=== PATIENT | male | born 1935 | race Caucasian/White ===

== ENCOUNTER 2017-01-10 06:09 | Inpatient (IN) ==
--- NOTE | 2017-01-10 06:34 | Emergency Department Note ---
Disposition Clinical Impression: Dyspnea Disposition: Still a Patient Condition: Fair Referrals: NO,PCP [Non-Partnered Physician] - Forms: ED Satisfaction Letter General Adult HPI - General Chief complaint: ED Fever Stated complaint: chills fever n/v AMXIMILIAN Time Seen by Provider: 01/10/17 06:25 Source: patient, family Limitations: no limitations Nursing Notes Reviewed: Yes Vital Signs Reviewed: Yes - History of Present Illness HPI Narrative: 81-year-old male with a history of COPD presents to the emergency department with a chief complaint of shortness of breath and shaking chills. He woke up tonight and was having some difficulties breathing and was having subjective fevers and chills. He had pneumonia recently and his symptoms seem similar. He is a former heavy smoker. He is not sure dependent but he has had some low oxygen saturations in the past that he has been resistant to oxygen therapy at home. No history of DVT or PE. No history of coronary artery disease. Yesterday he was at a and was outside but no other sick contacts. Pain Scale: 0 - Related Data Home Medications Medication Instructions Recorded Confirmed Desonide [Desowen] 1 appl TP BID PRN 10/11/16 10/11/16 Gabapentin [Neurontin] 600 mg PO TID 10/11/16 10/11/16 Imiquimod [Zyclara] 1 appl TP HS MDD See Comment. 10/11/16 10/11/16 Omeprazole Magnesium [Prilosec Otc] 20 mg PO DAILY 10/11/16 10/11/16 OxyCODONE ER (12 HR) [OxyCONTIN] 15 mg PO TID 10/11/16 10/11/16 Oxycodone HCl/Acetaminophen 1 each PO BID PRN 10/11/16 10/11/16 [Percocet 10-325 mg Tablet] Tamsulosin [Flomax] 0.8 mg PO DAILY 10/11/16 10/11/16 Triamcinolone Acet 0.1% CRM 1 appl TP BID PRN 10/11/16 10/11/16 [Kenalog] Previous Rx's Medication Instructions Recorded Azithromycin [Zithromax Tri-Rinku] 500 mg PO DAILY #10 tablet 10/13/16 Cefdinir [Omnicef] 300 mg PO BID #20 capsule 10/13/16 Allergies Allergy/AdvReac Type Severity Reaction Status Date / Time No Known Allergies Allergy Verified 10/29/15 07:47 All systems ED: reviewed and negative except as stated. Constitutional: Reports: fever, chills Cardiovascular: Denies: chest pain Respiratory: Reports: cough Gastrointestinal: Denies: abdominal pain, nausea, vomiting Musculoskeletal: Reports: back pain (chronic back pain with no recent change). Denies: neck pain Neurological: Denies: headache Past Medical History - Past Medical History Medical history: Reports: arthritis, COPD Surgical history: Reports: non-contributory, cancer surgery Psychiatric history: Reports: no psych history - Social History Smoking Status: Former smoker Smokeless Tobacco Status: No Alcohol use: Reports: unknown Drug use: Reports: none Physical Exam General: Appears well, alert and oriented x 3 Cardiovascular: Regular rate and rhythm. S1, S2. Systolic murmur. No rubs or gallops. Respiratory: Coarse breath sounds bilaterally without any rales or wheezing. Occasional dry cough. No respiratory distress Abdomen: Soft, nontender. No guarding, rebound or rigidity. Eyes: conjunctiva clear HENT: No oral mucosal lesions. Moist mucous membranes Neuro: Cranial nerves intact. No motor or sensory deficit. Musculoskeletal: No joint tenderness or swelling. No signs of DVT Skin: No lesions. No diaphoresis. Normal turgor. Normal color Psych: Appropriate - General Limitations: no limitations General appearance: alert, in no apparent distress Course Course Narrative: 81-year-old with a history of COPD presents to the emergency department with new onset shaking chills and cough. He has had pneumonia in the past and this seems similar. Patient initially hypoxic in the mid 80s on room air. He is notching dependent at home. Titrated to 4 L with good response. Labs and imaging pending. Vital Signs Temperature 98.2 F 01/10/17 06:10 Pulse Rate 97 01/10/17 06:10 Respiratory Rate 20 01/10/17 06:10 Blood Pressure 179/76 01/10/17 06:10 O2 Sat by Pulse Oximetry 88 L 01/10/17 06:10 Temperature 98.2 F 01/10/17 06:10 Pulse Rate 97 01/10/17 06:10 Respiratory Rate 20 01/10/17 06:10 Blood Pressure 179/76 01/10/17 06:10 O2 Sat by Pulse Oximetry 93 L 01/10/17 06:27 Oxygen Delivery Oxygen Delivery Room Air Medical Decision Making - EKG Data EKG #1 EKG results narrative: EKG shows a sinus rhythm with a rate of 85 beats a minute. No ST elevation or depression. UT, QRS, QT interval within normal limits. Normal axis. No ischemic T-wave changes. Attestation Statement - Attestation Attestation: Dr Hills note: Pt seen in conjunction w/ Resident Dr Kenneth Parrish; Please see his charting for complete documentation; I spent face to face time with the pt; the patient arrived fever or vomiting and shortness of breath progressive since around dinnertime last night. On arrival he is hypoxic on room air at 85%. He will undergo an emergent medical screening evaluation regarding this will likely require admission due to his hypoxia. At the time of my evaluation he is on nasal cannula and stable at 90-93%. HEENT mentate well. He has stable vital signs other than his hypoxia which has been treated. History of pneumonia which ; he will be signed out to attending physician at 7 AM for reevaluation, laboratory and imaging review, and disposition presented similar to this just months ago.
[2017-01-10 07:27] LABS: BUN/Creatinine Ratio 27 (6-26); Blood Urea Nitrogen 29 mg/dL (8-26); Calcium 9.8 mg/dL (8.6-10.8); Carbon Dioxide 26 mEq/L (19-29); Chloride 108 mEq/L (98-109); Glucose 115 mg/dL (70-99); Osmolality,Calculated 301 (280-300); Potassium 4.5 mEq/L (3.5-4.5); Sodium 142 mEq/L (136-145); eGFR For African Americans > 60 (> 60); eGFR For Non-African Americans > 60 (> 60)
[2017-01-10 07:35] LABS: Basophils % 0.3 %; Eosinophils # 0.2 K/mcL (0.0-0.6); Eosinophils % 1.3 %; Hematocrit 43.6 % (37.5-50.1); Hemoglobin 14.2 g/dL (12.9-16.9); Immature Granulocytes % 0.8 % (0-4); Lymphocytes # 0.8 K/mcL (0.6-4.6); Mean Corpuscular HGB Conc 32.6 g/dL (31.6-35.5); Mean Corpuscular Hemoglobin 28.9 pg (28.0-33.3); Mean Corpuscular Volume 88.6 fL (83.0-100.0); Mean Platelet Volume 11.5 fL (9.4-12.4); Monocytes # 0.6 K/mcL (0.0-1.3); Monocytes % 4.8 %; Neutrophils # 10.3 K/mcL (1.6-8.9); Platelet Count 184 K/mcL (140-400); Red Blood Count 4.92 M/mcL (4.19-5.50); Red Cell Distribution Width 15.1 % (11.5-14.5); Segmented Neutrophils % 85.8 %
[2017-01-10] MEDS ORDERED: 0.9 % Sodium Chloride 1,000 ML IVC ONE (07:41)
[2017-01-10] MEDS ORDERED: Ipratropium/Albuterol Neb 3 ML IH ONE (07:41)
[2017-01-10] MEDS ORDERED: Levofloxacin 750 MG/150 ML 750 MG/150 ML BAG IVPB ONE (07:45)
--- NOTE | 2017-01-10 07:51 | Emergency Department Note ---
Disposition Clinical Impression: Community acquired pneumonia, Hypoxia Disposition: Admitted As Inpatient Condition: Fair Referrals: NO,PCP [Non-Partnered Physician] - Forms: ED Satisfaction Letter Time of Disposition: 09:41 General Adult HPI - General Chief complaint: ED Fever Stated complaint: chills fever n/v MAXIMILIAN Time Seen by Provider: 01/10/17 06:25 Source: patient, family Limitations: no limitations - History of Present Illness Pain Scale: 0 - Related Data Home Medications Medication Instructions Recorded Confirmed Gabapentin [Neurontin] 600 mg PO TID 10/11/16 01/10/17 OxyCODONE ER (12 HR) [OxyCONTIN] 15 mg PO TID 10/11/16 01/10/17 Oxycodone HCl/Acetaminophen 1 each PO BID PRN 10/11/16 01/10/17 [Percocet 10-325 mg Tablet] Tamsulosin [Flomax] 0.8 mg PO DAILY 10/11/16 01/10/17 Allergies Allergy/AdvReac Type Severity Reaction Status Date / Time No Known Allergies Allergy Verified 01/10/17 09:38 Constitutional: Reports: fever, chills Cardiovascular: Denies: chest pain Respiratory: Reports: cough Gastrointestinal: Denies: abdominal pain, nausea, vomiting Musculoskeletal: Reports: back pain (chronic back pain with no recent change). Denies: neck pain Neurological: Denies: headache Past Medical History - Past Medical History Medical history: Reports: arthritis, COPD Surgical history: Reports: non-contributory, cancer surgery Psychiatric history: Reports: no psych history - Social History Smoking Status: Former smoker Smokeless Tobacco Status: No Alcohol use: Reports: unknown Drug use: Reports: none Physical Exam - General Limitations: no limitations General appearance: alert, in no apparent distress Course - Reevaluation(s) Reevaluation #1: I assumed care of the patient at change of shift from the night physician. Patient reports that he started feeling sick last night before going to bed. He describes chills last night. Family members report seeing him be more short of breath and wheezing last night. He is worse this morning. On arrival he was hypoxic. He is not on oxygen at home. He is febrile at this time. Chest x -ray shows a right lower lobe pneumonia. I do not see other indications of sepsis. We will treat the patient for pneumonia. I added extra lab work to complete the workup. I ordered IV antibiotics and breathing treatments and fluids. I will talk to the hospitalist about admitting the patient. Time: 07:50 Reevaluation #2: Patient is feeling better after treatments. We will arrange the admission. Time: 09:39 - Consultations Consultation #1: I discussed the case with Dr. Ventura, the hospitalist on-call. She is accepted patient for admission to the hospital. No further orders were given. Time: 09:40 Vital Signs Temperature 98.2 F 01/10/17 06:10 Pulse Rate 97 01/10/17 06:10 Respiratory Rate 20 01/10/17 06:10 Blood Pressure 179/76 01/10/17 06:10 O2 Sat by Pulse Oximetry 88 L 01/10/17 06:10 Temperature 99.7 F H 01/10/17 08:50 Pulse Rate 113 01/10/17 08:50 Respiratory Rate 18 01/10/17 08:50 Blood Pressure 145/79 01/10/17 08:50 O2 Sat by Pulse Oximetry 92 L 01/10/17 08:50 Oxygen Delivery Oxygen Delivery Nasal Cannula Medical Decision Making - Medical Records Medical records reviewed: Yes I reviewed the patient's medical records. - Lab Data Lab results reviewed: Yes I reviewed the patient's lab results. Result diagrams: 01/10/17 07:01 01/10/17 07:01 Lab Results 01/10/17 01/10/17 01/10/17 Range/Units 07:01 07:01 07:01 WBC 11.9 H (4.3-11.1) K/mcL RBC 4.92 (4.19-5.50) M/mcL Hgb 14.2 (12.9-16.9) g/dL Hct 43.6 (37.5-50.1) % MCV 88.6 (83.0-100.0) fL MCH 28.9 (28.0-33.3) pg MCHC 32.6 (31.6-35.5) g/dL RDW 15.1 H (11.5-14.5) % Plt Count 184 (140-400) K/mcL MPV 11.5 (9.4-12.4) fL Immature Gran % 0.8 (0-4) % Seg Neutrophils % 85.8 % Lymphocytes % 7.0 % Monocytes % 4.8 % Eosinophils % 1.3 % Basophils % 0.3 % Neutrophils # 10.3 H (1.6-8.9) K/mcL Lymphocytes # 0.8 (0.6-4.6) K/mcL Monocytes # 0.6 (0.0-1.3) K/mcL Eosinophils # 0.2 (0.0-0.6) K/mcL Basophils # 0.0 (0.0-0.2) K/mcL Sodium 142 (136-145) mEq/L Potassium 4.5 (3.5-4.5) mEq/L Chloride 108 (98-109) mEq/L Carbon Dioxide 26 (19-29) mEq/L BUN 29 H (8-26) mg/dL Creatinine 1.07 (0.72-1.25) mg/dL Est GFR ( Amer) > 60 (> 60) Est GFR (Non-Af Amer) > 60 (> 60) BUN/Creatinine Ratio 27 H (6-26) Glucose 115 H (70-99) mg/dL Calculated Osmolality 301 H (280-300) Lactic Acid (0.5-2.2) mmol/L Calcium 9.8 (8.6-10.8) mg/dL Troponin I 0.04 H* (0-0.03) ng/mL B-Natriuretic Peptide (0-100) pg/mL Urine Color (Yellow) Urine Clarity (Clear) Urine pH (5.0-8.0) pH Units Ur Specific [place] (1.010-1.025) Urine Protein (Neg-Trace) mg/dL Urine Glucose (UA) (Normal) mg/dL Urine Ketones (Negative) mg/dL Urine Blood (Negative) Urine Nitrite (Negative) Urine Bilirubin (Negative) Urine Urobilinogen (Normal) mg/dL Ur Leukocyte Esterase (Negative) Ur Culture Indicated? (NO) 01/10/17 01/10/17 01/10/17 Range/Units 07:01 08:08 09:05 WBC (4.3-11.1) K/mcL RBC (4.19-5.50) M/mcL Hgb (12.9-16.9) g/dL Hct (37.5-50.1) % MCV (83.0-100.0) fL MCH (28.0-33.3) pg MCHC (31.6-35.5) g/dL RDW (11.5-14.5) % Plt Count (140-400) K/mcL MPV (9.4-12.4) fL Immature Gran % (0-4) % Seg Neutrophils % % Lymphocytes % % Monocytes % % Eosinophils % % Basophils % % Neutrophils # (1.6-8.9) K/mcL Lymphocytes # (0.6-4.6) K/mcL Monocytes # (0.0-1.3) K/mcL Eosinophils # (0.0-0.6) K/mcL Basophils # (0.0-0.2) K/mcL Sodium (136-145) mEq/L Potassium (3.5-4.5) mEq/L Chloride (98-109) mEq/L Carbon Dioxide (19-29) mEq/L BUN (8-26) mg/dL Creatinine (0.72-1.25) mg/dL Est GFR ( Amer) (> 60) Est GFR (Non-Af Amer) (> 60) BUN/Creatinine Ratio (6-26) Glucose (70-99) mg/dL Calculated Osmolality (280-300) Lactic Acid 1.3 (0.5-2.2) mmol/L Calcium (8.6-10.8) mg/dL Troponin I (0-0.03) ng/mL B-Natriuretic Peptide 153 H (0-100) pg/mL Urine Color Yellow (Yellow) Urine Clarity Clear (Clear) Urine pH 5.5 (5.0-8.0) pH Units Ur Specific [place] 1.019 (1.010-1.025) Urine Protein Negative (Neg-Trace) mg/dL Urine Glucose (UA) Normal (Normal) mg/dL Urine Ketones Negative (Negative) mg/dL Urine Blood Negative (Negative) Urine Nitrite Negative (Negative) Urine Bilirubin Negative (Negative) Urine Urobilinogen Normal (Normal) mg/dL Ur Leukocyte Esterase Negative (Negative) Ur Culture Indicated? NO (NO) - Radiology Data Radiology results reviewed: Yes I reviewed the patient's radiology results.
[2017-01-10 09:19] LABS: Bilirubin,Urine Negative (Negative); Blood,Urine Negative (Negative); Clarity,Urine Clear (Clear); Color,Urine Yellow (Yellow); Glucose,Urine (UA) Normal (Normal); Ketones,Urine Negative (Negative); Leukocyte Esterase,Urine Negative (Negative); Nitrite,Urine Negative (Negative); PH,Urine 5.5 pH Units (5.0-8.0); Protein,Urine Negative (Neg-Trace); Specific Gravity,Urine 1.019 (1.010-1.025); Urobilinogen,Urine Normal (Normal)
[2017-01-10] MEDS ORDERED: *HR* OxyCODONE/APAP 5/325 TABLET PO ONE (10:01)
[2017-01-10] MEDS ORDERED: 0.9 % Sodium Chloride 1,000 ML IV ONE (10:01)
[2017-01-10] MEDS ORDERED: Ondansetron 4 MG/2 ML VIAL IVP PRN (12:00)
[2017-01-10] MEDS ORDERED: Acetaminophen 325 MG TABLET PO PRN (12:00)
[2017-01-10] MEDS ORDERED: Naloxone 0.4 MG/ML INJ IVP PRN (12:00)
[2017-01-10] MEDS ORDERED: Ipratropium/Albuterol Neb 3 ML IH PRN (12:00)
[2017-01-10] MEDS: Ipratropium/Albuterol Neb 3 ML IH SCH ×4 (13:28→23:43)
[2017-01-10] MEDS ORDERED: *HR* OxyCODONE/APAP 10/325 TABLET PO PRN (13:46)
--- NOTE | 2017-01-10 13:52 | Internal Med History&Physical ---
Date of Encounter: 01/10/17 Time of Encounter: 12:30 Assessment and Plan (1) Acute respiratory failure with hypoxemia Current visit: Yes Status: Acute Secondary to right-sided pneumonia. r/o non-resolving pna. Patient was diagnosed with pneumonia in September 2016 and never recovered. He completed a 7 day antibiotic course (omnicef and azithormycin). At that time, CT of the chest showed bilateral airspace disease with some nodular lesions and a new 1.7 cm left pleural-based nodule. He continued to have cough of productive sputum, and shortness of breath for at least 2 months. He was using albuterol once daily at home. Family reports the patient is not very eager to seek medical care and continued doing all his regular activities [place] despite instructions given by his PCP to limit his exposure to inhalants. CXR showed increased opacification in the right lower lobe. EKG showed sinus rhythm HR 85, no acute ischemic changes. Oxygen supplementation to keep SaO2 90-92% IV Levaquin. Albuterol/Atrovent/Mucomyst nebulizations. mucinex. Check CT of the chest given prior nodular disease adn to r/o mucuous plug or bronchiectasis. Check urine Legionella, urine strep pneumonia. (2) Community acquired pneumonia Current visit: Yes Status: Acute right-sided PNA. plan as above. (3) COPD exacerbation Current visit: No Status: Acute plan as above. albuterol/atrovent nebs symbicort. mucinex levaquin (4) Leg edema Current visit: Yes Status: Acute check echocardiogram, LFT and tsh. negative urinalysis. Qualifiers: Laterality: bilateral Qualified Code(s): R60.0 - Localized edema (5) Elevated troponin Current visit: Yes Status: Acute Secondary to demand supply mismatch from pneumonia and COPD exacerbation. ASA. (6) Chronic back pain Current visit: Yes Status: Chronic Continue home medication of oxycodone ER and Percocet for breakthrough pain. Qualifiers: Back pain location: low back pain Back pain laterality: unspecified Sciatica presence: without sciatica Qualified Code(s): M54.5 - Low back pain; G89.29 - Other chronic pain Internal Medicine - H&P: HPI Chief complaint: Worsening of shortness of breath and productive cough since yesterday. Admitted From: Home Plans for Post Hospital Care: Home History of present illness: Mr. Fair is a 81 year old male with past medical history of COPD not on oxygen , and back surgery on chronic opiates. Patient is a very poor historian. Family is at bedside and answering all questions in more detail. Per , patient was diagnosed with pneumonia in September 2016 and never recovered. At that time, CT of the chest showed bilateral airspace disease with some nodular lesions and a new 1.7 cm left pleural-based nodule. He continued to have cough of productive sputum, and shortness of breath for at least 2 months. He was using albuterol once daily at home. 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 Yesterday night, he developed chills, night sweats and his cough got worse. His family brought him to our ER this morning. No chest pain. No palpitations. No headache. No abdominal pain. No bleeding. No lower extremity edema in the past. No change in bowel movements. No urinary complaints. No focal deficits. No headaches. No lightheadedness. No syncope. In our ED, patient was hypoxemic SaO2 86% on room air. He was placed on 4 L of oxygen via nasal cannula. Past Med Surg Social Fam HX - Past Medical History Medical history: arthritis, COPD Psychiatric history: no psych history - Past Surgical History Surgical History: non-contributory, cancer surgery - Social History Smoking Status: Former smoker Smokeless Tobacco Status: No Alcohol use: unknown Drug use: none - Family History Mother Hx Family Respiratory Disorders: Yes (COPD) Internal Medicine - H&P: Meds Gabapentin [Neurontin] 600 mg PO TID 10/11/16 [History] OxyCODONE ER (12 HR) [OxyCONTIN] 15 mg PO TID 10/11/16 [History] Oxycodone HCl/Acetaminophen [Percocet 10-325 mg Tablet] 1 each PO BID PRN [History] Tamsulosin [Flomax] 0.8 mg PO DAILY 10/11/16 [History] Albuterol Sulfate [Proair Hfa] 2 puff IH Q4H PRN 01/10/17 [History] Meloxicam 7.5 mg PO DAILY 01/10/17 [History] Allergies No Known Allergies Allergy (Verified 01/10/17 09:38) All Systems PM: A 10-system review of systems was performed and is negative for pertinent findings except as documented above in the HPI. - Constitutional Vitals: Temp Pulse Resp BP Pulse Ox 99.7 F H 81 16 108/67 94 L 01/10/17 08:50 01/10/17 12:54 01/10/17 12:54 01/10/17 12:54 01/10/17 12:54 General appearance: Present: cooperative, mild distress, A&O X 3, pleasant, answers questions appropriately - Head Head exam: Present: atraumatic - Eye Eye exam: Present: PERRL, sclera anicteric - Neck Neck exam general surgery: Present: supple, trachea midline. Absent: lymphadenopathy - Respiratory Additional comments: Diminished air entry bilateral. Crackles right lower lung dover. Mild wheezing bilaterally. - Cardiovascular Cardiovascular exam: Present: RRR - GI/Abdominal GI/Abdominal exam: Present: soft. Absent: distended, tenderness - Extremities Exam Extremities exam: Present: pedal edema. Absent: joint swelling Additional comments: 1+ lower extremity edema up to the knees. - Neurological Exam Neurological exam: Present: alert, oriented X3, no focal deficits. Absent: facial droop, speech deficit - Skin Skin exam: Present: dry. Absent: rash Internal Med - H&P Results - Labs CBC & Chem 7: 01/10/17 07:01 01/10/17 07:01 Labs: Short CBC 01/10/17 Range/Units 07:01 WBC 11.9 H (4.3-11.1) K/mcL Hgb 14.2 (12.9-16.9) g/dL Hct 43.6 (37.5-50.1) % Plt Count 184 (140-400) K/mcL Neutrophils # 10.3 H (1.6-8.9) K/mcL BMP 01/10/17 07:01 Sodium 142 Potassium 4.5 Chloride 108 Carbon Dioxide 26 BUN 29 H Creatinine 1.07 Glucose 115 H Calcium 9.8 Cardiac Enzymes 01/10/17 Range/Units 07:01 Troponin I 0.04 H* (0-0.03) ng/mL Urine 01/10/17 Range/Units 09:05 Urine Color Yellow (Yellow) Urine Clarity Clear (Clear) Urine pH 5.5 (5.0-8.0) pH Units Ur Specific [place] 1.019 (1.010-1.025) Urine Protein Negative (Neg-Trace) mg/dL Urine Glucose (UA) Normal (Normal) mg/dL - Impressions ITS Impressions Chest X-Ray 01/10/17 06:33 IMPRESSION: Increased opacification in the right lower lobe possibly representing pneumonia D/ / Kyle Mosley MD / Kyle Mosley MD Interpreting Provider: Kyle Mosley MD
[2017-01-10] MEDS ORDERED: *HR* OxyCODONE ER (12 HR) 10 MG TABLET PO SCH ×2 (16:00→18:00)
[2017-01-10] MEDS: Gabapentin 300 MG CAPSULE PO SCH ×2 (16:38→21:17)
[2017-01-10] MEDS: Acetylcysteine 10% 2 ML INHSOL IH SCH ×2 (16:51→20:04)
[2017-01-10] MEDS: *HR* Heparin 5,000 UNIT/ML VIAL SQ SCH (17:58)
[2017-01-10] MEDS: *HR* OxyCODONE ER (12 HR) 10 MG TABLET PO SCH (23:56)
[2017-01-11] MEDS: Ipratropium/Albuterol Neb 3 ML IH SCH ×6 (04:19→23:19)
[2017-01-11 06:24] LABS: Basophils % 0.3 %; Eosinophils # 0.1 K/mcL (0.0-0.6); Eosinophils % 0.8 %; Hematocrit 38.2 % (37.5-50.1); Immature Granulocytes % 0.6 % (0-4); Lymphocytes # 1.5 K/mcL (0.6-4.6); Mean Corpuscular HGB Conc 31.7 g/dL (31.6-35.5); Mean Corpuscular Hemoglobin 28.1 pg (28.0-33.3); Mean Corpuscular Volume 88.8 fL (83.0-100.0); Mean Platelet Volume 11.3 fL (9.4-12.4); Monocytes # 0.5 K/mcL (0.0-1.3); Monocytes % 4.8 %; Neutrophils # 8.4 K/mcL (1.6-8.9); Platelet Count 160 K/mcL (140-400); Red Cell Distribution Width 15.3 % (11.5-14.5); Segmented Neutrophils % 79.5 %
[2017-01-11 06:39] LABS: Alanine Aminotransferase 6 Units/L (0-55); Albumin 2.8 g/dL (3.5-5.0); Albumin/Globulin Ratio 1.1 (1.1-2.2); Alkaline Phosphatase 88 Units/L (38-126); Aspartate Amino Transferase 15 Units/L (5-34); BUN/Creatinine Ratio 26 (6-26); Bilirubin,Direct 0.2 mg/dL (0.0-0.5); Bilirubin,Indirect 0.2 mg/dL (0.0-1.2); Bilirubin,Total 0.4 mg/dL (0.2-1.2); Blood Urea Nitrogen 24 mg/dL (8-26); Calcium 9.3 mg/dL (8.6-10.8); Carbon Dioxide 25 mEq/L (19-29); Chloride 110 mEq/L (98-109); Globulin 2.6 g/dL (2.4-3.5); Glucose 104 mg/dL (70-99); Magnesium 1.3 mg/dL (1.6-2.6); Osmolality,Calculated 296 (280-300); Potassium 4.2 mEq/L (3.5-4.5); Sodium 141 mEq/L (136-145); Total Protein 5.4 g/dL (6.0-8.3); eGFR For African Americans > 60 (> 60); eGFR For Non-African Americans > 60 (> 60)
[2017-01-11 06:45] LABS: Hemoglobin 12.1 g/dL (12.9-16.9)
[2017-01-11] MEDS: *HR* Heparin 5,000 UNIT/ML VIAL SQ SCH ×2 (06:47→17:05)
[2017-01-11 06:51] LABS: Thyroid Stimulating Hormone 0.332 mcIU/mL (0.350-4.840)
[2017-01-11] MEDS: Acetylcysteine 10% 2 ML INHSOL IH SCH ×3 (07:32→23:19)
[2017-01-11] MEDS: Aspirin Enteric Coated 81 MG Tablet PO SCH (08:55)
[2017-01-11] MEDS: Gabapentin 300 MG CAPSULE PO SCH ×3 (08:56→21:10)
[2017-01-11] MEDS ORDERED: Levofloxacin 500 MG/100 ML 500 MG/100 ML BAG IVPB SCH (09:00)
--- NOTE | 2017-01-11 10:17 | ECHO - Doppler Report ---
Echocardiogram Name: Keny Fair Date of Study: 01/10/2017 Date: 1935 Ht: 72.0 in Medical Record#: [id number] Age: 81 Wt: 190.0 lb Gender: Male BSA: 2.08 Order #: [id number] Location: [facility] Room #: [id number] Reading Physician: Cody Weller DO, CLINT, JOHNATHAN LYON Trucker Hand: Shweta Huston Ordering Physician: Emily Sorensen MD Primary Physician: Dereje Banks MD Indications: LE Edema Impressions: LVEF 65%. Normal LV chamber size and function. Mild concentric left ventricular hypertrophy. Moderate left ventricular diastolic dysfunction. Normal right ventricular structure and function. Moderate pulmonary hypertension. No significant valvular dysfunction. Left Ventricular Wall Motion: Rest Echo Findings All wall segments showed normal motion. Findings: Study Quality * Technically adequate exam. ECG Findings * Normal sinus rhythm. Left Ventricle * LVEF 65%. * Normal LV chamber size and function. * Mild concentric left ventricular hypertrophy. * Moderate left ventricular diastolic dysfunction. Right Ventricle * Normal right ventricular structure and function. Left Atrium * Moderately dilated left atrium. Right Atrium * Severely dilated right atrium. Interatrial Septum * No evidence of PFO by color Doppler. Aortic Valve * Trileaflet aortic valve. * Moderately calcified aortic valve leaflets. * No aortic regurgitation. * No aortic stenosis. Mitral Valve * Mild mitral annular calcification * Mildly thickened mitral valve leaflets. * No mitral regurgitation. * No mitral stenosis. Tricuspid Valve * Normal tricuspid valve structure and function. * Trace tricuspid regurgitation. * Moderate pulmonary hypertension. Pulmonic Valve * Pulmonic valve not well visualized. Aorta * Normally sized aortic root. Pericardium * The pericardium appears normal. IVC * Normal IVC dimensions and inspiratory collapse. Pulmonary Artery * Normal visualized portions of the main pulmonary artery. History Years 60 Packs 1 05/11/2015 a Previous Echo was performed. Measurements: BP: 113/ 63 2D Normal Values RVIDd: 3.10 cm <2.7 cm IVSd: 1.40 cm 0.6 - 1.0 cm LVIDd: 4.50 cm 3.7 - 5.6 cm LVPWd: 1.40 cm 0.6 - 1.1 cm LVIDs: 2.80 cm 1.5 - 3.6 cm AO: 3.60 cm < 4.0 cm LA: 4.70 cm 2.0 - 4.0cm %FS: 37.80 cm >25 % LA volume: 79 Mitral Valve Peak E:.79 m/sec Peak A:.66 m/sec E/A Ratio:1.2 Peak E' Lat Jun:7.7 cm/s Peak E' Med Jun:6.14 cm/s E/E' Lat Ratio:10.3 E/E' Med Ratio:12.9 Tricuspid Valve TV Regurg Peak Grad: 41.00mmHg TV Regurg Peak Jun: 3.22m/sec Updated by Cody Weller DO, CLINT, JOHNATHAN LYON on 01/11/2017 10:08:46 AM electronically signed on 01/11/2017 10:12:59 AM with status of [employer] [place] [employer] [place]: 1=Normal, 2=Hypokinesis, 3=Akinesis, 4=Dyskinesis, 5=Aneurysmal, 6=Hyperkinetic, X=Not Visualized (Blank)=Missing
[2017-01-11] MEDS: *HR* OxyCODONE ER (12 HR) 10 MG TABLET PO SCH ×2 (11:08→23:35)
--- NOTE | 2017-01-11 13:38 | Internal Med Progress Note ---
<Ghulam Hernandez - Last Filed: 01/11/17 14:03> Date of Encounter: 01/11/17 Time of Encounter: 13:33 - Assessment and plan (1) Acute respiratory failure with hypoxemia Current Visit: Yes Status: Acute Assessment and plan: most likely 2nd to his CAP, and in setting of COPD exacerbation. CXR shows increased opacificaiton of right lower lobe, patient does not use O2 at home and is on 2L currently, Ct scan shows stable left apical nodule and infectious process in right lung base. Urine legionella and urine strep pneumonia negative. Blood cultures pending. Patient on IV levofloxacin will switch to PO. We will also continue albuterol/atorvent/mucomyst. Patient sob has improved considerably. As he is still on O2, plan will be to wean him off and if patient cannot tolerate it than he will need home O2 qualification. (2) Community acquired pneumonia Current Visit: Yes Status: Acute Assessment and plan: New onset of CAP as stated above. CT Chest shows infectious process in Right lung base. Patient is on Levaquin. His sob has improved considerably. We will continue to follow his respiratory status. (3) Elevated troponin Current Visit: Yes Status: Acute Assessment and plan: On admission elevated troponin of 0.04. NO hx of cardiac issues. Echocardiogram shows EF 65% with no wall motion abnormalaties. Troponin elevation most likely secondary to COPD exacerbation and pneumonia. Patient's shortness of breath improved considerably after being treated for COPD exacerbation pneumonia. He denies chest pain, palpitations. (4) Leg edema Current Visit: Yes Status: Resolved Assessment and plan: Patients like edema has improved. Echocardiogram shows EF of 65% with moderate left ventricular diastolic dysfunction. Qualifiers: Laterality: bilateral Qualified Code(s): R60.0 - Localized edema (5) COPD exacerbation Current Visit: Yes Status: Acute Assessment and plan: COPD exacerbation most likely secondary to pneumonia. We will continue bronchodilators, Levaquin, and Symbicort. (6) DVT prophylaxis Current Visit: No Status: Acute Assessment and plan: Continue heparin subcutaneous. (7) Pulmonary nodule Current Visit: No Status: Chronic Assessment and plan: Patient has a stable 1.7 cm left lung apex nodule on CT scan. Pulmonology was consulted and has ordered outpatient PET scan. Patient will also follow up outpatient with Dr. De Oliveira. - Subjective Interval history: 81 y/o M hx of COPD, presented with cc of chills, and night sweats. He had worsening cough as well. Patient was hypoxemic on admission and was placed on 4L O2. He has had a previous admission in [facility] or pneumonia where he CT showed a 1.7 cm nodular lesion of left lung apex. Repeat CT shows stable nodule , resolution of previous pneumonia and new evidence of pneumonia in right lung base. Patient this morning denied sob, chest pain, cough, fever, chills. He has no family hx of lung cancer. 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 States he is exponsed to constant dust. Furthermore, patient states he becomes easily sob with activity which has worsened since his last admission for pneumonia SEP 2016. - Constitutional Vitals: Temp Pulse Resp BP Pulse Ox 97.6 F 65 18 137/95 91 L 01/11/17 07:00 01/11/17 07:00 01/11/17 10:54 01/11/17 07:00 01/11/17 10:54 General appearance: Present: cooperative, mild distress, A&O X 3, pleasant, answers questions appropriately - Eye Eye exam: Present: PERRL, conjuntiva pink, sclera anicteric - Neck Neck exam general surgery: Present: supple, trachea midline. Absent: lymphadenopathy - Respiratory Respiratory exam: Present: decreased breath sounds, rales (lung bases), wheezes. Absent: accessory muscle use, rhonchi - Cardiovascular Cardiovascular exam: Present: RRR, +S1, +S2. Absent: diastolic murmur, gallop, rubs, systolic murmur - GI/Abdominal GI/Abdominal exam: Present: normal bowel sounds, soft, no peritoneal signs. Absent: distended, tenderness - Extremities Exam Extremities exam: Present: warm, radial pulses palpable and symetrical. Absent : calf tenderness, cyanotic, pedal edema - Neurological Exam Neurological exam: Present: CN II-XII intact, oriented X3, no focal deficits. Absent: pronater drift, facial droop, speech deficit - Skin Skin exam: Present: dry, intact Internal Medicine: Result - Labs CBC & Chem 7: 01/11/17 05:46 01/11/17 05:46 Labs: Short CBC 01/11/17 Range/Units 05:46 WBC 10.6 (4.3-11.1) K/mcL Hgb 12.1 L D (12.9-16.9) g/dL Hct 38.2 (37.5-50.1) % Plt Count 160 (140-400) K/mcL Neutrophils # 8.4 (1.6-8.9) K/mcL BMP 01/11/17 05:46 Sodium 141 Potassium 4.2 Chloride 110 H Carbon Dioxide 25 BUN 24 Creatinine 0.92 Glucose 104 H Calcium 9.3 Liver Function 01/11/17 Range/Units 05:46 Total Bilirubin 0.4 (0.2-1.2) mg/dL Direct Bilirubin 0.2 (0.0-0.5) mg/dL AST 15 (5-34) Units/L ALT 6 (0-55) Units/L Alkaline Phosphatase 88 (38-126) Units/L Albumin 2.8 L (3.5-5.0) g/dL Consult Discharge Plan - Plan Referrals: Dereje Banks MD [Primary Care Provider] - 01/25/17 3:30 pm <Didier Sims - Last Filed: 01/11/17 18:33> Date of Encounter: 01/11/17 - Assessment and plan (1) Acute respiratory failure with hypoxemia Current Visit: Yes Status: Acute (2) Pneumonia Current Visit: Yes Status: Acute Qualifiers: Pneumonia type: due to unspecified organism Laterality: left Lung location: lower lobe of lung Qualified Code(s): J18.1 - Lobar pneumonia, unspecified organism (3) COPD exacerbation Current Visit: Yes Status: Acute (4) Leg edema Current Visit: Yes Status: Resolved Qualifiers: Laterality: bilateral Qualified Code(s): R60.0 - Localized edema - Constitutional Vitals: Temp Pulse Resp BP Pulse Ox 97.6 F 77 17 126/77 93 L 01/11/17 07:00 01/11/17 16:00 01/11/17 16:00 01/11/17 16:00 01/11/17 16:00 Internal Medicine: Result - Labs CBC & Chem 7: 01/11/17 05:46 01/11/17 05:46 Labs: Short CBC 01/11/17 Range/Units 05:46 WBC 10.6 (4.3-11.1) K/mcL Hgb 12.1 L D (12.9-16.9) g/dL Hct 38.2 (37.5-50.1) % Plt Count 160 (140-400) K/mcL Neutrophils # 8.4 (1.6-8.9) K/mcL BMP 01/11/17 05:46 Sodium 141 Potassium 4.2 Chloride 110 H Carbon Dioxide 25 BUN 24 Creatinine 0.92 Glucose 104 H Calcium 9.3 Liver Function 01/11/17 Range/Units 05:46 Total Bilirubin 0.4 (0.2-1.2) mg/dL Direct Bilirubin 0.2 (0.0-0.5) mg/dL AST 15 (5-34) Units/L ALT 6 (0-55) Units/L Alkaline Phosphatase 88 (38-126) Units/L Albumin 2.8 L (3.5-5.0) g/dL - Attending Attestation I examined this patient and my medical decision-making was reviewed with the Resident Physician on 01/11/17. I agree with the documented findings, disposition and treatment plan as described except to the extent set forth below. Mr. Fair is currently admitted for acute hypoxic resp failure due to pneumonia. He remains moderate to high risk due to potential for worsening respiratory status and infection. Mr. Fair is doing a little better. He has visitors at this time. Still with cough. No fever. Dyspneic with movement. Exam Alert. Comfortable Heart reg No wheeze at this time Edema present I/P 1. Acute hypoxic resp failure 2. Edema 3. Pneumonia Further diagnoses and plan as above.
[2017-01-11] MEDS ORDERED: Magnesium Sulfate 2 GM in D5% in Water 100 ML IVPB ONE (13:51)
[2017-01-11] MEDS: *HR* OxyCODONE/APAP 10/325 TABLET PO PRN (15:24)
--- NOTE | 2017-01-11 17:31 | Pulmonology Consult Note ---
Date of Encounter: 01/11/17 Time of Encounter: 11:15 Assessment and Plan (1) Pulmonary nodule Current Visit: No Status: Chronic This has been stable and PET scan to be done as outpatient which will be arranged by the pulmonary office and then will follow up after the PET scan. Patient does have risk factors for malignancy and low-grade malignancy cannot be ruled out. If PET scan is positive then he will need biopsy. Thank you for the consult plan of care discussed with primary team. (2) Acute respiratory failure with hypoxemia Current Visit: Yes Status: Acute This is most likely secondary to COPD exacerbation and agree with current bronchodilators. Add Symbicort and also prednisone. Continue antibiotics. Patient need to follow up as outpatient pulmonary function test and he might benefit from pulmonary rehabilitation. (3) COPD (chronic obstructive pulmonary disease) Current Visit: No Status: Chronic Qualifiers: COPD type: COPD with acute exacerbation Qualified Code(s): J44.1 - Chronic obstructive pulmonary disease with (acute) exacerbation (4) COPD exacerbation Current Visit: Yes Status: Acute History of Present Illness Consult date: 01/11/17 Requesting physician: Ghulam Hernandez Reason for consult: lung mass Chief complaint: Shortness of breath History of present illness: This is a pleasant 81-year-old male with significant history of COPD and he was on to have lung mass on CAT scan. Overall patient is a poor historian and he has significant history of smoking in the past and also he has infusing more short of breath with about 10 pounds weight loss over 10 years. Patient denies any hemoptysis and denies any chest pain but he does have some wheezing and he developed chills with cough which was worse in and that so he came to the hospital. 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 Patient was found to be hypoxic in the emergency room and was placed on oxygen. He denies any history of tuberculosis or exposure to TB in the past. He does not remember pulmonary function tests. Past Med Surg Social Fam HX - Past Medical History Medical history: arthritis, COPD Psychiatric history: no psych history - Past Surgical History Surgical History: non-contributory, cancer surgery - Social History Smoking Status: Former smoker Smokeless Tobacco Status: No Alcohol use: unknown Drug use: none - Family History Mother Hx Family Respiratory Disorders: Yes (COPD) Medications and Allergies Gabapentin [Neurontin] 600 mg PO TID 10/11/16 [History] OxyCODONE ER (12 HR) [OxyCONTIN] 15 mg PO TID 10/11/16 [History] Oxycodone HCl/Acetaminophen [Percocet 10-325 mg Tablet] 1 each PO BID PRN [History] Tamsulosin [Flomax] 0.8 mg PO DAILY 10/11/16 [History] Albuterol Sulfate [Proair Hfa] 2 puff IH Q4H PRN 01/10/17 [History] Meloxicam 7.5 mg PO DAILY 01/10/17 [History] Allergies No Known Allergies Allergy (Verified 01/10/17 09:38) All Systems: A 10-system review of systems was performed and is negative for pertinent findings except as documented above in the HPI. Physical Examination Vital Signs: Vital Signs, Last 4 Hours Pulse Resp BP Pulse Ox 01/11/17 16:00 77 17 126/77 93 L 01/11/17 15:14 18 91 L General appearance: no acute distress Eyes: nonicteric ENT: oropharynx dry Neck: supple, no lymphadenopathy Effort: normal Inspection: hyperextended Auscultation: bilateral: diminished breath sounds Percussion: bilateral: not dull Cardiovascular: regular rate and rhythm Gastrointestinal: normoactive bowel sounds, non-distended Extremities: no cyanosis, no edema normal mental status, non-focal exam mood appropriate Results - Laboratory Findings CBC and BMP: 01/11/17 05:46 01/11/17 05:46 Abnormal lab findings: Abnormal lab results Hgb 12.1 g/dL (12.9-16.9) L D 01/11/17 05:46 RDW 15.3 % (11.5-14.5) H 01/11/17 05:46 Chloride 110 mEq/L (98-109) H 01/11/17 05:46 Glucose 104 mg/dL (70-99) H 01/11/17 05:46 Magnesium 1.3 mg/dL (1.6-2.6) L 01/11/17 05:46 Troponin I 0.04 ng/mL (0-0.03) H* 01/10/17 07:01 B-Natriuretic Peptide 153 pg/mL (0-100) H 01/10/17 07:01 Serum Total Protein 5.4 g/dL (6.0-8.3) L 01/11/17 05:46 Albumin 2.8 g/dL (3.5-5.0) L 01/11/17 05:46 TSH 0.332 mcIU/mL (0.350-4.840) L 01/11/17 05:46 - Microbiology Findings Microbiology Findings: Microbiology, Last 48 Hours 01/10/17 19:58 Legionella Antigen - Final Urine,Clean Catch Streptococcus pneumoniae Antigen (M - Final - Diagnostic Findings CT scan - chest: report reviewed, image reviewed - Clinical Findings Intake & Output: Intake & Output 01/11/17 01/11/17 01/11/17 07:59 15:59 23:59 Intake Total 1014 / 1014 550 / 550 Balance 1014 / 1014 550 / 550 Weight 92.7 kg Consult Discharge Plan - Plan Referrals: Dereje Banks MD [Primary Care Provider] - 01/25/17 3:30 pm
--- NOTE | 2017-01-11 19:09 | Electrocardiograph Report ---
[facility] [facility] Test Date: 2017-01-10 Pat Name: Keny Fair Department: 105 Room: 2NE30 Gender: [employer]: : [id number] Requested By: Kenneth Parrish Order Number: [id number] Reading MD: Lakshmi Leach DO Measurements Intervals [place] Rate: 85 P: 72 OK: 172 QRS: 25 QRSD: 80 T: 51 QT: 313 QTc: 355 Interpretive Statements SINUS RHYTHM NONSPECIFIC T-WAVE ABNORMALITY Electronically Signed On 01-11-2017 19:07:31 EST by Lakshmi Leach DO
[2017-01-11] MEDS: Budesonide/Formoterol 160/4.5 MDI IH SCH (20:32)
[2017-01-12] MEDS: *HR* OxyCODONE/APAP 10/325 TABLET PO PRN (03:47)
[2017-01-12] MEDS: Ipratropium/Albuterol Neb 3 ML IH SCH ×3 (04:01→11:24)
[2017-01-12] MEDS: *HR* Heparin 5,000 UNIT/ML VIAL SQ SCH (06:01)
[2017-01-12 06:07] LABS: Basophils % 0.3 %; Eosinophils # 0.3 K/mcL (0.0-0.6); Eosinophils % 3.5 %; Hematocrit 38.6 % (37.5-50.1); Hemoglobin 12.2 g/dL (12.9-16.9); Immature Granulocytes % 0.3 % (0-4); Lymphocytes % 10.4 %; Mean Corpuscular HGB Conc 31.6 g/dL (31.6-35.5); Mean Corpuscular Hemoglobin 27.9 pg (28.0-33.3); Mean Corpuscular Volume 88.3 fL (83.0-100.0); Mean Platelet Volume 11.4 fL (9.4-12.4); Monocytes # 0.6 K/mcL (0.0-1.3); Monocytes % 6.8 %; Neutrophils # 7.3 K/mcL (1.6-8.9); Platelet Count 168 K/mcL (140-400); Red Blood Count 4.37 M/mcL (4.19-5.50); Red Cell Distribution Width 15.1 % (11.5-14.5); Segmented Neutrophils % 78.7 %
[2017-01-12 06:17] LABS: BUN/Creatinine Ratio 19 (6-26); Blood Urea Nitrogen 16 mg/dL (8-26); Calcium 9.5 mg/dL (8.6-10.8); Carbon Dioxide 27 mEq/L (19-29); Chloride 109 mEq/L (98-109); Glucose 101 mg/dL (70-99); Magnesium 1.5 mg/dL (1.6-2.6); Osmolality,Calculated 293 (280-300); Potassium 4.6 mEq/L (3.5-4.5); Sodium 141 mEq/L (136-145); eGFR For African Americans > 60 (> 60); eGFR For Non-African Americans > 60 (> 60)
[2017-01-12] MEDS: Budesonide/Formoterol 160/4.5 MDI IH SCH (07:51)
[2017-01-12] MEDS: Acetylcysteine 10% 2 ML INHSOL IH SCH (07:52)
[2017-01-12] MEDS ORDERED: predniSONE 20 MG TABLET PO SCH (08:00)
[2017-01-12] MEDS ORDERED: levoFLOXacin 500 MG TABLET PO SCH (09:00)
--- NOTE | 2017-01-12 09:29 | Discharge Summary ---
<Ghulam Hernandez - Last Filed: 01/12/17 13:17> Date of Encounter: 01/12/17 Time of Encounter: 09:24 - Discharge Diagnosis (1) Acute respiratory failure with hypoxemia Priority: Primary Status: Resolved (2) Community acquired pneumonia Priority: Secondary Status: Acute (3) Elevated troponin Priority: Secondary Status: Resolved (4) Leg edema Priority: Secondary Status: Resolved Qualifiers: Laterality: bilateral Qualified Code(s): R60.0 - Localized edema (5) COPD exacerbation Priority: Secondary Status: Resolved (6) DVT prophylaxis Priority: Secondary Status: Acute (7) Pulmonary nodule Priority: Secondary Status: Chronic - Discharge Medications Prescriptions: Budesonide/Formoterol 160/4.5 [Symbicort 160/4.5] 2 puff IH BIDR 30 Days Levofloxacin [Levaquin] 500 mg PO DAILY #4 tablet PredniSONE 10 mg PO TAPER #10 tablet Home Medications: Gabapentin [Neurontin] 600 mg PO TID 10/11/16 [History] OxyCODONE ER (12 HR) [OxyCONTIN] 15 mg PO TID 10/11/16 [History] Oxycodone HCl/Acetaminophen [Percocet 10-325 mg Tablet] 1 each PO BID PRN [History] Tamsulosin [Flomax] 0.8 mg PO DAILY 10/11/16 [History] Albuterol Sulfate [Proair Hfa] 2 puff IH Q4H PRN 01/10/17 [History] Meloxicam 7.5 mg PO DAILY 01/10/17 [History] Budesonide/Formoterol 160/4.5 [Symbicort 160/4.5] 2 puff IH BIDR 30 Days [Rx] Levofloxacin [Levaquin] 500 mg PO DAILY #4 tablet 01/12/17 [Rx] PredniSONE 10 mg PO TAPER #10 tablet 01/12/17 [Rx] Allergies/Adverse Reactions: Allergies No Known Allergies Allergy (Verified 01/10/17 09:38) Date of admission: 01/10/17 14:45 Primary care physician: Dereje Banks MD Consults: 01/11/17 09:30 Consult to Pulmonology [CONS] Routine Consulting Provider: [facility] [place] Reason for Consult: Lung mass Call Completed: Yes Discharging clinician: Ghulam Hernandez Anticipated date of discharge: 01/12/17 - Patient Status Disposition: Home, Self-Care Condition: Fair Functional capacity at discharge: uses cane/walker (use cane whenever ambulation ) Overall status at discharge: patient is progressing back to baseline - Discharge Instructions Instructions: Prednisone (By mouth), Levofloxacin (By mouth), Budesonide/ Formoterol (By breathing), Acute Respiratory Distress Syndrome (DC), Positron Emission Tomography Scan (DC), Chronic Obstructive Pulmonary Disease (DC), Positron Emission Tomography of the Chest (DC), Pulmonary Nodules (DC), Pulmonary Nodules (GEN), Pneumonia (DC) Follow Up With: Mis Hernandez MD [Partnered Physician] - (Patient has PET SCAN ordered by dr hernandez please schedule follow up appointment after pet scan for pulmonary nodule. [facility] will call you with appointment after you have the PET SCAN. They will also call you with your appointment for your PET SCAN ) Dereje Banks MD [Primary Care Provider] - 01/25/17 3:30 pm - Diet and Activity Activity: increase activity as tolerated (use you cane to prevent falls ) Diet: advance to your usual diet Hospital course: Mr. Fair is a 81 year old male with a history of COPD who presents with chief complaint of chills or night sweats, sob. Before admission patient had had a forced cough as well. At home patient is not on oxygen. During admission patient required 4 L of oxygen. Last September patient was admitted for pneumonia where a CT chest showed a 1.7 cm nodular lesion of the left lung apex. During this admission repeat CT chest shows stable nodule, resolution of previous pneumonia and new evidence of pneumonia in the right lung base. Patient was treated for community-acquired pneumonia and COPD exacerbation. Patient was started on treatments of Levaquin, albuterol, Atrovent, Mucomyst and prednisone. Urine legionella and strep antigens were negative.On day of admission patient developed leg edema and troponin of 0.04. Echocardiogram, LFT , tsh and urinalysis were ordered and no abnormalaties were found. Echo showed EF 65% with no wall motion abnormalities, and moderate LV diastolic dysfunction. Elevated troponin was most likely 2nd to COPD exacerbation and pneumonia. Patient denied CP. In the next 24 hours his leg edema resolved. Patient sob improved considerably day after admission. Pulmonology was consulted to evaluate for stable pulmonary nodule. Dr. De Oliveira has ordered outpatient PET scan and patient will follow up with him after scan has been completed. This morning patient was able to ambulate independently, was free of dyspnea, had good oral intake. He understands that if he has new onset chest pain, sob, dizziness, syncope, he should return to ER for further evaluation. Patient will be d/c on symbicort, predispose taper, and levofloxacin. He will also follow up with his PCP within 7 days. - Time Spent with Patient Total time spent providing and/or coordinating discharge services: - Constitutional Vitals: Temp Pulse Resp BP Pulse Ox 98.5 F 70 16 155/89 95 01/12/17 06:50 01/12/17 06:50 01/12/17 07:52 01/12/17 06:50 01/12/17 07:52 General appearance: Present: cooperative, A&O X 3, pleasant, answers questions appropriately - Head Head exam: Present: atraumatic, normocephalic - Eye Eye exam: Present: PERRL, conjuntiva pink, sclera anicteric - Neck Neck exam general surgery: Present: supple, trachea midline. Absent: lymphadenopathy - Respiratory Respiratory exam: Present: CTAB. Absent: accessory muscle use, rales, rhonchi, wheezes - Cardiovascular Cardiovascular exam: Present: RRR, +S1, +S2. Absent: diastolic murmur, gallop, rubs, systolic murmur - GI/Abdominal GI/Abdominal exam: Present: normal bowel sounds, soft, no peritoneal signs. Absent: distended, tenderness - Extremities Exam Extremities exam: Present: warm, radial pulses palpable and symetrical. Absent : calf tenderness, cyanotic, pedal edema - Neurological Exam Neurological exam: Present: CN II-XII intact, oriented X3, no focal deficits. Absent: pronater drift, facial droop, speech deficit - Skin Skin exam: Present: dry, intact <Didier Sims - Last Filed: 01/12/17 14:03> Date of Encounter: 01/12/17 - Discharge Diagnosis (1) Acute respiratory failure with hypoxemia Status: Resolved (2) Pneumonia Priority: Secondary Status: Acute Qualifiers: Pneumonia type: due to unspecified organism Laterality: left Lung location: lower lobe of lung Qualified Code(s): J18.1 - Lobar pneumonia, unspecified organism (3) COPD exacerbation Status: Resolved (4) Leg edema Status: Resolved Qualifiers: Laterality: bilateral Qualified Code(s): R60.0 - Localized edema (5) Chronic back pain Priority: Secondary Status: Chronic Qualifiers: Back pain location: low back pain Back pain laterality: unspecified Sciatica presence: without sciatica Qualified Code(s): M54.5 - Low back pain; G89.29 - Other chronic pain Date of admission: 01/10/17 14:45 Primary care physician: Dereje Banks MD Consults: 01/11/17 09:30 Consult to Pulmonology [CONS] Routine Consulting Provider: [facility] [place] Reason for Consult: Lung mass Call Completed: Yes Hospital course: Mr. Fair is a 81 year old male - Time Spent with Patient Total time spent providing and/or coordinating discharge services: 38 min - Constitutional Vitals: Temp Pulse Resp BP Pulse Ox 98.3 F 86 18 157/96 91 L 01/12/17 11:58 01/12/17 11:58 01/12/17 11:58 01/12/17 11:58 01/12/17 11:58 - Attending Attestation I examined this patient and my medical decision-making was reviewed with the Resident Physician on 01/12/17. I agree with the documented findings, disposition and treatment plan as described except to the extent set forth below. Mr Fair feels OK today. His breathing feels OK. He is not coughing as much up today. He feels ready to go home. Exam Alert. Comfortable Heart reg Lungs diminished Plan D/C today Follow up with PCP. Pt currently afebrile with good vitals.
[2017-01-12] MEDS: Gabapentin 300 MG CAPSULE PO SCH (10:01)
[2017-01-12] MEDS: Aspirin Enteric Coated 81 MG Tablet PO SCH (10:01)
[2017-01-12 12:01] VITALS: BP 157/96
== END 2017-01-12 13:40 | disposition home or self-care (01) | DRG 190 ==
LOC: EMEROO 06:09 → 2NENU 14:45
PROVIDERS: ADMIT Internal Medicine; ATTEND Internal Medicine

== ENCOUNTER 2017-05-20 16:33 | Observation (INO) ==
--- NOTE | 2017-05-20 18:08 | Emergency Department Note ---
Disposition Clinical Impression: Colitis Disposition: Admitted As Inpatient Condition: Fair Time of Disposition: 19:20 GI Bleed HPI - General Chief complaint: ED GI Bleed Stated complaint: GI Bleeding// from UC Time Seen by Provider: 05/20/17 17:37 Source: patient Limitations: no limitations Nursing Notes Reviewed: Yes Vital Signs Reviewed: Yes - History of Present Illness HPI Narrative: Patient is a 81-year-old male who presents to [facility] ED with a chief complaint of rectal bleeding. States he thinks he has diverticulitis currently since he has been having lower abdominal pain for the last couple of days. Patient states he was diagnosed with this along time ago and has been through bouts of this many times. Denies any nausea, vomiting, fever or chills. Patient states he has been feeling more and more weak. States his pain is worse with palpation. He sat on the toilet this morning and had a grossly bloody bowel movement. He then went to the urgent care to be evaluated and they were worried about his pain and any complications from possible diverticulitis. Past medical history significant for COPD for which he is on home oxygen. Pt Subjective Complaint: gross bloody stools Onset (ago): hour(s) Consistency: intermittent Severity: moderate Improves with: nothing Worsens with: bowel movement Associated symptoms: Reports: abdominal pain, weakness. Denies: nausea, vomiting, headaches Treatments Prior to Arrival: none - Related Data Home Medications Medication Instructions Recorded Confirmed Gabapentin [Neurontin] 600 mg PO TID 10/11/16 01/10/17 OxyCODONE ER (12 HR) [OxyCONTIN] 15 mg PO TID 10/11/16 01/10/17 Oxycodone HCl/Acetaminophen 1 each PO BID PRN 10/11/16 01/10/17 [Percocet 10-325 mg Tablet] Tamsulosin [Flomax] 0.8 mg PO DAILY 10/11/16 01/10/17 Albuterol Sulfate [Proair Hfa] 2 puff IH Q4H PRN 01/10/17 01/10/17 Meloxicam 7.5 mg PO DAILY 01/10/17 01/10/17 Previous Rx's Medication Instructions Recorded Budesonide/Formoterol 160/4.5 2 puff IH BIDR 30 Days 01/12/17 [Symbicort 160/4.5] levoFLOXacin [Levaquin] 500 mg PO DAILY #4 tablet 01/12/17 predniSONE [PredniSONE] 10 mg PO TAPER #10 tablet 01/12/17 Allergies Allergy/AdvReac Type Severity Reaction Status Date / Time No Known Allergies Allergy Verified 01/10/17 09:38 All systems ED: reviewed and negative except as stated. Past Medical History - Past Medical History Attestation: Yes The following information was validated with the patient. Source: patient Medical history: Reports: COPD Surgical history: Reports: non-contributory, cancer surgery Psychiatric history: Reports: no psych history - Social History Smoking Status: Former smoker Smokeless Tobacco Status: No Alcohol use: Reports: none Drug use: Reports: none Physical Exam - General Limitations: no limitations General appearance: alert, in no apparent distress - Head Head exam: atraumatic, normocephalic, normal inspection - Eye Eye exam: Present: normal appearance, PERRL, EOMI - ENT ENT exam: normal exam, normal oropharynx, mucous membranes moist - Neck Neck exam: Present: normal inspection, full ROM, trachea midline - Chest Chest inspection: Present: normal inspection, symmetric chest wall rise - Respiratory Respiratory exam: Present: normal lung sounds bilaterally - Cardiovascular Cardiovascular exam: Present: regular rate, normal rhythm, normal heart sounds - Abdominal Exam Abdominal exam: Present: soft, tenderness, guarding, normal bowel sounds, other (lower abdominal pain with palpation). Absent: distention, rebound, rigidity Abdominal tenderness: Present: diffuse, severe - Rectal Exam Accounting Manager Controller present during exam: Yes Rectal exam: Present: normal inspection - Extremities Exam Extremities exam: Present: normal inspection, full ROM. Absent: tenderness, pedal edema - Back Exam Back exam: Present: normal inspection - Neurological Exam Neurological exam: Present: alert. Absent: motor sensory deficit - Psychiatric Psychiatric exam: Present: normal affect, normal mood - Skin Skin exam: Present: warm, dry, intact, normal color Course Course Narrative: Patient seen and examined. Complaint of abdominal pain as well as rectal bleeding. Concern for diverticulitis versus possible complications from this. We will get labs, CT abdomen and pelvis with IV contrast, Hemoccult. We will give some Dilaudid and Zofran to help with pain - Reevaluation(s) Reevaluation #1: Lab called with critical troponin of 0.05. Patient's stool Hemoccult is positive for blood. CT scan still pending. He also has a leukocytosis of 14. Time: 18:45 Reevaluation #2: CT scan shows colitis, likely infectious or pseudomembranous, but no signs of diverticulitis. We will start ciprofloxacin and Flagyl and admitted to hospitalist service. Spoke with hospitalist Dr. Rinaldi who accepted patient for admission. Time: 19:20 Vital Signs Temperature 99.0 F 05/20/17 16:43 Pulse Rate 78 05/20/17 16:43 Respiratory Rate 18 05/20/17 16:43 Blood Pressure 108/70 05/20/17 16:43 O2 Sat by Pulse Oximetry 94 05/20/17 16:43 Temperature 98.1 F 05/20/17 22:21 Pulse Rate 63 05/20/17 22:21 Respiratory Rate 14 05/20/17 22:21 Blood Pressure 110/66 05/20/17 22:21 O2 Sat by Pulse Oximetry 87 05/20/17 22:21 Oxygen Delivery Oxygen Delivery Room Air GI Bleed - Medical Records Medical records reviewed: Yes I reviewed the patient's medical records. - Lab Data Lab results reviewed: Yes I reviewed the patient's lab results. Result diagrams: 05/20/17 18:06 05/20/17 18:06 Lab Results 05/20/17 05/20/17 05/20/17 Range/Units 18:06 18:06 18:06 WBC 14.1 H (4.3-11.1) K/mcL RBC 4.64 (4.19-5.50) M/mcL Hgb 13.2 (12.9-16.9) g/dL Hct 41.3 (37.5-50.1) % MCV 89.0 (83.0-100.0) fL MCH 28.4 (28.0-33.3) pg MCHC 32.0 (31.6-35.5) g/dL RDW 14.5 (11.5-14.5) % Plt Count 191 (140-400) K/mcL MPV 11.1 (9.4-12.4) fL Immature Gran % 0.6 (0-4) % Seg Neutrophils % 77.6 % Lymphocytes % 13.9 % Monocytes % 7.1 % Eosinophils % 0.6 % Basophils % 0.2 % Neutrophils # 11.0 H (1.6-8.9) K/mcL Lymphocytes # 2.0 (0.6-4.6) K/mcL Monocytes # 1.0 (0.0-1.3) K/mcL Eosinophils # 0.1 (0.0-0.6) K/mcL Basophils # 0.0 (0.0-0.2) K/mcL PT (9.4-12.1) Seconds INR APTT (26.0-36.0) Seconds Sodium 136 (136-145) mEq/L Potassium 4.6 H (3.5-4.5) mEq/L Chloride 103 (98-109) mEq/L Carbon Dioxide 25 (19-29) mEq/L BUN 30 H (8-26) mg/dL Creatinine 1.22 (0.72-1.25) mg/dL Est GFR ( Amer) > 60 (> 60) Est GFR (Non-Af Amer) 57 L (> 60) BUN/Creatinine Ratio 25 (6-26) Glucose 108 H (70-99) mg/dL Calculated Osmolality 289 (280-300) Lactic Acid (0.5-2.2) mmol/L Calcium 9.3 (8.6-10.8) mg/dL Total Bilirubin 0.7 (0.2-1.2) mg/dL AST 22 (5-34) Units/L ALT 9 (0-55) Units/L Alkaline Phosphatase 100 (38-126) Units/L Troponin I 0.05 H* (0-0.03) ng/mL Serum Total Protein 5.8 L (6.0-8.3) g/dL Albumin 3.2 L (3.5-5.0) g/dL Globulin 2.6 (2.4-3.5) g/dL Albumin/Globulin Ratio 1.2 (1.1-2.2) Stool Occult Blood (Negative) Blood Type Antibody Screen 05/20/17 05/20/17 05/20/17 Range/Units 18:06 18:06 18:08 WBC (4.3-11.1) K/mcL RBC (4.19-5.50) M/mcL Hgb (12.9-16.9) g/dL Hct (37.5-50.1) % MCV (83.0-100.0) fL MCH (28.0-33.3) pg MCHC (31.6-35.5) g/dL RDW (11.5-14.5) % Plt Count (140-400) K/mcL MPV (9.4-12.4) fL Immature Gran % (0-4) % Seg Neutrophils % % Lymphocytes % % Monocytes % % Eosinophils % % Basophils % % Neutrophils # (1.6-8.9) K/mcL Lymphocytes # (0.6-4.6) K/mcL Monocytes # (0.0-1.3) K/mcL Eosinophils # (0.0-0.6) K/mcL Basophils # (0.0-0.2) K/mcL PT 12.3 H (9.4-12.1) Seconds INR 1.1 APTT 32.8 (26.0-36.0) Seconds Sodium (136-145) mEq/L Potassium (3.5-4.5) mEq/L Chloride (98-109) mEq/L Carbon Dioxide (19-29) mEq/L BUN (8-26) mg/dL Creatinine (0.72-1.25) mg/dL Est GFR ( Amer) (> 60) Est GFR (Non-Af Amer) (> 60) BUN/Creatinine Ratio (6-26) Glucose (70-99) mg/dL Calculated Osmolality (280-300) Lactic Acid 0.9 (0.5-2.2) mmol/L Calcium (8.6-10.8) mg/dL Total Bilirubin (0.2-1.2) mg/dL AST (5-34) Units/L ALT (0-55) Units/L Alkaline Phosphatase (38-126) Units/L Troponin I (0-0.03) ng/mL Serum Total Protein (6.0-8.3) g/dL Albumin (3.5-5.0) g/dL Globulin (2.4-3.5) g/dL Albumin/Globulin Ratio (1.1-2.2) Stool Occult Blood (Negative) Blood Type O POSITIVE Antibody Screen NEGATIVE 05/20/17 Range/Units 18:34 WBC (4.3-11.1) K/mcL RBC (4.19-5.50) M/mcL Hgb (12.9-16.9) g/dL Hct (37.5-50.1) % MCV (83.0-100.0) fL MCH (28.0-33.3) pg MCHC (31.6-35.5) g/dL RDW (11.5-14.5) % Plt Count (140-400) K/mcL MPV (9.4-12.4) fL Immature Gran % (0-4) % Seg Neutrophils % % Lymphocytes % % Monocytes % % Eosinophils % % Basophils % % Neutrophils # (1.6-8.9) K/mcL Lymphocytes # (0.6-4.6) K/mcL Monocytes # (0.0-1.3) K/mcL Eosinophils # (0.0-0.6) K/mcL Basophils # (0.0-0.2) K/mcL PT (9.4-12.1) Seconds INR APTT (26.0-36.0) Seconds Sodium (136-145) mEq/L Potassium (3.5-4.5) mEq/L Chloride (98-109) mEq/L Carbon Dioxide (19-29) mEq/L BUN (8-26) mg/dL Creatinine (0.72-1.25) mg/dL Est GFR ( Amer) (> 60) Est GFR (Non-Af Amer) (> 60) BUN/Creatinine Ratio (6-26) Glucose (70-99) mg/dL Calculated Osmolality (280-300) Lactic Acid (0.5-2.2) mmol/L Calcium (8.6-10.8) mg/dL Total Bilirubin (0.2-1.2) mg/dL AST (5-34) Units/L ALT (0-55) Units/L Alkaline Phosphatase (38-126) Units/L Troponin I (0-0.03) ng/mL Serum Total Protein (6.0-8.3) g/dL Albumin (3.5-5.0) g/dL Globulin (2.4-3.5) g/dL Albumin/Globulin Ratio (1.1-2.2) Stool Occult Blood Positive A (Negative) Blood Type Antibody Screen - Radiology Data Radiology results reviewed: Yes I reviewed the patient's radiology results. Abdomen/Pelvis CT 05/20/17 17:50 IMPRESSION: 1. Nonspecific colitis of the descending and sigmoid colon, most likely infectious or pseudomembranous 2. Diverticulosis with no evidence of diverticulitis D/ / Tong Petty MD / Tong Petty MD Interpreting Provider: Tong Petty MD Attestation Statement - Attestation Attestation: I, Horacio Nesbitt, examined this patient and my medical decision-making was reviewed with the [employer]/PA/Advanced Practice Nurse/Resident Physician. I agree with the documented findings, disposition and treatment plan as described except to the extent set forth below. 81-year-old male presents with concerns of GI bleeding. States he had multiple episodes of hematochezia prior to arrival to the emergency department. Patient reports significant pain to the bilateral lower quadrants of the abdomen. States he had similar pain with diverticulitis in the past. Patient reports nausea without vomiting. Denies anticoagulant use. CT of the abdomen and pelvis reveals colitis consistent with the patient's pain. Patient started on Cipro and Flagyl in the emergency department. He will be admitted to the hospital for further care and evaluation.
[2017-05-20 18:20] LABS: Basophils % 0.2 %; Eosinophils # 0.1 K/mcL (0.0-0.6); Eosinophils % 0.6 %; Hematocrit 41.3 % (37.5-50.1); Hemoglobin 13.2 g/dL (12.9-16.9); Immature Granulocytes % 0.6 % (0-4); Lymphocytes % 13.9 %; Mean Corpuscular Hemoglobin 28.4 pg (28.0-33.3); Mean Platelet Volume 11.1 fL (9.4-12.4); Monocytes % 7.1 %; Platelet Count 191 K/mcL (140-400); Red Blood Count 4.64 M/mcL (4.19-5.50); Red Cell Distribution Width 14.5 % (11.5-14.5); Segmented Neutrophils % 77.6 %
[2017-05-20 18:26] LABS: INR 1.1; Prothrombin Time 12.3 Seconds (9.4-12.1)
[2017-05-20] MEDS ORDERED: Ondansetron 4 MG/2 ML VIAL IVP ONE (18:27)
[2017-05-20] MEDS ORDERED: *HR* HYDROmorphone (PF) 1 MG/ML SYRINGE IVP ONE (18:27)
[2017-05-20 18:29] LABS: Activated Partial Thrombo Time 32.8 Seconds (26.0-36.0)
[2017-05-20 18:33] LABS: Alanine Aminotransferase 9 Units/L (0-55); Albumin 3.2 g/dL (3.5-5.0); Albumin/Globulin Ratio 1.2 (1.1-2.2); Alkaline Phosphatase 100 Units/L (38-126); Aspartate Amino Transferase 22 Units/L (5-34); BUN/Creatinine Ratio 25 (6-26); Bilirubin,Total 0.7 mg/dL (0.2-1.2); Blood Urea Nitrogen 30 mg/dL (8-26); Calcium 9.3 mg/dL (8.6-10.8); Carbon Dioxide 25 mEq/L (19-29); Chloride 103 mEq/L (98-109); Globulin 2.6 g/dL (2.4-3.5); Glucose 108 mg/dL (70-99); Osmolality,Calculated 289 (280-300); Potassium 4.6 mEq/L (3.5-4.5); Sodium 136 mEq/L (136-145); Total Protein 5.8 g/dL (6.0-8.3); eGFR For African Americans > 60 (> 60); eGFR For Non-African Americans 57 (> 60)
[2017-05-20] MEDS ORDERED: 0.9 % Sodium Chloride 1,000 ML IVC ONE (18:44)
[2017-05-20] MEDS ORDERED: MetroNIDAZOLE 500 MG/100 ML 500 MG/100 ML BAG IVPB ONE (19:16)
--- NOTE | 2017-05-20 20:05 | Internal Med History&Physical ---
Date of Encounter: 05/20/17 Time of Encounter: 19:45 Assessment and Plan (1) Acute colitis Current visit: Yes Status: Acute Acute nonspecific colitis of descending colon and sigmoid - causing left lower quadrant pain Nothing by mouth, IV fluids, IV morphine as needed for pain IV Cipro, IV Flagyl Physical HEENT: Positive, likely due to diverticulosis, but no evidence of diverticulitis CT abdomen positive for nonspecific colitis Labs in a.m. Gastroenterology consult (2) Diverticulosis Current visit: Yes Status: Chronic Chronic, no evidence of acute diverticulitis One episode of bloody bowel movement Fecal Hemoccult positive - stable H&H Will need repeat colonoscopy after colitis has improved Qualifiers: Diverticulosis site: diverticulosis of large intestine Diverticulosis bleeding: diverticulosis with bleeding Qualified Code(s): K57.31 - Diverticulosis of large intestine without perforation or abscess with bleeding (3) COPD (chronic obstructive pulmonary disease) Current visit: No Status: Chronic Chronic, stable, not in exacerbation Continue Symbicort and O2 via nasal cannula Qualifiers: COPD type: COPD with acute exacerbation Qualified Code(s): J44.1 - Chronic obstructive pulmonary disease with (acute) exacerbation (4) Elevated troponin Current visit: No Status: Chronic Slightly elevated at 0.05, chronically elevated in the past No anginal symptoms EKG pending, trend troponin (5) Chronic back pain Current visit: No Status: Chronic Qualifiers: Back pain location: low back pain Back pain laterality: unspecified Sciatica presence: without sciatica Qualified Code(s): M54.5 - Low back pain; G89.29 - Other chronic pain (6) DVT prophylaxis Current visit: No Status: Acute Continue SCDs. Avoid anticoagulants because of diverticulosis and GI bleed Internal Medicine - H&P: HPI Chief complaint: Abdominal pain Admitted From: Emergency Dept History of present illness: Mr. Fair is a 81 year old male with past medical history of COPD, chronic back pain, arthritis and stenosis. He presents to the ED with complaints of lower abdominal pain that started about 3-4 days ago. Symptoms have gradually worsened. Patient states pain is mainly in the left lower part of abdomen which is cramping in nature and is intermittent. Patient states he had one episode of gross blood in his bowel movement this morning. Patient initially went to urgent care to be evaluated and he was advised to go to ED in view of possible diverticulitis. Abdominal pain has not been radiating. Patient does complain of some generalized weakness and fatigue. Pain is worse with movement. He is able to keep fluids and some food down. No complaints of vomiting or nausea. No fever or chills. Patient denies chest pain or shortness of breath, denies palpitations, denies headache or dizziness or cough. No other associated symptoms. On examination patient is awake and alert. Not in any distress. He is able to provide all history. is at bedside. Initial workup shows elevated white count and slightly elevated troponin (which is chronic). We will trend troponin. The patient will be on IV fluids, kept nothing by mouth and will be on IV Cipro and Flagyl. CT of the abdomen shows nonspecific colitis of the descending colon and sigmoid. No evidence of diverticulitis. Fecal Hemoccult is positive. Patient and his have been explained about condition and plan of care. They understood and agreed. No unanswered questions. CODE STATUS full code. Past Med Surg Social Fam HX - Past Medical History Medical history: COPD Psychiatric history: no psych history - Past Surgical History Surgical History: non-contributory, cancer surgery - Social History Smoking Status: Former smoker Smokeless Tobacco Status: No Alcohol use: none Drug use: none - Family History Mother Hx Family Respiratory Disorders: Yes (COPD) Internal Medicine - H&P: Meds Gabapentin [Neurontin] 600 mg PO TID 10/11/16 [History] OxyCODONE ER (12 HR) [OxyCONTIN] 15 mg PO TID 10/11/16 [History] Oxycodone HCl/Acetaminophen [Percocet 10-325 mg Tablet] 1 each PO BID PRN [History] Tamsulosin [Flomax] 0.8 mg PO DAILY 10/11/16 [History] Albuterol Sulfate [Proair Hfa] 2 puff IH Q4H PRN 01/10/17 [History] Meloxicam 7.5 mg PO DAILY 01/10/17 [History] Budesonide/Formoterol 160/4.5 [Symbicort 160/4.5] 2 puff IH BIDR 30 Days [Rx] levoFLOXacin [Levaquin] 500 mg PO DAILY #4 tablet 01/12/17 [Rx] predniSONE [PredniSONE] 10 mg PO TAPER #10 tablet 01/12/17 [Rx] Allergies No Known Allergies Allergy (Verified 01/10/17 09:38) All Systems PM: A 10-system review of systems was performed and is negative for pertinent findings except as documented above in the HPI. - Constitutional Constitutional: fatigue, weakness - EENT Eyes: no blurry vision - Cardiovascular Cardiovascular ROS IM: no chest pain, no diaphoresis, no dyspnea, no dyspnea on exertion, no lightheadedness, no orthopnea, no syncope - Respiratory Respiratory: no cough, no dyspnea, no hemoptysis, no dyspnea on exertion, no wheezing, no chest congestion - Gastrointestinal Gastrointestinal: abdominal pain, bloating, diarrhea, hematochezia, no nausea, no vomiting - Genitourinary Genitourinary ROS male: no dysuria - Musculoskeletal Musculoskeletal ROS IM: arthralgias, back pain - Neurological Neurological ROS: no abnormal gait, no abnormal speech, no dizziness, no focal weakness, no loss of vision - Constitutional Vitals: Temp Pulse Resp BP Pulse Ox 99.0 F 78 18 108/70 94 05/20/17 16:43 05/20/17 16:43 05/20/17 16:43 05/20/17 16:43 05/20/17 16:43 General appearance: Present: A&O X 3, pleasant, no acute distress, answers questions appropriately - Head Head exam: Present: atraumatic - ENT ENT exam: Present: mucous membranes moist - Neck Neck exam general surgery: Present: supple - Respiratory Respiratory exam: Present: CTAB. Absent: rales, rhonchi, wheezes - Cardiovascular Cardiovascular exam: Present: RRR, +S1, +S2 - GI/Abdominal GI/Abdominal exam: Present: soft, tenderness (Left lower quadrant and periumbilical and suprapubic tenderness). Absent: distended, firm, guarding - Extremities Exam Extremities exam: Present: radial pulses palpable and symetrical. Absent: cyanotic, pedal edema, tenderness - Neurological Exam Neurological exam: Present: alert, oriented X3, no focal deficits Internal Med - H&P Results - Labs CBC & Chem 7: 05/20/17 18:06 05/20/17 18:06 Labs: Short CBC 05/20/17 Range/Units 18:06 WBC 14.1 H (4.3-11.1) K/mcL Hgb 13.2 (12.9-16.9) g/dL Hct 41.3 (37.5-50.1) % Plt Count 191 (140-400) K/mcL Neutrophils # 11.0 H (1.6-8.9) K/mcL BMP 05/20/17 18:06 Sodium 136 Potassium 4.6 H Chloride 103 Carbon Dioxide 25 BUN 30 H Creatinine 1.22 Glucose 108 H Calcium 9.3 Cardiac Enzymes 05/20/17 Range/Units 18:06 Troponin I 0.05 H* (0-0.03) ng/mL Liver Function 05/20/17 Range/Units 18:06 Total Bilirubin 0.7 (0.2-1.2) mg/dL AST 22 (5-34) Units/L ALT 9 (0-55) Units/L Alkaline Phosphatase 100 (38-126) Units/L Albumin 3.2 L (3.5-5.0) g/dL - Impressions ITS Impressions Abdomen/Pelvis CT 05/20/17 17:50 IMPRESSION: 1. Nonspecific colitis of the descending and sigmoid colon, most likely infectious or pseudomembranous 2. Diverticulosis with no evidence of diverticulitis D/ / Tong Petty MD / Tong Petty MD Interpreting Provider: Tong Petty MD
[2017-05-20] MEDS ORDERED: Ondansetron 4 MG/2 ML VIAL IVP PRN (21:06)
[2017-05-20] MEDS ORDERED: Naloxone 0.4 MG/ML INJ IVP PRN (21:06)
[2017-05-20] MEDS ORDERED: *HR* Dextrose 50 % in Water (Syg) 50 ML SYRINGE IVP PRN (21:11)
[2017-05-20] MEDS ORDERED: Dextrose Gel 15 GM PO PRN ×2 (21:11)
[2017-05-20] MEDS ORDERED: D5% in Water 1,000 ML IVC PRN (21:11)
[2017-05-20] MEDS: Budesonide/Formoterol 160/4.5 MDI IH SCH (22:14)
[2017-05-20] MEDS: MetroNIDAZOLE 500 MG/100 ML 500 MG/100 ML BAG IVPB SCH (22:40)
[2017-05-20] MEDS: 0.9 % Sodium Chloride 1,000 ML IVC SCH (22:41)
[2017-05-21 03:37] LABS: Basophils % 0.3 %; Eosinophils # 0.1 K/mcL (0.0-0.6); Eosinophils % 0.5 %; Hematocrit 38.7 % (37.5-50.1); Hemoglobin 12.1 g/dL (12.9-16.9); Immature Granulocytes % 0.4 % (0-4); Lymphocytes # 1.4 K/mcL (0.6-4.6); Lymphocytes % 12.3 %; Mean Corpuscular HGB Conc 31.3 g/dL (31.6-35.5); Mean Corpuscular Hemoglobin 27.9 pg (28.0-33.3); Mean Corpuscular Volume 89.4 fL (83.0-100.0); Mean Platelet Volume 11.3 fL (9.4-12.4); Monocytes # 0.8 K/mcL (0.0-1.3); Neutrophils # 9.2 K/mcL (1.6-8.9); Platelet Count 161 K/mcL (140-400); Red Blood Count 4.33 M/mcL (4.19-5.50); Red Cell Distribution Width 14.6 % (11.5-14.5); Segmented Neutrophils % 79.5 %
[2017-05-21 03:43] LABS: BUN/Creatinine Ratio 24 (6-26); Blood Urea Nitrogen 24 mg/dL (8-26); Calcium 9.2 mg/dL (8.6-10.8); Carbon Dioxide 27 mEq/L (19-29); Chloride 107 mEq/L (98-109); Glucose 110 mg/dL (70-99); Magnesium 1.7 mg/dL (1.6-2.6); Osmolality,Calculated 295 (280-300); Potassium 4.4 mEq/L (3.5-4.5); Sodium 140 mEq/L (136-145); eGFR For African Americans > 60 (> 60); eGFR For Non-African Americans > 60 (> 60)
[2017-05-21] MEDS: MetroNIDAZOLE 500 MG/100 ML 500 MG/100 ML BAG IVPB SCH ×3 (04:59→17:47)
[2017-05-21] MEDS: Famotidine 20 MG/2 ML VIAL IVP SCH ×2 (05:00→17:46)
[2017-05-21] MEDS: Insulin LISPRO 300 UNITS/3 ML VIAL SQ SCH ×4 (06:18→17:48)
[2017-05-21] MEDS: Budesonide/Formoterol 160/4.5 MDI IH SCH ×2 (08:07→20:17)
[2017-05-21] MEDS: *HR* Morphine 2 MG/ML SYRINGE IVP PRN ×2 (09:12→18:55)
--- NOTE | 2017-05-21 09:29 | Internal Med Progress Note ---
Date of Encounter: 05/21/17 Time of Encounter: 09:27 - Assessment and plan (1) COPD (chronic obstructive pulmonary disease) Current Visit: No Status: Chronic Qualifiers: COPD type: COPD with acute exacerbation Qualified Code(s): J44.1 - Chronic obstructive pulmonary disease with (acute) exacerbation (2) BPH (benign prostatic hyperplasia) Current Visit: No Status: Acute Qualifiers: Qualified Code(s): N40.0 - Benign prostatic hyperplasia without lower urinary tract symptoms (3) DVT prophylaxis Current Visit: No Status: Acute (4) Acute colitis Current Visit: Yes Status: Acute - Subjective Interval history: Mr. Fair is a 81 year old male with past medical history of COPD, chronic back pain, arthritis and stenosis. He presents to the ED with complaints of lower abdominal pain that started about 3-4 days ago. CAT scan showed sigmoid and descending colon nonspecific colitis. He has been started on IV Cipro and Flagyl. Hemoglobin will be checked periodically as his white count has improved and CMP is within normal range. If hemoglobin drops gastroenterology can be consulted. Pain is periumbilical. Troponin slightly elevated in the range of 0.05 however there is stable and did not change much. Echocardiogram ordered. Due to colitis and possibility of GI bleed and ask him be given at this time. - Constitutional Vitals: Temp Pulse Resp BP Pulse Ox 98.3 F 69 16 107/63 97 05/21/17 06:17 05/21/17 06:17 05/21/17 08:07 05/21/17 08:07 05/21/17 08:07 General appearance: Present: A&O X 3, pleasant, no acute distress, answers questions appropriately - Head Head exam: Present: atraumatic, normocephalic - Eye Eye exam: Present: PERRL, conjuntiva pink, sclera anicteric Pupils: Present: PERRL - Neck Neck exam general surgery: Present: supple, trachea midline. Absent: lymphadenopathy - Respiratory Respiratory exam: Present: CTAB. Absent: accessory muscle use, rales, rhonchi, wheezes - Cardiovascular Cardiovascular exam: Present: RRR, +S1, +S2. Absent: diastolic murmur, gallop, rubs, systolic murmur - GI/Abdominal GI/Abdominal exam: Present: normal bowel sounds, soft, tenderness, no peritoneal signs. Absent: distended Additional comments: Periumbilical pain and tenderness no rebound tenderness bowel not distended no organomegaly bowel tones sluggish - Extremities Exam Extremities exam: Present: warm, radial pulses palpable and symetrical. Absent : calf tenderness, cyanotic, pedal edema - Neurological Exam Neurological exam: Present: CN II-XII intact, oriented X3, no focal deficits. Absent: pronater drift, facial droop, speech deficit - Skin Skin exam: Present: dry, intact Internal Medicine: Result - Labs CBC & Chem 7: 05/21/17 14:50 05/21/17 03:06 Labs: Short CBC 05/21/17 Range/Units 03:06 WBC 11.6 H (4.3-11.1) K/mcL Hgb 12.1 L (12.9-16.9) g/dL Hct 38.7 (37.5-50.1) % Plt Count 161 (140-400) K/mcL Neutrophils # 9.2 H (1.6-8.9) K/mcL BMP 05/21/17 03:06 Sodium 140 Potassium 4.4 Chloride 107 Carbon Dioxide 27 BUN 24 Creatinine 0.98 Glucose 110 H Calcium 9.2 Cardiac Enzymes 05/20/17 05/21/17 05/21/17 Range/Units 21:29 03:06 08:39 Troponin I 0.05 H* 0.05 H* 0.05 H* (0-0.03) ng/mL - ABG Interpretation ABG results: PT/INR, D-dimer PT 12.3 Seconds (9.4-12.1) H 05/20/17 18:06 - VTE Documentation of Mechanical Device: Intermittent pneumatic compression device Consult Discharge Plan - Plan Referrals: Dereje Banks MD [Primary Care Provider] -
[2017-05-21 09:47] LABS: Hematocrit 40.7 % (37.5-50.1); Hemoglobin 12.6 g/dL (12.9-16.9)
[2017-05-21] MEDS: 0.9 % Sodium Chloride 1,000 ML IVC SCH (11:10)
--- NOTE | 2017-05-21 14:50 | Electrocardiograph Report ---
[place] [address] Test Date: 2017-05-21 Pat Name: Keny Fair Department: 115 Room: 3A13 Gender: M [place]: EDT : 1935 Requested By: Bishnu Ruiz Order Number: [id number] Reading MD: Marcella Christy Measurements Intervals [place] Rate: 69 P: 71 ME: 148 QRS: 48 QRSD: 90 T: 53 QT: 384 QTc: 403 Interpretive Statements SINUS RHYTHM Electronically Signed On 05-21-2017 14:49:02 EDT by Marcella Christy
[2017-05-21 15:00] LABS: Hematocrit 38.5 % (37.5-50.1); Hemoglobin 12.2 g/dL (12.9-16.9)
[2017-05-21 21:14] LABS: Hematocrit 37.9 % (37.5-50.1)
[2017-05-22] MEDS: MetroNIDAZOLE 500 MG/100 ML 500 MG/100 ML BAG IVPB SCH ×3 (01:50→12:24)
[2017-05-22] MEDS: Insulin LISPRO 300 UNITS/3 ML VIAL SQ SCH ×3 (01:52→12:31)
[2017-05-22] MEDS: *HR* Morphine 2 MG/ML SYRINGE IVP PRN (02:03)
[2017-05-22] MEDS ORDERED: Artificial Tears SOLN 15 ML BOTTLE BOTH EYES PRN (03:15)
[2017-05-22] MEDS ORDERED: *HR* OxyCODONE Immed Rel 5 MG TABLET PO ONE ×2 (03:17→14:35)
[2017-05-22 04:25] LABS: Hematocrit 37.2 % (37.5-50.1); Hemoglobin 11.8 g/dL (12.9-16.9)
[2017-05-22] MEDS: Famotidine 20 MG/2 ML VIAL IVP SCH (06:57)
[2017-05-22] MEDS: 0.9 % Sodium Chloride 1,000 ML IVC SCH ×2 (07:05→09:48)
--- NOTE | 2017-05-22 08:25 | Discharge Summary ---
Date of Encounter: 05/22/17 Time of Encounter: 08:21 - Discharge Diagnosis (1) COPD (chronic obstructive pulmonary disease) Priority: Secondary Status: Chronic Qualifiers: COPD type: COPD with acute exacerbation Qualified Code(s): J44.1 - Chronic obstructive pulmonary disease with (acute) exacerbation (2) BPH (benign prostatic hyperplasia) Priority: Secondary Status: Acute Qualifiers: Qualified Code(s): N40.0 - Benign prostatic hyperplasia without lower urinary tract symptoms (3) DVT prophylaxis Priority: Secondary Status: Acute (4) Acute colitis Priority: Primary Status: Acute - Discharge Medications Prescriptions: Ciprofloxacin [Cipro] 500 mg PO BID #14 tablet metroNIDAZOLE [Flagyl] 500 mg PO TID #21 tablet Home Medications: Gabapentin [Neurontin] 600 mg PO TID 10/11/16 [History] Tamsulosin [Flomax] 0.8 mg PO DAILY 10/11/16 [History] Albuterol Sulfate [Proair Hfa] 2 puff IH Q4H PRN 01/10/17 [History] Budesonide/Formoterol 160/4.5 [Symbicort 160/4.5] 2 puff IH BIDR 30 Days [Rx] Oxycodone HCl 10 mg PO Q6H PRN 05/21/17 [History] Zolpidem [Ambien] 10 mg PO HS 05/21/17 [History] Ciprofloxacin [Cipro] 500 mg PO BID #14 tablet 05/22/17 [Rx] metroNIDAZOLE [Flagyl] 500 mg PO TID #21 tablet 05/22/17 [Rx] Allergies/Adverse Reactions: Allergies No Known Allergies Allergy (Verified 01/10/17 09:38) Procedures/tests Complete & Pending: Procedures Performed prior 72 hours Category Date Time Status EV echocardiogram Routine Y 05/21/17 09:22 Ordered Date of admission: 05/20/17 21:06 Primary care physician: Dereje Banks MD Consults: 05/20/17 21:13 Consult to Gastroenterology [CONS] Routine Consulting Provider: Gastroenterology Janet Reason for Consult: GI bleed, colitis Call Completed: No Discharging clinician: Kaitlyn Monge Anticipated date of discharge: 05/22/17 - Patient Status Disposition: Home, Self-Care Condition: Fair Overall status at discharge: patient is progressing back to baseline - Discharge Instructions Instructions: Chronic Obstructive Pulmonary Disease (DC) Follow Up With: Dereje Banks MD [Primary Care Provider] - James Blackwell MD [Partnered Physician] - (Please see Dr. Blackwell gastroenterology as outpatient in 1-2 weeks for a colonoscopy) - Diet and Activity Activity: ambulate only with your walker, increase activity as tolerated Diet: advance to your usual diet (Please see gastroenterology as outpatient for possible colonoscopy and arrange this appointment through your primary care's office place) Hospital course: Mr. Fair is a 81 year old male with past medical history of COPD, chronic back pain, arthritis and stenosis. He presents to the ED with complaints of lower abdominal pain that started about 3-4 days ago. CAT scan showed sigmoid and descending colon nonspecific colitis. He was started on IV Cipro and Flagyl. On admission Troponin slightly elevated in the range of 0.05 however they remain stable and did not change much. Echocardiogram echocardiogram showed ejection fraction about 65% with normal LV systolic function and mild diastolic dysfunction no valvular abnormality.. As patient has improved he can be discharged home on Cipro and Flagyl and asked to see gastroenterology as an outpatient for possible colonoscopy. - Time Spent with Patient Total time spent providing and/or coordinating discharge services: - Constitutional Vitals: Temp Pulse Resp BP Pulse Ox 98.1 F 69 14 155/89 94 05/22/17 05:38 05/22/17 05:38 05/22/17 05:38 05/22/17 05:38 05/22/17 05:38 General appearance: Present: A&O X 3, pleasant, no acute distress, answers questions appropriately - Head Head exam: Present: atraumatic, normocephalic - Eye Eye exam: Present: PERRL, conjuntiva pink, sclera anicteric Pupils: Present: PERRL - Neck Neck exam general surgery: Present: supple, trachea midline. Absent: lymphadenopathy - Respiratory Respiratory exam: Present: CTAB. Absent: accessory muscle use, rales, rhonchi, wheezes - Cardiovascular Cardiovascular exam: Present: RRR, +S1, +S2. Absent: diastolic murmur, gallop, rubs, systolic murmur - GI/Abdominal GI/Abdominal exam: Present: normal bowel sounds, soft, no peritoneal signs. Absent: distended, tenderness - Extremities Exam Extremities exam: Present: warm, radial pulses palpable and symetrical. Absent : calf tenderness, cyanotic, pedal edema - Neurological Exam Neurological exam: Present: CN II-XII intact, oriented X3, no focal deficits. Absent: pronater drift, facial droop, speech deficit - Skin Skin exam: Present: dry, intact - VTE Documentation of Mechanical Device: Intermittent pneumatic compression device
[2017-05-22 09:57] LABS: Hemoglobin 13.2 g/dL (12.9-16.9)
[2017-05-22 10:47] VITALS: BP 159/89
[2017-05-22] MEDS: Budesonide/Formoterol 160/4.5 MDI IH SCH (11:36)
--- NOTE | 2017-05-22 14:36 | Gastroenterology Consult Note ---
<Kyle Escobar - Last Filed: 05/22/17 14:39> Date of Encounter: 05/22/17 Time of Encounter: 12:30 - Assessment and plan (1) Acute colitis Status: Acute Assessment and plan: Ischemic vs infectious. Check stool studies. Plan for colonoscopy in 6-8 weeks. Recommend completing course of Cipro and Flagyl. Follow up in GI office in 1-2 weeks. (2) Abdominal pain Status: Acute Assessment and plan: Secondary to colitis. Continue antibiotics. Plan for colonoscopy in 6-8 weeks. Qualifiers: Abdominal location: lower abdomen, unspecified Qualified Code(s): R10.30 - Lower abdominal pain, unspecified (3) GI bleeding Status: Acute Assessment and plan: Pt with BRBPR on Sunday 05/20 and FOBT positive 05/20. Likely secondary to colitis. Qualifiers: GI bleed type/associated pathology: unspecified gastrointestinal hemorrhage type Qualified Code(s): K92.2 - Gastrointestinal hemorrhage, unspecified - Time Spent With Patient Total time spent is greater than 50% in coordination of care (as documented) at patient's floor/unit and/or counseling patient: GI History of Present Illness - Data of Consult Patient: new to practice Consult date: 05/22/17 Requesting Physician: Jo Diaz CNP - Consult Narrative Reason for consult: GI bleed, colitis History of present illness: Mr. Fair is a 81 year old male with PMHx of COPD and chronic back pain who presented to the ED with c/o intermittent lower abdominal pain which was described as cramping in nature. Pain is worsened with movement. He states the pain started on Monday and resolved on Monday. He reports one episode of BRBPR on Monday and none since that time. He denies fever, chills, chest pain , SOB, nausea, vomiting, hematemesis, melena. CT A/P nonspecific colitis of descending colon and sigmoid. He was started on Cipro and Flagyl. Fecal occult blood test was positive on 05/20. Hgb 13.2 on admission and 11.8 today. Patient does have a family history of colon cancer in his father. Procedures: Colonoscopy 05/27/2013 Dr. Alexandre: Tortuous colon, severe diverticulosis in the sigmoid and descending colon, internal hemorrhoids NSAIDs: None Anticoagulation: None Past Med Surg Social Fam HX - Past Medical History Medical history: COPD Psychiatric history: no psych history - Past Surgical History Surgical History: non-contributory, cancer surgery - Social History Smoking Status: Former smoker Smokeless Tobacco Status: No Alcohol use: none Drug use: none - Family History Mother Hx Family Respiratory Disorders: Yes (COPD) Father Hx Family Cancer: Yes (Colon CA) Hx Family Neuromuscular Disorders: Yes (Alzeheimers) - Gastrointestinal Gastrointestinal: Present: as per HPI - Constitutional Constitutional: as per HPI - EENT Eyes: as per HPI Ears: Present: as per HPI Nose, mouth and throat: Present: as per HPI - Cardiovascular Cardiovascular ROS: Present: as per HPI - Respiratory Respiratory IM: Present: as per HPI - Genitourinary Genitourinary: Absent: change in color, Urinary frequency - Neurological ROS Neurological GI: Present: as per HPI - Hematologic/Lymphatic Hematologic/Lymphatic pediatric: Present: as per HPI - Musculoskeletal Musculoskeletal ROS GI: Present: as per HPI - Integumentary Integumentary GI: Present: as per HPI - Psychiatric ROS Psychiatric GI: Present: as per HPI - Endocrine Endocrine IM: Present: as per HPI - Constitutional Vitals: Temp Pulse Resp BP Pulse Ox 98.0 F 66 14 159/89 95 05/22/17 10:42 05/22/17 10:42 05/22/17 11:36 05/22/17 10:42 05/22/17 11:36 General appearance: Present: cooperative, A&O X 3, no acute distress, answers questions appropriately - Head Head exam: Present: atraumatic, normocephalic - Eye Eye exam: Present: normal appearance, sclera anicteric - ENT ENT exam: Present: mucous membranes moist - Neck Neck exam general surgery: Present: normal inspection, trachea midline - Respiratory Respiratory exam: Present: CTAB - Cardiovascular Cardiovascular exam: Present: RRR, +S1, +S2 - GI/Abdominal GI/Abdominal exam: Present: soft, tenderness (lower abdominal tenderness), no peritoneal signs. Absent: distended, firm, guarding - Rectal Rectal exam: Present: deferred - Extremities Exam Extremities exam: Present: warm - Neurological Exam Neurological exam: Present: no focal deficits - Psychiatric Psychiatric exam: Present: normal affect, normal mood - Skin Skin exam: Present: dry, intact, normal color, warm Results - Labs CBC & Chem 7: 05/22/17 09:44 05/21/17 03:06 Labs: Last Result Calcium 9.2 mg/dL (8.6-10.8) 05/21/17 03:06 Troponin I 0.05 ng/mL (0-0.03) H* 05/21/17 08:39 Stool Occult Blood Positive (Negative) A 05/20/17 18:34 Entire Visit Hgb 13.2 g/dL (12.9-16.9) 05/22/17 09:44 Hct 41.0 % (37.5-50.1) 05/22/17 09:44 PT 12.3 Seconds (9.4-12.1) H 05/20/17 18:06 Total Bilirubin 0.7 mg/dL (0.2-1.2) 05/20/17 18:06 AST 22 Units/L (5-34) 05/20/17 18:06 ALT 9 Units/L (0-55) 05/20/17 18:06 - ABG ABG results: PT/INR, D-dimer PT 12.3 Seconds (9.4-12.1) H 05/20/17 18:06 Consult Discharge Plan - Plan Instructions: Chronic Obstructive Pulmonary Disease (DC) Referrals: Chandni Darden DO [Partnered Physician] - 05/29/17 9:30 am James Pulido MD [Partnered Physician] - (Please see Dr. Pulido gastroenterology as outpatient in 1-2 weeks for a colonoscopy. Office will call patient with date and time. Web Request entered.) Prescriptions: Ciprofloxacin [Cipro] 500 mg PO BID #14 tablet metroNIDAZOLE [Flagyl] 500 mg PO TID #21 tablet <James Pulido - Last Filed: 05/22/17 16:58> Date of Encounter: 05/22/17 Time of Encounter: 14:00 - Time Spent With Patient Total time spent is greater than 50% in coordination of care (as documented) at patient's floor/unit and/or counseling patient: GI History of Present Illness - Data of Consult Requesting Physician: Jo Diaz CNP - Consult Narrative History of present illness: Mr. Fair is a 81 year old male - Constitutional Vitals: Temp Pulse Resp BP Pulse Ox 98.0 F 66 14 159/89 95 05/22/17 10:42 05/22/17 10:42 05/22/17 11:36 05/22/17 10:42 05/22/17 11:36 Results - Labs CBC & Chem 7: 05/22/17 15:13 05/21/17 03:06 Labs: Last Result Calcium 9.2 mg/dL (8.6-10.8) 05/21/17 03:06 Troponin I 0.05 ng/mL (0-0.03) H* 05/21/17 08:39 Stool Occult Blood Positive (Negative) A 05/20/17 18:34 Entire Visit Hgb 12.8 g/dL (12.9-16.9) L 05/22/17 15:13 Hct 40.1 % (37.5-50.1) 05/22/17 15:13 PT 12.3 Seconds (9.4-12.1) H 05/20/17 18:06 Total Bilirubin 0.7 mg/dL (0.2-1.2) 05/20/17 18:06 AST 22 Units/L (5-34) 05/20/17 18:06 ALT 9 Units/L (0-55) 05/20/17 18:06 - ABG ABG results: PT/INR, D-dimer PT 12.3 Seconds (9.4-12.1) H 05/20/17 18:06 - Attending Attestation I examined this patient and my medical decision-making was reviewed with the [employer] APPRAISER/PA/Advanced Practice Nurse/Resident Physician. I agree with the documented findings, disposition and treatment plan as described except to the extent set forth below. Patient most probably ischemic colitis. No more rectal bleeding. Hemoglobin has been stable. Recommendation: Can be discharged home with few days of oral antibiotics and will have a colonoscopy done as an outpatient in about 3-4 month
[2017-05-22 15:26] LABS: Hematocrit 40.1 % (37.5-50.1); Hemoglobin 12.8 g/dL (12.9-16.9)
== END 2017-05-22 16:15 | disposition home or self-care (01) | DRG 391 ==
LOC: EMEROO 16:33 → 3ANU 16:33
PROVIDERS: ADMIT Family Medicine; ATTEND Registered Nurse

== ENCOUNTER 2017-10-09 11:36 | Observation (INO) ==
--- NOTE | 2017-10-09 12:05 | Emergency Department Note ---
Disposition Clinical Impression: Elevated troponin Hearing loss Qualifiers: Hearing loss type: unspecified Laterality: bilateral Qualified Code(s): H91.93 - Unspecified hearing loss, bilateral Disposition: Admitted As Inpatient Condition: Fair Referrals: Dereje Banks MD [Primary Care Provider] - Forms: ED Satisfaction Letter Time of Disposition: 14:02 Neuro HPI - General Chief Complaint: ED Neuro Symptoms/Deficit Stated Complaint: Lost hearing Time Seen by Provider: 10/09/17 11:53 Source: patient Limitations: physical limitation Nursing Notes Reviewed: Yes Vital Signs Reviewed: Yes (Decreased hearing) - History of Present Illness HPI Narrative: 82-year-old who wears hearing aids and had acute hearing loss yesterday about 10 AM which is 26 hours prior to arrival. As wear hearing aids but says it feels as though a wire was cut and he lost all hearing. He must communicate by writing at this point time which is new for him. Onset of Symptoms Date: 10/08/17 Onset of Symptoms Time: 10:00 Symptom Onset Unknown: No Timing confirmed by: spouse Location: other (Hearing bilaterally) Severity: severe Quality: other (Hearing) Symptoms Improving: No Improves with: none Worsens with: none Context: sudden onset On Anticoagulants: No Associated symptoms: Reports: denies other symptoms Treatments Prior to Arrival: none - Related Data Home Medications: Home Medications Medication Instructions Recorded Confirmed Gabapentin [Neurontin] 600 mg PO TID 10/11/16 06/14/17 Tamsulosin [Flomax] 0.8 mg PO DAILY 10/11/16 06/14/17 Albuterol Sulfate [Proair Hfa] 2 puff IH Q4H PRN 01/10/17 06/14/17 Oxycodone HCl 10 mg PO Q6H PRN 05/21/17 06/14/17 Zolpidem [Ambien] 10 mg PO HS 05/21/17 06/14/17 Omeprazole Magnesium [Prilosec Otc] 20 mg PO DAILY 06/14/17 06/14/17 Previous Rx's Medication Instructions Recorded Budesonide/Formoterol 160/4.5 2 puff IH BIDR 30 Days inhaler 01/12/17 [Symbicort 160/4.5] Allergies/Adverse Reactions: Allergies Allergy/AdvReac Type Severity Reaction Status Date / Time No Known Allergies Allergy Verified 06/14/17 07:32 All systems ED: reviewed and negative except as stated. Constitutional: Denies: fever, chills, weakness, weight change Eyes: Denies: eye pain, eye discharge, vision change ENT ED: Reports: hearing loss (Acute bilateral). Denies: ear pain, throat pain , dental pain, epistaxis, congestion, dysphagia Cardiovascular: Denies: chest pain, palpitations, dyspnea on exertion, edema, syncope Respiratory: Denies: cough, dyspnea, wheezes, hemoptysis, stridor Gastrointestinal: Denies: abdominal pain, nausea, vomiting, diarrhea, constipation, hematemesis, melena, hematochezia Genitourinary: Denies: urgency, dysuria, frequency, hematuria Musculoskeletal: Denies: back pain, neck pain, arthralgia, myalgia Integumentary: Denies: rash, abrasion, lesions Neurological: Denies: headache, weakness, numbness, paresthesias, confusion, abnormal gait, vertigo Psychiatric: Denies: anxiety, depression, suicidal thoughts, homicidal thoughts , auditory hallucinations, visual hallucinations Endocrine: Denies: fatigue Hematological/Lymphatic: Denies: easy bleeding, easy bruising Allergic/Immunologic: Denies: facial swelling, urticaria Past Medical History - Past Medical History Medical history: Reports: arthritis, cancer, COPD, GERD, other Surgical history: Reports: thyroidectomy Psychiatric history: Reports: no psych history - Social History Smoking Status: Never smoker Smokeless Tobacco Status: No Alcohol use: Reports: none Drug use: Reports: none Physical Exam - General Limitations: no limitations General appearance: alert, in no apparent distress - Head Head exam: atraumatic, normocephalic, normal inspection - Eye Eye exam: Present: normal appearance, PERRL, EOMI - ENT ENT exam: normal exam, normal oropharynx, mucous membranes moist, other (there is bilateral cerumen, hearing is significantly decreased) - Neck Neck exam: Present: normal inspection, full ROM, trachea midline - Chest Chest inspection: Present: normal inspection, symmetric chest wall rise - Respiratory Respiratory exam: Present: normal lung sounds bilaterally - Cardiovascular Cardiovascular exam: Present: regular rate, normal rhythm, normal heart sounds - Abdominal Exam Abdominal exam: Present: soft, Non-Tender. Absent: tenderness, distention, guarding, rebound, rigidity - Extremities Exam Extremities exam: Present: normal inspection, full ROM. Absent: tenderness, pedal edema - Expanded Lower Extremity Exam Neurovascular/Tendon exam: Absent: motor deficit, sensory deficit, tendon deficit Gait: observed and normal - Back Exam Back exam: Present: normal inspection, full ROM. Absent: tenderness - Neurological Exam Neurological exam: Present: alert, oriented X3 - Psychiatric Psychiatric exam: Present: normal affect, normal mood - Skin Skin exam: Present: warm, dry, intact, normal color Course - Reevaluation(s) Reevaluation #1: 82-year-old with acute onset bilateral hearing loss. He denies other symptoms. Workup included a negative CT scan. Consultation obtained with neurology. His troponin is slightly elevated we will follow these. Patient will be admitted for further evaluation and treatment. Time: 14:01 - Consultations Consultation #1: Discussed with Dr. Ureña, not a TPA candidate due to onset greater than 24 hours ago. Time: 13:50 Consultation #2: Discussed with , admit. Time: 14:01 Vital Signs Temperature 97.5 F L 10/09/17 11:41 Pulse Rate 58 10/09/17 11:41 Respiratory Rate 18 10/09/17 11:41 Blood Pressure 134/87 10/09/17 11:41 O2 Sat by Pulse Oximetry 93 10/09/17 11:41 Temperature 97.5 F L 10/09/17 11:41 Pulse Rate 54 10/09/17 14:06 Respiratory Rate 18 10/09/17 14:06 Blood Pressure 137/96 10/09/17 14:06 O2 Sat by Pulse Oximetry 95 10/09/17 14:06 Oxygen Delivery Oxygen Delivery Room Air Neuro Symptoms/Deficit - Lab Data Lab results reviewed: Yes I reviewed the patient's lab results. Result diagrams: 10/09/17 12:20 10/09/17 12:20 Lab Results 10/09/17 10/09/17 10/09/17 Range/Units 12:20 12:20 12:20 WBC 7.9 (4.3-11.1) K/mcL RBC 4.56 (4.19-5.50) M/mcL Hgb 13.5 (12.9-16.9) g/dL Hct 42.3 (37.5-50.1) % MCV 92.8 (83.0-100.0) fL MCH 29.6 (28.0-33.3) pg MCHC 31.9 (31.6-35.5) g/dL RDW 14.0 (11.5-14.5) % Plt Count 203 (140-400) K/mcL MPV 11.0 (9.4-12.4) fL Immature Gran % 0.3 (0-4) % Seg Neutrophils % 66.5 % Lymphocytes % 22.7 % Monocytes % 6.5 % Eosinophils % 3.2 % Basophils % 0.8 % Neutrophils # 5.3 (1.6-8.9) K/mcL Lymphocytes # 1.8 (0.6-4.6) K/mcL Monocytes # 0.5 (0.0-1.3) K/mcL Eosinophils # 0.3 (0.0-0.6) K/mcL Basophils # 0.1 (0.0-0.2) K/mcL PT 10.9 (9.4-12.1) Seconds INR 1.0 APTT 34.8 (26.0-36.0) Seconds Sodium 142 (136-145) mEq/L Potassium 4.4 (3.5-4.5) mEq/L Chloride 106 (98-109) mEq/L Carbon Dioxide 30 H (19-29) mEq/L BUN 27 H (8-26) mg/dL Creatinine 1.22 (0.72-1.25) mg/dL Est GFR ( Amer) > 60 (> 60) Est GFR (Non-Af Amer) 57 L (> 60) BUN/Creatinine Ratio 22 (6-26) Glucose 103 H (70-99) mg/dL Calculated Osmolality 299 (280-300) Calcium 9.5 (8.6-10.8) mg/dL Troponin I (0-0.03) ng/mL 10/09/17 Range/Units 12:20 WBC (4.3-11.1) K/mcL RBC (4.19-5.50) M/mcL Hgb (12.9-16.9) g/dL Hct (37.5-50.1) % MCV (83.0-100.0) fL MCH (28.0-33.3) pg MCHC (31.6-35.5) g/dL RDW (11.5-14.5) % Plt Count (140-400) K/mcL MPV (9.4-12.4) fL Immature Gran % (0-4) % Seg Neutrophils % % Lymphocytes % % Monocytes % % Eosinophils % % Basophils % % Neutrophils # (1.6-8.9) K/mcL Lymphocytes # (0.6-4.6) K/mcL Monocytes # (0.0-1.3) K/mcL Eosinophils # (0.0-0.6) K/mcL Basophils # (0.0-0.2) K/mcL PT (9.4-12.1) Seconds INR APTT (26.0-36.0) Seconds Sodium (136-145) mEq/L Potassium (3.5-4.5) mEq/L Chloride (98-109) mEq/L Carbon Dioxide (19-29) mEq/L BUN (8-26) mg/dL Creatinine (0.72-1.25) mg/dL Est GFR ( Amer) (> 60) Est GFR (Non-Af Amer) (> 60) BUN/Creatinine Ratio (6-26) Glucose (70-99) mg/dL Calculated Osmolality (280-300) Calcium (8.6-10.8) mg/dL Troponin I 0.06 H* (0-0.03) ng/mL - Radiology Data Radiology results reviewed: Yes I reviewed the patient's radiology results. Chest X-Ray 10/09/17 12:01 IMPRESSION: 1. Mild bibasilar opacities are likely atelectasis or scarring. D/ / Owen Villaseñor MD / Owen Villaseñor MD Interpreting Provider: Owen Villaseñor MD Head CT 10/09/17 12:04 IMPRESSION: No acute intracranial abnormality. D/ / Levi Donnelly MD / Levi Donnelly MD Interpreting Provider: Levi Donnelly MD - EKG Data EKG attestation: Yes I reviewed and interpreted this EKG. EKG shows normal: sinus rhythm Rate: normal Rhythm: NSR Interpretation: no acute changes NIH Stroke Scale - Level of Consciousness LOC: Alert - LOC Questions LOC Questions: Answers both correctly - LOC Commands LOC Commands: Performs both correctly - Best Gaze Best Gaze: Normal - Visual Visual: No visual loss - Facial Palsy Facial Palsy: Normal - Motor Arms Motor Arm-Left: No drift for 10 seconds Motor Arm-Right: No drift for 10 seconds - Motor Legs Motor Leg-Left: No drift for 5 seconds Motor Leg-Right: No drift for 5 seconds - Limb Ataxia Limb Ataxia: Normal, No Ataxia - Sensory Sensory: Normal - Best Language Best Language: No aphasia - Dysarthria Dysarthria: Normal - Extinction and Inattention Extinction and Inattention: Normal - NIHSS Total Score NIHSS Total Score: 0 TPA Checklist - Eligibilty for IV tPA 1. LKW equal to or less than 4.5 hours be before treatment: No - LKW: 3-4.5 hrs Add. Warnings/Precautions Patient/family understanding: The patient/family members have been counseled and understood the risk, benefit , and alternatives of treatment.
[2017-10-09 12:37] LABS: Basophils # 0.1 K/mcL (0.0-0.2); Basophils % 0.8 %; Eosinophils # 0.3 K/mcL (0.0-0.6); Eosinophils % 3.2 %; Hematocrit 42.3 % (37.5-50.1); Hemoglobin 13.5 g/dL (12.9-16.9); Immature Granulocytes % 0.3 % (0-4); Lymphocytes # 1.8 K/mcL (0.6-4.6); Lymphocytes % 22.7 %; Mean Corpuscular HGB Conc 31.9 g/dL (31.6-35.5); Mean Corpuscular Hemoglobin 29.6 pg (28.0-33.3); Mean Corpuscular Volume 92.8 fL (83.0-100.0); Monocytes # 0.5 K/mcL (0.0-1.3); Monocytes % 6.5 %; Neutrophils # 5.3 K/mcL (1.6-8.9); Platelet Count 203 K/mcL (140-400); Red Blood Count 4.56 M/mcL (4.19-5.50); Segmented Neutrophils % 66.5 %
[2017-10-09 12:41] LABS: Prothrombin Time 10.9 Seconds (9.4-12.1)
[2017-10-09 12:43] LABS: Activated Partial Thrombo Time 34.8 Seconds (26.0-36.0)
[2017-10-09 12:47] LABS: BUN/Creatinine Ratio 22 (6-26); Blood Urea Nitrogen 27 mg/dL (8-26); Calcium 9.5 mg/dL (8.6-10.8); Carbon Dioxide 30 mEq/L (19-29); Chloride 106 mEq/L (98-109); Glucose 103 mg/dL (70-99); Osmolality,Calculated 299 (280-300); Potassium 4.4 mEq/L (3.5-4.5); Sodium 142 mEq/L (136-145); eGFR For African Americans > 60 (> 60); eGFR For Non-African Americans 57 (> 60)
[2017-10-09] MEDS ORDERED: *HR* HYDROcodone/Acet 5/325 mg TABLET PO PRN (14:37)
[2017-10-09] MEDS ORDERED: Naloxone 0.4 MG/ML INJ IVP PRN (14:37)
[2017-10-09] MEDS ORDERED: Ondansetron 4 MG/2 ML VIAL IVP PRN (14:37)
[2017-10-09] MEDS ORDERED: Acetaminophen 325 MG TABLET PO PRN (14:37)
[2017-10-09] MEDS ORDERED: Ipratropium/Albuterol Neb 3 ML IH PRN (14:55)
--- NOTE | 2017-10-09 15:16 | Internal Med History&Physical ---
<Dain Echavarria - Last Filed: 10/09/17 15:35> Date of Encounter: 10/09/17 Time of Encounter: 14:00 Assessment and Plan (1) Hearing loss Current visit: Yes Status: Acute Acute bilateral hearing loss since yesterday morning. Pt. states he was taking a shower and when he got out he couldn't hear in either ear. States hearing in rt. ear slightly improved later in day then was lost again. Denies any previous occurrence or hx of CVA/TIA. Pt. neurologically intact on exam w/exception of bilateral hearing loss. No facial droop, pronator drift. Strength symmetrical and equal bilaterally in UEs and LEs. CT of the head without contrast today shows decreased attenuation noted within the periventricular white matter with pattern consistent with chronic small vessel ischemic change. No acute intracranial abnormality. MRI of head/brain ordered to r/o ischemia/infarct. ENT consult ordered and discussed w/Dr. Abreu w/recommendation to begin oral steroid @ 80 mg daily for one week, then taper. Neuro checks Q2HR. NIHSS scale. LYNN, RF, Anti-Ro, Anti-La, and TSH ordered routine. Pt. at moderate risk for further morbidity based on current sx, neuro deficit, and hx. Inpatient. Qualifiers: Hearing loss type: unspecified Laterality: bilateral Qualified Code(s): H91.93 - Unspecified hearing loss, bilateral (2) SOB (shortness of breath) Current visit: Yes Status: Chronic Hx of chronic SOB r/t COPD and hx of smoking. Will continue pts. inhalers and add DuoNebs Q6 PRN. Supplemental O2 w/titration and SpO2 monitoring. (3) Elevated troponin Current visit: Yes Status: Chronic Initial troponin of 0.06. Pt. has chronically elevated troponin levels historically. Will trend x2. Pt. denies any chest pain, diaphoresis, or cardiac sx. Continuous cardiac telemetry. (4) COPD (chronic obstructive pulmonary disease) Current visit: Yes Status: Chronic Hx of chronic COPD. Stable. Will continue pts. inhalers and add DuoNebs Q6 PRN. Supplemental O2 w/titration and SpO2 monitoring. Qualifiers: COPD type: COPD with acute exacerbation Qualified Code(s): J44.1 - Chronic obstructive pulmonary disease with (acute) exacerbation (5) DVT prophylaxis Current visit: Yes Status: Acute Heparin 5,000 units SQ Q8 for DVT prophylaxis. Internal Medicine - H&P: HPI Chief complaint: Bilateral hearing loss Admitted From: Emergency Dept Plans for Post Hospital Care: Home History of present illness: Mr. 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 Pt. states he was taking a shower and when he got out he couldn't hear in either ear. States hearing in rt. ear slightly improved later in day then was lost again. Denies any previous occurrence or hx of CVA/TIA. Pt. reports chronic back pain but denies recent illness, fever, chills, nausea, vomiting, headache, changes in vision, dizziness, lightheadedness, unusual bleeding, abdominal pain, numbness, tingling, diarrhea, constipation, chest pain, palpitations, pre-syncope, or syncope. 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), COPD, GERD, other Psychiatric history: no psych history - Past Surgical History Surgical History: thyroidectomy - Social History Smoking Status: Former smoker Packs per day: 1 PPD - Reports quitting 10 years ago Smokeless Tobacco Status: No Alcohol use: none Drug use: none Occupational status: previously employed Current living situation: Home, With Family Activity Level: Independent ambulation Recent Out of Country Travel Within the Last 8 Weeks: No Exposure or Possible Exposure to Illness During Travel: No - Family History Mother Race: Family Member Ethnicity: Non- Living Status: Age at : 81 Cause of : Emphysema Hx Family Respiratory Disorders: Yes (Emphysema) Father Race: Family Member Ethnicity: Non- Living Status: Age at : 91 Cause of : Alzheimer's disease Hx Family Neurologic Disorders: Yes (Alzheimer's disease) Sister Race: Family Member Ethnicity: Non- Living Status: Still Living Hx Family Medical Disorders: No Internal Medicine - H&P: Meds Gabapentin [Neurontin] 600 mg PO TID 10/11/16 [History] Tamsulosin [Flomax] 0.8 mg PO DAILY 10/11/16 [History] Albuterol Sulfate [Proair Hfa] 2 puff IH Q4H PRN 01/10/17 [History] Budesonide/Formoterol 160/4.5 [Symbicort 160/4.5] 2 puff IH BIDR 30 Days inhaler 01/12/17 [Rx] Zolpidem [Ambien] 10 mg PO HS 05/21/17 [History] Omeprazole Magnesium [Prilosec Otc] 20 mg PO DAILY 06/14/17 [History] Oxycodone HCl 15 mg PO Q6H PRN 10/09/17 [History] 3 Allergy/AdvReac Type Severity Reaction Status Date / Time No Known Allergies Allergy Verified 10/09/17 14:20 All Systems PM: A 10-system review of systems was performed and is negative for pertinent findings except as documented above in the HPI. - Constitutional Constitutional: no chills, no fever(s), no night sweats - EENT Eyes: no change in vision, no discharge, no pain, no photophobia Ears: as per HPI, decreased hearing (Hearing loss bilaterally), no ear discharge , no ear pain, no tinnitus Nose, mouth and throat: no dysphagia, no nasal discharge, no neck pain, no sore throat - Breasts Breasts: as per HPI - Cardiovascular Cardiovascular ROS IM: no chest pain, no diaphoresis, no dyspnea, no lightheadedness, no palpitations, no syncope - Respiratory Respiratory: as per HPI, dyspnea (D/t COPD - Uses home O2 @ night), no cough, no wheezing, no excessive phlegm production - Gastrointestinal Gastrointestinal: no abdominal pain, no diarrhea, no hematemesis, no hematochezia, no melena, no nausea, no vomiting - Genitourinary Genitourinary ROS male: as per HPI - Musculoskeletal Musculoskeletal ROS IM: as per HPI, back pain, no numbness, no tingling - Integumentary Integumentary IM: no rash, no unusual bruising - Neurological Neurological ROS: no confusion, no convulsions, no focal weakness, no numbness, no tingling, no tremor(s) - Psychiatric Psychiatric: as per HPI - Endocrine Endocrine IM: as per HPI - Hematologic/Lymphatic Hematologic/Lymphatic: no easy bruising - Allergic/Immunologic Allergic/Immunologic: as per HPI - Constitutional Vitals: Temp Pulse Resp BP Pulse Ox 98.0 F 61 17 143/78 94 10/09/17 14:51 10/09/17 14:51 10/09/17 14:51 10/09/17 14:51 10/09/17 14:51 General appearance: Present: cooperative, A&O X 3, pleasant, no acute distress, answers questions appropriately - Head Head exam: Present: atraumatic, normal inspection, normocephalic - Eye Eye exam: Present: PERRL, conjuntiva pink, sclera anicteric Pupils: Present: PERRL - ENT Additional comments: Bilateral hearing loss. Pt. states he can hear his own voice vibrating in his head but no one else when they are speaking to him. - Neck Neck exam general surgery: Present: normal inspection, supple, trachea midline. Absent: lymphadenopathy - Respiratory Respiratory exam: Present: CTAB. Absent: accessory muscle use, rales, rhonchi, wheezes - Cardiovascular Cardiovascular exam: Present: bradycardia, +S1, +S2. Absent: diastolic murmur, gallop, rubs, systolic murmur - GI/Abdominal GI/Abdominal exam: Present: normal bowel sounds, soft, no peritoneal signs. Absent: distended, tenderness - Rectal Rectal exam: Present: deferred - Additional comments: exam deferred. - Extremities Exam Extremities exam: Present: warm, radial pulses palpable and symmetrical. Absent : calf tenderness, cyanotic, pedal edema - Back Exam Back exam: Present: normal inspection - Neurological Exam Neurological exam: Present: oriented X3. Absent: pronater drift, facial droop, speech deficit Additional comments: Bilateral hearing loss - Psychiatric Psychiatric exam: Present: normal affect, normal mood - Skin Skin exam: Present: dry, intact Internal Med - H&P Results - Labs CBC & Chem 7: 10/09/17 12:20 10/09/17 12:20 - EKG Data EKG shows normal: sinus rhythm Rate: bradycardia - EKG Data Prior EKG available for review: no EKG comments: 10/09/17 15:24 EKG dated 10/09/17 shows sinus bradycardia. Borderline ECG. - Impressions Impressions Chest X-Ray 10/09/17 12:01 IMPRESSION: 1. Mild bibasilar opacities are likely atelectasis or scarring. D/ / Owen Villaseñor MD / Owen Villaseñor MD Interpreting Provider: Owen Villaseñor MD Head CT 10/09/17 12:04 IMPRESSION: No acute intracranial abnormality. D/ / Levi Donnelly MD / Levi Donnelly MD Interpreting Provider: Levi Donnelly MD - Diagnostic Studies Chest x-ray Additional comments: Impressions Chest X-Ray 10/09/17 12:01 IMPRESSION: 1. Mild bibasilar opacities are likely atelectasis or scarring. D/ / Owen Villaseñor MD / Owen Villaseñor MD Interpreting Provider: Owen Villaseñor MD CT scan - head Additional comments: Impressions Head CT 10/09/17 12:04 IMPRESSION: No acute intracranial abnormality. D/ / Levi Donnelly MD / Levi Donnelly MD Interpreting Provider: Levi Donnelly MD <Rosas Alanis P - Last Filed: 10/09/17 15:54> Date of Encounter: 10/09/17 Internal Medicine - H&P: HPI History of present illness: Mr. Fair is a 82 year old male All Systems PM: A 10-system review of systems was performed and is negative for pertinent findings except as documented above in the HPI. - Constitutional Vitals: Temp Pulse Resp BP Pulse Ox 98.0 F 61 17 143/78 94 10/09/17 14:51 10/09/17 14:51 10/09/17 14:51 10/09/17 14:51 10/09/17 14:51 Internal Med - H&P Results - Labs CBC & Chem 7: 10/09/17 12:20 10/09/17 12:20 - Attending Attestation I examined this patient and my medical decision-making was reviewed with the Resident Physician/CASSEROLE PREPARER. I agree with the documented findings, disposition and treatment plan as described except to the extent set forth below. Patient seen and examined him. Chart reviewed. Examined this patient in the emergency room with nurse practitioner Dain Briefly, 82-year-old gentleman has a acute onset of bilateral hearing loss. CT head was negative for any acute ischemic changes. Plan: Admit as inpatient:Frequent neuro check We will get an ENT opinion.
[2017-10-09] MEDS: predniSONE 20 MG TABLET PO SCH (16:49)
[2017-10-09] MEDS: Gabapentin 300 MG CAPSULE PO SCH ×2 (16:49→20:45)
[2017-10-09] MEDS: *HR* Heparin 5,000 UNIT/ML VIAL SQ SCH ×2 (16:50→23:37)
[2017-10-09] MEDS: Budesonide/Formoterol 160/4.5 MDI IH SCH (20:08)
[2017-10-10 01:20] LABS: Basophils % 0.3 %; Eosinophils % 0.2 %; Hemoglobin 13.1 g/dL (12.9-16.9); Immature Granulocytes % 0.3 % (0-4); Lymphocytes # 0.7 K/mcL (0.6-4.6); Lymphocytes % 11.6 %; Mean Corpuscular Hemoglobin 29.3 pg (28.0-33.3); Mean Corpuscular Volume 91.7 fL (83.0-100.0); Mean Platelet Volume 11.9 fL (9.4-12.4); Monocytes % 0.6 %; Neutrophils # 5.5 K/mcL (1.6-8.9); Platelet Count 189 K/mcL (140-400); Red Blood Count 4.47 M/mcL (4.19-5.50); Red Cell Distribution Width 13.9 % (11.5-14.5)
[2017-10-10 01:28] LABS: Hemoglobin A1C 5.4 %
[2017-10-10 01:39] LABS: Alanine Aminotransferase 11 Units/L (0-55); Albumin 3.2 g/dL (3.5-5.0); Albumin/Globulin Ratio 1.1 (1.1-2.2); Alkaline Phosphatase 105 Units/L (38-126); Aspartate Amino Transferase 18 Units/L (5-34); BUN/Creatinine Ratio 26 (6-26); Bilirubin,Total 0.2 mg/dL (0.2-1.2); Blood Urea Nitrogen 26 mg/dL (8-26); Calcium 9.2 mg/dL (8.6-10.8); Carbon Dioxide 25 mEq/L (19-29); Chloride 106 mEq/L (98-109); Chol/HDL Ratio 2.9 (0-4.9); Cholesterol 142 mg/dL (< 200); Glucose 159 mg/dL (70-99); HDL Cholesterol 49 mg/dL (40-59); LDL Cholesterol,Calculated 85 mg/dL (0-99); Magnesium 1.8 mg/dL (1.6-2.6); Osmolality,Calculated 296 (280-300); Potassium 4.5 mEq/L (3.5-4.5); Sodium 139 mEq/L (136-145); Total Protein 6.2 g/dL (6.0-8.3); Triglycerides 38 mg/dL (< 150); eGFR For African Americans > 60 (> 60); eGFR For Non-African Americans > 60 (> 60)
[2017-10-10 06:42] VITALS: BP 150/89
[2017-10-10] MEDS: Budesonide/Formoterol 160/4.5 MDI IH SCH (07:32)
[2017-10-10] MEDS: Gabapentin 300 MG CAPSULE PO SCH (09:01)
[2017-10-10] MEDS: predniSONE 20 MG TABLET PO SCH (09:01)
[2017-10-10] MEDS: *HR* Heparin 5,000 UNIT/ML VIAL SQ SCH (09:02)
--- NOTE | 2017-10-10 09:09 | Discharge Summary ---
Date of Encounter: 10/10/17 Time of Encounter: 09:06 - Discharge Diagnosis (1) Hearing loss Priority: Primary Status: Acute Qualifiers: Hearing loss type: unspecified Laterality: bilateral Qualified Code(s): H91.93 - Unspecified hearing loss, bilateral (2) COPD (chronic obstructive pulmonary disease) Priority: Secondary Status: Chronic Qualifiers: COPD type: COPD with acute exacerbation Qualified Code(s): J44.1 - Chronic obstructive pulmonary disease with (acute) exacerbation (3) BPH (benign prostatic hyperplasia) Priority: Secondary Status: Chronic Qualifiers: Qualified Code(s): N40.0 - Benign prostatic hyperplasia without lower urinary tract symptoms (4) Chronic back pain Priority: Secondary Status: Chronic Qualifiers: Back pain location: low back pain Back pain laterality: unspecified Sciatica presence: without sciatica Qualified Code(s): M54.5 - Low back pain; G89.29 - Other chronic pain (5) Elevated troponin Priority: Secondary Status: Chronic - Discharge Medications Prescriptions: predniSONE [PredniSONE] 80 mg PO DAILY #24 tablet Home Medications: Gabapentin [Neurontin] 600 mg PO TID 10/11/16 [History] Tamsulosin [Flomax] 0.8 mg PO DAILY 10/11/16 [History] Albuterol Sulfate [Proair Hfa] 2 puff IH Q4H PRN 01/10/17 [History] Budesonide/Formoterol 160/4.5 [Symbicort 160/4.5] 2 puff IH BIDR 30 Days inhaler 01/12/17 [Rx] Zolpidem [Ambien] 10 mg PO HS 05/21/17 [History] Omeprazole Magnesium [Prilosec Otc] 20 mg PO DAILY 06/14/17 [History] Oxycodone HCl 15 mg PO Q6H PRN 10/09/17 [History] predniSONE [PredniSONE] 80 mg PO DAILY #24 tablet 10/10/17 [Rx] Allergies/Adverse Reactions: 3 Allergy/AdvReac Type Severity Reaction Status Date / Time No Known Allergies Allergy Verified 10/09/17 14:20 Procedures/tests Complete & Pending: Procedures Performed prior 72 hours Category Date Time Status MR head/brain wo con [MR] Routine MRI 10/09/17 14:42 Completed Date of admission: 10/09/17 14:37 Primary care physician: Dereje Banks MD Consults: 10/09/17 14:58 Consult to ENT [CONS] Routine Consulting Provider: ENT Janet Reason for Consult: Patient experiencing bilateral hearing loss since yesterday morning at 8 a.m. Pt. states he was in shower and when he got out he couldn't hear. Put his hearing aids in after changing batteries and still could not. Reports hearing in rt. ear began to slightly improve, then lost again. Pt. states this has never happened before. MRI of head/brain ordered. LYNN, RF, Anti-Ro, Anti La, and TSH ordered. Call Completed: Yes - Patient Status Disposition: Home, Self-Care Condition: Fair Overall status at discharge: patient is not back to baseline - Discharge Instructions Follow Up With: Dereje Banks MD [Primary Care Provider] - (web request 10/10/2017) Additional Instructions: Need to go for hearing test today and follow up with ENT doctor after that - Diet and Activity Activity: increase activity as tolerated Diet: advance to your usual diet Hospital course: Mr. 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 Pt. states he was taking a shower and when he got out he couldn't hear in either ear. States hearing in rt. ear slightly improved later in day then was lost again. Denies any previous occurrence or hx of CVA/TIA. 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 Other than hearing loss, he does not have any other focal neuro deficits. His MRI of brain came back as completely benign study, no acute CVA or no tumors noticed. At this point we were concerned about possible meniere 's disease too. He was started on PO steroids at 80mg PO daily. Spoke to ENT, who scheduled for hearing test today as an out pt and f/u with them after that. So will d/c him home today stable condition with PO tapering steroids. - Time Spent with Patient Total time spent providing and/or coordinating discharge services: - Constitutional Vitals: Temp Pulse Resp BP Pulse Ox 98.3 F 59 13 150/89 93 10/10/17 06:37 10/10/17 06:37 10/10/17 07:33 10/10/17 06:37 10/10/17 07:33 General appearance: Present: cooperative, A&O X 3, pleasant, no acute distress, answers questions appropriately - Head Head exam: Present: atraumatic, normal inspection - ENT Additional comments: severe hearing loss in both ears small skin lesion noticed over Rt ear external pinna proximally - Respiratory Respiratory exam: Present: CTAB. Absent: accessory muscle use, rales, rhonchi, wheezes - Cardiovascular Cardiovascular exam: Present: RRR, +S1, +S2. Absent: diastolic murmur, gallop, rubs, systolic murmur - Extremities Exam Extremities exam: Absent: calf tenderness, pedal edema, tenderness - Neurological Exam Neurological exam: Present: alert, CN II-XII intact (except hearing loss), oriented X3 - Psychiatric Psychiatric exam: Present: normal affect, normal mood
--- NOTE | 2017-10-11 05:35 | Electrocardiograph Report ---
[place] [id number] Test Date: 2017-10-09 Pat Name: Keny Fair Department: 103 Room: 2A11 Gender: M Cigar Packer: : [id number] Requested By: Mustapha Eng Order Number: [id number] Reading MD: Jose Elias Pearson MD Measurements Intervals [place] Rate: 54 P: 51 MO: 181 QRS: 7 QRSD: 88 T: 18 QT: 420 QTc: 405 Interpretive Statements SINUS BRADYCARDIA Electronically Signed On 10-11-2017 5:33:40 EST by Jose Elias Pearson MD
[2017-10-12 14:54] LABS: SSA 52 (Anti-RO) Antibody 3 AU/mL (0-40); SSA 60 (Anti-RO) Antibody 32 AU/mL (0-40)
[2017-10-13 07:18] LABS: ANA IgG by ELISA NONE DETECTED (None Detected)
== END 2017-10-10 13:05 | disposition home or self-care (01) ==
LOC: EMEROO 11:36 → 2ANU 11:36 → SUATTDRO 14:37 → 2ANU 14:44 → UNDODISIN 10-10 13:05
PROVIDERS: ADMIT Family Medicine; ATTEND Family Medicine

== ENCOUNTER 2017-10-28 15:23 | Observation (INO) ==
[2017-10-28] MEDS ORDERED: 0.9 % Sodium Chloride 1,000 ML IVC ONE (15:34)
[2017-10-28] MEDS ORDERED: Ipratropium/Albuterol Neb 3 ML IH ONE (15:42)
[2017-10-28] MEDS ORDERED: methylPREDNISolone 125 MG/2 ML VIAL IVP ONE (15:42)
[2017-10-28] MEDS ORDERED: Vancomycin 1,500 MG in D5% in Water 250 ML IVPB ONE (15:46)
[2017-10-28] MEDS ORDERED: Piperacillin/Tazobactam 3.375 GM in Water for inj. (sterile) 20 ML IVPB ONE (15:46)
[2017-10-28] MEDS ORDERED: Levofloxacin 750 MG/150 ML 750 MG/150 ML BAG IVPB ONE (15:46)
[2017-10-28 16:05] LABS: Basophils % 0.1 %; Hematocrit 41.6 % (37.5-50.1); Hemoglobin 13.4 g/dL (12.9-16.9); Immature Granulocytes % 0.9 % (0-4); Immature Platelets 5.7 % (1.1-6.1); Lymphocytes # 1.2 K/mcL (0.6-4.6); Lymphocytes % 5.1 %; Mean Corpuscular HGB Conc 32.2 g/dL (31.6-35.5); Mean Corpuscular Hemoglobin 29.5 pg (28.0-33.3); Mean Corpuscular Volume 91.6 fL (83.0-100.0); Mean Platelet Volume 10.9 fL (9.4-12.4); Monocytes # 0.9 K/mcL (0.0-1.3); Monocytes % 3.7 %; Neutrophils # 21.9 K/mcL (1.6-8.9); Platelet Count 214 K/mcL (140-400); Red Blood Count 4.54 M/mcL (4.19-5.50); Red Cell Distribution Width 14.3 % (11.5-14.5); Segmented Neutrophils % 90.2 %
--- NOTE | 2017-10-28 16:09 | Emergency Department Note ---
Disposition Clinical Impression: Acute exacerbation of chronic obstructive airways disease, Elevated troponin Pneumonia Qualifiers: Pneumonia type: due to unspecified organism Laterality: right Lung location: unspecified part of lung Qualified Code(s): J18.9 - Pneumonia, unspecified organism Disposition: Admitted As Inpatient Condition: Good Referrals: Dereje Banks MD [Primary Care Provider] - Forms: ED Satisfaction Letter Time of Disposition: 16:56 General Adult HPI - General Chief complaint: ED Shortness of Breath/Dyspnea Stated complaint: MAXIMILIAN, from [facility] Time Seen by Provider: 10/28/17 15:31 Source: patient, family Limitations: no limitations Nursing Notes Reviewed: Yes Vital Signs Reviewed: Yes - History of Present Illness HPI Narrative: 82-year-old male sent over from urgent care for pneumonia. Patient states for the past week he has been feeling weak and overall not well. He states he has had fevers and chills at home. He states he started to feel little bit better than to say he got acutely worse. He does have a history of COPD. He is currently on 2 L of oxygen at home normally. He states he does not like to use it throughout the day but will use it at night. He states he went to urgent care today where they took an x-ray which we were able to see which diagnosed him with right-sided pneumonia. He also had a fever of 102 at the urgent care. They have also provided him with Tylenol. Patient states he was admitted a few weeks ago to our hospital for stroke rule out. He states everything was within normal limits and discharged home. Patient denies any other symptoms at this time. He denies chest pain, nausea, vomiting or abdominal pain. He states his oxygen saturation normally runs in the low 90s between 92 and 94. His oxygen saturation is currently 94% on 2 L nasal cannula. Pain Scale: 0 - Related Data Home Medications Medication Instructions Recorded Confirmed Gabapentin [Neurontin] 600 mg PO TID 10/11/16 10/09/17 Tamsulosin [Flomax] 0.8 mg PO DAILY 10/11/16 10/09/17 Albuterol Sulfate [Proair Hfa] 2 puff IH Q4H PRN 01/10/17 10/09/17 Zolpidem [Ambien] 10 mg PO HS 05/21/17 10/09/17 Omeprazole Magnesium [Prilosec Otc] 20 mg PO DAILY 06/14/17 10/09/17 Oxycodone HCl 15 mg PO Q6H PRN 10/09/17 10/09/17 Previous Rx's Medication Instructions Recorded Budesonide/Formoterol 160/4.5 2 puff IH BIDR 30 Days inhaler 01/12/17 [Symbicort 160/4.5] predniSONE [PredniSONE] 80 mg PO DAILY #24 tablet 10/10/17 Allergies Allergy/AdvReac Type Severity Reaction Status Date / Time No Known Allergies Allergy Verified 10/28/17 16:25 All systems ED: reviewed and negative except as stated. Constitutional: Reports: fever, chills, weakness Eyes: Reports: as per HPI ENT ED: Reports: as per HPI Cardiovascular: Denies: chest pain, palpitations Respiratory: Reports: cough, dyspnea Gastrointestinal: Denies: abdominal pain, nausea, vomiting Genitourinary: Reports: as per HPI Musculoskeletal: Reports: as per HPI Integumentary: Denies: rash, abrasion, lesions Neurological: Reports: as per HPI Psychiatric: Reports: as per HPI Endocrine: Reports: as per HPI Hematological/Lymphatic: Reports: as per HPI Allergic/Immunologic: Reports: as per HPI Past Medical History - Past Medical History Attestation: Yes The following information was validated with the patient. Medical history: Reports: COPD, other Surgical history: Reports: thyroidectomy Psychiatric history: Reports: no psych history - Social History Smoking Status: Former smoker Smokeless Tobacco Status: No Alcohol use: Reports: none Drug use: Reports: none Physical Exam - General Limitations: no limitations General appearance: alert, in no apparent distress - Head Head exam: atraumatic, normocephalic, normal inspection - Eye Eye exam: Present: normal appearance. Absent: scleral icterus, conjunctival injection - ENT ENT exam: normal exam, normal oropharynx, mucous membranes moist - Chest Chest inspection: Present: normal inspection, symmetric chest wall rise. Absent : tenderness, rash - Respiratory Respiratory exam: Present: other (Right-sided rhonchi noted. Decreased breath sounds on the left side.). Absent: respiratory distress, accessory muscle use - Cardiovascular Cardiovascular exam: Present: regular rate, normal rhythm, normal heart sounds - Abdominal Exam Abdominal exam: Present: soft, Non-Tender. Absent: distention, guarding, rebound - Extremities Exam Extremities exam: Present: normal inspection, full ROM - Neurological Exam Neurological exam: Present: alert, oriented X3 - Psychiatric Psychiatric exam: Present: normal affect, normal mood - Skin Skin exam: Present: warm, intact Course Course Narrative: 82-year-old male presenting to the emergency Department chief complaint and pneumonia. He had a chest x-ray completed at urgent care which we are able to see which does show right-sided pneumonia. Patient also had a fever of 102 at urgent care. He was treated with Tylenol. Due to fever and source of infection we will perform a sepsis workup. We will also start the patient on healthcare acquired pneumonia antibiotics. Patient was recently admitted approximately 2 weeks ago. Patient stable in the room. He is alert and oriented 3. Oxygen saturation 94% on 2 L nasal cannula. Vital signs otherwise are within normal limits. We will perform a sepsis workup and admit the patient for healthcare acquired pneumonia. He agrees with this plan. - Reevaluation(s) Reevaluation #1: Patient has a leukocytosis of 24.3. He also has an elevated troponin of 0.09. He denies any chest pain at this time. Patient has had a chronically elevated troponin in the past. Most likely due to demand ischemia. Patient in no respiratory distress at this time. Still stable oxygen saturations on nasal cannula. Other vital signs stable. We will admit the patient at this time. The accepting physician is Dr. Burch. The patient agrees with this plan. He is alert and oriented 3. Time: 16:55 Vital Signs Temperature 98.2 F 10/28/17 15:24 Pulse Rate 78 10/28/17 15:24 Respiratory Rate 22 10/28/17 15:24 Blood Pressure 120/79 10/28/17 15:24 O2 Sat by Pulse Oximetry 90 10/28/17 15:24 Temperature 98.2 F 10/28/17 15:24 Pulse Rate 79 10/28/17 15:35 Respiratory Rate 24 10/28/17 15:35 Blood Pressure 135/90 10/28/17 15:35 O2 Sat by Pulse Oximetry 98 10/28/17 16:24 Oxygen Delivery Oxygen Delivery Room Air Medical Decision Making - Medical Records Medical records reviewed: Yes I reviewed the patient's medical records. - Lab Data Lab results reviewed: Yes I reviewed the patient's lab results. Result diagrams: 10/28/17 15:57 10/28/17 15:57 Lab Results 10/28/17 10/28/17 10/28/17 Range/Units 15:57 15:57 15:57 WBC 24.3 H (4.3-11.1) K/mcL RBC 4.54 (4.19-5.50) M/mcL Hgb 13.4 (12.9-16.9) g/dL Hct 41.6 (37.5-50.1) % MCV 91.6 (83.0-100.0) fL MCH 29.5 (28.0-33.3) pg MCHC 32.2 (31.6-35.5) g/dL RDW 14.3 (11.5-14.5) % Plt Count 214 (140-400) K/mcL MPV 10.9 (9.4-12.4) fL Immature Gran % 0.9 (0-4) % Seg Neutrophils % 90.2 % Lymphocytes % 5.1 % Monocytes % 3.7 % Eosinophils % 0.0 % Basophils % 0.1 % Neutrophils # 21.9 H (1.6-8.9) K/mcL Lymphocytes # 1.2 (0.6-4.6) K/mcL Monocytes # 0.9 (0.0-1.3) K/mcL Eosinophils # 0.0 (0.0-0.6) K/mcL Basophils # 0.0 (0.0-0.2) K/mcL Platelet Estimate Normal (Normal) Immature Plt Fraction 5.7 (1.1-6.1) % Sodium 137 (136-145) mEq/L Potassium 4.5 (3.5-4.5) mEq/L Chloride 104 (98-109) mEq/L Carbon Dioxide 20 (19-29) mEq/L BUN 26 (8-26) mg/dL Creatinine 1.14 (0.72-1.25) mg/dL Est GFR ( Amer) > 60 (> 60) Est GFR (Non-Af Amer) > 60 (> 60) BUN/Creatinine Ratio 23 (6-26) Glucose 118 H (70-99) mg/dL Calculated Osmolality 290 (280-300) Lactic Acid 0.8 (0.5-2.2) mmol/L Calcium 9.5 (8.6-10.8) mg/dL Magnesium 1.6 (1.6-2.6) mg/dL Total Bilirubin 0.7 (0.2-1.2) mg/dL Direct Bilirubin 0.4 (0.0-0.5) mg/dL Indirect Bilirubin 0.3 (0.0-1.2) mg/dL AST 20 (5-34) Units/L ALT 14 (0-55) Units/L Alkaline Phosphatase 83 (38-126) Units/L Troponin I (0-0.03) ng/mL Serum Total Protein 6.3 (6.0-8.3) g/dL Albumin 3.0 L (3.5-5.0) g/dL Globulin 3.3 (2.4-3.5) g/dL Albumin/Globulin Ratio 0.9 L (1.1-2.2) 10/28/17 Range/Units 15:57 WBC (4.3-11.1) K/mcL RBC (4.19-5.50) M/mcL Hgb (12.9-16.9) g/dL Hct (37.5-50.1) % MCV (83.0-100.0) fL MCH (28.0-33.3) pg MCHC (31.6-35.5) g/dL RDW (11.5-14.5) % Plt Count (140-400) K/mcL MPV (9.4-12.4) fL Immature Gran % (0-4) % Seg Neutrophils % % Lymphocytes % % Monocytes % % Eosinophils % % Basophils % % Neutrophils # (1.6-8.9) K/mcL Lymphocytes # (0.6-4.6) K/mcL Monocytes # (0.0-1.3) K/mcL Eosinophils # (0.0-0.6) K/mcL Basophils # (0.0-0.2) K/mcL Platelet Estimate (Normal) Immature Plt Fraction (1.1-6.1) % Sodium (136-145) mEq/L Potassium (3.5-4.5) mEq/L Chloride (98-109) mEq/L Carbon Dioxide (19-29) mEq/L BUN (8-26) mg/dL Creatinine (0.72-1.25) mg/dL Est GFR ( Amer) (> 60) Est GFR (Non-Af Amer) (> 60) BUN/Creatinine Ratio (6-26) Glucose (70-99) mg/dL Calculated Osmolality (280-300) Lactic Acid (0.5-2.2) mmol/L Calcium (8.6-10.8) mg/dL Magnesium (1.6-2.6) mg/dL Total Bilirubin (0.2-1.2) mg/dL Direct Bilirubin (0.0-0.5) mg/dL Indirect Bilirubin (0.0-1.2) mg/dL AST (5-34) Units/L ALT (0-55) Units/L Alkaline Phosphatase (38-126) Units/L Troponin I 0.09 H* (0-0.03) ng/mL Serum Total Protein (6.0-8.3) g/dL Albumin (3.5-5.0) g/dL Globulin (2.4-3.5) g/dL Albumin/Globulin Ratio (1.1-2.2) - Radiology Data Radiology results reviewed: Yes I reviewed the patient's radiology results. - EKG Data EKG #1 EKG attestation: Yes I reviewed and interpreted this EKG. EKG results narrative: Sinus rhythm. 73 bpm. WI interval 149, QRS 77, QTc 388. No ST segment elevation or acute ischemia noted. When compared to previous EKG completed on 10/09/2017 no significant changes noted. Attestation Statement - Attestation Attestation: I examined this patient and my medical decision-making was reviewed with the Resident Physician, Dr. Nieto. I agree with the documented findings, disposition and treatment plan as described except to the extent set forth below. Patient is an 82-year-old white male with a history of COPD who has been having upper respiratory symptoms for the past few days including nasal congestion cough and gradually worsening shortness of breath with wheezing. Patient is on 2 L nasal cannula oxygen at home at all times and decided to go to the urgent care today to get checked out for possible pneumonia. Patient states he has 2- 3 episodes of pneumonia a year and last episode was in April of this year. Patient is not been on any recent steroids or antibiotics. At the urgent care they performed a chest x-ray and found of right multi lobar pneumonia. Patient arrives here with mild hypoxia on room air sats 90-92% on his home 2 L nasal cannula. When I evaluated him I turned him up to 4 L. Patient was speaking comfortably without tachypnea or respiratory distress. Patient denies any chest pain heaviness or pressure, no diaphoresis, no sick be her lightheadedness , no abdominal pain or flank pain, and no nausea vomiting or posttussive emesis. Patient was reportedly febrile at 102 degrees at the urgent care and was given Tylenol prior to being transferred to the emergency department for evaluation. I agree with patient's physical exam findings as documented. On my assessment patient had no respiratory distress at bedside. Had expiratory wheezing in the bases bilaterally but good air exchange. No lower extremity edema was appreciated. Patient's EKG shows a sinus rhythm with no acute ST or T-wave changes, no significant change from prior EKGs. Patient was placed on meat boner and slicer and continuous pulse ox, he is on 4 L nasal cannula oxygen at this time and doing well. Labs were drawn and sent including blood cultures and we reviewed the test chest x-ray which is in the system showing a right multilobar pneumonia. We went ahead and started the patient on HCAP coverage since he was recently discharged from the hospital approximately 2 weeks ago. Patient's labs show a significant leukocytosis with left shift. Troponin is elevated at 0.09 but this is a chronic elevation that he has had for some time and may be slightly increased due to his current pneumonia. EKG shows no acute change and he is not having any chest pain at this time. Remainder of his labs are unremarkable. We will admit the patient for acute exacerbation of COPD and right bronchopneumonia, as well as elevated troponin. Case was discussed with the hospitalist who accepted the patient for admission.
[2017-10-28 16:10] LABS: Platelet Estimate Normal (Normal)
[2017-10-28 16:18] LABS: Alanine Aminotransferase 14 Units/L (0-55); Albumin/Globulin Ratio 0.9 (1.1-2.2); Alkaline Phosphatase 83 Units/L (38-126); Aspartate Amino Transferase 20 Units/L (5-34); BUN/Creatinine Ratio 23 (6-26); Bilirubin,Direct 0.4 mg/dL (0.0-0.5); Bilirubin,Indirect 0.3 mg/dL (0.0-1.2); Bilirubin,Total 0.7 mg/dL (0.2-1.2); Blood Urea Nitrogen 26 mg/dL (8-26); Calcium 9.5 mg/dL (8.6-10.8); Carbon Dioxide 20 mEq/L (19-29); Chloride 104 mEq/L (98-109); Globulin 3.3 g/dL (2.4-3.5); Glucose 118 mg/dL (70-99); Magnesium 1.6 mg/dL (1.6-2.6); Osmolality,Calculated 290 (280-300); Potassium 4.5 mEq/L (3.5-4.5); Sodium 137 mEq/L (136-145); Total Protein 6.3 g/dL (6.0-8.3); eGFR For African Americans > 60 (> 60); eGFR For Non-African Americans > 60 (> 60)
[2017-10-28] MEDS ORDERED: Aspirin 81 MG TAB.CHEW PO ONE (16:32)
[2017-10-28] MEDS ORDERED: Naloxone 0.4 MG/ML INJ IVP PRN (18:29)
--- NOTE | 2017-10-28 18:57 | Internal Med History&Physical ---
Date of Encounter: 10/28/17 Time of Encounter: 18:55 Assessment and Plan (1) HCAP (healthcare-associated pneumonia) Current visit: Yes Status: Acute Patient restarted on Vanco and Zosyn with oxygen supplementation and also Levaquin. put on telemetry with leucocutosis will repaet CBC in the Am currently on antibiotics. (2) Leukocytosis (leucocytosis) Current visit: Yes Status: Acute Qualifiers: Leukocytosis type: other Qualified Code(s): D72.828 - Other elevated white blood cell count (3) COPD (chronic obstructive pulmonary disease) Current visit: Yes Status: Chronic The patient put on duoneb to help with breathing breathing in addition to oxygen Qualifiers: COPD type: COPD with acute lower respiratory infection Qualified Code(s): J44.0 - Chronic obstructive pulmonary disease with acute lower respiratory infection (4) DVT prophylaxis Current visit: Yes Status: Acute Patient was on heparin 5000 international units 4 times a day Internal Medicine - H&P: HPI Chief complaint: Shortness of breath Admitted From: Home Plans for Post Hospital Care: Home History of present illness: Mr. Fair is a 82 year old male with past medical history of COPD presents with shortness of breath of 3 days' duration was previously admitted for COPD exacerbation discharge 2 weeks ago he also complains of discomfort on expiration. On 2l home oxygen some weakness. X-ray today showes right lower lobe Pneumonia Past Med Surg Social Fam HX - Past Medical History Medical history: COPD, other Psychiatric history: no psych history - Past Surgical History Surgical History: thyroidectomy - Social History Smoking Status: Former smoker Smokeless Tobacco Status: No Alcohol use: none Drug use: none - Family History Mother Family Member Ethnicity: Non- Living Status: Hx Family Respiratory Disorders: Yes (Emphysema) Hx Family Neurologic Disorders: Yes (Alzheimer's disease) Father Family Member Ethnicity: Non- Living Status: Hx Family Cancer: Yes (Colon CA) Hx Family Neuromuscular Disorders: Yes (Alzeheimers) Hx Family Neurologic Disorders: Yes (Alzheimer's disease) Sister Family Member Ethnicity: Non- Living Status: Still Living Internal Medicine - H&P: Meds Gabapentin [Neurontin] 600 mg PO TID 10/11/16 [History] Tamsulosin [Flomax] 0.8 mg PO DAILY 10/11/16 [History] Albuterol Sulfate [Proair Hfa] 2 puff IH Q4H PRN 01/10/17 [History] Budesonide/Formoterol 160/4.5 [Symbicort 160/4.5] 2 puff IH BIDR 30 Days inhaler 01/12/17 [Rx] Zolpidem [Ambien] 10 mg PO HS 05/21/17 [History] Omeprazole Magnesium [Prilosec Otc] 20 mg PO DAILY 06/14/17 [History] Oxycodone HCl 15 mg PO Q6H PRN 10/09/17 [History] Aspirin Enteric Coated [Aspirin EC] 81 mg PO DAILY 10/28/17 [History] 3 Allergy/AdvReac Type Severity Reaction Status Date / Time No Known Allergies Allergy Verified 10/28/17 16:25 All Systems PM: A 10-system review of systems was performed and is negative for pertinent findings except as documented above in the HPI. - Constitutional Constitutional: chills, fever(s) (patient states fever broke last night), night sweats - EENT Eyes: no change in vision, no discharge, no pain, no photophobia Ears: no ear discharge, no ear pain, no tinnitus Nose, mouth and throat: no dysphagia, no nasal discharge, no neck pain, no sore throat - Cardiovascular Cardiovascular ROS IM: no chest pain, no diaphoresis, no dyspnea, no lightheadedness, no palpitations, no syncope - Respiratory Respiratory: cough, dyspnea, wheezing, chest congestion, no excessive phlegm production Additional comments: Pain on expiration - Gastrointestinal Gastrointestinal: no abdominal pain, no diarrhea, no hematemesis, no hematochezia, no melena, no nausea, no vomiting - Musculoskeletal Musculoskeletal ROS IM: no numbness, no tingling - Integumentary Integumentary IM: no rash, no unusual bruising - Neurological Neurological ROS: no confusion, no convulsions, no focal weakness, no numbness, no tingling, no tremor(s) - Hematologic/Lymphatic Hematologic/Lymphatic: no easy bruising - Constitutional Vitals: Temp Pulse Resp BP Pulse Ox 98.1 F 83 18 120/65 90 10/28/17 17:58 10/28/17 17:58 10/28/17 17:58 10/28/17 17:58 10/28/17 17:58 General appearance: Present: cooperative, A&O X 3, pleasant, answers questions appropriately - Head Head exam: Present: atraumatic, normocephalic - Eye Eye exam: Present: PERRL, conjuntiva pink, sclera anicteric Pupils: Present: PERRL - Neck Neck exam general surgery: Present: supple, trachea midline. Absent: lymphadenopathy - Respiratory Respiratory exam: Present: decreased breath sounds, rales, wheezes - Cardiovascular Cardiovascular exam: Present: RRR, +S1, +S2. Absent: diastolic murmur, gallop, rubs, systolic murmur - GI/Abdominal GI/Abdominal exam: Present: normal bowel sounds, soft, no peritoneal signs. Absent: distended, tenderness - Extremities Exam Extremities exam: Present: warm, radial pulses palpable and symmetrical. Absent : calf tenderness, cyanotic, pedal edema - Neurological Exam Neurological exam: Present: CN II-XII intact, oriented X3, no focal deficits. Absent: pronater drift, facial droop, speech deficit - Skin Skin exam: Present: dry, intact Internal Med - H&P Results - Labs CBC & Chem 7: 10/28/17 15:57 10/28/17 15:57 - Diagnostic Studies Chest x-ray Additional comments: A right lobe pneumonia
--- NOTE | 2017-10-28 18:58 | Event Note ---
Date of Encounter: 10/28/17 Time of Encounter: 18:57 Patient seen and examined with nurse practitioner. Agree with assessment and plan.
[2017-10-28 19:06] LABS: Bilirubin,Urine Negative (Negative); Blood,Urine Negative (Negative); Clarity,Urine Clear (Clear); Color,Urine Yellow (Yellow); Glucose,Urine (UA) Normal (Normal); Ketones,Urine Negative (Negative); Leukocyte Esterase,Urine Negative (Negative); Nitrite,Urine Negative (Negative); Protein,Urine Negative (Neg-Trace); Specific Gravity,Urine 1.022 (1.010-1.025); Urobilinogen,Urine Normal (Normal)
[2017-10-28] MEDS: *HR* Heparin 5,000 UNIT/ML VIAL SQ SCH (19:48)
[2017-10-28] MEDS: 0.9 % Sodium Chloride 1,000 ML IVC SCH (20:13)
[2017-10-28] MEDS: Ipratropium/Albuterol Neb 3 ML IH SCH ×2 (20:51→23:19)
[2017-10-28] MEDS: Melatonin 3 MG TABLET PO PRN (21:44)
[2017-10-28] MEDS: Gabapentin 300 MG CAPSULE PO SCH (21:44)
[2017-10-28] MEDS: *HR* OxyCODONE Immed Rel 15 MG TABLET PO PRN (21:44)
[2017-10-29] MEDS ORDERED: MethylPREDNISolone 40 MG/ML VIAL IVP SCH
[2017-10-29] MEDS: Piperacillin/Tazobactam 3.375 GM/200 ML BAG IVPB SCH ×4 (00:22→23:59)
[2017-10-29] MEDS: Ipratropium/Albuterol Neb 3 ML IH SCH ×6 (04:01→23:29)
[2017-10-29] MEDS: Vancomycin 1,500 MG in D5% in Water 250 ML IVPB SCH ×2 (06:18→17:45)
[2017-10-29] MEDS: *HR* Heparin 5,000 UNIT/ML VIAL SQ SCH ×2 (06:19→17:42)
[2017-10-29] MEDS: *HR* OxyCODONE Immed Rel 15 MG TABLET PO PRN ×3 (07:45→21:10)
[2017-10-29] MEDS: Gabapentin 300 MG CAPSULE PO SCH ×3 (07:46→21:10)
[2017-10-29] MEDS: Aspirin Enteric Coated 81 MG Tablet PO SCH (07:46)
[2017-10-29] MEDS: 0.9 % Sodium Chloride 1,000 ML IVC SCH (07:50)
[2017-10-29 08:03] LABS: BUN/Creatinine Ratio 24 (6-26); Blood Urea Nitrogen 26 mg/dL (8-26); Calcium 9.3 mg/dL (8.6-10.8); Carbon Dioxide 24 mEq/L (19-29); Chloride 108 mEq/L (98-109); Glucose 163 mg/dL (70-99); Osmolality,Calculated 296 (280-300); Potassium 3.7 mEq/L (3.5-4.5); Sodium 139 mEq/L (136-145); eGFR For African Americans > 60 (> 60); eGFR For Non-African Americans > 60 (> 60)
[2017-10-29 08:47] LABS: Basophils % 0.1 %; Hematocrit 38.1 % (37.5-50.1); Hemoglobin 12.1 g/dL (12.9-16.9); Immature Granulocytes % 1.6 % (0-4); Lymphocytes # 0.5 K/mcL (0.6-4.6); Lymphocytes % 2.9 %; Mean Corpuscular HGB Conc 31.8 g/dL (31.6-35.5); Mean Corpuscular Hemoglobin 29.1 pg (28.0-33.3); Mean Corpuscular Volume 91.6 fL (83.0-100.0); Mean Platelet Volume 11.6 fL (9.4-12.4); Monocytes # 0.1 K/mcL (0.0-1.3); Monocytes % 0.8 %; Neutrophils # 16.1 K/mcL (1.6-8.9); Platelet Count 189 K/mcL (140-400); Red Blood Count 4.16 M/mcL (4.19-5.50); Red Cell Distribution Width 14.6 % (11.5-14.5); Segmented Neutrophils % 94.6 %
[2017-10-29] MEDS ORDERED: Vancomycin 1,500 MG in D5% in Water 250 ML IVPB SCH (09:00)
[2017-10-29] MEDS ORDERED: predniSONE 20 MG TABLET PO SCH (09:00)
[2017-10-29] MEDS: Levofloxacin 750 MG/150 ML 750 MG/150 ML BAG IVPB SCH (09:12)
--- NOTE | 2017-10-29 09:40 | Internal Med Progress Note ---
Date of Encounter: 10/29/17 Time of Encounter: 09:20 - Assessment and plan (1) Pneumonia Current Visit: Yes Status: Suspected Assessment and plan: Patient with right-sided multifocal pneumonia. Concerning for MRSA given his recent hospitalization. On broad-spectrum antibiotics including vancomycin. Follow culture results. Moderate risk for complications. Qualifiers: Pneumonia type: due to methicillin-resistant Staphylococcus aureus (MRSA) Laterality: right Lung location: unspecified part of lung Qualified Code(s) : J15.212 - Pneumonia due to Methicillin resistant Staphylococcus aureus (2) COPD (chronic obstructive pulmonary disease) Current Visit: Yes Status: Chronic Assessment and plan: Not in acute respiratory distress. Patient does use home oxygen at bedtime. Continue O2 supplementation. Qualifiers: COPD type: COPD with acute lower respiratory infection Qualified Code(s): J44.0 - Chronic obstructive pulmonary disease with acute lower respiratory infection (3) DVT prophylaxis Current Visit: Yes Status: Acute Assessment and plan: With subcutaneous heparin twice daily. (4) HCAP (healthcare-associated pneumonia) Current Visit: Yes Status: Acute Assessment and plan: Management as above (5) Chronic respiratory failure with hypoxia Current Visit: Yes Status: Chronic Assessment and plan: Continue home oxygen - Subjective Interval history: Patient is feeling better today. Concerned that he is getting recurrent episodes of pneumonia. 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 Has some cough. Does use home oxygen at night. - Constitutional Vitals: Temp Pulse Resp BP Pulse Ox 97.4 F L 79 16 97/57 94 10/29/17 07:09 10/29/17 07:09 10/29/17 07:09 10/29/17 07:09 10/29/17 07:09 General appearance: Present: cooperative, A&O X 3, pleasant, answers questions appropriately - Neck Neck exam general surgery: Present: supple, trachea midline. Absent: lymphadenopathy - Respiratory Respiratory exam: Present: decreased breath sounds (Right lower lobe). Absent: accessory muscle use, rales, rhonchi, wheezes - Cardiovascular Cardiovascular exam: Present: RRR, +S1, +S2. Absent: diastolic murmur, gallop, rubs, systolic murmur - GI/Abdominal GI/Abdominal exam: Present: normal bowel sounds, soft, no peritoneal signs. Absent: distended, tenderness - Extremities Exam Extremities exam: Present: warm, radial pulses palpable and symmetrical. Absent : calf tenderness, cyanotic, pedal edema - Skin Skin exam: Present: dry, intact Internal Medicine: Result - Labs CBC & Chem 7: 10/29/17 06:26 10/29/17 06:26 Labs: Short CBC 10/29/17 Range/Units 06:26 WBC 17.0 H (4.3-11.1) K/mcL Hgb 12.1 L (12.9-16.9) g/dL Hct 38.1 (37.5-50.1) % Plt Count 189 (140-400) K/mcL Neutrophils # 16.1 H (1.6-8.9) K/mcL BMP 10/29/17 06:26 Sodium 139 Potassium 3.7 Chloride 108 Carbon Dioxide 24 BUN 26 Creatinine 1.10 Glucose 163 H Calcium 9.3 Cardiac Enzymes 10/28/17 10/29/17 Range/Units 20:58 06:26 Troponin I 0.08 H* 0.08 H* (0-0.03) ng/mL Urine 10/28/17 Range/Units 18:53 Urine Color Yellow (Yellow) Urine Clarity Clear (Clear) Urine pH 6.0 (5.0-8.0) pH Units Ur Specific [place] 1.022 (1.010-1.025) Urine Protein Negative (Neg-Trace) mg/dL Urine Glucose (UA) Normal (Normal) mg/dL Consult Discharge Plan - Plan Referrals: Dereje Banks MD [Primary Care Provider] -
[2017-10-29] MEDS: Melatonin 3 MG TABLET PO PRN (21:10)
[2017-10-30] MEDS: Ipratropium/Albuterol Neb 3 ML IH SCH ×6 (04:25→23:11)
[2017-10-30 04:45] LABS: Basophils % 0.1 %; Hematocrit 33.9 % (37.5-50.1); Immature Granulocytes % 2.2 % (0-4); Lymphocytes # 0.8 K/mcL (0.6-4.6); Lymphocytes % 4.2 %; Mean Corpuscular HGB Conc 32.4 g/dL (31.6-35.5); Mean Corpuscular Hemoglobin 29.3 pg (28.0-33.3); Mean Corpuscular Volume 90.4 fL (83.0-100.0); Mean Platelet Volume 11.3 fL (9.4-12.4); Monocytes # 0.7 K/mcL (0.0-1.3); Monocytes % 3.6 %; Neutrophils # 16.4 K/mcL (1.6-8.9); Platelet Count 208 K/mcL (140-400); Red Blood Count 3.75 M/mcL (4.19-5.50); Red Cell Distribution Width 14.7 % (11.5-14.5); Segmented Neutrophils % 89.9 %
[2017-10-30 05:02] LABS: BUN/Creatinine Ratio 24 (6-26); Blood Urea Nitrogen 30 mg/dL (8-26); Calcium 9.1 mg/dL (8.6-10.8); Carbon Dioxide 25 mEq/L (19-29); Chloride 108 mEq/L (98-109); Glucose 134 mg/dL (70-99); Osmolality,Calculated 296 (280-300); Potassium 4.2 mEq/L (3.5-4.5); Sodium 139 mEq/L (136-145); eGFR For African Americans > 60 (> 60); eGFR For Non-African Americans 56 (> 60)
[2017-10-30] MEDS: *HR* Heparin 5,000 UNIT/ML VIAL SQ SCH ×2 (06:18→17:43)
[2017-10-30] MEDS: Vancomycin 1,500 MG in D5% in Water 250 ML IVPB SCH (06:18)
[2017-10-30] MEDS ORDERED: Aminoglycoside Consult 1 EACH MC ONE (07:16)
[2017-10-30] MEDS: Aspirin Enteric Coated 81 MG Tablet PO SCH (08:38)
[2017-10-30] MEDS: Gabapentin 300 MG CAPSULE PO SCH ×3 (08:38→22:44)
[2017-10-30] MEDS: Levofloxacin 750 MG/150 ML 750 MG/150 ML BAG IVPB SCH (08:38)
[2017-10-30] MEDS: Piperacillin/Tazobactam 3.375 GM/200 ML BAG IVPB SCH (10:06)
[2017-10-30] MEDS: *HR* OxyCODONE Immed Rel 15 MG TABLET PO PRN ×3 (10:11→22:44)
--- NOTE | 2017-10-30 10:55 | Internal Med Progress Note ---
Date of Encounter: 10/30/17 Time of Encounter: 08:40 - Assessment and plan (1) Pneumonia Current Visit: Yes Status: Acute Assessment and plan: Clinically patient is feeling better. He does have persistent leukocytosis. Could be due to steroid he received on the day of admission. Chest x-ray done today shows slight improvement in the right lung. Cultures are negative. We will begin to de-escalate antibiotics. If patient's condition continues to improve and his leukocytosis improves, he should be ready for discharge tomorrow. Moderate risk for complications. We will provide incentive spirometry as chest x-ray does show atelectasis. Qualifiers: Pneumonia type: due to unspecified organism Laterality: right Lung location: unspecified part of lung Qualified Code(s): J18.9 - Pneumonia, unspecified organism (2) COPD (chronic obstructive pulmonary disease) Current Visit: Yes Status: Chronic Assessment and plan: Not in acute exacerbation. Continue bronchodilators as needed. Qualifiers: COPD type: COPD with acute lower respiratory infection Qualified Code(s): J44.0 - Chronic obstructive pulmonary disease with acute lower respiratory infection (3) HCAP (healthcare-associated pneumonia) Current Visit: Yes Status: Acute (4) Chronic respiratory failure with hypoxia Current Visit: Yes Status: Chronic Assessment and plan: Patient uses home oxygen especially at night. We will continue the same. (5) DVT prophylaxis Current Visit: Yes Status: Acute Assessment and plan: On subcutaneous heparin - Subjective Interval history: Patient is feeling better overall. Denies any fever or chills. Does have mild shortness of breath. Continues to have cough. No chest pain at this time. - Constitutional Vitals: Temp Pulse Resp BP Pulse Ox 98.1 F 78 18 163/96 95 10/30/17 07:27 10/30/17 07:27 10/30/17 08:18 10/30/17 07:27 10/30/17 08:18 General appearance: Present: cooperative, A&O X 3, pleasant, answers questions appropriately - Neck Neck exam general surgery: Present: supple, trachea midline. Absent: lymphadenopathy - Respiratory Respiratory exam: Present: prolonged expiratory phase. Absent: accessory muscle use, rales, rhonchi, wheezes Additional comments: Coarse breath sounds bilaterally - Cardiovascular Cardiovascular exam: Present: RRR, +S1, +S2. Absent: diastolic murmur, gallop, rubs, systolic murmur - GI/Abdominal GI/Abdominal exam: Present: normal bowel sounds, soft, no peritoneal signs. Absent: distended, tenderness - Extremities Exam Extremities exam: Present: warm, radial pulses palpable and symmetrical. Absent : calf tenderness, cyanotic, pedal edema - Neurological Exam Neurological exam: Present: alert, CN II-XII intact, oriented X3, no focal deficits. Absent: facial droop, speech deficit Internal Medicine: Result - Labs CBC & Chem 7: 10/30/17 04:34 10/30/17 04:34 Labs: Short CBC 10/30/17 Range/Units 04:34 WBC 18.2 H (4.3-11.1) K/mcL Hgb 11.0 L (12.9-16.9) g/dL Hct 33.9 L (37.5-50.1) % Plt Count 208 (140-400) K/mcL Neutrophils # 16.4 H (1.6-8.9) K/mcL BMP 10/30/17 04:34 Sodium 139 Potassium 4.2 Chloride 108 Carbon Dioxide 25 BUN 30 H Creatinine 1.23 Glucose 134 H Calcium 9.1 - Impressions Impressions Chest X-Ray 10/30/17 07:42 IMPRESSION: Slight improvement of the right lung suggesting decreasing pneumonia with persistent bibasilar atelectasis. D/ : / 10/30/2017 09:47:00 Don[facility] Trujillo [facility] Interpreting Provider: Donis Trujillo MD Consult Discharge Plan - Plan Referrals: Dereje Banks MD [Primary Care Provider] -
[2017-10-30] MEDS ORDERED: 0.9 % Sodium Chloride 1,000 ML IVC SCH (11:00)
[2017-10-30 13:21] LABS: Adenovirus Not Detected (Not Detect); Bordetella Pertussis Not Detected (Not Detect); Chlamydophila pneumoniae Not Detected (Not Detect); Coronavirus 229E Not Detected (Not Detect); Coronavirus HKU1 Not Detected (Not Detect); Coronavirus NL63 Not Detected (Not Detect); Coronavirus OC43 Not Detected (Not Detect); Human Metapneumovirus Not Detected (Not Detect); Human Rhinovirus/Enterovirus Not Detected (Not Detect); Influenza A Subtype 2009 H1 Not Detected (Not Detect); Influenza A Untypeable Not Detected (Not Detect); Influenza B Not Detected (Not Detect); Mycoplasma pneumoniae Not Detected (Not Detect); Parainfluenza Virus 1 Not Detected (Not Detect); Parainfluenza Virus 2 Not Detected (Not Detect); Parainfluenza Virus 3 Not Detected (Not Detect); Parainfluenza Virus 4 Not Detected (Not Detect); Respiratory Syncytial Virus Not Detected (Not Detect)
[2017-10-30] MEDS ORDERED: Vancomycin 1,000 MG in D5% in Water 250 ML IVPB SCH (18:00)
[2017-10-31] MEDS: Ipratropium/Albuterol Neb 3 ML IH SCH ×6 (03:56→23:26)
[2017-10-31] MEDS: *HR* Heparin 5,000 UNIT/ML VIAL SQ SCH ×2 (05:00→17:11)
[2017-10-31 07:07] LABS: Basophils % 0.3 %; Eosinophils # 0.2 K/mcL (0.0-0.6); Hematocrit 36.3 % (37.5-50.1); Hemoglobin 12.1 g/dL (12.9-16.9); Immature Granulocytes % 0.5 % (0-4); Lymphocytes # 1.6 K/mcL (0.6-4.6); Lymphocytes % 13.5 %; Mean Corpuscular HGB Conc 33.3 g/dL (31.6-35.5); Mean Corpuscular Volume 90.1 fL (83.0-100.0); Mean Platelet Volume 11.8 fL (9.4-12.4); Monocytes # 0.5 K/mcL (0.0-1.3); Monocytes % 3.9 %; Neutrophils # 9.2 K/mcL (1.6-8.9); Platelet Count 188 K/mcL (140-400); Red Blood Count 4.03 M/mcL (4.19-5.50); Red Cell Distribution Width 14.9 % (11.5-14.5); Segmented Neutrophils % 79.8 %
[2017-10-31 07:26] LABS: BUN/Creatinine Ratio 24 (6-26); Blood Urea Nitrogen 24 mg/dL (8-26); Calcium 9.1 mg/dL (8.6-10.8); Carbon Dioxide 20 mEq/L (19-29); Chloride 110 mEq/L (98-109); Glucose 86 mg/dL (70-99); Osmolality,Calculated 295 (280-300); Potassium 4.8 mEq/L (3.5-4.5); Sodium 141 mEq/L (136-145); eGFR For African Americans > 60 (> 60); eGFR For Non-African Americans > 60 (> 60)
[2017-10-31] MEDS: Aspirin Enteric Coated 81 MG Tablet PO SCH (08:03)
[2017-10-31] MEDS: Gabapentin 300 MG CAPSULE PO SCH ×3 (08:03→21:12)
[2017-10-31] MEDS: *HR* OxyCODONE Immed Rel 15 MG TABLET PO PRN ×3 (08:06→21:12)
[2017-10-31] MEDS ORDERED: Levofloxacin 750 MG/150 ML 750 MG/150 ML BAG IVPB SCH (17:00)
--- NOTE | 2017-10-31 22:44 | Electrocardiograph Report ---
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
--- NOTE | 2017-10-31 23:56 | Internal Med Progress Note ---
Date of Encounter: 10/31/17 Time of Encounter: 15:52 - Assessment and plan (1) COPD exacerbation Current Visit: No Status: Resolved (2) DVT prophylaxis Current Visit: Yes Status: Acute Assessment and plan: On subcutaneous heparin (3) HCAP (healthcare-associated pneumonia) Current Visit: Yes Status: Acute Assessment and plan: Management as above - Subjective Interval history: Nursing reports that patient does not look well today. He currently denies SOB , chest pain, N/V, fever, cough. - Constitutional Vitals: Temp Pulse Resp BP Pulse Ox 97.4 F L 93 18 116/81 93 10/31/17 23:10 10/31/17 23:10 10/31/17 23:26 10/31/17 23:10 10/31/17 23:26 General appearance: Present: cooperative, A&O X 3, pleasant, answers questions appropriately Exam: - Neck Neck exam general surgery: Present: supple, trachea midline. Absent: lymphadenopathy - Respiratory Respiratory exam: Present: prolonged expiratory phase. Absent: accessory muscle use, rales, rhonchi, wheezes Additional comments: Coarse breath sounds bilaterally - Cardiovascular Cardiovascular exam: Present: RRR, +S1, +S2. Absent: diastolic murmur, gallop, rubs, systolic murmur - GI/Abdominal GI/Abdominal exam: Present: normal bowel sounds, soft, no peritoneal signs. Absent: distended, tenderness - Extremities Exam Extremities exam: Present: warm, radial pulses palpable and symmetrical. Absent : calf tenderness, cyanotic, pedal edema - Neurological Exam Neurological exam: Present: alert, CN II-XII intact, oriented X3, no focal deficits. Absent: facial droop, speech deficit Internal Medicine: Result - Labs CBC & Chem 7: 10/31/17 06:15 10/31/17 06:15 Labs: Short CBC 10/31/17 Range/Units 06:15 WBC 11.5 H (4.3-11.1) K/mcL Hgb 12.1 L (12.9-16.9) g/dL Hct 36.3 L (37.5-50.1) % Plt Count 188 (140-400) K/mcL Neutrophils # 9.2 H (1.6-8.9) K/mcL BMP 10/31/17 06:15 Sodium 141 Potassium 4.8 H Chloride 110 H Carbon Dioxide 20 BUN 24 Creatinine 1.01 Glucose 86 Calcium 9.1 Consult Discharge Plan - Plan Referrals: Dereje Banks MD [Primary Care Provider] -
[2017-11-01] MEDS: Ipratropium/Albuterol Neb 3 ML IH SCH ×6 (04:02→23:27)
[2017-11-01 05:35] LABS: Basophils % 0.2 %; Eosinophils # 0.3 K/mcL (0.0-0.6); Eosinophils % 3.2 %; Hematocrit 36.6 % (37.5-50.1); Hemoglobin 11.6 g/dL (12.9-16.9); Lymphocytes # 1.5 K/mcL (0.6-4.6); Lymphocytes % 15.7 %; Mean Corpuscular HGB Conc 31.7 g/dL (31.6-35.5); Mean Corpuscular Hemoglobin 28.9 pg (28.0-33.3); Mean Corpuscular Volume 91.3 fL (83.0-100.0); Mean Platelet Volume 11.4 fL (9.4-12.4); Monocytes # 0.5 K/mcL (0.0-1.3); Monocytes % 5.4 %; Platelet Count 231 K/mcL (140-400); Red Blood Count 4.01 M/mcL (4.19-5.50); Red Cell Distribution Width 14.7 % (11.5-14.5); Segmented Neutrophils % 74.5 %
[2017-11-01 05:51] LABS: BUN/Creatinine Ratio 20 (6-26); Blood Urea Nitrogen 19 mg/dL (8-26); Calcium 8.8 mg/dL (8.6-10.8); Carbon Dioxide 26 mEq/L (19-29); Chloride 104 mEq/L (98-109); Glucose 96 mg/dL (70-99); Osmolality,Calculated 290 (280-300); Potassium 4.2 mEq/L (3.5-4.5); Sodium 139 mEq/L (136-145); eGFR For African Americans > 60 (> 60); eGFR For Non-African Americans > 60 (> 60)
[2017-11-01] MEDS: *HR* Heparin 5,000 UNIT/ML VIAL SQ SCH ×2 (06:07→18:41)
[2017-11-01] MEDS: *HR* OxyCODONE Immed Rel 15 MG TABLET PO PRN ×3 (07:37→21:16)
[2017-11-01] MEDS: Aspirin Enteric Coated 81 MG Tablet PO SCH (07:38)
[2017-11-01] MEDS: Gabapentin 300 MG CAPSULE PO SCH ×3 (07:38→21:16)
[2017-11-01] MEDS ORDERED: Levofloxacin 750 MG/150 ML 750 MG/150 ML BAG IVPB SCH (11:00)
[2017-11-01] MEDS: Doxycycline 100 MG in 0.9 % Sodium Chloride Mini Bag 100 ML IVPB SCH (18:41)
--- NOTE | 2017-11-02 00:34 | Internal Med Progress Note ---
Date of Encounter: 11/01/17 Time of Encounter: 16:31 - Assessment and plan (1) HCAP (healthcare-associated pneumonia) Current Visit: Yes Status: Acute Assessment and plan: Sputum culture sensitivities show resistance to Levaquin. Clinically he did improve and WBCs trended down. Will discontinue Levaquin and start patient on Doxycycline based on sensitivities. He will need a day of monitoring on this therapy. (2) COPD exacerbation Current Visit: No Status: Resolved (3) DVT prophylaxis Current Visit: Yes Status: Acute - Subjective Interval history: Doing well no complaints. MRSA sputum cultures sensitivity returned resistant to Levaquin. - Constitutional Vitals: Temp Pulse Resp BP Pulse Ox 97.3 F L 79 18 148/77 97 11/01/17 23:07 11/01/17 23:07 11/01/17 23:28 11/01/17 23:07 11/01/17 23:28 General appearance: Present: cooperative, A&O X 3, pleasant, answers questions appropriately Exam: CVS: RRR Lungs: CTAB Ext: no edema Internal Medicine: Result - Labs CBC & Chem 7: 11/01/17 04:45 11/01/17 04:45 Labs: Short CBC 11/01/17 Range/Units 04:45 WBC 9.4 (4.3-11.1) K/mcL Hgb 11.6 L (12.9-16.9) g/dL Hct 36.6 L (37.5-50.1) % Plt Count 231 (140-400) K/mcL Neutrophils # 7.0 (1.6-8.9) K/mcL BMP 11/01/17 04:45 Sodium 139 Potassium 4.2 Chloride 104 Carbon Dioxide 26 BUN 19 Creatinine 0.96 Glucose 96 Calcium 8.8 Consult Discharge Plan - Plan Referrals: Dereje Banks MD [Primary Care Provider] - 11/08/17 1:00 pm
[2017-11-02] MEDS: Ipratropium/Albuterol Neb 3 ML IH SCH ×3 (03:44→11:03)
[2017-11-02 04:37] LABS: Basophils % 0.6 %; Eosinophils # 0.5 K/mcL (0.0-0.6); Eosinophils % 6.4 %; Hematocrit 38.4 % (37.5-50.1); Immature Granulocytes % 1.5 % (0-4); Lymphocytes # 1.5 K/mcL (0.6-4.6); Lymphocytes % 21.3 %; Mean Corpuscular HGB Conc 31.3 g/dL (31.6-35.5); Mean Corpuscular Hemoglobin 28.6 pg (28.0-33.3); Mean Corpuscular Volume 91.4 fL (83.0-100.0); Mean Platelet Volume 11.1 fL (9.4-12.4); Monocytes # 0.5 K/mcL (0.0-1.3); Monocytes % 6.6 %; Neutrophils # 4.6 K/mcL (1.6-8.9); Platelet Count 258 K/mcL (140-400); Red Cell Distribution Width 14.6 % (11.5-14.5); Segmented Neutrophils % 63.6 %
[2017-11-02 04:58] LABS: BUN/Creatinine Ratio 17 (6-26); Blood Urea Nitrogen 17 mg/dL (8-26); Calcium 9.2 mg/dL (8.6-10.8); Carbon Dioxide 27 mEq/L (19-29); Chloride 105 mEq/L (98-109); Glucose 100 mg/dL (70-99); Osmolality,Calculated 298 (280-300); Potassium 4.3 mEq/L (3.5-4.5); Sodium 143 mEq/L (136-145); eGFR For African Americans > 60 (> 60); eGFR For Non-African Americans > 60 (> 60)
[2017-11-02] MEDS: *HR* Heparin 5,000 UNIT/ML VIAL SQ SCH (05:49)
[2017-11-02] MEDS: Doxycycline 100 MG in 0.9 % Sodium Chloride Mini Bag 100 ML IVPB SCH (06:18)
[2017-11-02 07:25] VITALS: BP 169/101
[2017-11-02] MEDS: *HR* OxyCODONE Immed Rel 15 MG TABLET PO PRN (07:45)
--- NOTE | 2017-11-02 08:58 | Discharge Summary ---
Date of Encounter: 11/02/17 Time of Encounter: 08:55 - Discharge Diagnosis (1) HCAP (healthcare-associated pneumonia) Priority: Primary Status: Acute (2) COPD exacerbation Priority: Secondary Status: Resolved (3) DVT prophylaxis Priority: Secondary Status: Acute - Discharge Medications Home Medications: Gabapentin [Neurontin] 600 mg PO TID 10/11/16 [History] Tamsulosin [Flomax] 0.8 mg PO DAILY 10/11/16 [History] Albuterol Sulfate [Proair Hfa] 2 puff IH Q4H PRN 01/10/17 [History] Budesonide/Formoterol 160/4.5 [Symbicort 160/4.5] 2 puff IH BIDR 30 Days inhaler 01/12/17 [Rx] Zolpidem [Ambien] 10 mg PO HS 05/21/17 [History] Omeprazole Magnesium [Prilosec Otc] 20 mg PO DAILY 06/14/17 [History] Oxycodone HCl 15 mg PO Q6H PRN 10/09/17 [History] Aspirin Enteric Coated [Aspirin EC] 81 mg PO DAILY 10/28/17 [History] Doxycycline 100 mg PO BID #10 capsule 11/02/17 [Rx] Doxycycline 100 mg PO BID #14 capsule 11/02/17 [Rx] Allergies/Adverse Reactions: 3 Allergy/AdvReac Type Severity Reaction Status Date / Time No Known Allergies Allergy Verified 10/28/17 16:25 Date of admission: 10/28/17 18:29 Primary care physician: Dereje Banks MD Consults: 10/30/17 14:28 Consult to Portfolio Specialist [CONS] Routine Reason for SW Consult: readmission Discharging clinician: Divine Blunt - Patient Status Disposition: Home, Self-Care Condition: Good Overall status at discharge: patient is progressing back to baseline - Discharge Instructions Follow Up With: Dereje Banks MD [Primary Care Provider] - 11/08/17 1:00 pm - Diet and Activity Activity: increase activity as tolerated Diet: advance to your usual diet Hospital course: Mr. Fair is a 82 year old male with past medical history of COPD presents with shortness of breath for 3 days duration. He was sent over from urgent care for pneumonia. He was feeling weak and overall not well, had fevers and chills at home, is usually on 2 L at home. He was previously admitted for COPD exacerbation and discharged 2 weeks ago. He was on 2 L of home oxygen with some weakness. When patient arrived to ED, showed patient to have a leukocytosis of 24, though she did receive dose of corticosteroid in the. He was afebrile and he was not septic. Patient was admitted for healthcare associated pneumonia. He was started on vancomycin for MRSA coverage and Zosyn and Levaquin as well. He was also given DuoNeb's for respiratory support. He was in no acute COPD exacerbation. Patient did improve clinically and leukocytosis improved as well. He was continued on Levaquin. Aggressive doses resolved, however sputum culture returned positive for MRSA, it was resistant to Levaquin. It was sensitive to doxycycline and so patient was started on that and monitored overnight. He tolerated without issue and remained afebrile and white count did not increase. He was discharged home in stable condition to continue Doxycycline for additional 7 days. - Time Spent with Patient Total time spent providing and/or coordinating discharge services: - Constitutional Vitals: Temp Pulse Resp BP Pulse Ox 97.7 F 73 18 169/101 92 11/02/17 07:17 11/02/17 07:17 11/02/17 07:42 11/02/17 07:17 11/02/17 07:42 General appearance: Present: cooperative, A&O X 3, pleasant, answers questions appropriately Exam: CVS: RRR Lungs: Air exchange improved, + end expiratory wheezing improved since exam yesterday, no rales Abd: NT/ND Ext: No cyanosis, no edema
[2017-11-02] MEDS: Gabapentin 300 MG CAPSULE PO SCH (09:31)
[2017-11-02] MEDS: Aspirin Enteric Coated 81 MG Tablet PO SCH (09:32)
== END 2017-11-02 12:01 | disposition home or self-care (01) ==
LOC: 3BNU 15:23 → EMEROO 15:23 → 3BNU 17:35 → SUATTDRO 18:29
PROVIDERS: ADMIT Hospitalist; ATTEND Student in an Organized Health Care Education/Training Program

== ENCOUNTER 2018-06-01 10:16 | Inpatient (IN) ==
[2018-06-01] MEDS ORDERED: methylPREDNISolone 125 MG/2 ML VIAL IVP ONE (10:33)
[2018-06-01] MEDS ORDERED: Ipratropium/Albuterol Neb 3 ML IH ONE (10:33)
[2018-06-01 10:44] LABS: Basophils % 0.2 %; Eosinophils # 0.6 K/mcL (0.0-0.6); Eosinophils % 4.9 %; Hematocrit 41.1 % (37.5-50.1); Hemoglobin 13.1 g/dL (12.9-16.9); Immature Granulocytes % 0.6 % (0-4); Lymphocytes # 1.8 K/mcL (0.6-4.6); Lymphocytes % 13.8 %; Mean Corpuscular HGB Conc 31.9 g/dL (31.6-35.5); Mean Corpuscular Hemoglobin 29.6 pg (28.0-33.3); Monocytes # 0.6 K/mcL (0.0-1.3); Monocytes % 4.9 %; Neutrophils # 9.9 K/mcL (1.6-8.9); Platelet Count 209 K/mcL (140-400); Red Blood Count 4.42 M/mcL (4.19-5.50); Red Cell Distribution Width 14.2 % (11.5-14.5); Segmented Neutrophils % 75.6 %
--- NOTE | 2018-06-01 10:48 | Emergency Department Note ---
Disposition Clinical Impression: Pneumonia Qualifiers: Pneumonia type: due to unspecified organism Laterality: right Lung location: unspecified part of lung Qualified Code(s): J18.9 - Pneumonia, unspecified organism Disposition: Admitted As Inpatient Condition: Fair Time of Disposition: 12:36 General Adult HPI - General Chief complaint: ED Shortness of Breath/Dyspnea Stated complaint: MAXIMILIAN Time Seen by Provider: 06/01/18 10:22 Source: patient, family Mode of arrival: ambulatory Limitations: no limitations Nursing Notes Reviewed: Yes Vital Signs Reviewed: Yes - History of Present Illness HPI Narrative: Patient is an 82-year-old male that presents emergency department for increased shortness of breath. Patient states that this is been ongoing for the past couple of days. Patient states that he has a history of pneumonia and was concern that this could potentially be the start of an early pneumonia. Patient states that he has been having a cough that is been productive. Patient reports that he has had one episode of fever a couple of days ago but did not measure the temperature he just felt warm. Patient denies coughing up any blood. Patient denies any current chest pain but states that he has had intermittent chest pain over the past few days. Patient states that he only wears oxygen at night normally but over the past couple days she has been wearing his oxygen during the day. States that he has been using 2-1/2-3 L of oxygen at home. Patient states that he has been using his inhalers at home which has provided some relief of his shortness of breath. Pain Scale: 0 - Related Data Home Medications Medication Instructions Recorded Confirmed Gabapentin [Neurontin] 600 mg PO TID 10/11/16 10/28/17 Tamsulosin [Flomax] 0.8 mg PO DAILY 10/11/16 10/28/17 Albuterol Sulfate [Proair Hfa] 2 puff IH Q4H PRN 01/10/17 10/28/17 Zolpidem [Ambien] 10 mg PO HS 05/21/17 10/28/17 Omeprazole Magnesium [Prilosec Otc] 20 mg PO DAILY 06/14/17 10/28/17 Oxycodone HCl 15 mg PO Q6H PRN 10/09/17 10/28/17 Aspirin Enteric Coated [Aspirin EC] 81 mg PO DAILY 10/28/17 10/28/17 Previous Rx's Medication Instructions Recorded Budesonide/Formoterol 160/4.5 2 puff IH BIDR 30 Days inhaler 01/12/17 [Symbicort 160/4.5] Doxycycline 100 mg PO BID #10 capsule 11/02/17 Doxycycline 100 mg PO BID #14 capsule 11/02/17 Allergies Allergy/AdvReac Type Severity Reaction Status Date / Time No Known Allergies Allergy Verified 06/01/18 10:22 All systems ED: reviewed and negative except as stated. Constitutional: Reports: fever, weakness Cardiovascular: Reports: chest pain Respiratory: Reports: dyspnea Gastrointestinal: Denies: abdominal pain, nausea Musculoskeletal: Reports: back pain (chronic) Past Medical History - Past Medical History Medical history: Reports: cancer, CHF, COPD, other Surgical history: Reports: thyroidectomy Psychiatric history: Reports: no psych history - Social History Smoking Status: Former smoker Smokeless Tobacco Status: No Alcohol use: Reports: none Drug use: Reports: none Physical Exam - General Limitations: no limitations General appearance: alert, in no apparent distress - Head Head exam: atraumatic, normocephalic - Eye Eye exam: Present: normal appearance, EOMI - Neck Neck exam: Present: normal inspection, full ROM, trachea midline - Respiratory Respiratory exam: Present: wheezes (bilaterally) - Cardiovascular Cardiovascular exam: Present: regular rate, normal rhythm, normal heart sounds, +S1, +S2 - Abdominal Exam Abdominal exam: Present: soft, Non-Tender, normal bowel sounds - Neurological Exam Neurological exam: Present: alert, oriented X3 - Psychiatric Psychiatric exam: Present: normal affect, normal mood - Skin Skin exam: Present: warm, dry, intact Course Vital Signs Temperature 98.3 F 06/01/18 10:20 Pulse Rate 74 06/01/18 10:20 Respiratory Rate 18 06/01/18 10:20 Blood Pressure 131/80 06/01/18 10:20 O2 Sat by Pulse Oximetry 89 06/01/18 10:20 Temperature 98.3 F 06/01/18 10:25 Pulse Rate 77 06/01/18 12:16 Respiratory Rate 16 06/01/18 12:16 Blood Pressure 131/72 06/01/18 12:16 O2 Sat by Pulse Oximetry 93 06/01/18 12:16 Oxygen Delivery Oxygen Delivery Nasal Cannula Medical Decision Making - MDM Narrative Medical decision making narrative: Due to the patient presenting to the emergency department with shortness breath we will obtain a CBC, BMP, BNP, troponin chest x-ray and EKG. Patient will also be given steroids and DuoNeb. There is concern for COPD exacerbation versus pneumonia. Patient has an elevated white count. Patient's troponin is elevated 0.12. Patient has an elevated BNP. Patient's chest x-ray was concerning for pneumonia. EKG did not show any ischemic changes at this time. Patient is chest pain-free. Although the patient does have an elevated troponin it appears that he chronically has elevated troponins and is currently without any ischemic changes on EKG. Patient will be given an aspirin here in the emergency department. Patient will be started on Levaquin and admitted to the hospital for further evaluation and management. I called and spoke with the admitting hospitalist and they have accepted the patient to their service. - Medical Records Medical records reviewed: Yes I reviewed the patient's medical records. - Lab Data Lab results reviewed: Yes I reviewed the patient's lab results. Result diagrams: 06/01/18 10:28 06/01/18 10:28 Lab Results 06/01/18 06/01/18 06/01/18 Range/Units 10:28 10:28 10:28 WBC 13.1 H (4.3-11.1) K/mcL RBC 4.42 (4.19-5.50) M/mcL Hgb 13.1 (12.9-16.9) g/dL Hct 41.1 (37.5-50.1) % MCV 93.0 (83.0-100.0) fL MCH 29.6 (28.0-33.3) pg MCHC 31.9 (31.6-35.5) g/dL RDW 14.2 (11.5-14.5) % Plt Count 209 (140-400) K/mcL MPV 11.0 (9.4-12.4) fL Immature Gran % 0.6 (0-4) % Seg Neutrophils % 75.6 % Lymphocytes % 13.8 % Monocytes % 4.9 % Eosinophils % 4.9 % Basophils % 0.2 % Neutrophils # 9.9 H (1.6-8.9) K/mcL Lymphocytes # 1.8 (0.6-4.6) K/mcL Monocytes # 0.6 (0.0-1.3) K/mcL Eosinophils # 0.6 (0.0-0.6) K/mcL Basophils # 0.0 (0.0-0.2) K/mcL Sodium 140 (136-145) mEq/L Potassium 3.9 (3.5-5.1) mEq/L Chloride 103 (98-107) mEq/L Carbon Dioxide 31 H (23-29) mEq/L BUN 32 H (8-23) mg/dL Creatinine 1.19 (0.70-1.30) mg/dL Est GFR ( Amer) > 60 (> 60) Est GFR (Non-Af Amer) 59 L (> 60) BUN/Creatinine Ratio 27 H (6-26) Glucose 100 (70-105) mg/dL Calculated Osmolality 297 (280-300) Lactic Acid (0.5-2.2) mmol/L Calcium 9.7 (8.6-10.3) mg/dL Troponin I 0.12 H* (< 0.04) ng/mL B-Natriuretic Peptide 360 H (Less than 100) pg/mL 06/01/18 Range/Units 11:39 WBC (4.3-11.1) K/mcL RBC (4.19-5.50) M/mcL Hgb (12.9-16.9) g/dL Hct (37.5-50.1) % MCV (83.0-100.0) fL MCH (28.0-33.3) pg MCHC (31.6-35.5) g/dL RDW (11.5-14.5) % Plt Count (140-400) K/mcL MPV (9.4-12.4) fL Immature Gran % (0-4) % Seg Neutrophils % % Lymphocytes % % Monocytes % % Eosinophils % % Basophils % % Neutrophils # (1.6-8.9) K/mcL Lymphocytes # (0.6-4.6) K/mcL Monocytes # (0.0-1.3) K/mcL Eosinophils # (0.0-0.6) K/mcL Basophils # (0.0-0.2) K/mcL Sodium (136-145) mEq/L Potassium (3.5-5.1) mEq/L Chloride (98-107) mEq/L Carbon Dioxide (23-29) mEq/L BUN (8-23) mg/dL Creatinine (0.70-1.30) mg/dL Est GFR ( Amer) (> 60) Est GFR (Non-Af Amer) (> 60) BUN/Creatinine Ratio (6-26) Glucose (70-105) mg/dL Calculated Osmolality (280-300) Lactic Acid 1.1 (0.5-2.2) mmol/L Calcium (8.6-10.3) mg/dL Troponin I (< 0.04) ng/mL B-Natriuretic Peptide (Less than 100) pg/mL - Radiology Data Radiology results reviewed: Yes I reviewed the patient's radiology results. Chest X-Ray 06/01/18 10:33 IMPRESSION: 1. Interval appearance of airspace opacities which may represent edema or infection. D/ / 06/01/2018 11:18:59 Simin Rosenberg MD / [facility] Interpreting Provider: Simin Rosenberg MD - EKG Data EKG #1 EKG attestation: Yes I reviewed and interpreted this EKG. EKG results narrative: EKG shows a sinus rhythm at a rate of 72 bpm, FL interval 156, curious duration of 83, QTC of 382 with a normal axis. There is a sinus arrhythmia present on EKG. No STEMI noted. Previous EKG from 10/28/17 shows a sinus rhythm at 73 bpm.
[2018-06-01 11:07] LABS: BUN/Creatinine Ratio 27 (6-26); Blood Urea Nitrogen 32 mg/dL (8-23); Calcium 9.7 mg/dL (8.6-10.3); Carbon Dioxide 31 mEq/L (23-29); Chloride 103 mEq/L (98-107); Glucose 100 mg/dL (70-105); Osmolality,Calculated 297 (280-300); Potassium 3.9 mEq/L (3.5-5.1); Sodium 140 mEq/L (136-145); eGFR For African Americans > 60 (> 60); eGFR For Non-African Americans 59 (> 60)
[2018-06-01 11:46] LABS: Troponin I 0.12 ng/mL (< 0.04)
[2018-06-01] MEDS ORDERED: Aspirin 81 MG TAB.CHEW PO STA (11:49)
[2018-06-01] MEDS ORDERED: Levofloxacin 750 MG/150 ML 750 MG/150 ML BAG IVPB ONE (11:49)
--- NOTE | 2018-06-01 12:23 | Emergency Department Note ---
Disposition Clinical Impression: Pneumonia Qualifiers: Pneumonia type: due to unspecified organism Laterality: unspecified laterality Lung location: unspecified part of lung Qualified Code(s): J18.9 - Pneumonia, unspecified organism Disposition: Admitted As Inpatient Referrals: Dereje Banks MD [Primary Care Provider] - Forms: ED Satisfaction Letter General Adult HPI - General Chief complaint: ED Shortness of Breath/Dyspnea Stated complaint: MAXIMILIAN Time Seen by Provider: 06/01/18 10:22 Source: patient, family Mode of arrival: ambulatory Limitations: no limitations - History of Present Illness Pain Scale: 0 - Related Data Home Medications Medication Instructions Recorded Confirmed Gabapentin [Neurontin] 600 mg PO TID 10/11/16 10/28/17 Tamsulosin [Flomax] 0.8 mg PO DAILY 10/11/16 10/28/17 Albuterol Sulfate [Proair Hfa] 2 puff IH Q4H PRN 01/10/17 10/28/17 Zolpidem [Ambien] 10 mg PO HS 05/21/17 10/28/17 Omeprazole Magnesium [Prilosec Otc] 20 mg PO DAILY 06/14/17 10/28/17 Oxycodone HCl 15 mg PO Q6H PRN 10/09/17 10/28/17 Aspirin Enteric Coated [Aspirin EC] 81 mg PO DAILY 10/28/17 10/28/17 Previous Rx's Medication Instructions Recorded Budesonide/Formoterol 160/4.5 2 puff IH BIDR 30 Days inhaler 01/12/17 [Symbicort 160/4.5] Doxycycline 100 mg PO BID #10 capsule 11/02/17 Doxycycline 100 mg PO BID #14 capsule 11/02/17 Allergies Allergy/AdvReac Type Severity Reaction Status Date / Time No Known Allergies Allergy Verified 06/01/18 10:22 Constitutional: Reports: fever, weakness Cardiovascular: Reports: chest pain Respiratory: Reports: dyspnea Gastrointestinal: Denies: abdominal pain, nausea Musculoskeletal: Reports: back pain (chronic) Past Medical History - Past Medical History Medical history: Reports: cancer, CHF, COPD, other Surgical history: Reports: thyroidectomy Psychiatric history: Reports: no psych history - Social History Smoking Status: Former smoker Smokeless Tobacco Status: No Alcohol use: Reports: none Drug use: Reports: none Physical Exam - General Limitations: no limitations General appearance: alert, in no apparent distress Course Vital Signs Temperature 98.3 F 06/01/18 10:20 Pulse Rate 74 06/01/18 10:20 Respiratory Rate 18 06/01/18 10:20 Blood Pressure 131/80 06/01/18 10:20 O2 Sat by Pulse Oximetry 89 06/01/18 10:20 Temperature 98.3 F 06/01/18 10:25 Pulse Rate 77 06/01/18 12:16 Respiratory Rate 16 06/01/18 12:16 Blood Pressure 131/72 06/01/18 12:16 O2 Sat by Pulse Oximetry 93 06/01/18 12:16 Oxygen Delivery Oxygen Delivery Nasal Cannula Medical Decision Making - Lab Data Result diagrams: 06/01/18 10:28 06/01/18 10:28 Lab Results 06/01/18 06/01/18 06/01/18 Range/Units 10:28 10:28 10:28 WBC 13.1 H (4.3-11.1) K/mcL RBC 4.42 (4.19-5.50) M/mcL Hgb 13.1 (12.9-16.9) g/dL Hct 41.1 (37.5-50.1) % MCV 93.0 (83.0-100.0) fL MCH 29.6 (28.0-33.3) pg MCHC 31.9 (31.6-35.5) g/dL RDW 14.2 (11.5-14.5) % Plt Count 209 (140-400) K/mcL MPV 11.0 (9.4-12.4) fL Immature Gran % 0.6 (0-4) % Seg Neutrophils % 75.6 % Lymphocytes % 13.8 % Monocytes % 4.9 % Eosinophils % 4.9 % Basophils % 0.2 % Neutrophils # 9.9 H (1.6-8.9) K/mcL Lymphocytes # 1.8 (0.6-4.6) K/mcL Monocytes # 0.6 (0.0-1.3) K/mcL Eosinophils # 0.6 (0.0-0.6) K/mcL Basophils # 0.0 (0.0-0.2) K/mcL Sodium 140 (136-145) mEq/L Potassium 3.9 (3.5-5.1) mEq/L Chloride 103 (98-107) mEq/L Carbon Dioxide 31 H (23-29) mEq/L BUN 32 H (8-23) mg/dL Creatinine 1.19 (0.70-1.30) mg/dL Est GFR ( Amer) > 60 (> 60) Est GFR (Non-Af Amer) 59 L (> 60) BUN/Creatinine Ratio 27 H (6-26) Glucose 100 (70-105) mg/dL Calculated Osmolality 297 (280-300) Lactic Acid (0.5-2.2) mmol/L Calcium 9.7 (8.6-10.3) mg/dL Troponin I 0.12 H* (< 0.04) ng/mL B-Natriuretic Peptide 360 H (Less than 100) pg/mL 06/01/18 Range/Units 11:39 WBC (4.3-11.1) K/mcL RBC (4.19-5.50) M/mcL Hgb (12.9-16.9) g/dL Hct (37.5-50.1) % MCV (83.0-100.0) fL MCH (28.0-33.3) pg MCHC (31.6-35.5) g/dL RDW (11.5-14.5) % Plt Count (140-400) K/mcL MPV (9.4-12.4) fL Immature Gran % (0-4) % Seg Neutrophils % % Lymphocytes % % Monocytes % % Eosinophils % % Basophils % % Neutrophils # (1.6-8.9) K/mcL Lymphocytes # (0.6-4.6) K/mcL Monocytes # (0.0-1.3) K/mcL Eosinophils # (0.0-0.6) K/mcL Basophils # (0.0-0.2) K/mcL Sodium (136-145) mEq/L Potassium (3.5-5.1) mEq/L Chloride (98-107) mEq/L Carbon Dioxide (23-29) mEq/L BUN (8-23) mg/dL Creatinine (0.70-1.30) mg/dL Est GFR ( Amer) (> 60) Est GFR (Non-Af Amer) (> 60) BUN/Creatinine Ratio (6-26) Glucose (70-105) mg/dL Calculated Osmolality (280-300) Lactic Acid 1.1 (0.5-2.2) mmol/L Calcium (8.6-10.3) mg/dL Troponin I (< 0.04) ng/mL B-Natriuretic Peptide (Less than 100) pg/mL Attestation Statement - Attestation Attestation: I examined this patient and my medical decision-making was reviewed with the Resident Physician. I agree with the documented findings, disposition and treatment plan as described except to the extent set forth below. 82 year old male presentse to the ED with complaints of hypoxia and difficulty in breathing and states that this is simliar to how he presneted in the past with pneumoina. It appears that he was 89% on RA at rest and has had a cOPDE and CXR onfirms a likely pnuemoina. WE will start CAP therapy and then admit to medicien
[2018-06-01] MEDS ORDERED: Naloxone 0.4 MG/ML INJ IVP PRN (12:45)
[2018-06-01] MEDS: 0.9 % Sodium Chloride 1,000 ML IVC SCH (14:01)
--- NOTE | 2018-06-01 15:23 | Internal Med History&Physical ---
Date of Encounter: 06/02/18 Time of Encounter: 15:20 Internal Medicine - H&P: HPI Chief complaint: Coughing , shortness of breath History of present illness: Mr. 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 He says he has also had increased oxygen needs and has been using more oxygen at home. Came to the ER because his symptoms were getting worse. Denies any fevers or chills. Chest xray in the ER showed pneumonia and he received a dose of levaquin Past Med Surg Social Fam HX - Past Medical History Medical history: cancer, CHF, COPD, other Additional medical history: diverticulitis, metabolic syndrome, colon polyps, thyroid nodule, BPH, skin cancer Psychiatric history: no psych history - Past Surgical History Surgical History: thyroidectomy Additional surgical history: 2 back surg left shoulder. skin ca, rotator cuff repair, hemorrhoidectomy, tumor removal, carpal tunnel release - Social History Smoking Status: Former smoker Smokeless Tobacco Status: No Alcohol use: none Drug use: none - Family History Mother Family Member Ethnicity: Non- Living Status: Hx Family Respiratory Disorders: Yes (Emphysema) Hx Family Neurologic Disorders: Yes (Alzheimer's disease) Father Family Member Ethnicity: Non- Living Status: Hx Family Cancer: Yes (Colon CA) Hx Family Neuromuscular Disorders: Yes (Alzeheimers) Hx Family Neurologic Disorders: Yes (Alzheimer's disease) Sister Family Member Ethnicity: Non- Living Status: Still Living Internal Medicine - H&P: Meds Gabapentin [Neurontin] 600 mg PO TID 10/11/16 [History] Tamsulosin [Flomax] 0.8 mg PO DAILY 10/11/16 [History] Albuterol Sulfate [Proair Hfa] 2 puff IH Q4H PRN 01/10/17 [History] Budesonide/Formoterol 160/4.5 [Symbicort 160/4.5] 2 puff IH BIDR 30 Days inhaler 01/12/17 [Rx] Omeprazole Magnesium [Prilosec Otc] 20 mg PO DAILY 06/14/17 [History] Oxycodone HCl 15 mg PO Q6H PRN 10/09/17 [History] Aspirin Enteric Coated [Aspirin EC] 81 mg PO DAILY 10/28/17 [History] Ciclopirox [Loprox] 1 appl TP 2XW 06/01/18 [History] Furosemide [Lasix] 20 mg PO DAILY 06/01/18 [History] Zolpidem Tartrate [Ambien Cr] 12.5 mg PO DAILY 06/01/18 [History] 3 Allergy/AdvReac Type Severity Reaction Status Date / Time No Known Allergies Allergy Verified 06/01/18 10:22 All Systems PM: A 10-system review of systems was performed and is negative for pertinent findings except as documented above in the HPI. - Constitutional Constitutional: fatigue, no chills, no fever(s), no night sweats - EENT Eyes: no change in vision, no discharge, no pain, no photophobia Ears: no ear discharge, no ear pain, no tinnitus Nose, mouth and throat: no dysphagia, no nasal discharge, no neck pain, no sore throat - Cardiovascular Cardiovascular ROS IM: dyspnea on exertion, no chest pain, no diaphoresis, no dyspnea, no lightheadedness, no palpitations, no syncope - Respiratory Respiratory: cough, dyspnea, no wheezing, no excessive phlegm production - Gastrointestinal Gastrointestinal: no abdominal pain, no diarrhea, no hematemesis, no hematochezia, no melena, no nausea, no vomiting - Musculoskeletal Musculoskeletal ROS IM: no numbness, no tingling - Integumentary Integumentary IM: no rash, no unusual bruising - Neurological Neurological ROS: no confusion, no convulsions, no focal weakness, no numbness, no tingling, no tremor(s) - Hematologic/Lymphatic Hematologic/Lymphatic: no easy bruising - Constitutional Vitals: Temp Pulse Resp BP Pulse Ox 98.3 F 77 16 126/71 95 06/01/18 10:25 06/01/18 12:16 06/01/18 12:48 06/01/18 12:48 06/01/18 14:17 - Head Head exam: Present: atraumatic, normocephalic - Eye Eye exam: Present: PERRL, conjuntiva pink, sclera anicteric Pupils: Present: PERRL - Neck Neck exam general surgery: Present: supple, trachea midline. Absent: lymphadenopathy - Respiratory Respiratory exam: Present: prolonged expiratory phase, wheezes. Absent: accessory muscle use, rales, rhonchi - Cardiovascular Cardiovascular exam: Present: RRR, +S1, +S2. Absent: diastolic murmur, gallop, rubs, systolic murmur - GI/Abdominal GI/Abdominal exam: Present: normal bowel sounds, soft, no peritoneal signs. Absent: distended, tenderness - Extremities Exam Extremities exam: Present: warm, radial pulses palpable and symmetrical. Absent : calf tenderness, cyanotic, pedal edema - Neurological Exam Neurological exam: Present: CN II-XII intact, oriented X3, no focal deficits. Absent: pronater drift, facial droop, speech deficit - Skin Skin exam: Present: dry, intact Internal Med - H&P Results - Labs CBC & Chem 7: 06/02/18 00:51 06/02/18 00:51 - Assessment and plan (1) Sepsis Current Visit: Yes Status: Acute Assessment and plan: Pt has a leukocytosis, tachypnea and pneumonia on cxr. Has history of MRSA in sputum resistant to levaquin Start on Vanc and zosyn , obtain urine legionella and streptococcal antigens, f/u blood cultures and sputum cultures Qualifiers: Sepsis type: Streptococcus, other Qualified Code(s): A40.8 - Other streptococcal sepsis (2) Pneumonia Current Visit: Yes Status: Acute Assessment and plan: See #1. continue abx Qualifiers: Pneumonia type: due to unspecified organism Laterality: unspecified laterality Lung location: unspecified part of lung Qualified Code(s): J18.9 - Pneumonia, unspecified organism (3) Acute exacerbation of chronic obstructive airways disease Current Visit: No Status: Acute Assessment and plan: Continue on nebs, steroids and antibiotics (4) DVT prophylaxis Current Visit: No Status: Acute Assessment and plan: Heparin sc - Time Spent With Patient Total time spent is greater than 50% in coordination of care (as documented) at patient's floor/unit and/or counseling patient:
[2018-06-01] MEDS: Ipratropium/Albuterol Neb 3 ML IH SCH ×2 (15:50→20:24)
[2018-06-01 16:22] LABS: Bilirubin,Urine Negative (Negative); Blood,Urine Negative (Negative); Clarity,Urine Clear (Clear); Color,Urine Yellow (Yellow); Glucose,Urine (UA) Normal (Normal); Ketones,Urine Negative (Negative); Leukocyte Esterase,Urine Negative (Negative); Nitrite,Urine Negative (Negative); Protein,Urine Negative (Neg-Trace); Specific Gravity,Urine 1.019 (1.010-1.025); Urobilinogen,Urine Normal (Normal)
[2018-06-01] MEDS: Piperacillin/Tazobactam 3.375 GM in 0.9 % Sodium Chloride Mini Bag 100 ML IVPB SCH (16:57)
[2018-06-01] MEDS: MethylPREDNISolone 40 MG/ML VIAL IVP SCH (16:57)
[2018-06-01] MEDS: *HR* OxyCODONE Immed Rel 15 MG TABLET PO PRN ×2 (17:53→23:59)
[2018-06-01] MEDS: Budesonide/Formoterol 160/4.5 MDI IH SCH (20:24)
[2018-06-01] MEDS: Gabapentin 300 MG CAPSULE PO SCH (21:45)
[2018-06-02] MEDS: Ipratropium/Albuterol Neb 3 ML IH SCH ×8 (00:33→23:41)
[2018-06-02 01:13] LABS: Basophils % 0.1 %; Hematocrit 35.9 % (37.5-50.1); Immature Granulocytes % 0.8 % (0-4); Lymphocytes # 0.5 K/mcL (0.6-4.6); Mean Corpuscular Hemoglobin 29.2 pg (28.0-33.3); Mean Corpuscular Volume 91.1 fL (83.0-100.0); Mean Platelet Volume 11.2 fL (9.4-12.4); Monocytes # 0.1 K/mcL (0.0-1.3); Monocytes % 1.1 %; Neutrophils # 6.7 K/mcL (1.6-8.9); Platelet Count 196 K/mcL (140-400); Red Blood Count 3.94 M/mcL (4.19-5.50); Red Cell Distribution Width 14.3 % (11.5-14.5)
[2018-06-02 01:15] LABS: Hemoglobin 11.5 g/dL (12.9-16.9)
[2018-06-02 01:33] LABS: BUN/Creatinine Ratio 25 (6-26); Blood Urea Nitrogen 30 mg/dL (8-23); Calcium 9.5 mg/dL (8.6-10.3); Carbon Dioxide 26 mEq/L (23-29); Chloride 103 mEq/L (98-107); Glucose 237 mg/dL (70-105); Magnesium 1.8 mg/dL (1.6-2.6); Osmolality,Calculated 296 (280-300); Phosphorous 2.2 mg/dL (2.7-4.5); Potassium 4.3 mEq/L (3.5-5.1); Sodium 136 mEq/L (136-145); eGFR For African Americans > 60 (> 60); eGFR For Non-African Americans 59 (> 60)
[2018-06-02] MEDS: 0.9 % Sodium Chloride 1,000 ML IVC SCH (04:14)
[2018-06-02] MEDS: Budesonide/Formoterol 160/4.5 MDI IH SCH ×2 (07:52→20:17)
[2018-06-02] MEDS: MethylPREDNISolone 40 MG/ML VIAL IVP SCH ×2 (09:31)
[2018-06-02] MEDS: Gabapentin 300 MG CAPSULE PO SCH ×2 (09:31→20:57)
[2018-06-02] MEDS: Piperacillin/Tazobactam 3.375 GM in 0.9 % Sodium Chloride Mini Bag 100 ML IVPB SCH ×3 (09:31→17:07)
[2018-06-02] MEDS: Aspirin Enteric Coated 81 MG Tablet PO SCH (09:31)
--- NOTE | 2018-06-02 10:02 | Electrocardiograph Report ---
[place] [employer] Test Date: 2018-06-01 Pat Name: Keny Fair Department: 102 Room: 2A71 Gender: M Top Loader: Eugene : 1935 Requested By: Ac Choudhury Order Number: [id number] Reading MD: Usha Leach Measurements Intervals [place] Rate: 72 P: 68 PA: 156 QRS: 44 QRSD: 83 T: 65 QT: 357 QTc: 382 Interpretive Statements SINUS RHYTHM WITH SINUS ARRHYTHMIA Electronically Signed On 06-02-2018 10:00:54 EDT by Usha Leach
[2018-06-02] MEDS ORDERED: Levofloxacin 750 MG/150 ML 750 MG/150 ML BAG IVPB SCH (12:00)
--- NOTE | 2018-06-02 12:10 | Internal Med Progress Note ---
Addendum entered and electronically signed by Kyle Rice DO 06/02/18 16: 07: Sepsis -> after thorough chart review and examination, it appears that sepsis was ruled out as a diagnosis. I feel that this patient is not and was not septic , and he has continued to improve. Original Note: <Kyle Rice - Last Filed: 06/02/18 11:54> Date of Encounter: 06/02/18 Time of Encounter: 12:10 - Assessment and plan (1) Pneumonia Current Visit: Yes Status: Acute Assessment and plan: Pneumonia of the RLL, Hx of MRSA in Sputum Patient does admit to vomiting event which woke him from sleep on Monday night CXR looks very similar to recent MRSA pna event, however Cultures of sputum and blood are currently pending Vancomycin and Zosyn Day Qualifiers: Pneumonia type: due to unspecified organism Laterality: unspecified laterality Lung location: unspecified part of lung Qualified Code(s): J18.9 - Pneumonia, unspecified organism (2) Acute exacerbation of chronic obstructive airways disease Current Visit: Yes Status: Acute Assessment and plan: Mild exacerbation of COPD Currently improving, there is no wheezing on exam and productive cough has decreased I will transition to PO Prednisone from Solu-medrol, continue O2, Duonebs prn, Abx (3) DVT prophylaxis Current Visit: No Status: Acute Assessment and plan: Heparin sc (4) Sepsis Current Visit: Yes Status: Resolved Assessment and plan: Pt has a leukocytosis, tachypnea and pneumonia on cxr. Has history of MRSA in sputum resistant to levaquin Start on Vanc and zosyn , obtain urine legionella and streptococcal antigens, f/u blood cultures and sputum cultures 06/02 Resolved at this time, continue treating pna. Qualifiers: Sepsis type: Streptococcus, other Qualified Code(s): A40.8 - Other streptococcal sepsis - Time Spent With Patient Total time spent is greater than 50% in coordination of care (as documented) at patient's floor/unit and/or counseling patient: - Subjective Interval history: The patient is resting comfortably in bed at time of examination. He says that he is feeling better than he had been on admission, however he is still feeling pretty weak. On discussion, the patient does admit that he has problems with "really bad GERD", and recently had an episode of vomiting which woke him from sleep. He is unaware of any specific aspiration event that has occurred. He otherwise has no acute complaints. - Constitutional Vitals: Temp Pulse Resp BP Pulse Ox 97.6 F 92 17 115/73 90 06/02/18 08:21 06/02/18 08:21 06/02/18 08:21 06/02/18 08:21 06/02/18 08:21 Exam: Gen: Vitals noted. No acute distress. HEENT: Normocephalic, atraumatic Neck: Supple. No adenopathy. Cardiac: RRR, no murmur, +S1/S2 Pulmonary: Fine crackles in right lower lobe Abdomen: soft, nontender, no guarding Extremities: no BLE edema, nontender calf, no cyanosis or clubbing Neuro: moves all extremities, no focal deficits. A&Ox3 Psych: Appropriate mood and behavior Internal Medicine: Result - Labs CBC & Chem 7: 06/02/18 00:51 06/02/18 00:51 Labs: Short CBC 06/02/18 Range/Units 00:51 WBC 7.4 (4.3-11.1) K/mcL Hgb 11.5 L D (12.9-16.9) g/dL Hct 35.9 L (37.5-50.1) % Plt Count 196 (140-400) K/mcL Neutrophils # 6.7 (1.6-8.9) K/mcL BMP 06/02/18 00:51 Sodium 136 Potassium 4.3 Chloride 103 Carbon Dioxide 26 BUN 30 H Creatinine 1.18 Glucose 237 H Calcium 9.5 Urine 06/01/18 Range/Units 16:06 Urine Color Yellow (Yellow) Urine Clarity Clear (Clear) Urine pH 6.0 (5.0-8.0) pH Units Ur Specific [place] 1.019 (1.010-1.025) Urine Protein Negative (Neg-Trace) mg/dL Urine Glucose (UA) Normal (Normal) mg/dL Consult Discharge Plan - Plan Referrals: Dereje Banks MD [Primary Care Provider] - <Didier Sims - Last Filed: 06/02/18 18:03> Date of Encounter: 06/02/18 - Assessment and plan (1) DVT prophylaxis Current Visit: No Status: Acute (2) Pneumonia Current Visit: Yes Status: Suspected Qualifiers: Pneumonia type: due to methicillin-resistant Staphylococcus aureus (MRSA) Laterality: right Lung location: lower lobe of lung Qualified Code(s): J15.212 - Pneumonia due to Methicillin resistant Staphylococcus aureus (3) Acute exacerbation of chronic obstructive airways disease Current Visit: Yes Status: Acute (4) Sepsis Current Visit: Yes Status: Resolved Qualifiers: Sepsis type: Streptococcus, other Qualified Code(s): A40.8 - Other streptococcal sepsis (5) Chronic respiratory failure with hypoxia Current Visit: No Status: Chronic - Time Spent With Patient Total time spent is greater than 50% in coordination of care (as documented) at patient's floor/unit and/or counseling patient: - Constitutional Vitals: Temp Pulse Resp BP Pulse Ox 97.9 F 86 7 115/62 94 06/02/18 16:05 06/02/18 16:05 06/02/18 16:05 06/02/18 16:05 06/02/18 16:05 Internal Medicine: Result - Labs CBC & Chem 7: 06/02/18 00:51 06/02/18 00:51 Labs: Short CBC 06/02/18 Range/Units 00:51 WBC 7.4 (4.3-11.1) K/mcL Hgb 11.5 L D (12.9-16.9) g/dL Hct 35.9 L (37.5-50.1) % Plt Count 196 (140-400) K/mcL Neutrophils # 6.7 (1.6-8.9) K/mcL BMP 06/02/18 00:51 Sodium 136 Potassium 4.3 Chloride 103 Carbon Dioxide 26 BUN 30 H Creatinine 1.18 Glucose 237 H Calcium 9.5 - Attending Attestation I examined this patient and my medical decision-making was reviewed with the Resident Physician on 06/02/18. I agree with the documented findings, disposition and treatment plan as described except to the extent set forth below. Mr Fair is currently admitted for acute pneumonia. He remains moderate to high risk due to potential for worsening clinical status. Mr Fair is doing OK. He is not back to baseline. He is still coughing. No fever or chills. No GI issues. Exam alert comfortable at this time Mucus membranes dry Heart distant Decreased breath sounds Abd soft I/P 1. Pneumonia Further diagnoses and plan as above.
[2018-06-02] MEDS: *HR* OxyCODONE Immed Rel 15 MG TABLET PO PRN ×2 (13:29→20:58)
[2018-06-02] MEDS: predniSONE 20 MG TABLET PO SCH (17:07)
[2018-06-02] MEDS: *HR* Heparin 5,000 UNIT/ML VIAL SQ SCH (17:08)
[2018-06-03] MEDS: Ipratropium/Albuterol Neb 3 ML IH SCH ×6 (03:47→23:27)
[2018-06-03] MEDS: *HR* Heparin 5,000 UNIT/ML VIAL SQ SCH ×2 (05:23→17:32)
[2018-06-03 05:49] LABS: Basophils % 0.1 %; Hematocrit 36.5 % (37.5-50.1); Hemoglobin 11.7 g/dL (12.9-16.9); Immature Granulocytes % 0.9 % (0-4); Lymphocytes # 0.8 K/mcL (0.6-4.6); Lymphocytes % 3.8 %; Mean Corpuscular HGB Conc 32.1 g/dL (31.6-35.5); Mean Corpuscular Hemoglobin 29.3 pg (28.0-33.3); Mean Corpuscular Volume 91.3 fL (83.0-100.0); Mean Platelet Volume 11.7 fL (9.4-12.4); Monocytes # 0.7 K/mcL (0.0-1.3); Monocytes % 3.3 %; Neutrophils # 20.4 K/mcL (1.6-8.9); Platelet Count 216 K/mcL (140-400); Red Cell Distribution Width 14.3 % (11.5-14.5); Segmented Neutrophils % 91.9 %
[2018-06-03 06:10] LABS: BUN/Creatinine Ratio 27 (6-26); Blood Urea Nitrogen 27 mg/dL (8-23); Carbon Dioxide 27 mEq/L (23-29); Chloride 109 mEq/L (98-107); Glucose 141 mg/dL (70-105); Osmolality,Calculated 297 (280-300); Potassium 4.8 mEq/L (3.5-5.1); Sodium 140 mEq/L (136-145); eGFR For African Americans > 60 (> 60); eGFR For Non-African Americans > 60 (> 60)
[2018-06-03] MEDS: *HR* OxyCODONE Immed Rel 15 MG TABLET PO PRN ×2 (07:18→22:50)
[2018-06-03] MEDS: Budesonide/Formoterol 160/4.5 MDI IH SCH ×2 (07:46→20:27)
[2018-06-03] MEDS: Gabapentin 300 MG CAPSULE PO SCH ×2 (08:02→22:51)
[2018-06-03] MEDS: predniSONE 20 MG TABLET PO SCH (08:02)
[2018-06-03] MEDS: Aspirin Enteric Coated 81 MG Tablet PO SCH (08:02)
[2018-06-03] MEDS: Piperacillin/Tazobactam 3.375 GM in 0.9 % Sodium Chloride Mini Bag 100 ML IVPB SCH ×3 (08:02→16:19)
--- NOTE | 2018-06-03 10:55 | Internal Med Progress Note ---
<Kyle Rice - Last Filed: 06/03/18 10:53> Date of Encounter: 06/03/18 Time of Encounter: 09:45 - Assessment and plan (1) Pneumonia Current Visit: Yes Status: Suspected Assessment and plan: Pneumonia of the RLL, Hx of MRSA in Sputum Patient does admit to vomiting event which woke him from sleep on Monday night CXR looks very similar to recent MRSA pna event, however Cultures of sputum and blood are currently pending Vancomycin and Zosyn Day 1 06/03 Improved compared to prior day Sputum culture prelim shows GPC which may be contaminant Patient admits to remembering more possible aspiration events throughout the day yesterday after talking I will order a speech consult for possible modified barium swallow Continue Vancomycin + Zosyn, Day 2 De-escalate abx tomorrow, likely to doxycylcine Qualifiers: Pneumonia type: due to methicillin-resistant Staphylococcus aureus (MRSA) Laterality: right Lung location: lower lobe of lung Qualified Code(s): J15.212 - Pneumonia due to Methicillin resistant Staphylococcus aureus (2) Acute exacerbation of chronic obstructive airways disease Current Visit: Yes Status: Acute Assessment and plan: Mild exacerbation of COPD Currently improving, there is no wheezing on exam and productive cough has decreased I will transition to PO Prednisone from Solu-medrol, continue O2, Duonebs prn, Abx 06/03 PO Prednisone today Discharge tomorrow (3) DVT prophylaxis Current Visit: No Status: Acute Assessment and plan: Heparin sc (4) Sepsis Current Visit: Yes Status: Ruled-out Assessment and plan: Suspect that the patient was never truly septic Qualifiers: Sepsis type: Streptococcus, other Qualified Code(s): A40.8 - Other streptococcal sepsis - Time Spent With Patient Total time spent is greater than 50% in coordination of care (as documented) at patient's floor/unit and/or counseling patient: - Subjective Interval history: The patient is resting comfortably in bed at time of examination. He says that he is feeling better than he had been on admission, however he is still feeling pretty weak. On discussion, the patient does admit that he has problems with "really bad GERD", and recently had an episode of vomiting which woke him from sleep. He is unaware of any specific aspiration event that has occurred. He otherwise has no acute complaints. 06/03 Resting comfortably in bed at time of exam, feels better than yesterday however is still feeling week. Otherwise no acute complaints. - Constitutional Vitals: Temp Pulse Resp BP Pulse Ox 97.8 F 87 18 159/94 97 06/03/18 06:45 06/03/18 06:45 06/03/18 07:48 06/03/18 06:45 06/03/18 07:48 Exam: Gen: Vitals noted. No acute distress. HEENT: Normocephalic, atraumatic Neck: Supple. No adenopathy. Cardiac: RRR, no murmur, +S1/S2 Pulmonary: Fine crackles in right lower lobe improved from prior Abdomen: soft, nontender, no guarding Extremities: no BLE edema, nontender calf, no cyanosis or clubbing Neuro: moves all extremities, no focal deficits. A&Ox3 Psych: Appropriate mood and behavior Internal Medicine: Result - Labs CBC & Chem 7: 06/03/18 05:10 06/03/18 05:10 Labs: Short CBC 06/03/18 Range/Units 05:10 WBC 22.2 H D (4.3-11.1) K/mcL Hgb 11.7 L (12.9-16.9) g/dL Hct 36.5 L (37.5-50.1) % Plt Count 216 (140-400) K/mcL Neutrophils # 20.4 H (1.6-8.9) K/mcL BMP 06/03/18 05:10 Sodium 140 Potassium 4.8 Chloride 109 H Carbon Dioxide 27 BUN 27 H Creatinine 0.99 Glucose 141 H Calcium 10.0 Consult Discharge Plan - Plan Referrals: Dereje Banks MD [Primary Care Provider] - <Didier Sims - Last Filed: 06/03/18 16:09> Date of Encounter: 06/03/18 - Assessment and plan (1) DVT prophylaxis Current Visit: No Status: Acute (2) Pneumonia Current Visit: Yes Status: Suspected Qualifiers: Pneumonia type: aspiration pneumonia Laterality: right Lung location: lower lobe of lung Qualified Code(s): J69.0 - Pneumonitis due to inhalation of food and vomit (3) Acute exacerbation of chronic obstructive airways disease Current Visit: Yes Status: Acute (4) Sepsis Current Visit: Yes Status: Ruled-out Qualifiers: Sepsis type: Streptococcus, other Qualified Code(s): A40.8 - Other streptococcal sepsis (5) Chronic back pain Current Visit: No Status: Chronic Qualifiers: Back pain location: low back pain Back pain laterality: unspecified Sciatica presence: without sciatica Qualified Code(s): M54.5 - Low back pain; G89.29 - Other chronic pain (6) Chronic respiratory failure with hypoxia Current Visit: No Status: Chronic - Time Spent With Patient Total time spent is greater than 50% in coordination of care (as documented) at patient's floor/unit and/or counseling patient: - Constitutional Vitals: Temp Pulse Resp BP Pulse Ox 98.0 F 88 18 149/83 93 06/03/18 10:54 06/03/18 10:54 06/03/18 15:54 06/03/18 10:54 06/03/18 15:54 Internal Medicine: Result - Labs CBC & Chem 7: 06/03/18 05:10 06/03/18 05:10 Labs: Short CBC 06/03/18 Range/Units 05:10 WBC 22.2 H D (4.3-11.1) K/mcL Hgb 11.7 L (12.9-16.9) g/dL Hct 36.5 L (37.5-50.1) % Plt Count 216 (140-400) K/mcL Neutrophils # 20.4 H (1.6-8.9) K/mcL BMP 06/03/18 05:10 Sodium 140 Potassium 4.8 Chloride 109 H Carbon Dioxide 27 BUN 27 H Creatinine 0.99 Glucose 141 H Calcium 10.0 - Attending Attestation I examined this patient and my medical decision-making was reviewed with the Resident Physician on 06/03/18. I agree with the documented findings, disposition and treatment plan as described except to the extent set forth below. Mr Fair is currently admitted for R side pneumonia, presumed to be aspiration. He remains moderate to high risk due to potential for worsening clinical status. Mr Fair is feeling OK. He is still coughing. No fever or chills. No GI issues except for GERD. He is aware that may be an issue with his pneumonia. Exam Alert Comfortable Mucus membranes moist Heart reg Lungs decreased on R Abd soft I/P 1. R side PNA - most likely aspiration. 2 GERD Further diagnoses and plan as above.
[2018-06-03] MEDS ORDERED: Levofloxacin 750 MG/150 ML 750 MG/150 ML BAG IVPB SCH (12:00)
[2018-06-04] MEDS: Piperacillin/Tazobactam 3.375 GM in 0.9 % Sodium Chloride Mini Bag 100 ML IVPB SCH ×2 (02:46→09:25)
[2018-06-04] MEDS: Ipratropium/Albuterol Neb 3 ML IH SCH ×3 (04:23→11:35)
[2018-06-04 05:48] LABS: Basophils # 0.1 K/mcL (0.0-0.2); Basophils % 0.3 %; Eosinophils % 0.3 %; Hematocrit 36.9 % (37.5-50.1); Immature Granulocytes % 3.1 % (0-4); Lymphocytes # 1.9 K/mcL (0.6-4.6); Lymphocytes % 12.2 %; Mean Corpuscular HGB Conc 32.5 g/dL (31.6-35.5); Mean Corpuscular Hemoglobin 29.6 pg (28.0-33.3); Mean Corpuscular Volume 91.1 fL (83.0-100.0); Mean Platelet Volume 11.3 fL (9.4-12.4); Monocytes % 6.5 %; Neutrophils # 12.2 K/mcL (1.6-8.9); Platelet Count 234 K/mcL (140-400); Red Blood Count 4.05 M/mcL (4.19-5.50); Red Cell Distribution Width 14.5 % (11.5-14.5); Segmented Neutrophils % 77.6 %
[2018-06-04] MEDS: *HR* Heparin 5,000 UNIT/ML VIAL SQ SCH (06:00)
[2018-06-04 06:04] LABS: BUN/Creatinine Ratio 25 (6-26); Blood Urea Nitrogen 28 mg/dL (8-23); Calcium 9.9 mg/dL (8.6-10.3); Carbon Dioxide 28 mEq/L (23-29); Chloride 107 mEq/L (98-107); Glucose 99 mg/dL (70-105); Osmolality,Calculated 296 (280-300); Potassium 4.3 mEq/L (3.5-5.1); Sodium 140 mEq/L (136-145); eGFR For African Americans > 60 (> 60); eGFR For Non-African Americans > 60 (> 60)
[2018-06-04] MEDS: Budesonide/Formoterol 160/4.5 MDI IH SCH (07:34)
[2018-06-04] MEDS ORDERED: Clotrimazole 1% CRM 15 GM TUBE TP SCH (09:00)
[2018-06-04] MEDS: Gabapentin 300 MG CAPSULE PO SCH (09:25)
[2018-06-04] MEDS: predniSONE 20 MG TABLET PO SCH (09:25)
[2018-06-04] MEDS: Aspirin Enteric Coated 81 MG Tablet PO SCH (09:25)
[2018-06-04 10:37] VITALS: BP 157/85
--- NOTE | 2018-06-04 13:02 | Discharge Summary ---
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 Patient's condition came to the baseline and was hemodynamically stable on his 3rd day of hospital stay. Patient is being sent home on 100mg Doxycycline / Augmentin 875 mg BID. Patient has been prescribed PO Prednisone for a total of 5 days. Patient's BP was mildly elevayed during the course of hospital . Therefore, I am prescribing 5mg Amlodipine to help him with his BP. Patient should follow up with [facility] for his recurrent pneumonia as an out-patient Orders not resulted at time of discharge: Pending orders 06/05/18 04:00 Vancomycin,Trough Timed Date of Encounter: 06/04/18 Time of Encounter: 12:00 - Discharge Diagnosis (1) Acute exacerbation of chronic obstructive airways disease Priority: Secondary Status: Acute Assessment and Plan: - continue with home medications (2) Pneumonia Priority: Primary Status: Suspected Assessment and Plan: -patient to take 7 day course of 100mg Doxy/ 875 mg Augmentin BID Qualifiers: Pneumonia type: aspiration pneumonia Laterality: right Lung location: lower lobe of lung Qualified Code(s): J69.0 - Pneumonitis due to inhalation of food and vomit (3) Chronic back pain Priority: Secondary Status: Chronic Assessment and Plan: patient continues to be on his home medication Qualifiers: Back pain location: low back pain Back pain laterality: unspecified Sciatica presence: without sciatica Qualified Code(s): M54.5 - Low back pain; G89.29 - Other chronic pain (4) DVT prophylaxis Priority: Secondary Status: Acute (5) Chronic respiratory failure with hypoxia Priority: Secondary Status: Chronic Hospital course: Mr. Fair is a 82 year old male with a PMHx of GERD, COPD (2.5L at home), and multiple episodes of pneumonia who presented to the ER for SOB. He also endorsed productive cough during admission but denied any hemoptysis. Patient was found to have pneumonia on the RLL (Hx of MRSA in the sputum) was treated with Vanc/Zosyn for 3 days of the hospital stay. Patient was discharged on 4 days Abx course of Doxycycline (100mg PO BID) and Augmetin (875mg BID). Discharge discussed with: patient - Time Spent with Patient Total time spent providing and/or coordinating discharge services: - Discharge Medications Prescriptions: amLODIPine [Norvasc] 5 mg PO DAILY #30 tablet Amoxicillin/Clavulanate [Augmentin] 875 mg PO BIDWM #8 tablet Doxycycline 100 mg PO BID #8 capsule predniSONE [PredniSONE] 40 mg PO DAILY #4 tablet Home Medications: Gabapentin [Neurontin] 600 mg PO TID 10/11/16 [History] Tamsulosin [Flomax] 0.8 mg PO DAILY 10/11/16 [History] Albuterol Sulfate [Proair Hfa] 2 puff IH Q4H PRN 01/10/17 [History] Budesonide/Formoterol 160/4.5 [Symbicort 160/4.5] 2 puff IH BIDR 30 Days inhaler 01/12/17 [Rx] Omeprazole Magnesium [Prilosec Otc] 20 mg PO DAILY 06/14/17 [History] Oxycodone HCl 15 mg PO Q6H PRN 10/09/17 [History] Aspirin Enteric Coated [Aspirin EC] 81 mg PO DAILY 10/28/17 [History] Ciclopirox [Loprox] 1 appl TP 2XW 06/01/18 [History] Furosemide [Lasix] 20 mg PO DAILY 06/01/18 [History] Zolpidem Tartrate [Ambien Cr] 12.5 mg PO DAILY 06/01/18 [History] Amoxicillin/Clavulanate [Augmentin] 875 mg PO BIDWM #8 tablet 06/04/18 [Rx] Doxycycline 100 mg PO BID #8 capsule 06/04/18 [Rx] amLODIPine [Norvasc] 5 mg PO DAILY #30 tablet 06/04/18 [Rx] predniSONE [PredniSONE] 40 mg PO DAILY #4 tablet 06/04/18 [Rx] Allergies/Adverse Reactions: 3 Allergy/AdvReac Type Severity Reaction Status Date / Time No Known Allergies Allergy Verified 06/01/18 10:22 Date of admission: 06/01/18 12:45 Primary care physician: Dereje Banks MD Consults: 06/03/18 16:07 Consult to Speech Therapy [CONS] Routine Comment: Evaluate, develop and implement POC Reason for Consult: Suspected apiration pna, possible barium swallow Call Completed: No - Constitutional Vitals: Temp Pulse Resp BP Pulse Ox 97.6 F 86 20 157/85 93 06/04/18 10:32 06/04/18 10:32 06/04/18 10:32 06/04/18 10:32 06/04/18 10:32 General appearance: Present: A&O X 3 - Head Head exam: Present: atraumatic, normocephalic - ENT ENT exam: Present: normal exam - Neck Neck exam general surgery: Present: trachea midline - Respiratory Additional comments: wheezing has significantly decreased since admission - Cardiovascular Cardiovascular exam: Present: RRR Additional comments: no gallops, murmurs or rubs - Patient Status Disposition: Home, Self-Care Condition: Fair - Discharge Instructions Instructions: Chronic Obstructive Pulmonary Disease (DC) Follow Up With: Dereje Banks MD [Primary Care Provider] - (web request 06/04/2018) Additional Instructions: Pneumonia of the RLL with a Hx of MRSA in sputum - Diet and Activity Activity: resume usual activities as tolerated Diet: advance to your usual diet <Matthew Nuno - Last Filed: 06/04/18 17:46> Date of Encounter: 06/04/18 - Discharge Diagnosis (1) Chronic back pain Status: Chronic Qualifiers: Back pain location: low back pain Back pain laterality: unspecified Sciatica presence: without sciatica Qualified Code(s): M54.5 - Low back pain; G89.29 - Other chronic pain (2) DVT prophylaxis Status: Acute (3) Pneumonia Status: Suspected Qualifiers: Pneumonia type: aspiration pneumonia Laterality: right Lung location: lower lobe of lung Qualified Code(s): J69.0 - Pneumonitis due to inhalation of food and vomit (4) Acute exacerbation of chronic obstructive airways disease Status: Acute (5) Chronic respiratory failure with hypoxia Status: Chronic Hospital course: Mr. Fair is a 82 year old male - Time Spent with Patient Total time spent providing and/or coordinating discharge services: Date of admission: 06/01/18 12:45 Primary care physician: Dereje Banks MD - Constitutional Vitals: Temp Pulse Resp BP Pulse Ox 97.6 F 86 20 157/85 93 06/04/18 10:32 07/09/18 10:32 06/04/18 10:32 06/04/18 10:32 06/04/18 10:32 - Attending Attestation I examined this patient and my medical decision-making was reviewed with the Resident Physician Dr. Newby. I agree with the documented findings, disposition and treatment plan as described except to the extent set forth below. Mr. Fair is a 82 year old male with pmh of COPD on 2L of oxygen with multiple episodes of pneumonia and hsitory of MRSA admitted here for acute on chronic hypoxic resp failure and pneumonia. He was started on empirical abx Vancomycin and Zosyn. Pt does look high risk for aspiration with GERD. His barium swallow did not show any evidence of aspiration. He was started on PPI. Switched his abx to PO Augmentin and Doxy. Gen: A, A, O x 3 Chest: Diminished BS b/l Heart: S1S2+ RRR No murmurs Abd: Soft NT
[2018-06-04] MEDS ORDERED: Aminoglycoside Consult 1 EACH MC ONE (14:53)
== END 2018-06-04 14:54 | disposition home or self-care (01) | DRG 177 ==
LOC: EMEROO 10:16 → 2ANU 10:16 → SUATTDRO 12:45 → 2ANU 13:04
PROVIDERS: ADMIT Student in an Organized Health Care Education/Training Program; ATTEND Internal Medicine

== ENCOUNTER 2018-07-03 10:32 | Observation (INO) ==
[2018-07-03] MEDS ORDERED: predniSONE 20 MG TABLET PO ONE (10:54)
[2018-07-03] MEDS ORDERED: Ipratropium/Albuterol Neb 3 ML IH ONE ×2 (10:54→10:57)
--- NOTE | 2018-07-03 11:03 | Emergency Department Note ---
Disposition Clinical Impression: Acute exacerbation of chronic obstructive airways disease, Elevated troponin, Acute dyspnea CHF exacerbation Qualifiers: Heart failure type: diastolic Qualified Code(s): I50.33 - Acute on chronic diastolic (congestive) heart failure Disposition: Admitted As Inpatient Condition: Undetermined Time of Disposition: 12:05 SOB HPI - General Chief Complaint: ED Shortness of Breath/Dyspnea Stated Complaint: dyspnea Time Seen by Provider: 07/03/18 10:35 Source: patient Mode of arrival: wheelchair Limitations: no limitations Nursing Notes Reviewed: Yes Vital Signs Reviewed: Yes - History of Present Illness 82-year-old male with history of COPD, CHF, on home oxygen 2 L that he has been using [id number], arrives to the emergency department with complaint of shortness of breath and intermittent episodes of some confusion. The patient was recently diagnosed with a episode of pneumonia where he was prescribed antibiotics which he took. The patient is currently on levofloxacin. In addition the patient was prescribed steroids and has been taking that. The does note that the patient has been mildly confused with the patient does not really know is going on and these intermittent episodes. No history of trauma. No other complaints other than some intermittent chest pain and increased sputum production that is brown and green in color. The patient does admit to some subjective fevers. He is afebrile here. The patient states that he used to wear oxygen 2 L at night only and now he is wearing 2.5 round the clock. He denies any other complaints at this time including unilateral leg swelling, hemoptysis, history of DVT or PE. The patient is otherwise resting comfortably and able to converse in full sentences. He does have diffuse wheezing on auscultation of bilateral lung dover. - Related Data Home Medications Medication Instructions Recorded Confirmed Gabapentin [Neurontin] 600 mg PO TID 10/11/16 07/03/18 Tamsulosin [Flomax] 0.8 mg PO DAILY 10/11/16 07/03/18 Albuterol Sulfate [Proair Hfa] 2 puff IH Q4H PRN 01/10/17 07/03/18 Omeprazole Magnesium [Prilosec Otc] 20 mg PO DAILY 06/14/17 07/03/18 Oxycodone HCl 15 mg PO Q6H PRN 10/09/17 07/03/18 Aspirin Enteric Coated [Aspirin EC] 81 mg PO DAILY 10/28/17 07/03/18 Ciclopirox [Loprox] 1 appl TP 2XW 06/01/18 07/03/18 Furosemide [Lasix] 20 mg PO DAILY 06/01/18 07/03/18 Zolpidem Tartrate [Ambien Cr] 12.5 mg PO DAILY 06/01/18 07/03/18 Previous Rx's Medication Instructions Recorded Budesonide/Formoterol 160/4.5 2 puff IH BIDR 30 Days inhaler 01/12/17 [Symbicort 160/4.5] amLODIPine [Norvasc] 5 mg PO DAILY #30 tablet 06/04/18 Allergies Allergy/AdvReac Type Severity Reaction Status Date / Time No Known Allergies Allergy Verified 06/01/18 10:22 All systems ED: reviewed and negative except as stated. Constitutional: Reports: chills, weakness. Denies: fever ENT ED: Denies: dysphagia Cardiovascular: Reports: chest pain, dyspnea on exertion, edema. Denies: syncope Respiratory: Reports: cough, dyspnea, wheezes, sputum production. Denies: hemoptysis Gastrointestinal: Denies: abdominal pain, nausea, vomiting Genitourinary: Denies: urgency, dysuria Musculoskeletal: Reports: myalgia. Denies: back pain Past Medical History - Past Medical History Attestation: Yes The following information was validated with the patient. Source: patient Medical history: Reports: cancer, CHF, COPD, other Surgical history: Reports: thyroidectomy Psychiatric history: Reports: no psych history - Social History Smoking Status: Former smoker Smokeless Tobacco Status: No Alcohol use: Reports: none Drug use: Reports: none Physical Exam - General Limitations: no limitations General appearance: alert, in no apparent distress - Head Head exam: atraumatic, normocephalic, normal inspection - Eye Eye exam: Present: normal appearance, PERRL, EOMI - ENT ENT exam: normal exam, normal oropharynx, mucous membranes moist - Neck Neck exam: Present: normal inspection, full ROM, trachea midline - Chest Chest inspection: Present: normal inspection, symmetric chest wall rise - Respiratory Respiratory exam: Present: wheezes (Diffuse). Absent: respiratory distress - Cardiovascular Cardiovascular exam: Present: regular rate, normal rhythm, normal heart sounds - Abdominal Exam Abdominal exam: Present: soft, Non-Tender. Absent: tenderness, distention, guarding, rebound, rigidity - Extremities Exam Extremities exam: Present: normal inspection, full ROM, pedal edema (1+ pitting) . Absent: tenderness - Neurological Exam Neurological exam: Present: alert, oriented X3 - Skin Skin exam: Present: warm, dry, intact, normal color Course Vital Signs Temperature 97.6 F 07/03/18 10:33 Pulse Rate 89 07/03/18 10:33 Respiratory Rate 20 07/03/18 10:33 Blood Pressure 164/93 07/03/18 10:33 O2 Sat by Pulse Oximetry 89 07/03/18 10:33 Temperature 98.1 F 07/03/18 14:36 Pulse Rate 73 07/03/18 14:36 Respiratory Rate 18 07/03/18 14:36 Blood Pressure 118/71 07/03/18 14:36 O2 Sat by Pulse Oximetry 94 07/03/18 14:36 Oxygen Delivery Oxygen Delivery Nasal Cannula Shortness of Breath/Dyspnea - MDM Narrative Medical decision making narrative: Patient's workup in the emergency department reveals findings consistent with COPD exacerbation as well as some mild elevation in BNP consistent with a CHF exacerbation. The patient's troponin is mildly elevated 0.06. The patient has no EKG changes. The patient was however started on heparin and given aspirin here in the ED given the past history of chest discomfort. The patient denies any melena or hematochezia. The patient states he is feeling better after receiving duo nebs and on his own. Given the constellation of symptoms and elevated troponin, we will admit the patient to the hospital at this time for further workup and care. Patient was made aware and agrees to plan. No further questions or concerns noted. Patient was accepted by Dr. Aguirre. - Lab Data Lab results reviewed: Yes I reviewed the patient's lab results. Result diagrams: 07/03/18 10:54 07/03/18 10:54 Lab Results 07/03/18 07/03/18 07/03/18 Range/Units 10:54 10:54 10:54 WBC 7.3 (4.3-11.1) K/mcL RBC 4.48 (4.19-5.50) M/mcL Hgb 12.8 L (12.9-16.9) g/dL Hct 39.2 (37.5-50.1) % MCV 87.5 (83.0-100.0) fL MCH 28.6 (28.0-33.3) pg MCHC 32.7 (31.6-35.5) g/dL RDW 13.9 (11.5-14.5) % Plt Count 271 (140-400) K/mcL MPV 10.3 (9.4-12.4) fL Immature Gran % 0.5 (0-4) % Seg Neutrophils % 68.2 % Lymphocytes % 18.6 % Monocytes % 8.7 % Eosinophils % 3.3 % Basophils % 0.7 % Neutrophils # 5.0 (1.6-8.9) K/mcL Lymphocytes # 1.4 (0.6-4.6) K/mcL Monocytes # 0.6 (0.0-1.3) K/mcL Eosinophils # 0.2 (0.0-0.6) K/mcL Basophils # 0.1 (0.0-0.2) K/mcL PT (9.4-12.1) Seconds INR Heparin Anti-Xa, Unfract (0.30-0.70) IU/mL VBG pH (7.32-7.42) pH Units VBG pCO2 (41-51) mmHg VBG pO2 (25-50) mmHg VBG HCO3 (21-27) mEq/L Sodium 137 (136-145) mEq/L Potassium 4.2 (3.5-5.1) mEq/L Chloride 103 (98-107) mEq/L Carbon Dioxide 28 (23-29) mEq/L BUN 20 (8-23) mg/dL Creatinine 0.99 (0.70-1.30) mg/dL Est GFR ( Amer) > 60 (> 60) Est GFR (Non-Af Amer) > 60 (> 60) BUN/Creatinine Ratio 20 (6-26) Glucose 100 (70-105) mg/dL Calculated Osmolality 287 (280-300) Lactic Acid (0.5-2.2) mmol/L Calcium 9.6 (8.6-10.3) mg/dL Troponin I 0.06 H* (< 0.04) ng/mL B-Natriuretic Peptide 224 H (Less than 100) pg/mL 07/03/18 07/03/18 07/03/18 Range/Units 10:54 11:06 11:16 WBC (4.3-11.1) K/mcL RBC (4.19-5.50) M/mcL Hgb (12.9-16.9) g/dL Hct (37.5-50.1) % MCV (83.0-100.0) fL MCH (28.0-33.3) pg MCHC (31.6-35.5) g/dL RDW (11.5-14.5) % Plt Count (140-400) K/mcL MPV (9.4-12.4) fL Immature Gran % (0-4) % Seg Neutrophils % % Lymphocytes % % Monocytes % % Eosinophils % % Basophils % % Neutrophils # (1.6-8.9) K/mcL Lymphocytes # (0.6-4.6) K/mcL Monocytes # (0.0-1.3) K/mcL Eosinophils # (0.0-0.6) K/mcL Basophils # (0.0-0.2) K/mcL PT 11.9 (9.4-12.1) Seconds INR 1.1 Heparin Anti-Xa, Unfract 0.02 L (0.30-0.70) IU/mL VBG pH 7.43 H (7.32-7.42) pH Units VBG pCO2 42 (41-51) mmHg VBG pO2 116 H (25-50) mmHg VBG HCO3 28 H (21-27) mEq/L Sodium (136-145) mEq/L Potassium (3.5-5.1) mEq/L Chloride (98-107) mEq/L Carbon Dioxide (23-29) mEq/L BUN (8-23) mg/dL Creatinine (0.70-1.30) mg/dL Est GFR ( Amer) (> 60) Est GFR (Non-Af Amer) (> 60) BUN/Creatinine Ratio (6-26) Glucose (70-105) mg/dL Calculated Osmolality (280-300) Lactic Acid 0.8 (0.5-2.2) mmol/L Calcium (8.6-10.3) mg/dL Troponin I (< 0.04) ng/mL B-Natriuretic Peptide (Less than 100) pg/mL - Radiology Data Radiology results reviewed: Yes I reviewed the patient's radiology results. Chest X-Ray 08/07/18 10:54 IMPRESSION: Airspace opacification persists in the left lower lobe, not significantly changed. This could represent a persistent pneumonia D/ / Kyle Mosley MD / Kyle Mosley MD Interpreting Provider: Kyle Mosley MD - EKG Data EKG attestation: Yes I reviewed and interpreted this EKG. EKG results narrative: Heart rate 74 beats for minute. Normal sinus rhythm. No ST elevation or ST depression noted. No acute changes noted. Attestation Statement - Attestation Attestation: I examined this patient and my medical decision-making was reviewed with the Resident Physician. I agree with the documented findings, disposition and treatment plan as described except to the extent set forth below. Findings consistent with dyspnea, elevated cardiac biomarkers in the setting of normal creatinine, I would proceed with heparinization at this time and event that dyspnea represents underlying cardiac etiology. Heparin can be deced if cardiac biomarkers fail to elevate. Patient will be admitted for further management and workup.
[2018-07-03 11:04] LABS: Basophils # 0.1 K/mcL (0.0-0.2); Basophils % 0.7 %; Eosinophils # 0.2 K/mcL (0.0-0.6); Eosinophils % 3.3 %; Hematocrit 39.2 % (37.5-50.1); Hemoglobin 12.8 g/dL (12.9-16.9); Immature Granulocytes % 0.5 % (0-4); Lymphocytes # 1.4 K/mcL (0.6-4.6); Lymphocytes % 18.6 %; Mean Corpuscular HGB Conc 32.7 g/dL (31.6-35.5); Mean Corpuscular Hemoglobin 28.6 pg (28.0-33.3); Mean Corpuscular Volume 87.5 fL (83.0-100.0); Mean Platelet Volume 10.3 fL (9.4-12.4); Monocytes # 0.6 K/mcL (0.0-1.3); Monocytes % 8.7 %; Platelet Count 271 K/mcL (140-400); Red Blood Count 4.48 M/mcL (4.19-5.50); Red Cell Distribution Width 13.9 % (11.5-14.5); Segmented Neutrophils % 68.2 %
[2018-07-03 11:08] LABS: VBG HCO3 28 mEq/L (21-27); VBG PCO2 42 mmHg (41-51); VBG PH 7.43 pH Units (7.32-7.42); VBG PO2 116 mmHg (25-50)
[2018-07-03 11:25] LABS: BUN/Creatinine Ratio 20 (6-26); Blood Urea Nitrogen 20 mg/dL (8-23); Calcium 9.6 mg/dL (8.6-10.3); Carbon Dioxide 28 mEq/L (23-29); Chloride 103 mEq/L (98-107); Glucose 100 mg/dL (70-105); Osmolality,Calculated 287 (280-300); Potassium 4.2 mEq/L (3.5-5.1); Sodium 137 mEq/L (136-145); eGFR For Non-African Americans > 60 (> 60)
[2018-07-03 11:35] LABS: Troponin I 0.06 ng/mL (< 0.04)
[2018-07-03] MEDS ORDERED: Azithromycin 500 MG in D5% in Water 250 ML IVPB ONE (11:45)
[2018-07-03] MEDS ORDERED: Aspirin 325 MG TABLET PO ONE (11:45)
[2018-07-03] MEDS ORDERED: *HR* Heparin 5,000 UNIT/ML VIAL IVP PRN ×2 (11:45)
[2018-07-03] MEDS ORDERED: *HR* Heparin 5,000 UNIT/ML VIAL IVP ONE (11:45)
[2018-07-03] MEDS ORDERED: Heparin 25,000 UNIT/500 ML D5W 25,000 UNIT/500 ML BAG IVC SCH (11:45)
[2018-07-03 11:57] LABS: Heparin anti-factor XA UFH 0.02 IU/mL (0.30-0.70); INR 1.1; Prothrombin Time 11.9 Seconds (9.4-12.1)
--- NOTE | 2018-07-03 14:44 | Internal Med History&Physical ---
Date of Encounter: 07/03/18 Time of Encounter: 14:30 Internal Medicine - H&P: HPI Chief complaint: SOB Admitted From: Home Plans for Post Hospital Care: Home History of present illness: Mr. Fair is a 82 year old male who has history of CHF and COPD was recently discharge from hospital on June 04, after pneumonia treatment. He has been on 2.5 L nasal cannula at night for his COPD and fibrosis. Patient lives at home with his , he states that he has been very confused over last week, especially at the evening time. He went to see primary care physician a week ago. Was diagnosis of pneumonia. He was given levofloxacin for 5 days. Patient stated that he does not feel any better after antibiotics, he has shortness of breath with exertion, denies fever or chills denies chest pain. He just did not feel well feels very tired. Otherwise he denies nausea vomiting diarrhea or constipation. No leg swelling no paroxysmal nocturnal dyspnea. He is alert and oriented 3 at this point. his is at bedside. In the emergency room he is afebrile, vitals are stable. Chest x-ray shows left lower lobar pneumonia. Lab was unremarkable. Troponin was mildly elevated patient was started on heparin drip. The patient currently denies active chest pain. He denies history of CAD and the MRI history. Patient is going to be admitted for #1 altered mental status concerning of metabolic encephalopathy from infections we will do CT of head. #2 possible recurrent pneumonia, we will treat as a hospital associated give IV Zosyn. #3 COPD exacerbation #4. elevated troponin, we will follow up troponins, continue heparin drip at this point. #5 possible CHF will check echocardiogram Past Med Surg Social Fam HX - Past Medical History Medical history: cancer, CHF, COPD, other Additional medical history: diverticulitis, metabolic syndrome, colon polyps, thyroid nodule, BPH, skin cancer Psychiatric history: no psych history - Past Surgical History Surgical History: thyroidectomy Additional surgical history: 2 back surg left shoulder. skin ca, rotator cuff repair, hemorrhoidectomy, tumor removal, carpal tunnel release - Social History Smoking Status: Former smoker Smokeless Tobacco Status: No Alcohol use: none Drug use: none - Family History Mother Family Member Ethnicity: Non- Living Status: Hx Family Respiratory Disorders: Yes (Emphysema) Hx Family Neurologic Disorders: Yes (Alzheimer's disease) Father Family Member Ethnicity: Non- Living Status: Hx Family Cancer: Yes (Colon CA) Hx Family Neuromuscular Disorders: Yes (Alzeheimers) Hx Family Neurologic Disorders: Yes (Alzheimer's disease) Sister Family Member Ethnicity: Non- Living Status: Still Living Internal Medicine - H&P: Meds Gabapentin [Neurontin] 600 mg PO TID 10/11/16 [History] Tamsulosin [Flomax] 0.8 mg PO DAILY 10/11/16 [History] Albuterol Sulfate [Proair Hfa] 2 puff IH Q4H PRN 01/10/17 [History] Budesonide/Formoterol 160/4.5 [Symbicort 160/4.5] 2 puff IH BIDR 30 Days inhaler 01/12/17 [Rx] Omeprazole Magnesium [Prilosec Otc] 20 mg PO DAILY 06/14/17 [History] Oxycodone HCl 15 mg PO Q6H PRN 10/09/17 [History] Aspirin Enteric Coated [Aspirin EC] 81 mg PO DAILY 10/28/17 [History] Ciclopirox [Loprox] 1 appl TP 2XW 06/01/18 [History] Furosemide [Lasix] 20 mg PO DAILY 06/01/18 [History] Zolpidem Tartrate [Ambien Cr] 12.5 mg PO DAILY 06/01/18 [History] amLODIPine [Norvasc] 5 mg PO DAILY #30 tablet 06/04/18 [Rx] 3 Allergy/AdvReac Type Severity Reaction Status Date / Time No Known Allergies Allergy Verified 06/01/18 10:22 All Systems PM: A 10-system review of systems was performed and is negative for pertinent findings except as documented above in the HPI. - Constitutional Vitals: Temp Pulse Resp BP Pulse Ox 97.6 F 75 18 138/80 95 07/03/18 11:10 07/03/18 11:42 07/03/18 13:23 07/03/18 13:23 07/03/18 11:42 General appearance: Present: A&O X 3, pleasant, answers questions appropriately Exam: CONSTITUTIONAL: Patient appears as an age appropriate male well developed, in no acute distress. EYES Clear sclerae, bilateral pupils are equal, reactive to light and accommodation. Extraocular movements are intact RESPIRATORY: No accessory muscle use, bilateral basilar crackles/rales. CARDIOVASCULAR: Regular heart rate, normal S1 and S2, no murmurs GASTROINTESTINAL: bowel sounds present, soft, no tenderness. No hepatosplenomegaly. No bilateral CVA tenderness MUSCULOSKELETAL: Joints in normal range of motion, no clubbing, no edema, no cyanosis. Bilateral peripheral pulses 2+ LYMPHATIC no lymphadenopathy in neck, groin and axilla bilaterally, no thyromegaly. NEUROLOGIC: CN II to XII are grossly intact, no focal neurological deficit. Deep tendon reflexes 2+ bilaterally. Normal light touch sensation to upper and lower extremity PSYCHIATRIC: Oriented x3, with good insight, mood is euthymic. No hallucinations or delusions. SKIN: Skin warm and dry, no rashes, no open wound. Internal Med - H&P Results - Labs CBC & Chem 7: 07/03/18 10:54 07/03/18 10:54 - Assessment and plan (1) Metabolic encephalopathy Current Visit: Yes Status: Acute Assessment and plan: Patient has on and off confusion especially at the evening time, in setting of pneumonia and COPD exacerbation likely from metabolic encephalopathy. But I will check head CT to rule out acute stroke (2) Acute exacerbation of chronic obstructive airways disease Current Visit: Yes Status: Acute Assessment and plan: Continue oral steroids, nebulizer scheduled. Antibiotics (3) CHF exacerbation Current Visit: Yes Status: Acute Assessment and plan: Patient had echocardiogram done in April 2018 EF 60-65%, likely diastolic dysfunction, currently no fluids overload a signs Qualifiers: Heart failure type: diastolic Qualified Code(s): I50.33 - Acute on chronic diastolic (congestive) heart failure (4) Elevated troponin Current Visit: Yes Status: Chronic Assessment and plan: Patient denies history of CAD and MR, patient does have multiple risk factors including hypertension, history of smoking will follow up trop, contineu heparin for now (5) HCAP (healthcare-associated pneumonia) Current Visit: Yes Status: Acute Assessment and plan: Patient had a first pneumonia back to May, pneumonia a week ago. We will treat as hospital associated pneumonia given IV Zosyn (6) Chronic back pain Current Visit: No Status: Chronic Qualifiers: Back pain location: low back pain Back pain laterality: unspecified Sciatica presence: without sciatica Qualified Code(s): M54.5 - Low back pain; G89.29 - Other chronic pain (7) Chronic respiratory failure with hypoxia Current Visit: Yes Status: Chronic Assessment and plan: on 2.5 L NC - Time Spent With Patient Total time spent is greater than 50% in coordination of care (as documented) at patient's floor/unit and/or counseling patient: Greater than 35 minutes
[2018-07-03] MEDS ORDERED: Naloxone 0.4 MG/ML INJ IVP PRN (14:54)
[2018-07-03] MEDS: Piperacillin/Tazobactam 3.375 GM in 0.9 % Sodium Chloride Mini Bag 100 ML IVPB SCH (16:09)
[2018-07-03] MEDS: Gabapentin 300 MG CAPSULE PO SCH ×2 (16:09→20:56)
[2018-07-03] MEDS: Budesonide/Formoterol 160/4.5 MDI IH SCH (20:36)
[2018-07-04] MEDS: Piperacillin/Tazobactam 3.375 GM in 0.9 % Sodium Chloride Mini Bag 100 ML IVPB SCH ×4 (00:30→23:10)
[2018-07-04 03:15] LABS: Hemoglobin 12.8 g/dL (12.9-16.9); Mean Corpuscular HGB Conc 32.8 g/dL (31.6-35.5); Mean Corpuscular Hemoglobin 29.2 pg (28.0-33.3); Mean Platelet Volume 10.6 fL (9.4-12.4); Platelet Count 287 K/mcL (140-400); Red Blood Count 4.38 M/mcL (4.19-5.50); Red Cell Distribution Width 13.8 % (11.5-14.5)
[2018-07-04 03:35] LABS: BUN/Creatinine Ratio 24 (6-26); Blood Urea Nitrogen 23 mg/dL (8-23); Calcium 9.5 mg/dL (8.6-10.3); Carbon Dioxide 28 mEq/L (23-29); Chloride 103 mEq/L (98-107); Chol/HDL Ratio 4.1 (0-4.9); Cholesterol 154 mg/dL (< 200); Glucose 159 mg/dL (70-105); HDL Cholesterol 38 mg/dL (40-59); LDL Cholesterol,Calculated 103 mg/dL (0-99); Magnesium 1.9 mg/dL (1.6-2.6); Osmolality,Calculated 291 (280-300); Potassium 4.4 mEq/L (3.5-5.1); Sodium 137 mEq/L (136-145); Triglycerides 66 mg/dL (< 150); eGFR For Non-African Americans > 60 (> 60)
--- NOTE | 2018-07-04 06:14 | Electrocardiograph Report ---
[facility] Test Date: 2018-07-03 Pat Name: Keny Fair Department: 103 Room: 2A26 Gender: M Welfare Officer: LEONARDO : 1935 Requested By: Dain Pace Order Number: [id number] Reading MD: aDin Hanna Measurements Intervals [place] Rate: 74 P: 86 MD: 141 QRS: 42 QRSD: 78 T: 62 QT: 366 QTc: 393 Interpretive Statements SINUS RHYTHM WITH OCCASIONAL SUPRAVENTRICULAR PREMATURE COMPLEXES Electronically Signed On 07-04-2018 6:12:38 EDT by Dain Hanna
[2018-07-04 07:18] LABS: Bilirubin,Urine Negative (Negative); Blood,Urine Negative (Negative); Clarity,Urine Clear (Clear); Color,Urine Yellow (Yellow); Glucose,Urine (UA) Normal (Normal); Ketones,Urine Negative (Negative); Leukocyte Esterase,Urine Negative (Negative); Nitrite,Urine Negative (Negative); PH,Urine 6.5 pH Units (5.0-8.0); Protein,Urine Negative (Neg-Trace); Urobilinogen,Urine Normal (Normal)
[2018-07-04] MEDS: Gabapentin 300 MG CAPSULE PO SCH ×3 (07:55→20:56)
[2018-07-04] MEDS: Furosemide 20 MG TABLET PO SCH (07:56)
[2018-07-04] MEDS: amLODIPine 5 MG TABLET PO SCH (07:56)
[2018-07-04] MEDS: Aspirin Enteric Coated 81 MG Tablet PO SCH (07:56)
[2018-07-04] MEDS ORDERED: predniSONE 20 MG TABLET PO SCH (09:00)
[2018-07-04] MEDS: Budesonide/Formoterol 160/4.5 MDI IH SCH ×2 (10:12→22:25)
--- NOTE | 2018-07-04 12:27 | Internal Med Progress Note ---
Hospitalist Progress Note - Encounter Date of Encounter: 07/04/18 Time of Encounter: 12:36 - Subjective Interval History: Patient seen and examined at bedside. Patient no overnight events. Patient's mental status changes appear to be resolved. The patient's alert and oriented 3. RN states that the patient has been cooperative and alert and oriented throughout her shift. Patient states that he feels somewhat better since admission. Patient denies any current shortness of breath, does admit to cough with yellow sputum production over the last few days. Denies any fevers. Denies any chest pain, nausea, and vomiting, abdominal pain. - Exam Vitals: Temp Pulse Resp BP Pulse Ox 98.0 F 88 16 123/86 93 07/04/18 11:54 07/04/18 11:54 07/04/18 11:54 07/04/18 11:54 07/04/18 11:54 Exam: Constitutional: No acute distress, Alert Psych: AAO x 3 HEENT: NCAT, EOMI Neck: supple, no JVD Cardio: regular rate and rhythm, +s1s2, no murmurs/rubs/gallops, Resp: Coarse breath sounds throughout Abd: soft, non tender/non distended, positive bowel sounds, no gaurding/reboud/ ridgitity Extremities: no clubbing/cyanosis/edema appreciated Neuro: no focal deficits appreciated - Assessment and Plan (1) Hospital-acquired bacterial pneumonia Current Visit: Yes Status: Acute Assessment and Plan: Patient admitted with shortness of breath several day history of cough with yellow sputum production and chest x-ray findings of left lower lobe opacification -Patient on IV Zosyn currently and feels better -This left lower lobe opacification seems to be chronic and does not symmetrically change since prior xray -The patient has been afebrile however has been short of breath with cough; due to this I agree with treating with IV antibiotics and his weight quick transition to oral antibiotics -Due to the persistent nature of this opacification patient will likely need to follow up with pulmonology as an outpatient for further evaluation -We will follow blood cultures but currently negative to date (2) Altered mental status Current Visit: Yes Status: Acute Assessment and Plan: Patient with confusion for the last week especially at nighttime. -Likely toxic metabolic encephalopathy secondary to the patient's pneumonia -We will need evaluation as an outpatient for development of dementia with possible sundowning due to the timing of confusion -The patient altered mental status is resolved currently (3) Chronic respiratory failure with hypoxia Current Visit: Yes Status: Chronic Assessment and Plan: On continuous home oxygen at home (4) Elevated troponin Current Visit: Yes Status: Chronic Assessment and Plan: -Patient with chronic elevated troponin; very low suspicion for coronary etiology; troponin 0.05 down from 0.06; improved from troponin in May of 0.12 -no chest pain (5) COPD (chronic obstructive pulmonary disease) Current Visit: No Status: Chronic Assessment and Plan: COPD exacerbation, improving -Wean by mouth steroids to 30 mg daily (6) Chronic back pain Current Visit: Yes Status: Chronic Assessment and Plan: Continue home medications DVT Prophylaxis: Heparin subcutaneously - Time Spent with Patient Total time spent is greater than 50% in coordination of care (as documented) at patient's floor/unit and/or counseling patient: 25 - 35 minutes Internal Medicine: Result - Labs CBC & Chem 7: 07/04/18 02:54 07/04/18 02:54 Labs: Short CBC 07/04/18 Range/Units 02:54 WBC 5.6 (4.3-11.1) K/mcL Hgb 12.8 L (12.9-16.9) g/dL Hct 39.0 (37.5-50.1) % Plt Count 287 (140-400) K/mcL BMP 07/04/18 02:54 Sodium 137 Potassium 4.4 Chloride 103 Carbon Dioxide 28 BUN 23 Creatinine 0.94 Glucose 159 H Calcium 9.5 Cardiac Enzymes 07/03/18 07/03/18 07/04/18 Range/Units 16:12 20:51 02:54 Troponin I 0.05 H* 0.05 H* 0.05 H* (< 0.04) ng/mL Urine 07/04/18 Range/Units 06:38 Urine Color Yellow (Yellow) Urine Clarity Clear (Clear) Urine pH 6.5 (5.0-8.0) pH Units Ur Specific [place] 1.010 (1.010-1.025) Urine Protein Negative (Neg-Trace) mg/dL Urine Glucose (UA) Normal (Normal) mg/dL - ABG Interpretation ABG results: PT/INR, D-dimer PT 11.9 Seconds (9.4-12.1) 07/03/18 10:54 - Impressions Impressions Head CT 07/03/18 14:59 IMPRESSION: Stable CT brain with no acute intracranial abnormality. D/ / Penelope Yadav MD / Penelope Yadav MD Interpreting Provider: Penelope Yadav MD Consult Discharge Plan - Plan Referrals: Dereje Banks MD [Primary Care Provider] - (5) COPD (chronic obstructive pulmonary disease) Qualifiers: COPD type: COPD with acute lower respiratory infection Qualified Code(s): J44.0 - Chronic obstructive pulmonary disease with acute lower respiratory infection (6) Chronic back pain Qualifiers: Back pain location: low back pain Back pain laterality: unspecified Sciatica presence: without sciatica Qualified Code(s): M54.5 - Low back pain; G89.29 - Other chronic pain
[2018-07-04] MEDS: *HR* Heparin 5,000 UNIT/ML VIAL SQ SCH ×2 (14:41→20:57)
[2018-07-05 05:22] LABS: Basophils % 0.1 %; Eosinophils % 0.2 %; Hematocrit 38.5 % (37.5-50.1); Hemoglobin 12.4 g/dL (12.9-16.9); Immature Granulocytes % 0.5 % (0-4); Lymphocytes # 1.7 K/mcL (0.6-4.6); Lymphocytes % 14.6 %; Mean Corpuscular HGB Conc 32.2 g/dL (31.6-35.5); Mean Corpuscular Hemoglobin 29.2 pg (28.0-33.3); Mean Corpuscular Volume 90.6 fL (83.0-100.0); Mean Platelet Volume 10.9 fL (9.4-12.4); Monocytes # 0.6 K/mcL (0.0-1.3); Monocytes % 5.3 %; Platelet Count 288 K/mcL (140-400); Red Blood Count 4.25 M/mcL (4.19-5.50); Red Cell Distribution Width 13.9 % (11.5-14.5); Segmented Neutrophils % 79.3 %
[2018-07-05 05:23] LABS: Neutrophils # 9.4 K/mcL (1.6-8.9)
[2018-07-05 05:43] LABS: BUN/Creatinine Ratio 24 (6-26); Blood Urea Nitrogen 25 mg/dL (8-23); Calcium 9.3 mg/dL (8.6-10.3); Carbon Dioxide 31 mEq/L (23-29); Chloride 104 mEq/L (98-107); Glucose 119 mg/dL (70-105); Osmolality,Calculated 294 (280-300); Potassium 4.7 mEq/L (3.5-5.1); Sodium 139 mEq/L (136-145); eGFR For Non-African Americans > 60 (> 60)
[2018-07-05] MEDS: *HR* Heparin 5,000 UNIT/ML VIAL SQ SCH ×3 (06:30→20:27)
[2018-07-05] MEDS: Furosemide 20 MG TABLET PO SCH (08:07)
[2018-07-05] MEDS: amLODIPine 5 MG TABLET PO SCH (08:07)
[2018-07-05] MEDS: Piperacillin/Tazobactam 3.375 GM in 0.9 % Sodium Chloride Mini Bag 100 ML IVPB SCH ×2 (08:08→16:22)
[2018-07-05] MEDS: Gabapentin 300 MG CAPSULE PO SCH ×3 (08:08→20:27)
[2018-07-05] MEDS: Aspirin Enteric Coated 81 MG Tablet PO SCH (08:08)
[2018-07-05] MEDS ORDERED: predniSONE 10 MG TABLET PO SCH (09:00)
[2018-07-05] MEDS ORDERED: CICLOPIROX APPL TP SCH (09:00)
[2018-07-05] MEDS ORDERED: Clotrimazole 1% CRM 15 GM TUBE TP SCH (09:00)
[2018-07-05] MEDS: Budesonide/Formoterol 160/4.5 MDI IH SCH ×2 (10:28→19:53)
--- NOTE | 2018-07-05 12:38 | Internal Med Progress Note ---
Hospitalist Progress Note - Encounter Date of Encounter: 07/05/18 Time of Encounter: 12:28 - Subjective Interval History: Patient seen and examined at bedside. Patient no overnight events. Patient states that he is doing well and does not feel confused at all anymore. Patient denies any chest pain. Patient states that his shortness of breath seems to be at his baseline. Patient admits to continued cough with intermittent sputum when he has sputum and thick and yellow however patient has not given sample for sputum analysis. I explained the importance of the sputum sample and pt will give sample next time he has any. Patient has been afebrile. Patient inadvertently had CODE BLUE button trended from late last night; this was a false alarm. Denies any nausea, vomiting, abdominal pain. - Exam Vitals: Temp Pulse Resp BP Pulse Ox 97.8 F 73 16 106/60 97 07/05/18 10:36 07/05/18 10:36 07/05/18 10:36 07/05/18 10:36 07/05/18 10:36 Exam: Constitutional: No acute distress, Alert, pleasant, sitting on side of bead Psych: AAO x 3 HEENT: NCAT, EOMI Neck: supple Cardio: regular rate and rhythm Resp: Coarse sounds particularly in the left lower lobe however not very impressive otherwise clear Abd: soft, non tender/non distended, positive bowel sounds Extremities: no clubbing/cyanosis/edema appreciated Neuro: no focal deficits appreciated - Assessment and Plan (1) Hospital-acquired bacterial pneumonia Current Visit: Yes Status: Acute Assessment and Plan: Patient admitted with shortness of breath several day history of cough with yellow sputum production and chest x-ray findings of left lower lobe opacification -Patient on IV Zosyn and continues to feel improved -This left lower lobe opacification seems to be chronic and does not symmetrically change since prior xray -The patient has been afebrile however has been short of breath with cough -Pt developed mild leukocytosis today however on steroids; will continue to wean -Due to the persistent nature of this opacification patient will consult pulmonolgy to get recommendations -anticipate transition to oral abx soon if pulm agrees -We will follow blood cultures but currently negative to date -try to obtain sputum cx (2) Altered mental status Current Visit: Yes Status: Acute Assessment and Plan: Patient with confusion for the last week especially at nighttime. -Likely toxic metabolic encephalopathy secondary to the patient's pneumonia -may need evaluation as an outpatient for development of dementia with possible sundowning due to the timing of confusion -resolved (3) Chronic respiratory failure with hypoxia Current Visit: Yes Status: Chronic Assessment and Plan: On continuous home oxygen at home (4) Elevated troponin Current Visit: Yes Status: Chronic Assessment and Plan: -Patient with chronic elevated troponin; very low suspicion for coronary etiology; troponin 0.05 down from 0.06; improved from troponin in May of 0.12 -continues to have no cp -no need to trend any more troponins (5) COPD (chronic obstructive pulmonary disease) Current Visit: No Status: Chronic Assessment and Plan: COPD exacerbation, improving -Wean by mouth steroids to 10mg daily likely stop tomorrow (6) Chronic back pain Current Visit: Yes Status: Chronic Assessment and Plan: Continue home medications - Time Spent with Patient Total time spent is greater than 50% in coordination of care (as documented) at patient's floor/unit and/or counseling patient: less than 15 minutes Plan of Care Discussed with: patient Internal Medicine: Result - Labs CBC & Chem 7: 07/05/18 04:52 07/05/18 04:52 Labs: Short CBC 07/05/18 Range/Units 04:52 WBC 11.9 H D (4.3-11.1) K/mcL Hgb 12.4 L (12.9-16.9) g/dL Hct 38.5 (37.5-50.1) % Plt Count 288 (140-400) K/mcL Neutrophils # 9.4 H (1.6-8.9) K/mcL BMP 07/05/18 04:52 Sodium 139 Potassium 4.7 Chloride 104 Carbon Dioxide 31 H BUN 25 H Creatinine 1.05 Glucose 119 H Calcium 9.3 - ABG Interpretation ABG results: PT/INR, D-dimer PT 11.9 Seconds (9.4-12.1) 07/03/18 10:54 Consult Discharge Plan - Plan Referrals: Dereje Banks MD [Primary Care Provider] - (5) COPD (chronic obstructive pulmonary disease) Qualifiers: COPD type: COPD with acute lower respiratory infection Qualified Code(s): J44.0 - Chronic obstructive pulmonary disease with acute lower respiratory infection (6) Chronic back pain Qualifiers: Back pain location: low back pain Back pain laterality: unspecified Sciatica presence: without sciatica Qualified Code(s): M54.5 - Low back pain; G89.29 - Other chronic pain
[2018-07-05] MEDS ORDERED: Ipratropium/Albuterol Neb 3 ML IH PRN (13:41)
[2018-07-05] MEDS: *HR* OxyCODONE Immed Rel 15 MG TABLET PO PRN ×2 (13:58→20:27)
[2018-07-06] MEDS: Piperacillin/Tazobactam 3.375 GM in 0.9 % Sodium Chloride Mini Bag 100 ML IVPB SCH ×2 (00:33→08:09)
[2018-07-06] MEDS: *HR* Heparin 5,000 UNIT/ML VIAL SQ SCH ×3 (06:08→20:31)
[2018-07-06] MEDS: Gabapentin 300 MG CAPSULE PO SCH ×3 (08:08→20:31)
[2018-07-06] MEDS: *HR* OxyCODONE Immed Rel 15 MG TABLET PO PRN ×2 (08:08→20:32)
[2018-07-06] MEDS: amLODIPine 5 MG TABLET PO SCH (08:08)
[2018-07-06] MEDS: Furosemide 20 MG TABLET PO SCH (08:08)
[2018-07-06] MEDS: Aspirin Enteric Coated 81 MG Tablet PO SCH (08:08)
--- NOTE | 2018-07-06 08:30 | Internal Med Progress Note ---
Hospitalist Progress Note - Encounter Date of Encounter: 07/06/18 Time of Encounter: 08:27 - Subjective Interval History: Patient seen and examined at bedside. Patient no overnight events. Patient states his only complaint is some weakness. Patient denies any chest pain, states that shortness of breath is better and states that he is coughing more sputum up. Patient denies any nausea, vomiting, diarrhea. Awaiting pulmonary evaluation. - Exam Vitals: Temp Pulse Resp BP Pulse Ox 98.0 F 58 17 131/75 96 07/06/18 07:42 07/06/18 07:42 07/06/18 07:42 07/06/18 07:42 07/06/18 07:42 Exam: Constitutional: No acute distress, Alert Psych: AAO x 3 HEENT: NCAT, EOMI Cardio: regular rate and rhythm, +s1s2, no murmurs/rubs/gallops, no JVD Resp: Coarse breath sounds in left lower base and expiratory wheezing throughout , wheezing is worsened from yesterday Abd: soft, non tender/non distended, positive bowel sounds, no gaurding/reboud/ ridgitity Extremities: no clubbing/cyanosis/edema appreciated Neuro: no focal deficits appreciated - Assessment and Plan (1) Hospital-acquired bacterial pneumonia Current Visit: Yes Status: Acute Assessment and Plan: Patient admitted with shortness of breath several day history of cough with yellow sputum production and chest x-ray findings of left lower lobe opacification -Patient on IV Zosyn and continues to feel improved -This left lower lobe opacification seems to be chronic and does not symmetrically change since prior xray -The patient has been afebrile however has been short of breath with cough prior to arrival\ -Due to the persistent nature of this opacification patient will consult pulmonolgy to get recommendations -Pt developed mild leukocytosis however on steroids; will continue low-dose steroids secondary to wheezing -Duo nebs added -anticipate transition to oral abx soon if pulm agrees -We will follow blood cultures but currently negative to date -try to obtain sputum cx-patient now producing more sputum (2) Altered mental status Current Visit: Yes Status: Acute Assessment and Plan: Patient with confusion for the last week especially at nighttime. -Likely toxic metabolic encephalopathy secondary to the patient's pneumonia -may need evaluation as an outpatient for development of dementia with possible sundowning due to the timing of confusion -Continues to be resolved (3) Chronic respiratory failure with hypoxia Current Visit: Yes Status: Chronic Assessment and Plan: On continuous home oxygen at home -Stable (4) Elevated troponin Current Visit: Yes Status: Chronic Assessment and Plan: -Patient with chronic elevated troponin; very low suspicion for coronary etiology; troponin 0.05 down from 0.06; improved from troponin in May of 0.12 -continues to have no cp -no need to trend any more troponins (5) COPD (chronic obstructive pulmonary disease) Current Visit: No Status: Chronic Assessment and Plan: COPD exacerbation, improving -Wheezing worsened today -Continue steroids at low dose (6) Chronic back pain Current Visit: Yes Status: Chronic Assessment and Plan: Continue home medications - Time Spent with Patient Total time spent is greater than 50% in coordination of care (as documented) at patient's floor/unit and/or counseling patient: less than 15 minutes Plan of Care Discussed with: patient Internal Medicine: Result - Labs CBC & Chem 7: 07/05/18 04:52 07/05/18 04:52 - ABG Interpretation ABG results: PT/INR, D-dimer PT 11.9 Seconds (9.4-12.1) 07/03/18 10:54 Consult Discharge Plan - Plan Referrals: Dereje Banks MD [Primary Care Provider] - (5) COPD (chronic obstructive pulmonary disease) Qualifiers: COPD type: COPD with acute lower respiratory infection Qualified Code(s): J44.0 - Chronic obstructive pulmonary disease with acute lower respiratory infection (6) Chronic back pain Qualifiers: Back pain location: low back pain Back pain laterality: unspecified Sciatica presence: without sciatica Qualified Code(s): M54.5 - Low back pain; G89.29 - Other chronic pain
[2018-07-06] MEDS: predniSONE 10 MG TABLET PO SCH (08:38)
[2018-07-06 09:24] LABS: Basophils % 0.2 %; Eosinophils % 0.3 %; Hematocrit 40.5 % (37.5-50.1); Hemoglobin 12.8 g/dL (12.9-16.9); Immature Granulocytes % 0.8 % (0-4); Lymphocytes # 2.1 K/mcL (0.6-4.6); Lymphocytes % 17.4 %; Mean Corpuscular HGB Conc 31.6 g/dL (31.6-35.5); Mean Corpuscular Hemoglobin 28.6 pg (28.0-33.3); Mean Corpuscular Volume 90.6 fL (83.0-100.0); Mean Platelet Volume 10.7 fL (9.4-12.4); Monocytes # 0.5 K/mcL (0.0-1.3); Neutrophils # 9.4 K/mcL (1.6-8.9); Platelet Count 346 K/mcL (140-400); Red Blood Count 4.47 M/mcL (4.19-5.50); Red Cell Distribution Width 14.2 % (11.5-14.5); Segmented Neutrophils % 77.3 %
[2018-07-06] MEDS: Budesonide/Formoterol 160/4.5 MDI IH SCH ×2 (10:21→22:46)
--- NOTE | 2018-07-06 11:22 | Internal Medicine Consult Note ---
Date of Encounter: 07/06/18 Time of Encounter: 10:35 - Time Spent With Patient Total time spent is greater than 50% in coordination of care (as documented) at patient's floor/unit and/or counseling patient: Internal Medicine - CN: HPI - Data of Consult Patient: new to practice Consult date: 07/06/18 Requesting Physician: Hugh Stewart - Consult Narrative History of present illness: Mr. Fair is a 82 year old male Past Med Surg Social Fam HX - Past Medical History Medical history: cancer, CHF, COPD, other Additional medical history: diverticulitis, metabolic syndrome, colon polyps, thyroid nodule, BPH, skin cancer Psychiatric history: no psych history - Past Surgical History Surgical History: thyroidectomy Additional surgical history: 2 back surg left shoulder. skin ca, rotator cuff repair, hemorrhoidectomy, tumor removal, carpal tunnel release - Social History Smoking Status: Former smoker Smokeless Tobacco Status: No Alcohol use: none Drug use: none - Family History Mother Family Member Ethnicity: Non- Living Status: Hx Family Respiratory Disorders: Yes (Emphysema) Hx Family Neurologic Disorders: Yes (Alzheimer's disease) Father Family Member Ethnicity: Non- Living Status: Hx Family Cancer: Yes (Colon CA) Hx Family Neuromuscular Disorders: Yes (Alzeheimers) Hx Family Neurologic Disorders: Yes (Alzheimer's disease) Sister Family Member Ethnicity: Non- Living Status: Still Living Internal Medicine - CN: Meds Gabapentin [Neurontin] 600 mg PO TID 10/11/16 [History] Tamsulosin [Flomax] 0.8 mg PO DAILY 10/11/16 [History] Albuterol Sulfate [Proair Hfa] 2 puff IH Q4H PRN 01/10/17 [History] Budesonide/Formoterol 160/4.5 [Symbicort 160/4.5] 2 puff IH BIDR 30 Days inhaler 01/12/17 [Rx] Omeprazole Magnesium [Prilosec Otc] 20 mg PO DAILY 06/14/17 [History] Oxycodone HCl 15 mg PO Q6H PRN 10/09/17 [History] Aspirin Enteric Coated [Aspirin EC] 81 mg PO DAILY 10/28/17 [History] Ciclopirox [Loprox] 1 appl TP 2XW 06/01/18 [History] Furosemide [Lasix] 20 mg PO DAILY 06/01/18 [History] Zolpidem Tartrate [Ambien Cr] 12.5 mg PO DAILY 06/01/18 [History] amLODIPine [Norvasc] 5 mg PO DAILY #30 tablet 06/04/18 [Rx] 3 Allergy/AdvReac Type Severity Reaction Status Date / Time No Known Allergies Allergy Verified 06/01/18 10:22 Internal Medicine - CN: Exam - Constitutional Vitals: Temp Pulse Resp BP Pulse Ox 98.0 F 58 18 131/75 95 07/06/18 07:42 07/06/18 07:42 07/06/18 10:21 07/06/18 07:42 07/06/18 10:21 Internal Medicine - CN: Reslt - Labs CBC & Chem 7: 07/06/18 08:43 07/05/18 04:52 Labs: Short CBC 07/06/18 Range/Units 08:43 WBC 12.2 H (4.3-11.1) K/mcL Hgb 12.8 L (12.9-16.9) g/dL Hct 40.5 (37.5-50.1) % Plt Count 346 (140-400) K/mcL Neutrophils # 9.4 H (1.6-8.9) K/mcL - ABG Interpretation ABG results: PT/INR, D-dimer PT 11.9 Seconds (9.4-12.1) 07/03/18 10:54 Consult Discharge Plan - Plan Referrals: Dereje Banks MD [Primary Care Provider] - Octavio Turner MD [Partnered Physician] - 08/15/18 11:15 am (F/U appointment with Dr. Turner in Pulmonology, please keep appointment. )
--- NOTE | 2018-07-06 11:32 | Pulmonology Consult Note ---
<[email or web address] S - Last Filed: 07/06/18 16:16> Date of Encounter: 07/06/18 Medications and Allergies Gabapentin [Neurontin] 600 mg PO TID 10/11/16 [History] Tamsulosin [Flomax] 0.8 mg PO DAILY 10/11/16 [History] Albuterol Sulfate [Proair Hfa] 2 puff IH Q4H PRN 01/10/17 [History] Budesonide/Formoterol 160/4.5 [Symbicort 160/4.5] 2 puff IH BIDR 30 Days inhaler 01/12/17 [Rx] Omeprazole Magnesium [Prilosec Otc] 20 mg PO DAILY 06/14/17 [History] Oxycodone HCl 15 mg PO Q6H PRN 10/09/17 [History] Aspirin Enteric Coated [Aspirin EC] 81 mg PO DAILY 10/28/17 [History] Ciclopirox [Loprox] 1 appl TP 2XW 06/01/18 [History] Furosemide [Lasix] 20 mg PO DAILY 06/01/18 [History] Zolpidem Tartrate [Ambien Cr] 12.5 mg PO DAILY 06/01/18 [History] amLODIPine [Norvasc] 5 mg PO DAILY #30 tablet 06/04/18 [Rx] 3 Allergy/AdvReac Type Severity Reaction Status Date / Time No Known Allergies Allergy Verified 06/01/18 10:22 All Systems: The remainder of the systems were reviewed and are negative Physical Examination Vital Signs: Vital Signs, Last 4 Hours Temp Pulse Resp BP Pulse Ox 07/06/18 16:13 97.7 F 67 19 119/75 97 07/06/18 12:31 89 Results - Laboratory Findings CBC and BMP: 07/06/18 08:43 07/05/18 04:52 PT/INR, D-dimer PT 11.9 Seconds (9.4-12.1) 07/03/18 10:54 Abnormal lab findings: Abnormal lab results WBC 12.2 K/mcL (4.3-11.1) H 07/06/18 08:43 Hgb 12.8 g/dL (12.9-16.9) L 07/06/18 08:43 Neutrophils # 9.4 K/mcL (1.6-8.9) H 07/06/18 08:43 Heparin Anti-Xa, Unfract 0.02 IU/mL (0.30-0.70) L 07/03/18 10:54 VBG pH 7.43 pH Units (7.32-7.42) H 07/03/18 11:06 VBG pO2 116 mmHg (25-50) H 07/03/18 11:06 VBG HCO3 28 mEq/L (21-27) H 07/03/18 11:06 Carbon Dioxide 31 mEq/L (23-29) H 07/05/18 04:52 BUN 25 mg/dL (8-23) H 07/05/18 04:52 Glucose 119 mg/dL (70-105) H 07/05/18 04:52 Troponin I 0.05 ng/mL (< 0.04) H* 07/04/18 02:54 B-Natriuretic Peptide 217 pg/mL (Less than 100) H 07/04/18 02:54 LDL Cholesterol, Calc 103 mg/dL (0-99) H 07/04/18 02:54 HDL Cholesterol 38 mg/dL (40-59) L 07/04/18 02:54 - Clinical Findings Intake & Output: Intake & Output 07/06/18 07/06/18 07/06/18 07:59 15:59 23:59 Intake Total 100 / 100 840 / 840 Output Total 1675 / 1675 Balance -1575 / -1575 840 / 840 Weight 88.4 kg Consult Discharge Plan - Plan Referrals: Dereje Banks MD [Primary Care Provider] - Otcavio Turner MD [Partnered Physician] - 08/15/18 11:15 am (F/U appointment with Dr. Turner in Pulmonology, please keep appointment. ) - Attending Attestation I saw and evaluated this patient and my medical decision-making was reviewed with the Resident Physician. I agree with the documented findings, disposition and treatment plan as described except to the extent set forth below. 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 Pulm: Patient has acute on chronic hypoxic respiratory failure secondary to COPD patient admitted with negative for dizziness altered mental status wonder she has exercise-induced desaturation needs to ascertain excise oxygen requirement before his discharge doubt he had pneumonia to complete 5 days of antibiotics. This altered mental status and disorientation sometimes lightheadedness can be due to cardiac issue he needs to have a cardiology follow -up. Please schedule with pulmonology with Dr. Yue bautista and 6-8 weeks. Cards: Can be due to near syncope will need outpatient cardiology evaluation. To send him home on bronchodilators and Symbicort. <Naima Rueda - Last Filed: 07/06/18 18:21> Date of Encounter: 07/06/18 Time of Encounter: 10:35 Assessment and Plan (1) Acute and chronic respiratory failure with hypoxia Current Visit: Yes Status: Acute Likely due to COPD exacerbation and patient not utilizing his daytime supplemental oxygen, less likely pneumonia as patient has completed almost 3 courses of antibiotic therapy. CXR 07/03 - Unchanged opacification in left lower lobe. Blood cultures currently negative. Recommend 6 minute walking test to determine patient's oxygen requirements for going home. Continue bronchodilators and symbicort. CXR findings likely from previous pneumonia, which takes time to resolve. Patient had adequate antibiotic therapy. Leukocytosis likely due to steroids. (2) Acute exacerbation of chronic obstructive airways disease Current Visit: Yes Status: Acute Likely exercise induced hypoxia due to COPD and not utilizing supplemental oxygen during activity. Continue bronchodilators and symbicort. Encourage daytime and nighttime supplemental oxygen utilization. Determine O2 requirements with 6 min walk test. (3) CHF exacerbation Current Visit: Yes Status: Chronic Chronic, stable Does not appear to be exacerbated clinically. Continue home regimen Qualifiers: Heart failure type: diastolic Qualified Code(s): I50.33 - Acute on chronic diastolic (congestive) heart failure (4) Metabolic encephalopathy Current Visit: Yes Status: Resolved Likely due to hypoxic respiratory failure. Patient presented with weakness and confusion. Currently denies confusion and admits to not using his supplemental oxygen during the day. Encourage patient to utilize supplemental oxygen as directed. Recommend outpatient follow up for possible cardiac and dementia evaluation. History of Present Illness Consult date: 07/06/18 Requesting physician: Jaquan Winslow Reason for consult: other (Acute on Chronic Respiratory Distress with Hypoxia) Chief complaint: SOB History of present illness: 82 YOM with a history of COPD and CHF who presented to the ED with SOB, weakness , and confusion. He had a recent hospitalization for pneumonia and was discharged on 06/04/18. Per record review, he completed a 3 day course of Vanc and Zosyn during his hospitalization and was given a 7 day course of Doxy and Augmentin upon discharge. He saw his PCP 1 week ago who gave him a 5 day course of Levaquin for a diagnosis of pneumonia. Patient reports no improvement in his symptoms and complains of continued weakness and SOB on exertion with some confusion. Patient is on 2.5L of supplemental O2 at night, and patient reports that he does not use his oxygen during the day because it's "annoying." Patient was lost to outpatient follow after his last admission and reports that an appointment was never scheduled with pulmonology. Past Med Surg Social Fam HX - Past Medical History Medical history: cancer, CHF, COPD, other Additional medical history: diverticulitis, metabolic syndrome, colon polyps, thyroid nodule, BPH, skin cancer Psychiatric history: no psych history - Past Surgical History Surgical History: thyroidectomy Additional surgical history: 2 back surg left shoulder. skin ca, rotator cuff repair, hemorrhoidectomy, tumor removal, carpal tunnel release - Social History Smoking Status: Former smoker Smokeless Tobacco Status: No Alcohol use: none Drug use: none - Family History Mother Family Member Ethnicity: Non- Living Status: Hx Family Respiratory Disorders: Yes (Emphysema) Hx Family Neurologic Disorders: Yes (Alzheimer's disease) Father Family Member Ethnicity: Non- Living Status: Hx Family Cancer: Yes (Colon CA) Hx Family Neuromuscular Disorders: Yes (Alzeheimers) Hx Family Neurologic Disorders: Yes (Alzheimer's disease) Sister Family Member Ethnicity: Non- Living Status: Still Living All Systems: The remainder of the systems were reviewed and are negative - Constitutional Constitutional: weakness, no chills, no fever(s) - Cardiovascular Cardiovascular: no chest pain - Respiratory Respiratory: cough, dyspnea on exertion, excessive phlegm production, no change in phlegm color - Gastrointestinal Gastrointestinal: no nausea, no vomiting Physical Examination Vital Signs: Vital Signs, Last 4 Hours Temp Pulse Resp BP Pulse Ox 07/06/18 10:21 18 95 07/06/18 07:42 98.0 F 58 17 131/75 96 General appearance: no acute distress, alert, appears uncomfortable Eyes: nonicteric ENT: oropharynx moist Neck: no JVD Effort: normal Auscultation: bilateral: wheezes Cardiovascular: regular rate and rhythm Extremities: no cyanosis, no edema normal mental status, pupils equal and round mood appropriate Results - Laboratory Findings CBC and BMP: 07/06/18 08:43 07/05/18 04:52 PT/INR, D-dimer PT 11.9 Seconds (9.4-12.1) 07/03/18 10:54 Abnormal lab findings: Abnormal lab results WBC 12.2 K/mcL (4.3-11.1) H 07/06/18 08:43 Hgb 12.8 g/dL (12.9-16.9) L 07/06/18 08:43 Neutrophils # 9.4 K/mcL (1.6-8.9) H 07/06/18 08:43 Heparin Anti-Xa, Unfract 0.02 IU/mL (0.30-0.70) L 07/03/18 10:54 VBG pH 7.43 pH Units (7.32-7.42) H 07/03/18 11:06 VBG pO2 116 mmHg (25-50) H 07/03/18 11:06 VBG HCO3 28 mEq/L (21-27) H 07/03/18 11:06 Carbon Dioxide 31 mEq/L (23-29) H 07/05/18 04:52 BUN 25 mg/dL (8-23) H 07/05/18 04:52 Glucose 119 mg/dL (70-105) H 07/05/18 04:52 Troponin I 0.05 ng/mL (< 0.04) H* 07/04/18 02:54 B-Natriuretic Peptide 217 pg/mL (Less than 100) H 07/04/18 02:54 LDL Cholesterol, Calc 103 mg/dL (0-99) H 07/04/18 02:54 HDL Cholesterol 38 mg/dL (40-59) L 07/04/18 02:54 - Clinical Findings Intake & Output: Intake & Output 07/05/18 07/06/18 07/06/18 23:59 07:59 15:59 Intake Total 100 / 100 100 / 100 360 / 360 Output Total 1675 / 1675 Balance 100 / 100 -1575 / -1575 360 / 360 Weight 88.4 kg
[2018-07-06] MEDS ORDERED: Bisacodyl 10 MG RECTAL SUPPOSITORY RC ONE (16:07)
[2018-07-06] MEDS: levoFLOXacin 750 MG TABLET PO SCH (16:23)
[2018-07-07 04:42] LABS: Basophils # 0.1 K/mcL (0.0-0.2); Basophils % 0.5 %; Eosinophils # 0.1 K/mcL (0.0-0.6); Hematocrit 41.9 % (37.5-50.1); Hemoglobin 13.3 g/dL (12.9-16.9); Immature Granulocytes % 1.8 % (0-4); Lymphocytes # 2.3 K/mcL (0.6-4.6); Mean Corpuscular HGB Conc 31.7 g/dL (31.6-35.5); Mean Corpuscular Volume 91.3 fL (83.0-100.0); Mean Platelet Volume 10.6 fL (9.4-12.4); Monocytes # 0.8 K/mcL (0.0-1.3); Monocytes % 6.8 %; Neutrophils # 8.2 K/mcL (1.6-8.9); Platelet Count 369 K/mcL (140-400); Red Blood Count 4.59 M/mcL (4.19-5.50); Red Cell Distribution Width 14.2 % (11.5-14.5); Segmented Neutrophils % 69.9 %
[2018-07-07 05:01] LABS: BUN/Creatinine Ratio 25 (6-26); Blood Urea Nitrogen 25 mg/dL (8-23); Calcium 9.4 mg/dL (8.6-10.3); Carbon Dioxide 31 mEq/L (23-29); Chloride 104 mEq/L (98-107); Glucose 92 mg/dL (70-105); Osmolality,Calculated 294 (280-300); Potassium 4.4 mEq/L (3.5-5.1); Sodium 140 mEq/L (136-145); eGFR For Non-African Americans > 60 (> 60)
[2018-07-07] MEDS: *HR* Heparin 5,000 UNIT/ML VIAL SQ SCH ×2 (06:19→12:50)
[2018-07-07] MEDS: Budesonide/Formoterol 160/4.5 MDI IH SCH (07:40)
[2018-07-07] MEDS: Gabapentin 300 MG CAPSULE PO SCH (08:44)
[2018-07-07] MEDS: levoFLOXacin 750 MG TABLET PO SCH (08:44)
[2018-07-07] MEDS: Furosemide 20 MG TABLET PO SCH (08:44)
[2018-07-07] MEDS: amLODIPine 5 MG TABLET PO SCH (08:44)
[2018-07-07] MEDS: predniSONE 10 MG TABLET PO SCH (08:44)
[2018-07-07] MEDS: Aspirin Enteric Coated 81 MG Tablet PO SCH (08:45)
[2018-07-07 11:30] VITALS: BP 125/71
--- NOTE | 2018-07-07 12:10 | Discharge Summary ---
- NOTES TO OUTPATIENT PROVIDER Notes to Outpatient Provider: Patient to follow-up with pulmonology for PFTs as outpatient. Orders not resulted at time of discharge: Pending orders 07/06/18 08:28 Culture,Sputum with Gram Stain [RM] Routine Date of Encounter: 07/07/18 Time of Encounter: 12:08 - Discharge Diagnosis (1) Hospital-acquired bacterial pneumonia Priority: Primary Status: Acute (2) Altered mental status Priority: Secondary Status: Acute Qualifiers: Altered mental status type: disorientation Qualified Code(s): R41.0 - Disorientation, unspecified (3) Chronic respiratory failure with hypoxia Priority: Secondary Status: Chronic (4) Elevated troponin Priority: Secondary Status: Chronic (5) COPD (chronic obstructive pulmonary disease) Priority: Secondary Status: Chronic Qualifiers: COPD type: COPD with acute lower respiratory infection Qualified Code(s): J44.0 - Chronic obstructive pulmonary disease with acute lower respiratory infection (6) Chronic back pain Priority: Secondary Status: Chronic Qualifiers: Back pain location: low back pain Back pain laterality: unspecified Sciatica presence: without sciatica Qualified Code(s): M54.5 - Low back pain; G89.29 - Other chronic pain Hospital course: Mr. Fair is a 82 year old male admitted to the emergency department with chief complaint of shortness of breath and confusion. Patient recent admission for pneumonia in May 2018 and imaging in the emergency department revealed persistent left lower lobe opacification consistent with pneumonia. The patient was admitted to the hospital and started on IV Zosyn for healthcare associated pneumonia and COPD. Patient was seen by pulmonology who agreed that due to the persistent nature of this opacification and lack of fever that this is more of a chronic issue. The patient completed 3 days of IV Zosyn was escalated to Levaquin for 2 additional days for a total of 5 days of antibiotics which were completed in the hospital. The patient was started on by mouth steroids which were weaned to prednisone 10 mg per day. Patient will be discharged on 3 additional days of 10 mg of prednisone. The patient admitted that he does not use his home oxygen during the daytime frequently. It is suspected that the patient's altered mental status is likely due to hypoxia. The patient was counseled on maintaining oxygen via nasal cannula as much as possible. The patient will see pulmonology as an outpatient have pulmonary function test performed. The patient did have a 6 minute walk test to determine ambulatory exercise oxygen requirement. However the patient did not require any oxygen during 6 minute walk test so will maintain current home oxygen dose while ambulating. Patient was set up with a home nebulizer and will be sent home with nebulizer and ipratropium/albuterol to use when necessary. Patient also instructed to use the Symbicort as prescribed. Patient was instructed to call his primary care physician or return to the ER for any worsening of condition. Patient will follow-up with primary care physician within one week. Discharge discussed with: patient, nurse - Time Spent with Patient Total time spent providing and/or coordinating discharge services: Greater than 30 minutes - Discharge Medications Prescriptions: Ipratropium/Albuterol Neb [Duoneb] 3 ml IH [id number] PRN 30 Days #100 vial PRN Reason: Shortness Of Breath/Wheezing predniSONE [PredniSONE] 10 mg PO DAILY 3 Days #3 tablet Home Medications: Gabapentin [Neurontin] 600 mg PO TID 10/11/16 [History] Tamsulosin [Flomax] 0.8 mg PO DAILY 10/11/16 [History] Albuterol Sulfate [Proair Hfa] 2 puff IH Q4H PRN 01/10/17 [History] Budesonide/Formoterol 160/4.5 [Symbicort 160/4.5] 2 puff IH BIDR 30 Days inhaler 01/12/17 [Rx] Omeprazole Magnesium [Prilosec Otc] 20 mg PO DAILY 06/14/17 [History] Oxycodone HCl 15 mg PO Q6H PRN 10/09/17 [History] Aspirin Enteric Coated [Aspirin EC] 81 mg PO DAILY 10/28/17 [History] Ciclopirox [Loprox] 1 appl TP 2XW 06/01/18 [History] Furosemide [Lasix] 20 mg PO DAILY 06/01/18 [History] Zolpidem Tartrate [Ambien Cr] 12.5 mg PO DAILY 06/01/18 [History] amLODIPine [Norvasc] 5 mg PO DAILY #30 tablet 06/04/18 [Rx] Ipratropium/Albuterol Neb [Duoneb] 3 ml IH [id number] PRN 30 Days #100 vial [Rx] predniSONE [PredniSONE] 10 mg PO DAILY 3 Days #3 tablet 07/07/18 [Rx] Allergies/Adverse Reactions: 3 Allergy/AdvReac Type Severity Reaction Status Date / Time No Known Allergies Allergy Verified 06/01/18 10:22 Date of admission: 07/03/18 12:30 Primary care physician: Dereje Banks MD Consults: 07/03/18 14:34 Consult to Nutrition [CONS] Routine Comment: Consulting Provider: NUTRITION Reason for Dietary Consult: MST Score Consult to Pastoral Services [CONS] Routine Comment: 07/05/18 08:41 Consult to Pulmonology [CONS] Routine Consulting Provider: [facility] [place] Reason for Consult: recurrent PNE Pt states he has seen Dr Patricio in the past Call Completed: No 07/06/18 11:46 Consult to Pulmonology [CONS] Routine Consulting Provider: [facility] [place] Reason for Consult: chronic bronchitis Call Completed: No - Constitutional Vitals: Temp Pulse Resp BP Pulse Ox 98.1 F 83 20 125/71 93 07/07/18 11:28 07/07/18 11:28 07/07/18 11:28 07/07/18 11:28 07/07/18 11:59 General appearance: Present: A&O X 3, pleasant, answers questions appropriately Exam: Constitutional: No acute distress, Alert Psych: AAO x 3 HEENT: NCAT, EOMI Neck: supple Cardio: regular rate and rhythm, +s1s2 Resp: Fairly diminished breath sounds however improved air exchange and decreased wheezing, patient only has faint expiratory wheezes Abd: soft, non tender/non distended, Extremities: no clubbing/cyanosis/edema appreciated - Patient Status Disposition: Home, Self-Care Condition: Good Functional capacity at discharge: independent ambulation Overall status at discharge: patient is back to baseline - Discharge Instructions Follow Up With: Dereje Banks MD [Primary Care Provider] - Octavio Turner MD [Partnered Physician] - 08/15/18 11:15 am (F/U appointment with Dr. Turner in Pulmonology, please keep appointment. ) - Diet and Activity Activity: increase activity as tolerated Diet: advance to your usual diet
== END 2018-07-07 13:36 | disposition home or self-care (01) ==
LOC: 2ANU 10:32 → EMEROO 10:32 → 2ANU 13:50
PROVIDERS: ADMIT Internal Medicine; ATTEND Internal Medicine

== ENCOUNTER 2019-06-21 13:29 | Observation (INO) ==
[2019-06-21] MEDS ORDERED: Ipratropium/Albuterol Neb 3 ML IH ONE (13:57)
[2019-06-21 14:19] LABS: Hematocrit 42.4 % (37.5-50.1); Hemoglobin 13.2 g/dL (12.9-16.9); Mean Corpuscular HGB Conc 31.1 g/dL (31.6-35.5); Mean Corpuscular Hemoglobin 29.5 pg (28.0-33.3); Mean Corpuscular Volume 94.6 fL (83.0-100.0); Mean Platelet Volume 10.8 fL (9.4-12.4); Monocytes # 0.8 K/mcL (0.0-1.3); Platelet Count 216 K/mcL (140-400); Red Blood Count 4.48 M/mcL (4.19-5.50)
--- NOTE | 2019-06-21 14:34 | Emergency Department Note ---
Disposition Clinical Impression: Hypoxia, Elevated troponin, MICHELL (acute kidney injury), Left arm numbness, Numbness of left hand Pneumonia Qualifiers: Pneumonia type: due to unspecified organism Laterality: right Lung location: lower lobe of lung Qualified Code(s): J18.1 - Lobar pneumonia, unspecified organism Aspiration into airway Qualifiers: Encounter type: initial encounter Qualified Code(s): T17.908A - Unspecified foreign body in respiratory tract, part unspecified causing other injury, initial encounter Vomiting Qualifiers: Vomiting type: unspecified Vomiting Intractability: non-intractable Nausea presence: unspecified Qualified Code(s): R11.10 - Vomiting, unspecified Disposition: Admitted As Inpatient Condition: Undetermined Referrals: Dereje Banks MD [Primary Care Provider] - Forms: ED Satisfaction Letter Time of Disposition: 16:56 General Adult HPI - General Chief complaint: ED Neuro Symptoms/Deficit Stated complaint: Bleck emesis Time Seen by Provider: 06/21/19 13:51 Source: patient, family Mode of arrival: private vehicle Limitations: no limitations Nursing Notes Reviewed: Yes Vital Signs Reviewed: Yes - History of Present Illness HPI Narrative: Patient is an 83 year old male with a PMHx of COPD and CHF presenting with CC of black emesis. The patient states he ate a large bowl of blueberries yesterday before going to bed. His found him this morning with dark emesis on him. She woke him up and he started coughing up dark sputum. He is not wearing his oxygen. There is also concern that he may have been confused. Family got to the house and brought the patient here for further evaluation. He was initially 83% on 2-1/2 L of oxygen. It was increased to 4L with improvement in saturation in mental status. The patient also states for the past several days, he complains of intermittent left forearm numbness. He states this is improved at this time. He denies any weakness. The patient denies any chest pain, shortness of breath, abdominal pain, further nausea. He also has a significant history of GERD and is on Prilosec and takes Tums. Denies anticoagulation use. Pain Scale: 0 - Related Data Home Medications Medication Instructions Recorded Confirmed Gabapentin [Neurontin] 600 mg PO TID 10/11/16 07/03/18 Tamsulosin [Flomax] 0.8 mg PO DAILY 10/11/16 07/03/18 Albuterol Sulfate [Proair Hfa] 2 puff IH Q4H PRN 01/10/17 07/03/18 Omeprazole Magnesium [Prilosec Otc] 20 mg PO DAILY 06/14/17 07/03/18 Oxycodone HCl 15 mg PO Q6H PRN 10/09/17 07/03/18 Aspirin Enteric Coated [Aspirin EC] 81 mg PO DAILY 10/28/17 07/03/18 Ciclopirox [Loprox] 1 appl TP 2XW 06/01/18 07/03/18 Furosemide [Lasix] 20 mg PO DAILY 06/01/18 07/03/18 Zolpidem Tartrate [Ambien Cr] 12.5 mg PO DAILY 06/01/18 07/03/18 Previous Rx's Medication Instructions Recorded Budesonide/Formoterol 160/4.5 2 puff IH BIDR 30 Days inhaler 01/12/17 [Symbicort 160/4.5] amLODIPine [Norvasc] 5 mg PO DAILY #30 tablet 06/04/18 Ipratropium/Albuterol Neb [Duoneb] 3 ml IH [id number] PRN 30 Days #100 07/07/18 vial predniSONE [PredniSONE] 10 mg PO DAILY 3 Days #3 tablet 07/07/18 Allergies Allergy/AdvReac Type Severity Reaction Status Date / Time No Known Allergies Allergy Verified 06/01/18 10:22 All systems ED: reviewed and negative except as stated. Review of Systems: As Per HPI Constitutional: Denies: fever, chills Eyes: Denies: vision change ENT ED: Reports: congestion Cardiovascular: Denies: chest pain, palpitations Respiratory: Reports: cough, dyspnea Gastrointestinal: Reports: nausea, vomiting. Denies: abdominal pain, diarrhea Genitourinary: Denies: dysuria Musculoskeletal: Denies: back pain Neurological: Denies: headache, weakness Past Medical History - Past Medical History Attestation: Yes The following information was validated with the patient. Source: patient Medical history: Reports: cancer, CHF, COPD, other Surgical history: Reports: thyroidectomy Psychiatric history: Reports: no psych history - Social History Smoking Status: Former smoker Smokeless Tobacco Status: No Alcohol use: Reports: none Drug use: Reports: none Physical Exam - General Limitations: no limitations General appearance: alert, in no apparent distress - Head Head exam: atraumatic, normocephalic - Eye Eye exam: Present: normal appearance, EOMI - ENT ENT exam: normal exam, normal oropharynx - Neck Neck exam: Present: normal inspection, trachea midline - Chest Chest inspection: Present: normal inspection, symmetric chest wall rise - Respiratory Respiratory exam: Present: other (Significantly diminished breath sounds right lung, with scattered expiratory wheezing, on O2 per NC, not tachypneic) - Cardiovascular Cardiovascular exam: Present: regular rate, normal rhythm. Absent: systolic murmur - Abdominal Exam Abdominal exam: Present: soft, Non-Tender. Absent: distention, guarding, rebound - Extremities Exam Extremities exam: Present: normal capillary refill, other (mild bilateral lower extremity swelling) - Neurological Exam Neurological exam: Present: alert, oriented X3, CN II-XII intact. 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 Absent: diaphoresis, pallor Course Vital Signs Temperature 98.1 F 06/21/19 13:34 Pulse Rate 78 06/21/19 13:34 Respiratory Rate 18 06/21/19 13:34 Blood Pressure 119/69 06/21/19 13:34 O2 Sat by Pulse Oximetry 83 06/21/19 13:34 Temperature 99.6 F 06/21/19 13:59 Pulse Rate 86 06/21/19 15:44 Respiratory Rate 22 06/21/19 14:24 Blood Pressure 123/66 06/21/19 14:52 O2 Sat by Pulse Oximetry 90 06/21/19 15:44 Oxygen Delivery Oxygen Delivery Nasal Cannula Medical Decision Making - MDM Narrative Medical decision making narrative: Patient has significantly diminished breath sounds right lung base with scattered wheezing. We will give him gentle DuoNeb treatments. His oxygen saturation was initially 83% on 2 and half liters of oxygen which is his home oxygen level. He is now 95% on 4 L of oxygen. We will obtain chest x-ray for concerns of aspiration pneumonia, EKG, CBC, BMP, troponin, lactate, blood cultures. The patient states he ate an entire bowl of blueberries late last night before going to bed. This is likely why his emesis was dark. He is otherwise a not on anticoagulation, does not take Pepto-Bismol, motrin, advil. Patient was also complaining of left extremity numbness yesterday which has imp roved. He has a nonfocal neurologic examination and no sensory deficits. Will obtain head CT. Patient's vitals are within normal limits, he is not actively having vomiting since this morning. 14:35 Chest x-ray shows right-sided pneumonia. We will treat the patient for aspiration pneumonia see the vomited while sleeping. We will give him Zosyn. We will give him a liter of IV fluids. He does have leukocytosis. His troponin is elevated at 0.12. He does not have any chest pain and EKG shows no acute ischemic changes. Will give aspirin. Protonix will also be given. 15:25 CT head shows no acute intracranial abnormality and diffuse cerebral atrophy with chronic small vessel ischemic disease. He will likely need an MRI head. Hospitalist paged for admission. Patient is full code. 16:[address] Stevenson, hospitalist, who accepts admission. Patient's vitals stable. Remains on 4L O2 with O2 saturation 90-94%. No new complaints at this time. No episodes of vomiting or pain while here. - Medical Records Medical records reviewed: Yes I reviewed the patient's medical records. - Lab Data Lab results reviewed: Yes I reviewed the patient's lab results. Result diagrams: 06/21/19 14:00 06/21/19 14:00 Lab Results 06/21/19 06/21/19 06/21/19 Range/Units 14:00 14:00 14:00 WBC 20.0 H (4.3-11.1) K/mcL RBC 4.48 (4.19-5.50) M/mcL Hgb 13.2 (12.9-16.9) g/dL Hct 42.4 (37.5-50.1) % MCV 94.6 (83.0-100.0) fL MCH 29.5 (28.0-33.3) pg MCHC 31.1 L (31.6-35.5) g/dL RDW 14.0 (11.5-14.5) % Plt Count 216 (140-400) K/mcL MPV 10.8 (9.4-12.4) fL Seg Neutrophils % 82.0 % Band Neutrophils % 12.0 H (0-4) % Lymphocytes % 2.0 % Monocytes % 4.0 % Neutrophils # 18.8 H (1.6-8.9) K/mcL Lymphocytes # 0.4 L (0.6-4.6) K/mcL Monocytes # 0.8 (0.0-1.3) K/mcL Platelet Estimate Normal (Normal) PT 12.4 H (9.4-12.1) Seconds INR 1.1 VBG pH (7.32-7.42) pH Units VBG pCO2 (41-51) mmHg VBG pO2 (25-50) mmHg VBG HCO3 (21-27) mEq/L Sodium 142 (136-145) mEq/L Potassium 5.0 (3.5-5.1) mEq/L Chloride 100 (98-107) mEq/L Carbon Dioxide 31 H (23-29) mEq/L BUN 28 H (8-23) mg/dL Creatinine 1.41 H (0.70-1.30) mg/dL Est GFR ( Amer) 58 L (> 60) Est GFR (Non-Af Amer) 48 L (> 60) BUN/Creatinine Ratio 20 (6-26) Glucose 129 H (70-105) mg/dL Calculated Osmolality 301 H (280-300) Lactic Acid (0.5-2.2) mmol/L Calcium 9.6 (8.6-10.3) mg/dL Troponin I 0.12 H* (< 0.04) ng/mL Urine Color (Yellow) Urine Clarity (Clear) Urine pH (5.0-8.0) pH Units Ur Specific [place] (1.010-1.025) Urine Protein (Neg-Trace) mg/dL Urine Glucose (UA) (Normal) mg/dL Urine Ketones (Negative) mg/dL Urine Blood (Negative) Urine Nitrite (Negative) Urine Bilirubin (Negative) Urine Urobilinogen (Normal) mg/dL Ur Leukocyte Esterase (Negative) Ur Culture Indicated? (NO) 06/21/19 06/21/19 06/21/19 Range/Units 14:00 14:49 16:02 WBC (4.3-11.1) K/mcL RBC (4.19-5.50) M/mcL Hgb (12.9-16.9) g/dL Hct (37.5-50.1) % MCV (83.0-100.0) fL MCH (28.0-33.3) pg MCHC (31.6-35.5) g/dL RDW (11.5-14.5) % Plt Count (140-400) K/mcL MPV (9.4-12.4) fL Seg Neutrophils % % Band Neutrophils % (0-4) % Lymphocytes % % Monocytes % % Neutrophils # (1.6-8.9) K/mcL Lymphocytes # (0.6-4.6) K/mcL Monocytes # (0.0-1.3) K/mcL Platelet Estimate (Normal) PT (9.4-12.1) Seconds INR VBG pH 7.40 (7.32-7.42) pH Units VBG pCO2 47 (41-51) mmHg VBG pO2 158 H (25-50) mmHg VBG HCO3 29 H (21-27) mEq/L Sodium (136-145) mEq/L Potassium (3.5-5.1) mEq/L Chloride (98-107) mEq/L Carbon Dioxide (23-29) mEq/L BUN (8-23) mg/dL Creatinine (0.70-1.30) mg/dL Est GFR ( Amer) (> 60) Est GFR (Non-Af Amer) (> 60) BUN/Creatinine Ratio (6-26) Glucose (70-105) mg/dL Calculated Osmolality (280-300) Lactic Acid 1.5 (0.5-2.2) mmol/L Calcium (8.6-10.3) mg/dL Troponin I (< 0.04) ng/mL Urine Color Yellow (Yellow) Urine Clarity Clear (Clear) Urine pH 5.5 (5.0-8.0) pH Units Ur Specific [place] 1.022 (1.010-1.025) Urine Protein Trace (Neg-Trace) mg/dL Urine Glucose (UA) Normal (Normal) mg/dL Urine Ketones Negative (Negative) mg/dL Urine Blood Negative (Negative) Urine Nitrite Negative (Negative) Urine Bilirubin Negative (Negative) Urine Urobilinogen Normal (Normal) mg/dL Ur Leukocyte Esterase Negative (Negative) Ur Culture Indicated? NO (NO) - Radiology Data Radiology results reviewed: Yes I reviewed the patient's radiology results. Chest X-Ray 06/21/19 13:51 IMPRESSION: Right-sided airspace disease compatible with pneumonia. Atelectasis in the left lung base D/ / Tong Petty MD / Tong Petty MD Interpreting Provider: Tong Petty MD Head CT 06/21/19 14:17 IMPRESSION: 1. No acute intracranial abnormality. 2. Diffuse cerebral atrophy with chronic small vessel ischemic disease. D/ / Bruce Patton MD / Bruce Patton MD Interpreting Provider: Bruce Patton MD - EKG Data EKG #1 EKG attestation: Yes I reviewed and interpreted this EKG. EKG results narrative: EKG obtained at 1359 shows sinus rhythm with heart rate 75, MS interval 171, QRS duration 78, QTc 442, no ST elevation or depression, compared to old EKG on 07/03/2018 which shows no new changes. Critical Care Time Critical Care Time: Yes Total Critical Care Time: 55 Attestation: The high probability of a clinically significant, sudden or life threatening deterioration of the renal and cardiovascular and neurologic system(s) required my full and direct attention, intervention and personal management. The aggregate critical care time was 55 minutes. This time is in addition to time spent performing reported procedures but includes the following: x Data Review and interpretation x Patient assessment and monitoring of vital signs x Documentation x Medication orders and management Attestation Statement - Attestation Attestation: I, Horacio Nesbitt, examined this patient and my medical decision-making was reviewed with the VENDING SERVICE TECHNICIAN/PA/Advanced Practice Nurse/Resident Physician. I agree with the documented findings, disposition and treatment plan as described except to the extent set forth below. 83-year-old male presents emergency Department with concerns of dyspnea, cough, shortness of breath. Patient apparently vomited dark material this morning whi le he was asleep he was found with emesis on his chest and down his face. It is unclear how long prior to being found that this occurred. Patient noted that he had paresthesias of the left upper extremity over the past 2-3 days which has improved since its onset however he does have tingling still in the left fingertips. Family noted facial droop 2 days ago which has improved. The laboratory results show that he is not anemic, he does have elevation of his troponin as well as his creatinine. It is unclear what the patient is in acute renal insufficiency. He has an elevated troponin which may be related to hypoxia versus acute renal failure versus cardiac etiology. The CT did not show evidence of acute intracranial hemorrhage or obvious ischemia. Patient does state that he ate a large amount of blueberries last night and that the dark material may be related to his ingestion of the blueberries. Unclear if he had coffee-ground emesis or if this is his by mouth intake. Patient has not vomited since that time this morning. Patient will be admitted to the hospitalist for further care and evaluation. Vital signs are stable in the emergency department prior to admission.
[2019-06-21 14:38] LABS: Troponin I 0.12 ng/mL (< 0.04)
[2019-06-21] MEDS ORDERED: Piperacillin/Tazobactam 3.375 GM in 0.9 % Sodium Chloride Mini Bag 100 ML IVP ONE (14:38)
[2019-06-21] MEDS ORDERED: Aspirin 81 MG TAB.CHEW PO STA (14:39)
[2019-06-21] MEDS ORDERED: 0.9 % Sodium Chloride 1,000 ML IVC ONE (14:40)
[2019-06-21 14:43] LABS: Calcium 9.6 mg/dL (8.6-10.3)
[2019-06-21 14:44] LABS: INR 1.1; Prothrombin Time 12.4 Seconds (9.4-12.1)
[2019-06-21 14:51] LABS: VBG HCO3 29 mEq/L (21-27); VBG PCO2 47 mmHg (41-51); VBG PO2 158 mmHg (25-50)
[2019-06-21 15:06] LABS: Lymphocytes # 0.4 K/mcL (0.6-4.6); Neutrophils # 18.8 K/mcL (1.6-8.9); Platelet Estimate Normal (Normal)
[2019-06-21] MEDS ORDERED: Pantoprazole 40 MG VIAL IVP ONE (15:41)
[2019-06-21 16:11] LABS: Bilirubin,Urine Negative (Negative); Blood,Urine Negative (Negative); Clarity,Urine Clear (Clear); Color,Urine Yellow (Yellow); Glucose,Urine (UA) Normal (Normal); Ketones,Urine Negative (Negative); Leukocyte Esterase,Urine Negative (Negative); Nitrite,Urine Negative (Negative); PH,Urine 5.5 pH Units (5.0-8.0); Protein,Urine Trace mg/dL (Neg-Trace); Specific Gravity,Urine 1.022 (1.010-1.025); Urobilinogen,Urine Normal (Normal)
[2019-06-21] MEDS ORDERED: Naloxone 0.4 MG/ML INJ IVP PRN (17:06)
--- NOTE | 2019-06-21 17:06 | Electrocardiograph Report ---
[facility] Test Date: 2019-06-21 Pat Name: Keny Fair Department: [id number] Room: Gender: M Youth Officer: : 1935 Requested By: Alicia Urban Order Number: [id number] Reading MD: Roberto Haley Measurements Intervals [place] Rate: 75 P: 80 [place]: 171 QRS: 76 QRSD: 78 T: 31 QT: 395 QTc: 442 Interpretive Statements Sinus rhythm Minimal ST elevation, anterior leads Electronically Signed On 06-21-2019 17:04:45 EDT by Roberto Haley
--- NOTE | 2019-06-21 17:52 | Internal Med History&Physical ---
Date of Encounter: 06/21/19 Time of Encounter: 17:43 Internal Medicine - H&P: HPI Chief complaint: lethargy. dark emesis. Plans for Post Hospital Care: Home History of present illness: Mr. Fair is a 83 year old male PMH of chronic respiratory failure on 2 litters of O2, CHF?, and COPD. Patient was brought to the hospital due to dark emesis, l ethargy and confusion. Information obtained from patient's at bedside as patient is hard on he aring and is not wearing his hearing aids. She reports that for the past couple of days the patient has been getting increasingly more lethargy and confused, stated this normally happens when the patient does not wear his O2. She also reported he has increased productive cough of yellow sputum, denies fever or chills. Reported last night the patient started having dark vomiting, and the patient was covered on vomit on the bed and the floor was also covered with dark vomiting material. Stated they did not bring the patient to the hospital right away because they thought it was some blackberries he ate overnight. Today morning the patient was more lethargy/confused and they decided to bring him to the hospital. Patient denies chest pain, but reports discomfort while coughing. denies seeing blood in his stool. Past Med Surg Social Fam HX - Past Medical History Medical history: cancer, CHF, COPD, other Additional medical history: diverticulitis, metabolic syndrome, colon polyps, thyroid nodule, BPH, skin cancer Psychiatric history: no psych history - Past Surgical History Surgical History: thyroidectomy Additional surgical history: 2 back surg left shoulder. skin ca, rotator cuff repair, hemorrhoidectomy, tumor removal, carpal tunnel release - Social History Smoking Status: Former smoker Smokeless Tobacco Status: No Alcohol use: none Drug use: none - Family History Mother Family Member Ethnicity: Non- Living Status: Hx Family Respiratory Disorders: Yes (Emphysema) Hx Family Neurologic Disorders: Yes (Alzheimer's disease) Father Family Member Ethnicity: Non- Living Status: Hx Family Cancer: Yes (Colon CA) Hx Family Neuromuscular Disorders: Yes (Alzeheimers) Hx Family Neurologic Disorders: Yes (Alzheimer's disease) Sister Family Member Ethnicity: Non- Living Status: Still Living Internal Medicine - H&P: Meds Gabapentin [Neurontin] 600 mg PO TID 10/11/16 [History] Tamsulosin [Flomax] 0.8 mg PO DAILY 10/11/16 [History] Albuterol Sulfate [Proair Hfa] 2 puff IH Q4H PRN 01/10/17 [History] Budesonide/Formoterol 160/4.5 [Symbicort 160/4.5] 2 puff IH BIDR 30 Days inhaler 01/12/17 [Rx] Omeprazole Magnesium [Prilosec Otc] 20 mg PO DAILY 06/14/17 [History] Oxycodone HCl 15 mg PO Q6H PRN 10/09/17 [History] Aspirin Enteric Coated [Aspirin EC] 81 mg PO DAILY 10/28/17 [History] Ciclopirox [Loprox] 1 appl TP 2XW 06/01/18 [History] Furosemide [Lasix] 20 mg PO DAILY 06/01/18 [History] Zolpidem Tartrate [Ambien Cr] 12.5 mg PO DAILY 06/01/18 [History] amLODIPine [Norvasc] 5 mg PO DAILY #30 tablet 06/04/18 [Rx] Ipratropium/Albuterol Neb [Duoneb] 3 ml IH [id number] PRN 30 Days #100 vial 07/07/18 [Rx] predniSONE [PredniSONE] 10 mg PO DAILY 3 Days #3 tablet 07/07/18 [Rx] Allergy/AdvReac Type Severity Reaction Status Date / Time No Known Allergies Allergy Verified 06/01/18 10:22 All Systems PM: A 10-system review of systems was performed and is negative for pertinent findings except as documented above in the HPI. - Constitutional Constitutional: lethargy, weakness, no chills - EENT Eyes: no pain Nose, mouth and throat: no dental pain - Breasts Breasts: no mass, no pain - Cardiovascular Cardiovascular ROS IM: no chest pain, no edema, no lightheadedness, no palpitations - Respiratory Respiratory: cough, dyspnea on exertion, pain on inspiration, excessive phlegm production, no wheezing, no chest congestion - Gastrointestinal Gastrointestinal: vomiting, no abdominal pain, no nausea - Genitourinary Genitourinary ROS male: no dysuria, no urinary hesitancy, no urinary urgency - Musculoskeletal Musculoskeletal ROS IM: no atrophy, no muscle weakness, no myalgias - Integumentary Integumentary IM: no erythema, no non-healing lesions - Neurological Neurological ROS: no headache(s) - Psychiatric Psychiatric: no anxiety, no hopelessness - Endocrine Endocrine IM: no cold intolerance, no excessive sweating - Hematologic/Lymphatic Hematologic/Lymphatic: no lymphadenopathy - Allergic/Immunologic Allergic/Immunologic: no GI upset with certain foods - Constitutional Vitals: Temp Pulse Resp BP Pulse Ox 99.6 F 87 18 101/60 97 06/21/19 13:59 06/21/19 17:10 06/21/19 17:10 06/21/19 17:10 06/21/19 17:10 Exam: Vitals: Reviewed General: Alert and oriented x3. In mild distress due to shortness of breath Cardiovascular: RRR, normal S1 & S2, no rubs, murmurs or gallops. Lungs: expiratory wheezes and rales on the right lung, no crackles. Abdomen: Soft, non-tender, no rigidity. Extremities: 1+ edema on the left lower extr Neurological: CN II-XII intact Rest of the physical exam is non contributory Internal Med - H&P Results - Labs CBC & Chem 7: 06/21/19 14:00 06/21/19 14:00 Labs: Short CBC 06/21/19 Range/Units 14:00 WBC 20.0 H (4.3-11.1) K/mcL Hgb 13.2 (12.9-16.9) g/dL Hct 42.4 (37.5-50.1) % Plt Count 216 (140-400) K/mcL Neutrophils # 18.8 H (1.6-8.9) K/mcL BMP 06/21/19 14:00 Sodium 142 Potassium 5.0 Chloride 100 Carbon Dioxide 31 H BUN 28 H Creatinine 1.41 H Glucose 129 H Calcium 9.6 Cardiac Enzymes 06/21/19 Range/Units 14:00 Troponin I 0.12 H* (< 0.04) ng/mL Urine 06/21/19 Range/Units 16:02 Urine Color Yellow (Yellow) Urine Clarity Clear (Clear) Urine pH 5.5 (5.0-8.0) pH Units Ur Specific [place] 1.022 (1.010-1.025) Urine Protein Trace (Neg-Trace) mg/dL Urine Glucose (UA) Normal (Normal) mg/dL - ABG Interpretation ABG results: 06/21/19 14:49 VBG pH 7.40 VBG pCO2 47 VBG pO2 158 H VBG HCO3 29 H - Impressions ITS Impressions Chest X-Ray 06/21/19 13:51 IMPRESSION: Right-sided airspace disease compatible with pneumonia. Atelectasis in the left lung base D/ / Tong Petty MD / Tong Petty MD Interpreting Provider: Tong Petty MD Head CT 06/21/19 14:17 IMPRESSION: 1. No acute intracranial abnormality. 2. Diffuse cerebral atrophy with chronic small vessel ischemic disease. D/ / Bruce Patton MD / Bruce Patton MD Interpreting Provider: Bruce Patton MD - Diagnostic Studies Chest x-ray Status: image reviewed by me (right lower lobe infiltrate) - Assessment and Plan (1) Pneumonia Current Visit: Yes Status: Acute Assessment and plan: Possible aspiration pneumonia as patient was found covered on vomit last night. XR/XR chest 1V portable IMPRESSION: Right-sided airspace disease compatible with pneumonia. Atelectasis in the left lung base Plan: blood culture ordered started on Ampicillin/sulbastam and azithromycin Sputum culture and gram stain Urine for atypical organism Titrate for O2Sat >92% Qualifiers: Pneumonia type: aspiration pneumonia Aspiration pneumonia type: unspecified Laterality: right Lung location: lower lobe of lung Qualified Code(s): J69.0 - Pneumonitis due to inhalation of food and vomit (2) MICHELL (acute kidney injury) Current Visit: Yes Status: Acute Assessment and plan: possible due to low pre-load. in the setting of pneumonia. started on IV hydration with 0.9%NS @100 ml/hr x1 litters will re-assess kidney function tomorrow morning. (3) Elevated troponin Current Visit: Yes Status: Acute Assessment and plan: Possible demand ischemia in the setting of sepsis from aspiration pneumonia. patient denies chest pain. will trend trops limited TTE ordered cardiology consulted unable to anticoagulate due to hematemesis. (4) DVT prophylaxis Current Visit: No Status: Chronic Assessment and plan: intermittent pneumatic compression. no chemical DVT prophylaxis due to hematemesis. (5) COPD (chronic obstructive pulmonary disease) Current Visit: No Status: Chronic Assessment and plan: patient not on acute exacerbation. minimal expiratory wheezing on auscultation. Plan continue O2 by nasal cannula, titrate for O2sat >88% started on bronchodilators symbicort incentive spirometry Qualifiers: COPD type: COPD with acute lower respiratory infection Qualified Code(s): J44.0 - Chronic obstructive pulmonary disease with acute lower respiratory i nfection (6) Chronic respiratory failure with hypoxia Current Visit: No Status: Chronic Assessment and plan: plan of care as above. (7) Sepsis Current Visit: No Status: Ruled-out Assessment and plan: due to pneumonia. patient with RR >20, leukocytosis, with 12%bands. Plan of care as per problem #1. Qualifiers: Sepsis type: sepsis due to unspecified organism Qualified Code(s): A41.9 - Sepsis, unspecified organism (8) Hematemesis Current Visit: Yes Status: Acute Assessment and plan: per patient patient was vomiting dark material last night, cannot recall how many vomiting episodes he had. Plan - clear liquid diet - serial cbc Q6HRs - NPO at might night - surgery consulted - PPIs IV BID - started on anti-emetics Qualifiers: Nausea presence: without nausea Qualified Code(s): K92.0 - Hematemesis - Time Spent With Patient Total time spent is greater than 50% in coordination of care (as documented) at patient's floor/unit and/or counseling patient: Greater than 35 minutes (45)
[2019-06-21] MEDS ORDERED: Azithromycin 500 MG in D5% in Water 250 ML IVPB SCH (18:00)
[2019-06-21] MEDS ORDERED: Ondansetron 4 MG/2 ML VIAL IVP PRN (18:06)
[2019-06-21] MEDS: Pantoprazole 40 MG VIAL IVP SCH (18:48)
[2019-06-21] MEDS: 0.9 % Sodium Chloride 1,000 ML IVC SCH (18:48)
[2019-06-21 19:25] LABS: Hematocrit 40.4 % (37.5-50.1); Hemoglobin 12.5 g/dL (12.9-16.9); Mean Corpuscular HGB Conc 30.9 g/dL (31.6-35.5); Mean Corpuscular Volume 93.7 fL (83.0-100.0); Mean Platelet Volume 10.9 fL (9.4-12.4); Platelet Count 212 K/mcL (140-400); Red Blood Count 4.31 M/mcL (4.19-5.50); Red Cell Distribution Width 14.2 % (11.5-14.5); White Blood Count 23.9 K/mcL (4.3-11.1)
[2019-06-21 19:32] LABS: INR 1.1; Prothrombin Time 12.9 Seconds (9.4-12.1)
[2019-06-21 19:41] LABS: Albumin 3.5 g/dL (3.5-5.7); Albumin/Globulin Ratio 1.7 (1.1-2.2); Bilirubin,Direct 0.2 mg/dL (0.0-0.2); Bilirubin,Indirect 0.4 mg/dL (0.0-1.2); Bilirubin,Total 0.6 mg/dL (0.3-1.0); Globulin 2.1 g/dL (2.4-3.5); Total Protein 5.6 g/dL (6.4-8.9)
[2019-06-21] MEDS: Ipratropium/Albuterol Neb 3 ML IH SCH (20:00)
[2019-06-21] MEDS: Budesonide/Formoterol 160/4.5 1 PUFF INH IH SCH (20:00)
[2019-06-21] MEDS: Ampicillin/Sulbactam 1,500 MG in 0.9 % Sodium Chloride Mini Bag 100 ML IVPB SCH (23:49)
[2019-06-22] MEDS: Ipratropium/Albuterol Neb 3 ML IH SCH ×7 (00:02→23:49)
[2019-06-22] MEDS: traMADol 50 MG TABLET PO PRN ×2 (00:49→08:56)
[2019-06-22 01:20] LABS: Hematocrit 38.9 % (37.5-50.1); Hemoglobin 12.1 g/dL (12.9-16.9); Mean Corpuscular HGB Conc 31.1 g/dL (31.6-35.5); Mean Corpuscular Hemoglobin 28.9 pg (28.0-33.3); Mean Corpuscular Volume 92.8 fL (83.0-100.0); Mean Platelet Volume 10.9 fL (9.4-12.4); Platelet Count 187 K/mcL (140-400); Red Blood Count 4.19 M/mcL (4.19-5.50); Red Cell Distribution Width 14.3 % (11.5-14.5); White Blood Count 23.2 K/mcL (4.3-11.1)
[2019-06-22 01:35] LABS: BUN/Creatinine Ratio 24 (6-26); Blood Urea Nitrogen 28 mg/dL (8-23); Calcium 9.1 mg/dL (8.6-10.3); Carbon Dioxide 28 mEq/L (23-29); Chloride 104 mEq/L (98-107); Chol/HDL Ratio 1.8 (0-4.9); Cholesterol 83 mg/dL (< 200); Glucose 142 mg/dL (70-105); HDL Cholesterol 45 mg/dL (40-59); LDL Cholesterol,Calculated 29 mg/dL (0-99); Magnesium 1.7 mg/dL (1.6-2.6); Osmolality,Calculated 292 (280-300); Phosphorous 1.7 mg/dL (2.7-4.5); Potassium 3.6 mEq/L (3.5-5.1); Sodium 137 mEq/L (136-145); Triglycerides 43 mg/dL (< 150); eGFR For African Americans > 60 (> 60); eGFR For Non-African Americans > 60 (> 60)
[2019-06-22 01:47] LABS: Lymphocytes # 2.3 K/mcL (0.6-4.6); Monocytes # 1.4 K/mcL (0.0-1.3); Neutrophils # 19.5 K/mcL (1.6-8.9); Platelet Estimate Normal (Normal)
[2019-06-22] MEDS: Ampicillin/Sulbactam 1,500 MG in 0.9 % Sodium Chloride Mini Bag 100 ML IVPB SCH ×4 (04:45→21:45)
[2019-06-22] MEDS: Pantoprazole 40 MG VIAL IVP SCH ×2 (04:45→16:50)
[2019-06-22] MEDS: 0.9 % Sodium Chloride 1,000 ML IVC SCH (05:08)
[2019-06-22] MEDS: Budesonide/Formoterol 160/4.5 1 PUFF INH IH SCH ×2 (07:40→20:20)
[2019-06-22 08:05] LABS: White Blood Count 21.4 K/mcL (4.3-11.1)
[2019-06-22 08:06] LABS: Hematocrit 36.5 % (37.5-50.1); Hemoglobin 11.5 g/dL (12.9-16.9); Mean Corpuscular HGB Conc 31.5 g/dL (31.6-35.5); Mean Corpuscular Hemoglobin 29.2 pg (28.0-33.3); Mean Corpuscular Volume 92.6 fL (83.0-100.0); Mean Platelet Volume 11.3 fL (9.4-12.4); Platelet Count 188 K/mcL (140-400); Red Blood Count 3.94 M/mcL (4.19-5.50); Red Cell Distribution Width 14.2 % (11.5-14.5)
[2019-06-22 08:41] LABS: Lymphocytes # 1.3 K/mcL (0.6-4.6); Neutrophils # 20.1 K/mcL (1.6-8.9)
[2019-06-22 08:42] LABS: Anisocytosis 1+ (Not Present); Platelet Estimate Normal (Normal)
--- NOTE | 2019-06-22 08:47 | Event Note ---
Date of Encounter: 06/22/19 Time of Encounter: 08:45 - Cardiology Event Note Cardiology has been consulted for elevated troponins in the setting of PNA, sepsis, hematemesis. Troponins mild, flat. No reported chest pain. TTE is pending today. Full cardiology consultation to follow pending TTE.
--- NOTE | 2019-06-22 08:54 | AcuteCare Surgery Consult Note ---
Date of Encounter: 06/22/19 Time of Encounter: 08:51 Assessment and Plan (1) Hematemesis Current Visit: Yes Status: Acute The patient's history of possible hematemesis and is no hemoglobin level I do think it would be appropriate course to go ahead and proceed with an EGD with MAC. Noted that the patient has elevated troponin and cardiology will be ev aluating the patient. This procedure is a low risk procedure and also will be helpful for cardiology to ensure that there is no evidence of active bleed if they need to proceed with an invasive procedure such as a cardiac catheterization. Discussed with the patient and he agrees with the above plan. Qualifiers: Nausea presence: with nausea Qualified Code(s): K92.0 - Hematemesis History of Present Illness Consult date: 06/22/19 Requesting physician: Enmanuel Davalos History of present illness: The patient is an 83-year-old male with a past medical history significant for hypertension, GERD, diverticulosis with diverticulitis, and bronchitis who states that yesterday evening he was eating blueberries and then fell asleep. He states that he sleeps with a CPAP machine and he suddenly woke up and had nausea and vomiting. He feels that it was not blood but says that it was dark in color. He says he previously had an episode 1 year ago where he had nausea and vomiting but does not really admit to having hematemesis at that time. He says he has had no rectal bleeding and he does have intermittent symptoms of constipation but no diarrhea. His last bowel movement was 2 days ago and he normally has a bowel movement once a day to once every other day. He denies any abdominal pain symptoms and I have been asked to evaluate the patient regarding his possible hematemesis. Past Med Surg Social Fam HX - Past Medical History Medical history: cancer, CHF, COPD, other Additional medical history: diverticulitis, metabolic syndrome, colon polyps, thyroid nodule, BPH, skin cancer Psychiatric history: no psych history - Past Surgical History Surgical History: thyroidectomy Additional surgical history: 2 back surg left shoulder. skin ca, rotator cuff repair, hemorrhoidectomy, tumor removal, carpal tunnel release - Social History Smoking Status: Former smoker Smokeless Tobacco Status: No Alcohol use: none Drug use: none - Family History Mother Family Member Ethnicity: Non- Living Status: Hx Family Respiratory Disorders: Yes (Emphysema) Hx Family Neurologic Disorders: Yes (Alzheimer's disease) Sister Family Member Ethnicity: Non- Living Status: Still Living Father Family Member Ethnicity: Non- Living Status: Hx Family Cancer: Yes (Colon CA) Hx Family Neuromuscular Disorders: Yes (Alzeheimers) Hx Family Neurologic Disorders: Yes (Alzheimer's disease) Medications and Allergies Gabapentin [Neurontin] 600 mg PO TID 10/11/16 [History] Tamsulosin [Flomax] 0.8 mg PO DAILY 10/11/16 [History] Albuterol Sulfate [Proair Hfa] 2 puff IH Q4H PRN 01/10/17 [History] Budesonide/Formoterol 160/4.5 [Symbicort 160/4.5] 2 puff IH BIDR 30 Days inhaler 01/12/17 [Rx] Omeprazole Magnesium [Prilosec Otc] 20 mg PO DAILY 06/14/17 [History] Oxycodone HCl 15 mg PO Q6H PRN 10/09/17 [History] Aspirin Enteric Coated [Aspirin EC] 81 mg PO DAILY 10/28/17 [History] Ciclopirox [Loprox] 1 appl TP 2XW 06/01/18 [History] Furosemide [Lasix] 20 mg PO DAILY 06/01/18 [History] Zolpidem Tartrate [Ambien Cr] 12.5 mg PO DAILY 06/01/18 [History] amLODIPine [Norvasc] 5 mg PO DAILY #30 tablet 06/04/18 [Rx] Ipratropium/Albuterol Neb [Duoneb] 3 ml IH [id number] PRN 30 Days #100 vial 07/07/18 [Rx] predniSONE [PredniSONE] 10 mg PO DAILY 3 Days #3 tablet 07/07/18 [Rx] Allergy/AdvReac Type Severity Reaction Status Date / Time No Known Allergies Allergy Verified 06/01/18 10:22 Review of Systems All systems PM: reviewed and no additional remarkable complaints except as stated All systems PM: The remainder of the systems were reviewed and are negative General Surgery Exam Initial Vital Signs Temp Pulse Resp BP Pulse Ox 98.1 F 78 18 119/69 83 06/21/19 13:34 06/21/19 13:34 06/21/19 13:34 06/21/19 13:34 06/21/19 13:34 - Eyes PERRL, normal ocular movement - Respiratory normal expansion, normal respiratory effort, clear to auscultation - Cardiovascular Cardiovascular exam: Present: RRR, no murmurs/rubs/gallops - Abdomen Abdomen general surgery: Present: bowel sounds present, soft, non tender (No masses palpated) - Neurologic Present: CN 2-12 grossly intact - Musculoskeletal Present: other (No clubbing cyanosis or edema) Exam Initial Vital Signs Temp Pulse Resp BP Pulse Ox 98.1 F 78 18 119/69 83 06/21/19 13:34 06/21/19 13:34 06/21/19 13:34 06/21/19 13:34 06/21/19 13:34 Results - Labs 06/22/19 07:10 06/22/19 00:57 Abnormal lab results WBC 21.4 K/mcL (4.3-11.1) H 06/22/19 07:10 RBC 3.94 M/mcL (4.19-5.50) L 06/22/19 07:10 Hgb 11.5 g/dL (12.9-16.9) L 06/22/19 07:10 Hct 36.5 % (37.5-50.1) L 06/22/19 07:10 MCHC 31.5 g/dL (31.6-35.5) L 06/22/19 07:10 Band Neutrophils % 12.0 % (0-4) H 06/22/19 07:10 Neutrophils # 20.1 K/mcL (1.6-8.9) H 06/22/19 07:10 Lymphocytes # 0.4 K/mcL (0.6-4.6) L 06/21/19 14:00 Monocytes # 1.4 K/mcL (0.0-1.3) H 06/22/19 00:57 Anisocytosis 1+ (Not Present) A 06/22/19 07:10 PT 12.9 Seconds (9.4-12.1) H 06/21/19 19:08 VBG pO2 158 mmHg (25-50) H 06/21/19 14:49 VBG HCO3 29 mEq/L (21-27) H 06/21/19 14:49 Carbon Dioxide 31 mEq/L (23-29) H 06/21/19 14:00 BUN 28 mg/dL (8-23) H 06/22/19 00:57 Creatinine 1.41 mg/dL (0.70-1.30) H 06/21/19 14:00 Est GFR ( Amer) 58 (> 60) L 06/21/19 14:00 Est GFR (Non-Af Amer) 48 (> 60) L 06/21/19 14:00 Glucose 142 mg/dL (70-105) H 06/22/19 00:57 Calculated Osmolality 301 (280-300) H 06/21/19 14:00 Phosphorus 1.7 mg/dL (2.7-4.5) L 06/22/19 00:57 Troponin I 0.17 ng/mL (< 0.04) H* 06/22/19 07:10 Serum Total Protein 5.6 g/dL (6.4-8.9) L 06/21/19 19:08 Globulin 2.1 g/dL (2.4-3.5) L 06/21/19 19:08 Procalcitonin 10.50 ng/mL (0.00-0.15) H 06/21/19 19:08 Diabetes panel 06/21/19 06/21/19 06/22/19 Range/Units 14:00 19:08 00:57 Sodium 142 137 (136-145) mEq/L Potassium 5.0 3.6 D (3.5-5.1) mEq/L Chloride 100 104 (98-107) mEq/L Carbon Dioxide 31 H 28 (23-29) mEq/L BUN 28 H 28 H (8-23) mg/dL Creatinine 1.41 H 1.15 (0.70-1.30) mg/dL Glucose 129 H 142 H (70-105) mg/dL Calcium 9.6 9.1 (8.6-10.3) mg/dL AST 35 (13-39) Units/L ALT 19 (7-52) Units/L Alkaline Phosphatase 62 (34-104) Units/L Albumin 3.5 (3.5-5.7) g/dL Triglycerides 43 (< 150) mg/dL HDL Cholesterol 45 (40-59) mg/dL Calcium panel 06/21/19 06/21/19 06/22/19 Range/Units 14:00 19:08 00:57 Calcium 9.6 9.1 (8.6-10.3) mg/dL Phosphorus 1.7 L (2.7-4.5) mg/dL Albumin 3.5 (3.5-5.7) g/dL Pituitary panel 06/21/19 06/22/19 Range/Units 14:00 00:57 Sodium 142 137 (136-145) mEq/L Potassium 5.0 3.6 D (3.5-5.1) mEq/L Chloride 100 104 (98-107) mEq/L Carbon Dioxide 31 H 28 (23-29) mEq/L BUN 28 H 28 H (8-23) mg/dL Creatinine 1.41 H 1.15 (0.70-1.30) mg/dL Glucose 129 H 142 H (70-105) mg/dL Calcium 9.6 9.1 (8.6-10.3) mg/dL Adrenal panel 06/21/19 06/21/19 06/22/19 Range/Units 14: 19:08 00:57 Sodium 142 137 (136-145) mEq/L Potassium 5.0 3.6 D (3.5-5.1) mEq/L Chloride 100 104 (98-107) mEq/L Carbon Dioxide 31 H 28 (23-29) mEq/L BUN 28 H 28 H (8-23) mg/dL Creatinine 1.41 H 1.15 (0.70-1.30) mg/dL Glucose 129 H 142 H (70-105) mg/dL Calcium 9.6 9.1 (8.6-10.3) mg/dL Total Bilirubin 0.6 (0.3-1.0) mg/dL AST 35 (13-39) Units/L ALT 19 (7-52) Units/L Alkaline Phosphatase 62 (34-104) Units/L Albumin 3.5 (3.5-5.7) g/dL All other labs normal. Consult Discharge Plan - Plan Referrals: Dereje Banks MD [Primary Care Provider] -
[2019-06-22] MEDS ORDERED: Aspirin Enteric Coated 81 MG Tablet PO SCH (09:00)
[2019-06-22] MEDS ORDERED: *HR* Dextrose 50 % in Water (Syg) 50 ML SYRINGE IVP PRN ×2 (09:43→14:31)
[2019-06-22] MEDS ORDERED: D5% in Water 1,000 ML IVC PRN ×2 (09:43→14:31)
[2019-06-22] MEDS ORDERED: Dextrose Gel 15 GM/37.5 ML TUBE PO PRN ×4 (09:43→14:31)
[2019-06-22] MEDS ORDERED: D5% in 0.9% NACL 1,000 ML IVC SCH (09:45)
--- NOTE | 2019-06-22 09:57 | Internal Med Progress Note ---
Hospitalist Progress Note - Encounter Date of Encounter: 06/22/19 Time of Encounter: 09:54 - Subjective Interval History: I have seen and evaluated the patient a bedside. Patient reported feeling better today, denies shortness of breath, nausea, vomiting or chest pain. Denies abdominal pain. - Exam Vitals: Temp Pulse Resp BP Pulse Ox 98.2 F 78 17 114/66 93 06/22/19 06:53 06/22/19 06:53 06/22/19 07:41 06/22/19 06:53 06/22/19 07:41 Exam: Vitals: Reviewed General: Alert and oriented x4. No acute distress Cardiovascular: RRR, normal S1 & S2, no rubs, murmurs or gallops. Lungs: expiratory wheezes bilaterally, rales on the right lung, no crackles. Abdomen: Soft, non-tender, no rigidity. NABS. Extremities: 1+ edema on the left lower extr Neurological: CN II-XII intact Rest of the physical exam is non contributory - Assessment and Plan (1) Pneumonia Current Visit: Yes Status: Acute Assessment and Plan: Possible aspiration pneumonia. Patient hemodynamically stable, afebrile. WBC trending down. Procalcitonin 10. Blood cultures: No growth to date. Urine for atypical organism: Negative. Plan: Continue Ampicillin/sulbastam 1.5 mg IV every 6 hours. Discontinue azithromycin Sputum culture and gram stain: Pending Titrate for O2Sat >92% (2) MICHELL (acute kidney injury) Current Visit: Yes Status: Resolved (3) Elevated troponin Current Visit: Yes Status: Acute Assessment and Plan: Patient denied chest pain. Plan Continue aspirin 81 mg by mouth daily. Cardiology recommendation appreciated. TTE: Ordered, pending. (4) COPD (chronic obstructive pulmonary disease) Current Visit: No Status: Chronic Assessment and Plan: Patient with bilateral expiratory wheezing. Plan - Started on methylprednisolone 40 mg IV twice a day, patient with no signs of active bleeding. - Continue bronchodilators, incentive spirometry. - On Symbicort. (5) Chronic respiratory failure with hypoxia Current Visit: No Status: Chronic Assessment and Plan: Continue oxygen by nasal cannula, titrate for O2 sat duration more than 90%. (6) Sepsis Current Visit: No Status: Ruled-out Assessment and Plan: Plan of care as per problem #1. (7) Hematemesis Current Visit: Yes Status: Acute Assessment and Plan: Patient with no episodes of hematemesis while in the hospital. Denies blood in his stool. Plan - Surgery consulted, patient is scheduled for an EGD. - Continue PPIs 40 mg IV twice a day. - On antiemetics. - D5/0.9% NS @50 ml/hr for maintenance to avoid hypoglycemia. - Nothing by mouth. Accu-Cheks every 6 hours plus sliding scale. DVT Prophylaxis: intermittent pneumatic compression for DVT prophylaxis. No chemical DVT prophylaxis due to hematemesis. - Summary of Assessment and Plan Summary of Assessment and Plan: Patient to remain in the hospital due to resolving sepsis secondary to aspiration pneumonia. - Time Spent with Patient Total time spent is greater than 50% in coordination of care (as documented) at patient's floor/unit and/or counseling patient: Greater than 35 minutes (40) Plan of Care Discussed with: patient (and the nurse.) Internal Medicine: Result - Labs CBC & Chem 7: 06/22/19 07:10 06/22/19 00:57 Labs: Short CBC 06/21/19 06/21/19 06/22/19 Range/Units 14:00 19:08 00:57 WBC 20.0 H 23.9 H 23.2 H (4.3-11.1) K/mcL Hgb 13.2 12.5 L 12.1 L (12.9-16.9) g/dL Hct 42.4 40.4 38.9 (37.5-50.1) % Plt Count 216 212 187 (140-400) K/mcL Neutrophils # 18.8 H 19.5 H (1.6-8.9) K/mcL 06/22/19 Range/Units 07:10 WBC 21.4 H (4.3-11.1) K/mcL Hgb 11.5 L (12.9-16.9) g/dL Hct 36.5 L (37.5-50.1) % Plt Count 188 (140-400) K/mcL Neutrophils # 20.1 H (1.6-8.9) K/mcL BMP 06/21/19 06/22/19 14:00 00:57 Sodium 142 137 Potassium 5.0 3.6 D Chloride 100 104 Carbon Dioxide 31 H 28 BUN 28 H 28 H Creatinine 1.41 H 1.15 Glucose 129 H 142 H Calcium 9.6 9.1 Cardiac Enzymes 06/21/19 06/21/19 06/22/19 Range/Units 14:00 19:08 00:57 Troponin I 0.12 H* 0.16 H* 0.17 H* (< 0.04) ng/mL 06/22/19 Range/Units 07:10 Troponin I 0.17 H* (< 0.04) ng/mL Liver Function 06/21/19 Range/Units 19:08 Total Bilirubin 0.6 (0.3-1.0) mg/dL Direct Bilirubin 0.2 (0.0-0.2) mg/dL AST 35 (13-39) Units/L ALT 19 (7-52) Units/L Alkaline Phosphatase 62 (34-104) Units/L Albumin 3.5 (3.5-5.7) g/dL Urine 06/21/19 Range/Units 16:02 Urine Color Yellow (Yellow) Urine Clarity Clear (Clear) Urine pH 5.5 (5.0-8.0) pH Units Ur Specific [place] 1.022 (1.010-1.025) Urine Protein Trace (Neg-Trace) mg/dL Urine Glucose (UA) Normal (Normal) mg/dL - ABG Interpretation ABG results: PT/INR, D-dimer PT 12.9 Seconds (9.4-12.1) H 06/21/19 19:08 - Impressions Impressions Chest X-Ray 06/21/19 13:51 IMPRESSION: Right-sided airspace disease compatible with pneumonia. Atelectasis in the left lung base D/ / Tong Petty MD / Tong Petty MD Interpreting Provider: Tong Petty MD Head CT 06/21/19 14:17 IMPRESSION: 1. No acute intracranial abnormality. 2. Diffuse cerebral atrophy with chronic small vessel ischemic disease. D/ / Bruce Patton MD / Bruce Patton MD Interpreting Provider: Bruce Patton MD Consult Discharge Plan - Plan Referrals: Dereje Banks MD [Primary Care Provider] - (1) Pneumonia Qualifiers: Pneumonia type: aspiration pneumonia Aspiration pneumonia type: unspecified Laterality: right Lung location: lower lobe of lung Qualified Code(s): J69.0 - Pneumonitis due to inhalation of food and vomit (4) COPD (chronic obstructive pulmonary disease) Qualifiers: COPD type: COPD with acute lower respiratory infection Qualified Code(s): J44.0 - Chronic obstructive pulmonary disease with acute lower respiratory infection (6) Sepsis Qualifiers: Sepsis type: sepsis due to unspecified organism Qualified Code(s): A41.9 - Sepsis, unspecified organism (7) Hematemesis Qualifiers: Nausea presence: with nausea Qualified Code(s): K92.0 - Hematemesis
--- NOTE | 2019-06-22 11:23 | Anesthesia Evaluation PreOp ---
Date of Encounter: 06/22/19 Time of Encounter: 11:21 - Past History Planned Operation: EGD Cardiac History: CHF, HTN Pulmonary History: Former smoker (quit 12 years ago), COPD (home O2 at 2.5L continuously) HOME ADVISOR History: Denies Any Significant HX Other Medical History: Thyroid, GERD Anesthesia History: No Prior Anesthetic Complications, Past Anesthesia Alcohol Use: none Drug use: none Medications and Allergies Gabapentin [Neurontin] 600 mg PO TID 10/11/16 [History] Tamsulosin [Flomax] 0.8 mg PO DAILY 10/11/16 [History] Albuterol Sulfate [Proair Hfa] 2 puff IH Q4H PRN 01/10/17 [History] Budesonide/Formoterol 160/4.5 [Symbicort 160/4.5] 2 puff IH BIDR 30 Days inhaler 01/12/17 [Rx] Omeprazole Magnesium [Prilosec Otc] 20 mg PO DAILY 06/14/17 [History] Oxycodone HCl 15 mg PO Q6H PRN 10/09/17 [History] Aspirin Enteric Coated [Aspirin EC] 81 mg PO DAILY 10/28/17 [History] Ciclopirox [Loprox] 1 appl TP 2XW 06/01/18 [History] Furosemide [Lasix] 20 mg PO DAILY 06/01/18 [History] Zolpidem Tartrate [Ambien Cr] 12.5 mg PO DAILY 06/01/18 [History] amLODIPine [Norvasc] 5 mg PO DAILY #30 tablet 06/04/18 [Rx] Ipratropium/Albuterol Neb [Duoneb] 3 ml IH [id number] PRN 30 Days #100 vial 07/07/18 [Rx] predniSONE [PredniSONE] 10 mg PO DAILY 3 Days #3 tablet 07/07/18 [Rx] Allergy/AdvReac Type Severity Reaction Status Date / Time No Known Allergies Allergy Verified 06/01/18 10:22 - Meds/Allergy Pre-op Review Medications Reviewed: Yes Allergies Reviewed: Yes Beta Blockers on Current Med List: No Anesthesia Results - Labs 06/22/19 07:10 06/22/19 00:57 Laboratory Tests 06/21/19 19:08 PT 12.9 H INR 1.1 - Imaging EKG: report reviewed (06/21/[address] elevation, anterior leads) Additional studies: 05/22/2017 Echo Impressions: LVEF 60-65%. Normal LV chamber size and function. Mild asymmetric hypertrophy of the basal seputm. Mild left ventricular diastolic dysfunction. Normal right ventricular structure and function. No evidence of pulmonary hypertension. No significant valvular dysfunction. Anesthesia Exam Vital Signs/O2 Sat, Most Current Temp Pulse Resp BP Pulse Ox 98.2 F 79 18 136/73 93 06/22/19 11:16 06/22/19 11:16 06/22/19 11:16 06/22/19 11:16 06/22/19 11:16 Height: 6'2''/1.88m Weight: 194 lbs/88.3 kg NPO (# of Hours): 8 Pain Scale: 0 Pain Scale Used: Numeric (1 - 10) - HEENT Pupil (Motor): EOMI Mallampati: III Teeth: Edentulous Denture Type: Upper: Complete, Lower: Complete Oral Opening: Greater than 3 - HOME ADVISOR LOC: Oriented HOME ADVISOR Motor: Normal RUE, Normal LUE, Normal RLE, Normal LLE, Normal Face HOME ADVISOR Sensory: Normal: RUE, LUE, RLE, LLE, Face - Cardiac Rhythm: Regular Murmur: None - Pulmonary Breath Sounds: left Clear, right Rales (wheezes) Respiratory Effort: Symmetrical Anesthesia Assess/Plan ASA Score: 4 Level of consciousness: Cooperative, Oriented, Tranquil Anesthetic Plan: MAC Monitoring Plan: Standard Monitors
[2019-06-22] MEDS ORDERED: Insulin LISPRO 300 UNITS/3 ML VIAL SQ SCH (12:00)
[2019-06-22] MEDS ORDERED: Lidocaine -MPF 2% 2 ML VIAL ONE (12:22)
[2019-06-22] MEDS ORDERED: *HR* Propofol 200 MG/20 ML VIAL IVP ONE (12:22)
--- NOTE | 2019-06-22 12:40 | Event Note ---
Date of Encounter: 06/22/19 Time of Encounter: 12:40 EGD performed. No evidence of blood or stigmata of bleeding. Normal bile- stained fluid within the stomach. No ulcers no signs of inflammation. Moderate size hiatal hernia noted. No signs of inflammation. Patient can resume normal diet and follow-up with his primary doctor as needed. We will sign off; thank you very much.
[2019-06-22] MEDS ORDERED: Naloxone 0.4 MG/ML INJ IVP PRN (14:31)
[2019-06-22] MEDS ORDERED: traMADol 50 MG TABLET PO PRN (14:31)
[2019-06-22] MEDS ORDERED: Ondansetron 4 MG/2 ML VIAL IVP PRN (14:31)
[2019-06-22] MEDS: MethylPREDNISolone 40 MG/ML VIAL IVP SCH (16:50)
[2019-06-22] MEDS ORDERED: MethylPREDNISolone 40 MG/ML VIAL IVP SCH (18:00)
[2019-06-23] MEDS: Ipratropium/Albuterol Neb 3 ML IH SCH ×3 (03:47→11:07)
[2019-06-23 04:03] VITALS: BP 118/72
[2019-06-23] MEDS: Pantoprazole 40 MG VIAL IVP SCH (05:21)
[2019-06-23] MEDS: MethylPREDNISolone 40 MG/ML VIAL IVP SCH (05:21)
[2019-06-23] MEDS: Ampicillin/Sulbactam 1,500 MG in 0.9 % Sodium Chloride Mini Bag 100 ML IVPB SCH (05:21)
[2019-06-23 05:41] LABS: Basophils % 0.1 %; Hemoglobin 11.8 g/dL (12.9-16.9); Immature Granulocytes % 1.2 % (0-4); Lymphocytes # 0.4 K/mcL (0.6-4.6); Lymphocytes % 3.2 %; Mean Corpuscular HGB Conc 31.9 g/dL (31.6-35.5); Mean Corpuscular Hemoglobin 29.1 pg (28.0-33.3); Mean Corpuscular Volume 91.4 fL (83.0-100.0); Mean Platelet Volume 11.6 fL (9.4-12.4); Monocytes # 0.1 K/mcL (0.0-1.3); Neutrophils # 12.7 K/mcL (1.6-8.9); Platelet Count 190 K/mcL (140-400); Red Blood Count 4.05 M/mcL (4.19-5.50); Red Cell Distribution Width 14.2 % (11.5-14.5); Segmented Neutrophils % 94.5 %; White Blood Count 13.4 K/mcL (4.3-11.1)
[2019-06-23 06:01] LABS: BUN/Creatinine Ratio 23 (6-26); Blood Urea Nitrogen 23 mg/dL (8-23); Calcium 9.5 mg/dL (8.6-10.3); Carbon Dioxide 28 mEq/L (23-29); Chloride 103 mEq/L (98-107); Glucose 154 mg/dL (70-105); Magnesium 1.8 mg/dL (1.6-2.6); Osmolality,Calculated 291 (280-300); Phosphorous 2.3 mg/dL (2.7-4.5); Potassium 3.9 mEq/L (3.5-5.1); Sodium 137 mEq/L (136-145); eGFR For African Americans > 60 (> 60); eGFR For Non-African Americans > 60 (> 60)
[2019-06-23] MEDS: Budesonide/Formoterol 160/4.5 1 PUFF INH IH SCH (07:31)
[2019-06-23] MEDS ORDERED: Aspirin Enteric Coated 81 MG Tablet PO SCH (09:00)
--- NOTE | 2019-06-23 09:44 | Cardiology Consult Note ---
Date of Encounter: 06/23/19 Time of Encounter: 08:30 Assessment and Plan (1) Community acquired pneumonia Current Visit: No Status: Acute Per cardiology: -Admitted with CAP. -Management per primary service. Qualifiers: Laterality: right Lung location: unspecified part of lung Qualified Code(s): J18.9 - Pneumonia, unspecified organism (2) Hematemesis Current Visit: Yes Status: Acute Per cardiology: -Concern for hematemesis on admission. -GI was consulted and patient underwent EGD. -Management per primary and GI services. Qualifiers: Nausea presence: with nausea Qualified Code(s): K92.0 - Hematemesis (3) Elevated troponin Current Visit: Yes Status: Acute Per cardiology: -Troponins 0.12, 0.16, 0.17, 0.17 in the setting of PNA, sepsis, MICHELL. -Reports atypical, pleuritic chest pain on admission, denies current. -No acute ischemic ECG changes noted. -TTE with LVEF preserved, concentric LVH, no wall motion abnormalities noted. -On asa. -Demand ischemia, no cardiac rehab consult warranted. -Will add statin, BB. -Anticipate cardiology sign off once seen and evaluated by . Can consider outpatient ischemic evaluation. Discussion w patient/family: The assessment and plan as outlined above was discussed with the patient who expressed understanding and agreement. All questions were answered. Thank you for involving us in the care of your patient. Please call with any questions. Discussed and reviewed with . History of Present Illness Consult date: 06/21/19 Requesting physician: Enmanuel Davalos Consult reason: elevated troponin Chief complaint: shortness of breath History of present illness: Mr. Fair is a 83 year old male with a relevant past medical history of HTN, GERD, OA, diverticulitis, anemia, thyroidectomy, BPH, SVT, diastolic CHF, COPD, who presented to [facility] with complaints of dark emesis and shortness of breath. Patient has been diagnosed with PNA, sepsis, and MICHELL. Cardiology was consulted for elevated troponins. Patient reports on admission, did have some chest pain with cough and deep inspiration. Denies current chest pain. Reports shortness of breath is improving. Past Med Surg Social Fam HX - Past Medical History Attestation: Yes The following information was validated with the patient. Source: patient, old records reviewed Medical history: cancer, CHF, COPD, hypertension, other Additional medical history: diverticulitis, metabolic syndrome, colon polyps, thyroid nodule, BPH, skin cancer Psychiatric history: no psych history - Past Surgical History Surgical History: thyroidectomy Additional surgical history: 2 back surg left shoulder. skin ca, rotator cuff repair, hemorrhoidectomy, tumor removal, carpal tunnel release - Social History Smoking Status: Former smoker Smokeless Tobacco Status: No Alcohol use: none Drug use: none - Family History Mother Family Member Ethnicity: Non- Living Status: Hx Family Respiratory Disorders: Yes (Emphysema) Hx Family Neurologic Disorders: Yes (Alzheimer's disease) Father Family Member Ethnicity: Non- Living Status: Hx Family Cancer: Yes (Colon CA) Hx Family Neuromuscular Disorders: Yes (Alzeheimers) Hx Family Neurologic Disorders: Yes (Alzheimer's disease) Sister Family Member Ethnicity: Non- Living Status: Still Living Medications and Allergies Gabapentin [Neurontin] 600 mg PO TID 10/11/16 [History] Albuterol Sulfate [Proair Hfa] 2 puff IH Q4H PRN 01/10/17 [History] Budesonide/Formoterol 160/4.5 [Symbicort 160/4.5] 2 puff IH BIDR 30 Days inhaler 01/12/17 [Rx] Omeprazole Magnesium [Prilosec Otc] 20 mg PO DAILY 06/14/17 [History] Oxycodone HCl 15 mg PO Q6H PRN 10/09/17 [History] Furosemide [Lasix] 20 mg PO DAILY 06/01/18 [History] Zolpidem Tartrate [Ambien Cr] 12.5 mg PO HS 06/01/18 [History] amLODIPine [Norvasc] 5 mg PO DAILY #30 tablet 06/04/18 [Rx] Ipratropium/Albuterol Neb [Duoneb] 3 ml IH Q12H PRN 06/22/19 [History] Tamsulosin [Flomax] 0.8 mg PO DAILY 06/22/19 [History] Allergy/AdvReac Type Severity Reaction Status Date / Time No Known Allergies Allergy Verified 06/22/19 13:09 All Systems Review: The remainder of the systems were reviewed and are negative - Cardiovascular Cardiovascular: as per HPI, dyspnea on exertion - Gastrointestinal Gastrointestinal: coffee ground emesis Physical Examination Vital Signs, Last 4 Hours Resp Pulse Ox 06/23/19 07:32 18 94 Vital Signs Temperature 98.1 F 06/21/19 13:34 Pulse Rate 78 06/21/19 13:34 Respiratory Rate 18 06/21/19 13:34 Blood Pressure 119/69 06/21/19 13:34 O2 Sat by Pulse Oximetry 83 06/21/19 13:34 Temperature 98.3 F 06/23/19 04:02 Pulse Rate 87 06/23/19 04:02 Respiratory Rate 18 06/23/19 07:32 Blood Pressure 118/72 06/23/19 04:02 O2 Sat by Pulse Oximetry 94 06/23/19 07:32 Oxygen Delivery Oxygen Delivery Nasal Cannula General: Conversant, No Apparent Distress HEENT: Atraumatic, Normocephaly, Mucus Membranes Moist Neck: No JVD, Normal carotid pulses Cardiac: Reg Rate and Rhythm, Normal S1 and S2, No Murmur Lungs: Other (Lung sounds diminished throughout. ) Neuro: Alert and responsive, No focal deficits noted Abdomen: Soft, Non-Tender Skin: No rashes noted on visualized skin Musculoskeletal: No Chest Wall Tenderness Extremities: No Clubbing, No Cyanosis, No Edema, Normal Pulses Results 06/23/19 04:52 06/23/19 04:52 Lab Results Active Medications Albuterol/Ipratropium (Duoneb) 3 ml IH [id number] [facility] Stop: 12/21/19 20:01 Last Admin: 06/23/19 07:31 Dose: 3 ml Documented by: Aspirin (Aspirin Ec) 81 mg PO DAILY [facility] Stop: 12/22/19 09:01 Last Admin: 06/23/19 07:34 Dose: 81 mg Documented by: Budesonide/Formoterol Fumarate (Symbicort) 2 puff IH BIDR [facility]; Protocol Stop: 12/21/19 22:01 Last Admin: 06/23/19 07:31 Dose: 2 puff Documented by: Dextrose/Water (Dextrose 50% (Syg)) 25 ml IVP AD PRN PRN Reason: Hypoglycemia Stop: 12/22/19 09:44 Glucagon (Glucagen) 1 mg IM ONCE PRN PRN Reason: Hypoglycemia Stop: 12/22/19 09:44 Glucose (Gluctose) 15 gm PO ONCE PRN PRN Reason: Hypoglycemia Stop: 12/22/19 09:44 Glucose (Gluctose) 30 gm PO ONCE PRN PRN Reason: Hypoglycemia Stop: 12/22/19 09:44 Heparin Sodium (Porcine) (Heparin) 5,000 unit SQ Q12HCO [facility] Stop: 12/23/19 18:01 Ampicillin Sodium/Sulbactam Sodium 1,500 mg/ Sodium Chloride 100 mls @ 200 mls/hr IVPB Q6H [facility] Stop: 12/21/19 23:01 Last Admin: 06/23/19 05:21 Dose: 200 mls/hr Documented by: Dextrose (Dextrose 5%) 1,000 mls @ 100 mls/hr IVC .Q10H PRN PRN Reason: HYPOGLYCEMIA Stop: 12/22/19 09:44 Methylprednisolone (Solu-Medrol) 40 mg IVP Q12HR [facility] Stop: 12/22/19 18:01 Last Admin: 06/23/19 05:21 Dose: 40 mg Documented by: Naloxone HCl (Narcan) 0.4 mg IVP Q2MPRN PRN PRN Reason: SEE COMMENTS Stop: 12/21/19 17:07 Omeprazole (Prilosec) 20 mg PO DAILY@0630 [facility]; Protocol Stop: 12/24/19 06:31 Ondansetron HCl (Zofran) 4 mg IVP Q6HR PRN; Protocol PRN Reason: Nausea And Vomiting Stop: 12/21/19 18:07 Tamsulosin HCl (Flomax) 0.4 mg PO DAILY [facility]; Protocol Stop: 12/22/19 09:01 Last Admin: 06/23/19 07:34 Dose: 0.4 mg Documented by: Tramadol HCl (Ultram) 50 mg PO Q6HR PRN PRN Reason: Moderate Pain Stop: 12/21/19 17:07 Last Admin: 06/22/19 22:13 Dose: 50 mg Documented by: Zolpidem Tartrate (Ambien) 10 mg PO HS [facility] Stop: 12/23/19 01:16 Last Admin: 06/23/19 01:40 Dose: 10 mg Documented by: Laboratory Tests 06/21/19 06/21/19 06/21/19 14:00 14:00 19:08 WBC 20.0 H Hgb Creatinine 1.41 H Troponin I 0.12 H* 0.16 H* 06/22/19 06/22/19 06/23/19 00:57 07:10 04:52 WBC 13.4 H Hgb 11.8 L Creatinine Troponin I 0.17 H* 0.17 H* 06/23/19 04:52 WBC Hgb Creatinine 1.00 Troponin I - Imaging and Cardiology Chest Xray: report reviewed Echo: report reviewed - EKG Interpretation EKG results cardiology: personally reviewed (ECG with SR, HR 75.), other (Telemetry reviewed with average HR previous 12 hours noted to be 89, SR. PVCs, couplets, PACs noted.) Consult Discharge Plan - Plan Referrals: Dereje Banks MD [Primary Care Provider] -
--- NOTE | 2019-06-23 10:13 | Discharge Summary ---
Orders not resulted at time of discharge: Pending orders 06/21/19 14:00 Culture,Blood [BC] Stat Date of Encounter: 06/23/19 Time of Encounter: 10:10 - Discharge Diagnosis (1) Pneumonia Priority: Primary Status: Acute Qualifiers: Pneumonia type: aspiration pneumonia Aspiration pneumonia type: unspecified Laterality: right Lung location: lower lobe of lung Qualified Code(s): J69.0 - Pneumonitis due to inhalation of food and vomit (2) MICHELL (acute kidney injury) Priority: Secondary Status: Resolved (3) Elevated troponin Priority: Secondary Status: Ruled-out (4) COPD (chronic obstructive pulmonary disease) Priority: Secondary Status: Chronic Qualifiers: COPD type: COPD with acute lower respiratory infection Qualified Code(s): J44.0 - Chronic obstructive pulmonary disease with acute lower respiratory infection (5) Chronic respiratory failure with hypoxia Priority: Secondary Status: Chronic (6) Sepsis Priority: Secondary Status: Ruled-out Qualifiers: Sepsis type: sepsis due to unspecified organism Qualified Code(s): A41.9 - Sepsis, unspecified organism (7) Hematemesis Priority: Secondary Status: Ruled-out Qualifiers: Nausea presence: with nausea Qualified Code(s): K92.0 - Hematemesis Hospital course: Mr. Fair is a 83 year old male PMH of chronic respiratory failure on 2 litters of O2, CHF?, and COPD. Patient was brought to the hospital due to dark emesis, lethargy and confusion. Patient admitted to the hospital due to aspiration pneumonia, hematemesis, and elevated trops. patient was managed with broad spectrum IV antibiotics, surgery consulted and patient underwent EGD: No evidence of blood or stigmata of bleeding. Normal bile-stained fluid within the stomach. No ulcers no signs of inflammation. Moderate size hiatal hernia noted. Cardiology consulted recommended against any intervention as elevation in trops adynamic. Patient hemodynamically stable, WBC trending down, requiring home dose of O2 replacement. Patient will be discharged home on oral antibiotics to complete 10 days of treatment. A repeat x-ray in 4 weeks is recommended to confirm resolution of consolidation. If the consolidation persists after antibiotic therapy, then other differentials such as inflammatory non-infectious and neoplastic etiologies should be included in the differentials. - Time Spent with Patient Total time spent providing and/or coordinating discharge services: Time spent: Greater than 30 minutes (35) - Discharge Medications Prescriptions: New Amoxicillin/Clavulanate [Augmentin] 875 mg PO BIDWM 7 Days #14 tablet Continued Gabapentin [Neurontin] 600 mg PO TID Albuterol Sulfate [Proair Hfa] 2 puff IH Q4H PRN PRN Reason: Shortness Of Breath Budesonide/Formoterol 160/4.5 [Symbicort 160/4.5] 2 puff IH BIDR 30 Days inhaler Omeprazole Magnesium [Prilosec Otc] 20 mg PO DAILY Oxycodone HCl 15 mg PO Q6H PRN PRN Reason: Pain Furosemide [Lasix] 20 mg PO DAILY Zolpidem Tartrate [Ambien Cr] 12.5 mg PO HS amLODIPine [Norvasc] 5 mg PO DAILY #30 tablet Tamsulosin [Flomax] 0.8 mg PO DAILY Ipratropium/Albuterol Neb [Duoneb] 3 ml IH Q12H PRN PRN Reason: Shortness Of Breath/Wheezing Home Medications: Gabapentin [Neurontin] 600 mg PO TID 10/11/16 [History] Albuterol Sulfate [Proair Hfa] 2 puff IH Q4H PRN 01/10/17 [History] Budesonide/Formoterol 160/4.5 [Symbicort 160/4.5] 2 puff IH BIDR 30 Days inhaler 01/12/17 [Rx] Omeprazole Magnesium [Prilosec Otc] 20 mg PO DAILY 06/14/17 [History] Oxycodone HCl 15 mg PO Q6H PRN 10/09/17 [History] Furosemide [Lasix] 20 mg PO DAILY 06/01/18 [History] Zolpidem Tartrate [Ambien Cr] 12.5 mg PO HS 06/01/18 [History] amLODIPine [Norvasc] 5 mg PO DAILY #30 tablet 06/04/18 [Rx] Ipratropium/Albuterol Neb [Duoneb] 3 ml IH Q12H PRN 06/22/19 [History] Tamsulosin [Flomax] 0.8 mg PO DAILY 06/22/19 [History] Amoxicillin/Clavulanate [Augmentin] 875 mg PO BIDWM 7 Days #14 tablet 06/23/19 [Rx] Allergies/Adverse Reactions: Allergy/AdvReac Type Severity Reaction Status Date / Time No Known Allergies Allergy Verified 06/22/19 13:09 Date of admission: 06/21/19 17:12 Primary care physician: Dereje Banks MD Consults: 06/21/19 17:09 Consult to Occupational Therapy [CONS] Routine Comment: Evaluate, develop and implement POC Reason for Consult: generalized weakness Does patient have active BEDREST order?: No Is patient medically & hemodynamically stable?: Yes 06/21/19 17:15 Consult to Cardiology [CONS] Routine Comment: Consulting Provider: Cardiology Janet Reason for Consult: elevated trops Call Completed: No 06/21/19 17:40 Consult to Surgery [CONS] Routine Consulting Provider: Surgery Janet Surgical Reason for Consult: hematemesis Call Completed: Yes - Constitutional Vitals: Temp Pulse Resp BP Pulse Ox 98.3 F 87 18 118/72 94 06/23/19 04:02 06/23/19 04:02 06/23/19 07:32 06/23/19 04:02 06/23/19 07:32 Exam: Vitals: Reviewed General: Alert and oriented x4. No acute distress Cardiovascular: RRR, normal S1 & S2, no rubs, murmurs or gallops. Lungs: Clear to auscultation bilaterally, no rales or crackles. Abdomen: Soft, non-tender, no rigidity. NABS. Extremities: 1+ edema on the left lower extr Neurological: CN II-XII intact Rest of the physical exam is non contributory - Patient Status Disposition: Home, Self-Care Condition: Good Functional capacity at discharge: independent ambulation Overall status at discharge: patient is back to baseline - Discharge Instructions Follow Up With: Dereje Banks MD [Primary Care Provider] - - Diet and Activity Activity: resume usual activities as tolerated, wear oxygen at all times (3-4 litters) Diet: advance to your usual diet
[2019-06-23] MEDS ORDERED: *HR* Heparin 5,000 UNIT/ML VIAL SQ SCH (18:00)
== END 2019-06-23 11:55 | disposition home or self-care (01) ==
LOC: 2ANU 13:29 → EMEROOARM 13:29 → 2ANU 18:05
PROVIDERS: ADMIT Internal Medicine Nephrology; ATTEND Internal Medicine Nephrology

== ENCOUNTER 2019-10-23 10:09 | Observation (INO) ==
[2019-10-23] MEDS ORDERED: Isovue-370 500 ML BOTTLE IVP ONE (10:21)
[2019-10-23] MEDS ORDERED: 0.9 % Sodium Chloride 1,000 ML IVC STA ×2 (10:34→12:02)
[2019-10-23 10:53] LABS: Basophils % 0.2 %; Hematocrit 47.1 % (37.5-50.1); Hemoglobin 15.5 g/dL (12.9-16.9); Immature Granulocytes % 0.3 % (0-4); Lymphocytes # 0.8 K/mcL (0.6-4.6); Lymphocytes % 5.2 %; Mean Corpuscular HGB Conc 32.9 g/dL (31.6-35.5); Mean Corpuscular Volume 88.2 fL (83.0-100.0); Mean Platelet Volume 11.5 fL (9.4-12.4); Monocytes # 0.7 K/mcL (0.0-1.3); Monocytes % 4.3 %; Platelet Count 251 K/mcL (140-400); Red Blood Count 5.34 M/mcL (4.19-5.50); Red Cell Distribution Width 13.7 % (11.5-14.5); White Blood Count 15.6 K/mcL (4.3-11.1)
[2019-10-23 11:02] LABS: INR 1.1; Prothrombin Time 12.2 Seconds (9.4-12.1)
[2019-10-23 11:04] LABS: Activated Partial Thrombo Time 33.5 Seconds (26.0-36.0)
[2019-10-23 11:14] LABS: Albumin 3.9 g/dL (3.5-5.7); Albumin/Globulin Ratio 1.2 (1.1-2.2); Bilirubin,Direct 0.2 mg/dL (0.0-0.2); Bilirubin,Indirect 0.4 mg/dL (0.0-1.0); Bilirubin,Total 0.6 mg/dL (0.3-1.0); Calcium 10.4 mg/dL (8.6-10.3); Globulin 3.3 g/dL (2.4-3.5); Magnesium 1.8 mg/dL (1.6-2.6); Potassium 4.4 mEq/L (3.5-5.1); Total Protein 7.2 g/dL (6.4-8.9)
[2019-10-23] MEDS ORDERED: MetroNIDAZOLE 500 MG/100 ML 500 MG/100 ML BAG IVPB ONE (12:13)
[2019-10-23] MEDS ORDERED: Naloxone 0.4 MG/ML INJ IVP PRN (15:21)
[2019-10-23] MEDS ORDERED: *HR* Promethazine 25 MG/ML VIAL IVP PRN (15:21)
[2019-10-23] MEDS ORDERED: Ipratropium/Albuterol Neb 3 ML IH PRN (16:00)
[2019-10-23] MEDS: Ringers Solution, Lactated 1,000 ML IVC SCH (16:33)
[2019-10-23] MEDS: Pantoprazole 40 MG VIAL IVP SCH (16:33)
[2019-10-23 17:47] LABS: Hematocrit 41.8 % (37.5-50.1); Hemoglobin 13.7 g/dL (12.9-16.9)
[2019-10-23] MEDS: Budesonide/Formoterol 160/4.5 1 PUFF INH IH SCH (19:46)
[2019-10-23] MEDS: Gabapentin 300 MG CAPSULE PO SCH (21:29)
[2019-10-23] MEDS: *HR* OxyCODONE Immed Rel 15 MG TABLET PO PRN (21:30)
[2019-10-24] MEDS: MetroNIDAZOLE 500 MG/100 ML 500 MG/100 ML BAG IVPB SCH ×3 (00:25→16:06)
[2019-10-24] MEDS: Ringers Solution, Lactated 1,000 ML IVC SCH ×3 (03:51→15:48)
[2019-10-24 05:22] LABS: Basophils % 0.1 %; Eosinophils % 0.1 %; Hematocrit 36.5 % (37.5-50.1); Immature Granulocytes % 0.4 % (0-4); Lymphocytes # 0.9 K/mcL (0.6-4.6); Lymphocytes % 6.9 %; Mean Corpuscular HGB Conc 32.6 g/dL (31.6-35.5); Mean Corpuscular Hemoglobin 29.7 pg (28.0-33.3); Mean Platelet Volume 11.6 fL (9.4-12.4); Monocytes # 0.9 K/mcL (0.0-1.3); Neutrophils # 11.3 K/mcL (1.6-8.9); Platelet Count 198 K/mcL (140-400); Red Blood Count 4.01 M/mcL (4.19-5.50); Segmented Neutrophils % 85.5 %; White Blood Count 13.2 K/mcL (4.3-11.1)
[2019-10-24 05:25] LABS: Hemoglobin 11.9 g/dL (12.9-16.9)
[2019-10-24 05:34] LABS: BUN/Creatinine Ratio 30 (6-26); Blood Urea Nitrogen 39 mg/dL (8-23); Calcium 9.3 mg/dL (8.6-10.3); Carbon Dioxide 24 mEq/L (23-29); Chloride 103 mEq/L (98-107); Glucose 124 mg/dL (70-105); Osmolality,Calculated 291 (280-300); Potassium 4.2 mEq/L (3.5-5.1); Sodium 135 mEq/L (136-145); eGFR For African Americans > 60 (> 60); eGFR For Non-African Americans 53 (> 60)
[2019-10-24] MEDS: Budesonide/Formoterol 160/4.5 1 PUFF INH IH SCH ×2 (07:15→19:58)
[2019-10-24] MEDS: Pantoprazole 40 MG VIAL IVP SCH ×2 (07:58→17:33)
[2019-10-24] MEDS: amLODIPine 5 MG TABLET PO SCH (07:59)
[2019-10-24] MEDS: Gabapentin 300 MG CAPSULE PO SCH ×3 (07:59→21:13)
[2019-10-25] MEDS: MetroNIDAZOLE 500 MG/100 ML 500 MG/100 ML BAG IVPB SCH ×4 (00:51→23:58)
[2019-10-25 02:37] LABS: Basophils % 0.1 %; Eosinophils % 0.3 %; Hematocrit 38.3 % (37.5-50.1); Hemoglobin 12.5 g/dL (12.9-16.9); Immature Granulocytes % 0.8 % (0-4); Lymphocytes # 0.8 K/mcL (0.6-4.6); Lymphocytes % 8.1 %; Mean Corpuscular HGB Conc 32.6 g/dL (31.6-35.5); Mean Corpuscular Hemoglobin 28.9 pg (28.0-33.3); Mean Corpuscular Volume 88.5 fL (83.0-100.0); Mean Platelet Volume 11.1 fL (9.4-12.4); Monocytes # 0.6 K/mcL (0.0-1.3); Monocytes % 6.2 %; Neutrophils # 8.8 K/mcL (1.6-8.9); Platelet Count 207 K/mcL (140-400); Red Blood Count 4.33 M/mcL (4.19-5.50); Red Cell Distribution Width 13.5 % (11.5-14.5); Segmented Neutrophils % 84.5 %; White Blood Count 10.4 K/mcL (4.3-11.1)
[2019-10-25 02:58] LABS: BUN/Creatinine Ratio 27 (6-26); Blood Urea Nitrogen 28 mg/dL (8-23); Calcium 9.2 mg/dL (8.6-10.3); Carbon Dioxide 25 mEq/L (23-29); Chloride 105 mEq/L (98-107); Glucose 103 mg/dL (70-105); Osmolality,Calculated 290 (280-300); Sodium 137 mEq/L (136-145); eGFR For African Americans > 60 (> 60); eGFR For Non-African Americans > 60 (> 60)
[2019-10-25] MEDS: Ringers Solution, Lactated 1,000 ML IVC SCH ×2 (03:02→13:31)
[2019-10-25] MEDS: Pantoprazole 40 MG VIAL IVP SCH ×2 (05:37→17:54)
[2019-10-25] MEDS: Budesonide/Formoterol 160/4.5 1 PUFF INH IH SCH ×2 (07:49→19:46)
[2019-10-25] MEDS: amLODIPine 5 MG TABLET PO SCH (08:40)
[2019-10-25] MEDS: Gabapentin 300 MG CAPSULE PO SCH ×3 (08:40→21:08)
[2019-10-25 15:48] LABS: Bilirubin,Urine Negative (Negative); Blood,Urine Negative (Negative); Clarity,Urine Clear (Clear); Color,Urine Yellow (Yellow); Glucose,Urine (UA) 100 mg/dL (Normal); Ketones,Urine Negative (Negative); Leukocyte Esterase,Urine Negative (Negative); Nitrite,Urine Negative (Negative); Protein,Urine Trace mg/dL (Neg-Trace); Urobilinogen,Urine Normal (Normal)
[2019-10-25] MEDS: *HR* OxyCODONE Immed Rel 15 MG TABLET PO PRN ×2 (16:40→21:08)
[2019-10-26] MEDS: Pantoprazole 40 MG VIAL IVP SCH ×2 (05:51→18:04)
[2019-10-26 07:09] LABS: BUN/Creatinine Ratio 22 (6-26); Blood Urea Nitrogen 24 mg/dL (8-23); Calcium 8.6 mg/dL (8.6-10.3); Carbon Dioxide 27 mEq/L (23-29); Chloride 103 mEq/L (98-107); Glucose 105 mg/dL (70-105); Osmolality,Calculated 282 (280-300); Potassium 3.9 mEq/L (3.5-5.1); Sodium 134 mEq/L (136-145); eGFR For African Americans > 60 (> 60); eGFR For Non-African Americans > 60 (> 60)
[2019-10-26] MEDS: Ringers Solution, Lactated 1,000 ML IVC SCH (09:54)
[2019-10-26] MEDS: MetroNIDAZOLE 500 MG/100 ML 500 MG/100 ML BAG IVPB SCH ×2 (09:55→15:03)
[2019-10-26] MEDS: Gabapentin 300 MG CAPSULE PO SCH ×3 (09:55→21:30)
[2019-10-26] MEDS: amLODIPine 5 MG TABLET PO SCH (09:56)
[2019-10-26] MEDS: Budesonide/Formoterol 160/4.5 1 PUFF INH IH SCH ×2 (10:25→22:47)
[2019-10-26] MEDS: *HR* OxyCODONE Immed Rel 15 MG TABLET PO PRN (18:04)
[2019-10-26] MEDS: Lactobacillus 1 EACH CAP.SPRINK PO SCH (21:31)
[2019-10-27] MEDS: MetroNIDAZOLE 500 MG/100 ML 500 MG/100 ML BAG IVPB SCH ×2 (00:15→08:19)
[2019-10-27] MEDS: Ringers Solution, Lactated 1,000 ML IVC SCH (03:19)
[2019-10-27] MEDS: Pantoprazole 40 MG VIAL IVP SCH (05:50)
[2019-10-27 06:41] VITALS: BP 100/55
[2019-10-27] MEDS: Budesonide/Formoterol 160/4.5 1 PUFF INH IH SCH (07:23)
[2019-10-27] MEDS: Gabapentin 300 MG CAPSULE PO SCH (08:18)
[2019-10-27] MEDS: Lactobacillus 1 EACH CAP.SPRINK PO SCH (08:18)
[2019-10-27 09:57] LABS: Adenovirus F 40/41 PCR Not detected (Not detect); Astrovirus PCR Not detected (Not detect); C.difficile Toxin A/B Gene PCR Not detected (Not detect); Campylobacter by PCR Not detected (Not detect); Cryptosporidium by PCR Not detected (Not detect); Cyclospora cayetanensis PCR Not detected (Not detect); E. coli O157 by PCR Not detected (Not detect); Entamoeba histolytica PCR Not detected (Not detect); Enteroaggregative E.coli(EAEC) Not detected (Not detect); Enteropathogenic E.coli(EPEC) Not detected (Not detect); Enterotoxigenic E.coli (ETEC) Not detected (Not detect); Giardia lamblia PCR Not detected (Not detect); Norovirus GI/GII PCR Not detected (Not detect); Plesiomonas shigelloides PCR Not detected (Not detect); Rotavirus A PCR Not detected (Not detect); Salmonella PCR Not detected (Not detect); Sapovirus PCR Not detected (Not detect); Shig/EnteroinvasiveE coli EIEC Not detected (Not detect); Shigalike tox-prod E coli STEC Not detected (Not detect); Vibrio PCR Not detected (Not detect); Vibrio cholerae PCR Not detected (Not detect); Yersinia enterocolitica PCR Not detected (Not detect)
== END 2019-10-27 12:45 | disposition home or self-care (01) ==
LOC: EMEROOARM 10:09 → 3BNU 10:09
PROVIDERS: ADMIT Internal Medicine; ATTEND Internal Medicine

== ENCOUNTER 2020-01-14 13:48 | Inpatient (IN) ==
[2020-01-14 15:44] LABS: Prothrombin Time 11.6 Seconds (9.4-12.1); Red Blood Count 2.98 M/mcL (4.19-5.50)
[2020-01-14 15:46] LABS: Hematocrit 26.9 % (37.5-50.1); Hemoglobin 8.4 g/dL (12.9-16.9); Immature Platelets 7.2 % (1.1-6.1); Mean Corpuscular HGB Conc 31.2 g/dL (31.6-35.5); Mean Corpuscular Hemoglobin 28.2 pg (28.0-33.3); Mean Corpuscular Volume 90.3 fL (83.0-100.0); Red Cell Distribution Width 15.5 % (11.5-14.5); White Blood Count 9.4 K/mcL (4.3-11.1)
[2020-01-14 15:47] LABS: Activated Partial Thrombo Time 31.4 Seconds (26.0-36.0)
[2020-01-14 15:56] LABS: Alanine Aminotransferase 13 Units/L (7-52); Albumin 2.8 g/dL (3.5-5.7); Albumin/Globulin Ratio 0.7 (1.1-2.2); Alkaline Phosphatase 71 Units/L (34-104); Aspartate Amino Transferase 27 Units/L (13-39); BUN/Creatinine Ratio 36 (6-26); Bilirubin,Total 0.5 mg/dL (0.3-1.0); Blood Urea Nitrogen 44 mg/dL (8-23); Calcium 9.3 mg/dL (8.6-10.3); Carbon Dioxide 30 mEq/L (23-29); Chloride 100 mEq/L (98-107); Globulin 4.1 g/dL (2.4-3.5); Glucose 110 mg/dL (70-105); Lactate Dehydrogenase 236 Units/L (140-271); Osmolality,Calculated 300 (280-300); Potassium 4.7 mEq/L (3.5-5.1); Sodium 139 mEq/L (136-145); Total Protein 6.9 g/dL (6.4-8.9); eGFR For African Americans > 60 (> 60); eGFR For Non-African Americans 57 (> 60)
[2020-01-14 16:35] LABS: Platelet Count < 2 K/mcL (140-400)
[2020-01-14 16:49] LABS: Hypochromasia Present (Not Present); Lymphocytes # 0.6 K/mcL (0.6-4.6); Monocytes # 0.2 K/mcL (0.0-1.3); Neutrophils # 8.5 K/mcL (1.6-8.9); Platelet Estimate Marked Decrease (Normal)
[2020-01-14] MEDS ORDERED: Dexamethasone 4 MG/ML VIAL IVP ONE (17:00)
[2020-01-14] MEDS ORDERED: Naloxone 0.4 MG/ML INJ IVP PRN (17:42)
[2020-01-14] MEDS ORDERED: levoFLOXacin 750 MG/150 ML 750 MG/150 ML BAG IVPB SCH (18:00)
[2020-01-14] MEDS ORDERED: 0.9 % Sodium Chloride 1,000 ML IVC SCH ×2 (18:00→18:59)
[2020-01-14] MEDS ORDERED: Doxycycline 100 MG in 0.9 % Sodium Chloride Mini Bag 100 ML IVPB SCH (18:00)
[2020-01-14] MEDS ORDERED: 0.9 % Sodium Chloride 250 ML ONE (18:17)
[2020-01-14 18:33] LABS: Hematocrit 24.6 % (37.5-50.1); Hemoglobin 7.7 g/dL (12.9-16.9); Immature Platelets 6.2 % (1.1-6.1); Mean Corpuscular HGB Conc 31.3 g/dL (31.6-35.5)
[2020-01-14 18:40] LABS: Basophils # 0.1 K/mcL (0.0-0.2); Basophils % 0.5 %; Eosinophils # 0.3 K/mcL (0.0-0.6); Eosinophils % 3.2 %; Immature Granulocytes % 0.5 % (0-4); Lymphocytes # 2.3 K/mcL (0.6-4.6); Lymphocytes % 24.5 %; Mean Corpuscular Volume 89.5 fL (83.0-100.0); Monocytes # 0.7 K/mcL (0.0-1.3); Monocytes % 7.4 %; Neutrophils # 5.9 K/mcL (1.6-8.9); Red Blood Count 2.75 M/mcL (4.19-5.50); Red Cell Distribution Width 15.3 % (11.5-14.5); Segmented Neutrophils % 63.9 %; White Blood Count 9.3 K/mcL (4.3-11.1)
[2020-01-14 18:47] LABS: Platelet Count 2 K/mcL (140-400)
[2020-01-14 19:29] LABS: Hypochromasia Present (Not Present); Microcytosis Present (Not Present); Platelet Estimate Marked Decrease (Normal)
[2020-01-14] MEDS: Budesonide/Formoterol 160/4.5 1 PUFF INH IH SCH (20:57)
[2020-01-14] MEDS ORDERED: Acetaminophen 325 MG TABLET PO PRN (20:59)
[2020-01-14 22:18] LABS: Hepatitis B Surface Antigen Nonreactive (Nonreactive)
[2020-01-14 22:33] LABS: Folate 8.5 ng/mL (3.0-16.0)
[2020-01-14 22:47] LABS: Hepatitis A Antibody IgM Nonreactive (Nonreactive); Hepatitis C Virus Antibody Nonreactive (Nonreactive)
[2020-01-14 22:57] LABS: Hemoglobin 7.5 g/dL (12.9-16.9); Red Cell Distribution Width 15.4 % (11.5-14.5)
[2020-01-14 22:59] LABS: Hematocrit 23.7 % (37.5-50.1); Immature Platelets 1.1 % (1.1-6.1); Mean Corpuscular HGB Conc 31.6 g/dL (31.6-35.5); Mean Corpuscular Hemoglobin 28.1 pg (28.0-33.3); Mean Corpuscular Volume 88.8 fL (83.0-100.0); Mean Platelet Volume 9.3 fL (9.4-12.4); Red Blood Count 2.67 M/mcL (4.19-5.50); White Blood Count 13.2 K/mcL (4.3-11.1)
[2020-01-14 23:08] LABS: Platelet Count 48 K/mcL (140-400)
[2020-01-14] MEDS ORDERED: 0.9 % Sodium Chloride 250 ML IVC SCH (23:15)
[2020-01-14] MEDS ORDERED: 0.9 % Sodium Chloride 500 ML ONE (23:39)
[2020-01-14 23:43] LABS: Eosinophils # 0.3 K/mcL (0.0-0.6); Lymphocytes # 1.9 K/mcL (0.6-4.6); Neutrophils # 10.6 K/mcL (1.6-8.9); Platelet Estimate Marked Decrease (Normal)
[2020-01-14 23:44] LABS: Hypochromasia Present (Not Present)
[2020-01-15] MEDS ORDERED: hydrOXYzine pamoate 25 MG CAPSULE PO ONE ×2 (00:54→03:03)
[2020-01-15 02:26] LABS: Prothrombin Time 11.8 Seconds (9.4-12.1)
[2020-01-15 02:28] LABS: Activated Partial Thrombo Time 30.5 Seconds (26.0-36.0)
[2020-01-15 02:29] LABS: Alanine Aminotransferase 14 Units/L (7-52); Albumin 2.9 g/dL (3.5-5.7); Albumin/Globulin Ratio 0.7 (1.1-2.2); Alkaline Phosphatase 70 Units/L (34-104); Aspartate Amino Transferase 27 Units/L (13-39); BUN/Creatinine Ratio 36 (6-26); Bilirubin,Total 0.5 mg/dL (0.3-1.0); Blood Urea Nitrogen 43 mg/dL (8-23); Calcium 9.5 mg/dL (8.6-10.3); Carbon Dioxide 29 mEq/L (23-29); Chloride 99 mEq/L (98-107); Globulin 3.9 g/dL (2.4-3.5); Glucose 136 mg/dL (70-105); Magnesium 1.5 mg/dL (1.6-2.6); Osmolality,Calculated 293 (280-300); Phosphorous 3.9 mg/dL (2.7-4.5); Potassium 4.4 mEq/L (3.5-5.1); Sodium 135 mEq/L (136-145); Total Protein 6.8 g/dL (6.4-8.9); eGFR For African Americans > 60 (> 60); eGFR For Non-African Americans 58 (> 60)
[2020-01-15 02:37] LABS: Hematocrit 22.3 % (37.5-50.1); Hemoglobin 7.2 g/dL (12.9-16.9); Immature Platelets 2.5 % (1.1-6.1); Mean Corpuscular HGB Conc 32.3 g/dL (31.6-35.5); Mean Corpuscular Hemoglobin 28.6 pg (28.0-33.3); Mean Corpuscular Volume 88.5 fL (83.0-100.0); Mean Platelet Volume 10.1 fL (9.4-12.4); Red Blood Count 2.52 M/mcL (4.19-5.50); Red Cell Distribution Width 15.4 % (11.5-14.5); White Blood Count 12.4 K/mcL (4.3-11.1)
[2020-01-15 02:44] LABS: Platelet Count 39 K/mcL (140-400)
[2020-01-15 03:00] LABS: Anisocytosis 1+ (Not Present); Lymphocytes # 0.5 K/mcL (0.6-4.6); Microcytosis Present (Not Present); Neutrophils # 11.9 K/mcL (1.6-8.9)
[2020-01-15 03:01] LABS: Hypochromasia Present (Not Present); Platelet Estimate Marked Decrease (Normal)
[2020-01-15] MEDS ORDERED: Pantoprazole 40 MG VIAL IVP SCH (04:16)
[2020-01-15] MEDS: Budesonide/Formoterol 160/4.5 1 PUFF INH IH SCH ×2 (07:47→19:56)
[2020-01-15] MEDS: Doxycycline 100 MG in 0.9 % Sodium Chloride Mini Bag 100 ML IVPB SCH ×2 (09:17→17:53)
[2020-01-15] MEDS: Furosemide 20 MG TABLET PO SCH ×2 (09:17→16:06)
[2020-01-15] MEDS: Dexamethasone 10 MG/ML VIAL IVP SCH (09:18)
[2020-01-15] MEDS: Ipratropium/Albuterol Neb 3 ML IH PRN (11:27)
[2020-01-15] MEDS: Cyanocobalamin (B-12) 1,000 MCG/ML VIAL SQ SCH (12:54)
[2020-01-15 13:38] LABS: Immature Reticulocyte % 23.8 % (11.0-38.0); Retculocyte # 0.08 M/mcL (0.05-0.10); Reticulocyte % 3.1 % (1.6-2.8)
[2020-01-15 13:40] LABS: Basophils % 0.2 %; Hematocrit 23.6 % (37.5-50.1); Hemoglobin 7.6 g/dL (12.9-16.9); Immature Granulocytes % 0.9 % (0-4); Immature Platelets 1.7 % (1.1-6.1); Lymphocytes # 0.8 K/mcL (0.6-4.6); Lymphocytes % 14.7 %; Mean Corpuscular HGB Conc 32.2 g/dL (31.6-35.5); Mean Corpuscular Hemoglobin 28.4 pg (28.0-33.3); Mean Corpuscular Volume 88.1 fL (83.0-100.0); Mean Platelet Volume 11.3 fL (9.4-12.4); Monocytes # 0.1 K/mcL (0.0-1.3); Monocytes % 1.3 %; Neutrophils # 4.6 K/mcL (1.6-8.9); Red Blood Count 2.68 M/mcL (4.19-5.50); Red Cell Distribution Width 15.6 % (11.5-14.5); Segmented Neutrophils % 82.9 %; White Blood Count 5.6 K/mcL (4.3-11.1)
[2020-01-15 13:48] LABS: Fibrinogen 249 mg/dL (169-393)
[2020-01-15 13:50] LABS: D-Dimer 2262 ng/mLFEU (0-500)
[2020-01-15 13:53] LABS: Platelet Count 10 K/mcL (140-400)
[2020-01-15] MEDS ORDERED: 0.9 % Sodium Chloride 250 ML IVC SCH (14:15)
[2020-01-15 14:27] LABS: Hepatitis B Surface Antigen Nonreactive (Nonreactive)
[2020-01-15 14:56] LABS: Hepatitis B Core IgM Nonreactive (Nonreactive); Hepatitis C Virus Antibody Nonreactive (Nonreactive)
[2020-01-15 14:58] LABS: Hepatitis A Antibody IgM Nonreactive (Nonreactive)
[2020-01-15 15:27] LABS: Alanine Aminotransferase 14 Units/L (7-52); Albumin 2.9 g/dL (3.5-5.7); Albumin/Globulin Ratio 0.7 (1.1-2.2); Alkaline Phosphatase 67 Units/L (34-104); Aspartate Amino Transferase 27 Units/L (13-39); BUN/Creatinine Ratio 41 (6-26); Bilirubin,Total 0.5 mg/dL (0.3-1.0); Blood Urea Nitrogen 45 mg/dL (8-23); Calcium 9.6 mg/dL (8.6-10.3); Carbon Dioxide 25 mEq/L (23-29); Globulin 4.1 g/dL (2.4-3.5); Glucose 151 mg/dL (70-105); eGFR For African Americans > 60 (> 60); eGFR For Non-African Americans > 60 (> 60)
[2020-01-15 15:45] LABS: Anisocytosis 1+ (Not Present)
[2020-01-15 15:46] LABS: Hypochromasia Present (Not Present); Microcytosis Present (Not Present); Platelet Estimate Marked Decrease (Normal)
[2020-01-15 15:54] LABS: % Iron Saturation 35 % (20-55); Iron 90 mcg/dL (65-175); Transferrin 185 mg/dL (203-362)
[2020-01-15] MEDS: *HR* OxyCODONE Immed Rel 15 MG TABLET PO PRN ×2 (16:06→22:49)
[2020-01-15 17:08] LABS: Chloride 102 mEq/L (98-107); Osmolality,Calculated 298 (280-300); Potassium 4.2 mEq/L (3.5-5.1); Sodium 137 mEq/L (136-145)
[2020-01-15] MEDS ORDERED: MetroNIDAZOLE 500 MG/100 ML 500 MG/100 ML BAG IVPB SCH (18:02)
[2020-01-15 21:48] LABS: Basophils % 0.1 %; Hematocrit 20.7 % (37.5-50.1); Hemoglobin 6.6 g/dL (12.9-16.9); Immature Granulocytes % 1.2 % (0-4); Lymphocytes % 14.6 %; Mean Corpuscular HGB Conc 31.9 g/dL (31.6-35.5); Mean Corpuscular Volume 87.7 fL (83.0-100.0); Mean Platelet Volume 10.2 fL (9.4-12.4); Monocytes # 0.2 K/mcL (0.0-1.3); Monocytes % 2.7 %; Neutrophils # 5.5 K/mcL (1.6-8.9); Red Blood Count 2.36 M/mcL (4.19-5.50); Red Cell Distribution Width 15.7 % (11.5-14.5); Segmented Neutrophils % 81.4 %; White Blood Count 6.7 K/mcL (4.3-11.1)
[2020-01-15 21:50] LABS: Platelet Count 23 K/mcL (140-400)
[2020-01-15 22:16] LABS: Platelet Estimate Marked Decrease (Normal)
[2020-01-16] MEDS: Doxycycline 100 MG in 0.9 % Sodium Chloride Mini Bag 100 ML IVPB SCH ×2 (06:05→17:32)
[2020-01-16] MEDS: Pantoprazole 40 MG VIAL IVP SCH (08:20)
[2020-01-16] MEDS: Dexamethasone 10 MG/ML VIAL IVP SCH (08:21)
[2020-01-16] MEDS: Cyanocobalamin (B-12) 1,000 MCG/ML VIAL SQ SCH (08:21)
[2020-01-16] MEDS: Furosemide 20 MG TABLET PO SCH ×2 (08:22→16:27)
[2020-01-16] MEDS ORDERED: 0.9 % Sodium Chloride 250 ML IVC SCH (08:30)
[2020-01-16 10:19] LABS: Hematocrit 23.4 % (37.5-50.1); Hemoglobin 7.3 g/dL (12.9-16.9); Mean Corpuscular HGB Conc 31.2 g/dL (31.6-35.5)
[2020-01-16 10:21] LABS: Immature Platelets 2.7 % (1.1-6.1); Mean Corpuscular Hemoglobin 27.7 pg (28.0-33.3); Mean Corpuscular Volume 88.6 fL (83.0-100.0); Mean Platelet Volume 10.7 fL (9.4-12.4); Red Blood Count 2.64 M/mcL (4.19-5.50); Red Cell Distribution Width 15.9 % (11.5-14.5); White Blood Count 11.6 K/mcL (4.3-11.1)
[2020-01-16] MEDS: Budesonide/Formoterol 160/4.5 1 PUFF INH IH SCH ×2 (10:28→20:34)
[2020-01-16 10:37] LABS: Platelet Count 12 K/mcL (140-400)
[2020-01-16 10:53] LABS: Magnesium 1.7 mg/dL (1.6-2.6); Phosphorous 3.5 mg/dL (2.7-4.5)
[2020-01-16 10:54] LABS: BUN/Creatinine Ratio 42 (6-26); Blood Urea Nitrogen 45 mg/dL (8-23); Calcium 9.7 mg/dL (8.6-10.3); Carbon Dioxide 26 mEq/L (23-29); Chloride 99 mEq/L (98-107); Glucose 154 mg/dL (70-105); Osmolality,Calculated 295 (280-300); Sodium 135 mEq/L (136-145); eGFR For African Americans > 60 (> 60); eGFR For Non-African Americans > 60 (> 60)
[2020-01-16 11:24] LABS: Lymphocytes # 1.9 K/mcL (0.6-4.6); Monocytes # 0.2 K/mcL (0.0-1.3); Neutrophils # 9.5 K/mcL (1.6-8.9); Platelet Estimate Marked Decrease (Normal); Reactive Lymphocytes Present (Not Present)
[2020-01-16] MEDS ORDERED: 0.9 % Sodium Chloride 500 ML ONE (13:55)
[2020-01-16] MEDS ORDERED: *HR* FentaNYL (PF) 100 MCG/2 ML VIAL IVP ONE (14:49)
[2020-01-16] MEDS ORDERED: *HR* FentaNYL (PF) 100 MCG/2 ML VIAL ONE (14:53)
[2020-01-16] MEDS: *HR* OxyCODONE Immed Rel 15 MG TABLET PO PRN (17:35)
[2020-01-16 18:43] LABS: Basophils % 0.1 %
[2020-01-16 18:45] LABS: Hematocrit 25.6 % (37.5-50.1); Immature Granulocytes % 2.5 % (0-4); Immature Platelets 4.8 % (1.1-6.1); Lymphocytes # 0.9 K/mcL (0.6-4.6); Lymphocytes % 9.2 %; Mean Corpuscular HGB Conc 31.3 g/dL (31.6-35.5); Mean Corpuscular Hemoglobin 27.9 pg (28.0-33.3); Mean Corpuscular Volume 89.2 fL (83.0-100.0); Mean Platelet Volume 10.2 fL (9.4-12.4); Monocytes # 0.1 K/mcL (0.0-1.3); Neutrophils # 8.7 K/mcL (1.6-8.9); Red Blood Count 2.87 M/mcL (4.19-5.50); Red Cell Distribution Width 15.7 % (11.5-14.5); Segmented Neutrophils % 87.2 %
[2020-01-16 18:52] LABS: Platelet Count 7 K/mcL (140-400)
[2020-01-16 19:21] LABS: Platelet Estimate Marked Decrease (Normal); Reactive Lymphocytes Present (Not Present)
[2020-01-16] MEDS ORDERED: 0.9 % Sodium Chloride 250 ML ONE (21:26)
[2020-01-16] MEDS ORDERED: *HR* Promethazine 25 MG/ML VIAL IVP ONE (22:45)
[2020-01-17 01:32] LABS: Bilirubin,Urine Negative (Negative); Blood,Urine Negative (Negative); Clarity,Urine Clear (Clear); Color,Urine Yellow (Yellow); Glucose,Urine (UA) Normal (Normal); Ketones,Urine Negative (Negative); Leukocyte Esterase,Urine Negative (Negative); Nitrite,Urine Negative (Negative); PH,Urine 6.5 pH Units (5.0-8.0); Protein,Urine Negative (Neg-Trace); Specific Gravity,Urine 1.019 (1.010-1.025); Urobilinogen,Urine Normal (Normal)
[2020-01-17] MEDS: Doxycycline 100 MG in 0.9 % Sodium Chloride Mini Bag 100 ML IVPB SCH (05:52)
[2020-01-17 06:08] LABS: Hematocrit 25.4 % (37.5-50.1); Hemoglobin 8.3 g/dL (12.9-16.9); Mean Corpuscular HGB Conc 32.7 g/dL (31.6-35.5); Red Cell Distribution Width 15.9 % (11.5-14.5)
[2020-01-17 06:10] LABS: Basophils % 0.2 %; Immature Granulocytes % 1.6 % (0-4); Immature Platelets 1.7 % (1.1-6.1); Lymphocytes # 1.3 K/mcL (0.6-4.6); Lymphocytes % 9.8 %; Mean Corpuscular Hemoglobin 29.3 pg (28.0-33.3); Mean Corpuscular Volume 89.8 fL (83.0-100.0); Mean Platelet Volume 10.8 fL (9.4-12.4); Monocytes # 0.4 K/mcL (0.0-1.3); Monocytes % 3.3 %; Red Blood Count 2.83 M/mcL (4.19-5.50); Segmented Neutrophils % 85.1 %; White Blood Count 12.9 K/mcL (4.3-11.1)
[2020-01-17 06:11] LABS: Platelet Count 31 K/mcL (140-400)
[2020-01-17 06:28] LABS: Platelet Estimate Marked Decrease (Normal)
[2020-01-17 06:36] LABS: Magnesium 1.9 mg/dL (1.6-2.6); Phosphorous 3.7 mg/dL (2.7-4.5)
[2020-01-17] MEDS: Budesonide/Formoterol 160/4.5 1 PUFF INH IH SCH ×2 (08:01→20:20)
[2020-01-17] MEDS: Cyanocobalamin (B-12) 1,000 MCG/ML VIAL SQ SCH (08:15)
[2020-01-17] MEDS: Pantoprazole 40 MG VIAL IVP SCH (08:15)
[2020-01-17] MEDS: Dexamethasone 10 MG/ML VIAL IVP SCH (08:15)
[2020-01-17] MEDS: Furosemide 20 MG TABLET PO SCH ×2 (08:16→15:53)
[2020-01-17] MEDS ORDERED: IVIG (wt based) Privigen 5 GM/50 ML INFUS..BTL IVC ONE (14:49)
[2020-01-17] MEDS ORDERED: Immune Glob, Gamma (Privigen) 40 GM/400 ML INFUS..BTL IVC ONE ×2 (15:15)
[2020-01-17] MEDS: Doxycycline 100 MG CAPSULE PO SCH (19:35)
[2020-01-17] MEDS: *HR* OxyCODONE Immed Rel 15 MG TABLET PO PRN (19:37)
[2020-01-17] MEDS: Ipratropium/Albuterol Neb 3 ML IH PRN (20:20)
[2020-01-18 02:49] LABS: Basophils % 0.1 %; Monocytes % 6.3 %
[2020-01-18 02:51] LABS: Hematocrit 26.2 % (37.5-50.1); Hemoglobin 8.4 g/dL (12.9-16.9); Immature Granulocytes % 2.1 % (0-4); Immature Platelets 12.8 % (1.1-6.1); Lymphocytes # 0.8 K/mcL (0.6-4.6); Lymphocytes % 7.1 %; Mean Corpuscular HGB Conc 32.1 g/dL (31.6-35.5); Mean Corpuscular Hemoglobin 28.6 pg (28.0-33.3); Mean Corpuscular Volume 89.1 fL (83.0-100.0); Mean Platelet Volume 11.4 fL (9.4-12.4); Monocytes # 0.8 K/mcL (0.0-1.3); Red Blood Count 2.94 M/mcL (4.19-5.50); Red Cell Distribution Width 16.1 % (11.5-14.5); Segmented Neutrophils % 84.4 %; White Blood Count 11.9 K/mcL (4.3-11.1)
[2020-01-18 03:03] LABS: BUN/Creatinine Ratio 41 (6-26); Blood Urea Nitrogen 44 mg/dL (8-23); Calcium 9.1 mg/dL (8.6-10.3); Carbon Dioxide 28 mEq/L (23-29); Chloride 100 mEq/L (98-107); Glucose 138 mg/dL (70-105); Magnesium 1.7 mg/dL (1.6-2.6); Osmolality,Calculated 289 (280-300); Phosphorous 2.9 mg/dL (2.7-4.5); Potassium 3.5 mEq/L (3.5-5.1); Sodium 133 mEq/L (136-145); eGFR For African Americans > 60 (> 60); eGFR For Non-African Americans > 60 (> 60)
[2020-01-18 03:20] LABS: Platelet Count 22 K/mcL (140-400)
[2020-01-18 03:36] LABS: Platelet Estimate Marked Decrease (Normal); Polychromasia 1+ (Not Present)
[2020-01-18] MEDS: Budesonide/Formoterol 160/4.5 1 PUFF INH IH SCH ×2 (07:33→20:21)
[2020-01-18] MEDS: Pantoprazole 40 MG VIAL IVP SCH (07:57)
[2020-01-18] MEDS: Furosemide 20 MG TABLET PO SCH ×2 (07:57→15:50)
[2020-01-18] MEDS: Doxycycline 100 MG CAPSULE PO SCH ×2 (07:57→19:59)
[2020-01-18] MEDS: Cyanocobalamin (B-12) 1,000 MCG/ML VIAL SQ SCH (07:57)
[2020-01-18 10:16] LABS: ANA IgG by ELISA NONE DETECTED (None Detected)
[2020-01-18] MEDS: *HR* OxyCODONE Immed Rel 15 MG TABLET PO PRN (20:07)
[2020-01-19 02:59] LABS: Basophils % 0.2 %; Eosinophils % 0.3 %; Hematocrit 30.5 % (37.5-50.1); Hemoglobin 9.7 g/dL (12.9-16.9); Immature Granulocytes % 2.3 % (0-4); Immature Platelets 16.1 % (1.1-6.1); Lymphocytes # 1.6 K/mcL (0.6-4.6); Mean Corpuscular HGB Conc 31.8 g/dL (31.6-35.5); Mean Corpuscular Hemoglobin 28.5 pg (28.0-33.3); Mean Corpuscular Volume 89.7 fL (83.0-100.0); Mean Platelet Volume 10.7 fL (9.4-12.4); Monocytes % 10.1 %; Red Cell Distribution Width 16.4 % (11.5-14.5); Segmented Neutrophils % 71.1 %; White Blood Count 10.1 K/mcL (4.3-11.1)
[2020-01-19 03:09] LABS: Neutrophils # 7.2 K/mcL (1.6-8.9); Platelet Count 11 K/mcL (140-400)
[2020-01-19 03:20] LABS: BUN/Creatinine Ratio 40 (6-26); Blood Urea Nitrogen 39 mg/dL (8-23); Calcium 9.3 mg/dL (8.6-10.3); Carbon Dioxide 30 mEq/L (23-29); Chloride 100 mEq/L (98-107); Glucose 95 mg/dL (70-105); Magnesium 1.6 mg/dL (1.6-2.6); Osmolality,Calculated 287 (280-300); Phosphorous 2.4 mg/dL (2.7-4.5); Potassium 3.7 mEq/L (3.5-5.1); Sodium 134 mEq/L (136-145); eGFR For African Americans > 60 (> 60); eGFR For Non-African Americans > 60 (> 60)
[2020-01-19 03:38] LABS: Platelet Estimate Marked Decrease (Normal); Reactive Lymphocytes Present (Not Present)
[2020-01-19] MEDS ORDERED: IVIG (wt based) Privigen 5 GM/50 ML INFUS..BTL IVC ONE (07:47)
[2020-01-19] MEDS: Furosemide 20 MG TABLET PO SCH ×2 (07:48→20:06)
[2020-01-19] MEDS: Cyanocobalamin (B-12) 1,000 MCG/ML VIAL SQ SCH (07:48)
[2020-01-19] MEDS: Doxycycline 100 MG CAPSULE PO SCH (07:48)
[2020-01-19] MEDS ORDERED: Immune Glob, Gamma (Privigen) 40 GM/400 ML INFUS..BTL IVC ONE ×3 (08:00→21:00)
[2020-01-19] MEDS: Budesonide/Formoterol 160/4.5 1 PUFF INH IH SCH ×2 (10:43→21:52)
[2020-01-19] MEDS: predniSONE 20 MG TABLET PO SCH (11:51)
[2020-01-19] MEDS: *HR* OxyCODONE Immed Rel 15 MG TABLET PO PRN (14:25)
[2020-01-19] MEDS ORDERED: *HR* LORazepam 2 MG/ML VIAL IVP ONE (15:12)
[2020-01-20 05:36] LABS: Basophils % 0.1 %
[2020-01-20 05:38] LABS: Eosinophils % 0.1 %; Immature Granulocytes % 1.4 % (0-4); Immature Platelets 18.6 % (1.1-6.1); Lymphocytes # 1.2 K/mcL (0.6-4.6); Lymphocytes % 12.2 %; Mean Corpuscular Volume 90.3 fL (83.0-100.0); Mean Platelet Volume 12.7 fL (9.4-12.4); Monocytes % 10.4 %; Neutrophils # 7.3 K/mcL (1.6-8.9); Red Blood Count 3.21 M/mcL (4.19-5.50); Red Cell Distribution Width 16.5 % (11.5-14.5); Segmented Neutrophils % 75.8 %; White Blood Count 9.6 K/mcL (4.3-11.1)
[2020-01-20 05:50] LABS: Magnesium 1.6 mg/dL (1.6-2.6); Phosphorous 2.6 mg/dL (2.7-4.5)
[2020-01-20 05:53] LABS: Platelet Count 32 K/mcL (140-400)
[2020-01-20] MEDS: Furosemide 20 MG TABLET PO SCH (08:02)
[2020-01-20] MEDS: predniSONE 20 MG TABLET PO SCH (08:04)
[2020-01-20] MEDS: Budesonide/Formoterol 160/4.5 1 PUFF INH IH SCH (09:38)
[2020-01-20 15:34] VITALS: BP 117/69
== END 2020-01-20 16:29 | disposition home health service (06) | DRG 813 ==
LOC: EMEROOARM 13:48 → 2NNU 13:48 → SUATTDRO 01-15 08:32 → 2ANU 01-16 13:50
PROVIDERS: ADMIT Pharmacist; ATTEND Internal Medicine

== ENCOUNTER 2020-04-22 09:00 | Inpatient (IN) ==
[2020-04-22 09:45] LABS: Basophils # 0.1 K/mcL (0.0-0.2); Basophils % 0.5 %; Eosinophils # 0.5 K/mcL (0.0-0.6); Eosinophils % 3.6 %; Hematocrit 39.6 % (37.5-50.1); Hemoglobin 12.5 g/dL (12.9-16.9); Immature Granulocytes % 1.6 % (0-4); Lymphocytes # 2.1 K/mcL (0.6-4.6); Mean Corpuscular HGB Conc 31.6 g/dL (31.6-35.5); Mean Corpuscular Volume 88.6 fL (83.0-100.0); Monocytes # 3.1 K/mcL (0.0-1.3); Red Blood Count 4.47 M/mcL (4.19-5.50); Red Cell Distribution Width 14.3 % (11.5-14.5); Segmented Neutrophils % 54.3 %; White Blood Count 12.9 K/mcL (4.3-11.1)
[2020-04-22 09:50] LABS: Platelet Count 16 K/mcL (140-400)
[2020-04-22 09:51] LABS: INR 1.1
[2020-04-22 10:04] LABS: Alanine Aminotransferase 19 Units/L (7-52); Albumin 3.1 g/dL (3.5-5.7); Albumin/Globulin Ratio 0.7 (1.1-2.2); Alkaline Phosphatase 106 Units/L (34-104); Aspartate Amino Transferase 25 Units/L (13-39); BUN/Creatinine Ratio 23 (6-26); Bilirubin,Total 0.4 mg/dL (0.3-1.0); Blood Urea Nitrogen 30 mg/dL (8-23); Calcium 9.4 mg/dL (8.6-10.3); Carbon Dioxide 30 mEq/L (23-29); Chloride 101 mEq/L (98-107); Globulin 4.5 g/dL (2.4-3.5); Glucose 96 mg/dL (70-105); Osmolality,Calculated 288 (280-300); Potassium 4.1 mEq/L (3.5-5.1); Sodium 136 mEq/L (136-145); Total Protein 7.6 g/dL (6.4-8.9); eGFR For African Americans > 60 (> 60); eGFR For Non-African Americans 53 (> 60)
[2020-04-22 10:29] LABS: Reactive Lymphocytes Present (Not Present)
[2020-04-22] MEDS ORDERED: levoFLOXacin 750 MG/150 ML 750 MG/150 ML BAG IVPB STA (10:42)
[2020-04-22] MEDS ORDERED: methylPREDNISolone 125 MG/2 ML VIAL IVP STA (11:15)
[2020-04-22] MEDS ORDERED: Ondansetron 4 MG/2 ML VIAL IVP PRN (13:11)
[2020-04-22] MEDS ORDERED: Acetaminophen 325 MG TABLET PO PRN (13:11)
[2020-04-22] MEDS: cefTRIAXone 1,000 MG in Water for inj. (sterile) 10 ML IVP SCH (13:32)
[2020-04-22] MEDS ORDERED: Ipratropium/Albuterol Neb 3 ML IH PRN (14:28)
[2020-04-22] MEDS ORDERED: IVIG (wt based) Privigen 5 GM/50 ML INFUS..BTL IVC ONE (14:56)
[2020-04-22] MEDS ORDERED: Immune Glob, Gamma (Gammagard) 20 GM/200 ML INFUS..BTL IVC ONE ×4 (15:15)
[2020-04-22] MEDS ORDERED: Furosemide 20 MG/2 ML VIAL IVP ONE (16:00)
[2020-04-22] MEDS: *HR* OxyCODONE Immed Rel 15 MG TABLET PO PRN ×2 (16:16→23:07)
[2020-04-22] MEDS: Furosemide 20 MG TABLET PO SCH (16:41)
[2020-04-22 20:22] LABS: Bilirubin,Urine Negative (Negative); Blood,Urine Negative (Negative); Clarity,Urine Clear (Clear); Color,Urine Yellow (Yellow); Glucose,Urine (UA) Normal (Normal); Ketones,Urine Negative (Negative); Leukocyte Esterase,Urine Negative (Negative); Nitrite,Urine Negative (Negative); Protein,Urine Negative (Neg-Trace); Specific Gravity,Urine 1.014 (1.010-1.025); Urobilinogen,Urine Normal (Normal)
[2020-04-22] MEDS: Budesonide/Formoterol 160/4.5 1 PUFF INH IH SCH (20:59)
[2020-04-22 23:17] LABS: Magnesium 1.5 mg/dL (1.6-2.6); Potassium 4.7 mEq/L (3.5-5.1)
[2020-04-23 01:07] LABS: Red Cell Distribution Width 14.3 % (11.5-14.5)
[2020-04-23 01:09] LABS: Hematocrit 34.9 % (37.5-50.1); Hemoglobin 10.7 g/dL (12.9-16.9); Immature Platelets 18.7 % (1.1-6.1); Mean Corpuscular HGB Conc 30.7 g/dL (31.6-35.5); Mean Corpuscular Hemoglobin 27.6 pg (28.0-33.3); Mean Corpuscular Volume 89.9 fL (83.0-100.0); Red Blood Count 3.88 M/mcL (4.19-5.50)
[2020-04-23 01:27] LABS: Calcium 9.6 mg/dL (8.6-10.3); Magnesium 1.5 mg/dL (1.6-2.6); Potassium 4.5 mEq/L (3.5-5.1)
[2020-04-23 01:31] LABS: % Iron Saturation 30 % (20-55); Iron 74 mcg/dL (65-175); Transferrin 178 mg/dL (203-362)
[2020-04-23 01:48] LABS: Ferritin 97 ng/mL (20-250)
[2020-04-23 01:53] LABS: Folate 14.6 ng/mL (3.0-16.0)
[2020-04-23] MEDS: Aspirin Enteric Coated 81 MG Tablet PO SCH (08:18)
[2020-04-23] MEDS: cefTRIAXone 1,000 MG in Water for inj. (sterile) 10 ML IVP SCH (08:20)
[2020-04-23] MEDS: Budesonide/Formoterol 160/4.5 1 PUFF INH IH SCH ×2 (09:38→22:34)
[2020-04-23 10:34] LABS: Adenovirus Not Detected (Not Detect); Bordetella Pertussis Not Detected (Not Detect); Chlamydophila pneumoniae Not Detected (Not Detect); Coronavirus 229E Not Detected (Not Detect); Coronavirus HKU1 Not Detected (Not Detect); Coronavirus NL63 Not Detected (Not Detect); Coronavirus OC43 Not Detected (Not Detect); Human Metapneumovirus Not Detected (Not Detect); Human Rhinovirus/Enterovirus Not Detected (Not Detect); Influenza A Subtype 2009 H1 Not Detected (Not Detect); Influenza B Not Detected (Not Detect); Mycoplasma pneumoniae Not Detected (Not Detect); Parainfluenza Virus 1 Not Detected (Not Detect); Parainfluenza Virus 2 Not Detected (Not Detect); Parainfluenza Virus 3 Not Detected (Not Detect); Parainfluenza Virus 4 Not Detected (Not Detect); Respiratory Syncytial Virus Not Detected (Not Detect)
[2020-04-23] MEDS ORDERED: IVIG (wt based) Privigen 5 GM/50 ML INFUS..BTL IVC ONE (13:31)
[2020-04-23] MEDS: *HR* OxyCODONE Immed Rel 15 MG TABLET PO PRN (14:20)
[2020-04-23] MEDS ORDERED: Immune Glob, Gamma (Gammagard) 20 GM/200 ML INFUS..BTL IVC ONE ×4 (14:30)
[2020-04-23] MEDS: dexAMETHasone 4 MG TABLET PO SCH (15:13)
[2020-04-24 06:31] LABS: Hemoglobin 10.6 g/dL (12.9-16.9)
[2020-04-24 06:33] LABS: Hematocrit 33.9 % (37.5-50.1); Immature Platelets 28.1 % (1.1-6.1); Mean Corpuscular HGB Conc 31.3 g/dL (31.6-35.5); Mean Corpuscular Hemoglobin 27.3 pg (28.0-33.3); Mean Corpuscular Volume 87.4 fL (83.0-100.0); Red Blood Count 3.88 M/mcL (4.19-5.50); Red Cell Distribution Width 14.3 % (11.5-14.5); White Blood Count 9.3 K/mcL (4.3-11.1)
[2020-04-24 06:38] LABS: Platelet Count 26 K/mcL (140-400)
[2020-04-24 06:57] LABS: BUN/Creatinine Ratio 39 (6-26); Blood Urea Nitrogen 48 mg/dL (8-23); Calcium 9.6 mg/dL (8.6-10.3); Carbon Dioxide 27 mEq/L (23-29); Chloride 100 mEq/L (98-107); Glucose 153 mg/dL (70-105); Osmolality,Calculated 288 (280-300); Potassium 4.3 mEq/L (3.5-5.1); Sodium 131 mEq/L (136-145); eGFR For African Americans > 60 (> 60); eGFR For Non-African Americans 57 (> 60)
[2020-04-24] MEDS: *HR* OxyCODONE Immed Rel 15 MG TABLET PO PRN ×2 (09:11→15:17)
[2020-04-24] MEDS: Cyanocobalamin (B-12) 1,000 MCG TABLET PO SCH (09:12)
[2020-04-24] MEDS: dexAMETHasone 4 MG TABLET PO SCH (09:13)
[2020-04-24] MEDS: Aspirin Enteric Coated 81 MG Tablet PO SCH (09:13)
[2020-04-24] MEDS: cefTRIAXone 1,000 MG in Water for inj. (sterile) 10 ML IVP SCH (09:14)
[2020-04-24] MEDS: Budesonide/Formoterol 160/4.5 1 PUFF INH IH SCH ×2 (10:10→20:17)
[2020-04-25 07:37] LABS: Hemoglobin 10.7 g/dL (12.9-16.9)
[2020-04-25 07:39] LABS: Immature Platelets 28.4 % (1.1-6.1); Mean Corpuscular HGB Conc 31.5 g/dL (31.6-35.5); Mean Corpuscular Hemoglobin 27.4 pg (28.0-33.3); Mean Corpuscular Volume 87.2 fL (83.0-100.0); Red Cell Distribution Width 14.4 % (11.5-14.5); White Blood Count 11.1 K/mcL (4.3-11.1)
[2020-04-25 07:46] LABS: Platelet Count 15 K/mcL (140-400)
[2020-04-25 07:57] LABS: BUN/Creatinine Ratio 37 (6-26); Blood Urea Nitrogen 50 mg/dL (8-23); Calcium 9.3 mg/dL (8.6-10.3); Carbon Dioxide 27 mEq/L (23-29); Chloride 102 mEq/L (98-107); Glucose 130 mg/dL (70-105); Osmolality,Calculated 293 (280-300); Potassium 4.3 mEq/L (3.5-5.1); Sodium 134 mEq/L (136-145); eGFR For African Americans > 60 (> 60); eGFR For Non-African Americans 51 (> 60)
[2020-04-25] MEDS: Budesonide/Formoterol 160/4.5 1 PUFF INH IH SCH ×2 (07:57→20:18)
[2020-04-25] MEDS: cefTRIAXone 1,000 MG in Water for inj. (sterile) 10 ML IVP SCH (09:35)
[2020-04-25] MEDS: Aspirin Enteric Coated 81 MG Tablet PO SCH (09:35)
[2020-04-25] MEDS: dexAMETHasone 4 MG TABLET PO SCH (09:35)
[2020-04-25] MEDS: Furosemide 20 MG TABLET PO SCH (09:36)
[2020-04-25] MEDS: Cyanocobalamin (B-12) 1,000 MCG TABLET PO SCH (09:36)
[2020-04-25] MEDS: *HR* OxyCODONE Immed Rel 15 MG TABLET PO PRN ×2 (09:52→21:25)
[2020-04-25] MEDS ORDERED: Immune Glob, Gamma (Gammagard) 20 GM/200 ML INFUS..BTL IVC ONE ×4 (17:00→19:00)
[2020-04-26 06:16] LABS: Red Cell Distribution Width 14.3 % (11.5-14.5)
[2020-04-26] MEDS: *HR* OxyCODONE Immed Rel 15 MG TABLET PO PRN ×3 (06:17→18:54)
[2020-04-26 06:18] LABS: Hematocrit 35.8 % (37.5-50.1); Hemoglobin 11.1 g/dL (12.9-16.9); Immature Platelets 25.7 % (1.1-6.1); Mean Corpuscular Hemoglobin 27.3 pg (28.0-33.3); Red Blood Count 4.07 M/mcL (4.19-5.50); White Blood Count 10.5 K/mcL (4.3-11.1)
[2020-04-26 06:21] LABS: Platelet Count 23 K/mcL (140-400)
[2020-04-26 06:36] LABS: BUN/Creatinine Ratio 54 (6-26); Blood Urea Nitrogen 61 mg/dL (8-23); Calcium 9.6 mg/dL (8.6-10.3); Carbon Dioxide 27 mEq/L (23-29); Chloride 101 mEq/L (98-107); Glucose 115 mg/dL (70-105); Osmolality,Calculated 288 (280-300); Potassium 4.1 mEq/L (3.5-5.1); Sodium 130 mEq/L (136-145); eGFR For African Americans > 60 (> 60); eGFR For Non-African Americans > 60 (> 60)
[2020-04-26] MEDS: Budesonide/Formoterol 160/4.5 1 PUFF INH IH SCH ×2 (08:04→20:42)
[2020-04-26] MEDS: cefTRIAXone 1,000 MG in Water for inj. (sterile) 10 ML IVP SCH (08:43)
[2020-04-26] MEDS: dexAMETHasone 4 MG TABLET PO SCH (08:43)
[2020-04-26] MEDS: Cyanocobalamin (B-12) 1,000 MCG TABLET PO SCH (08:43)
[2020-04-26] MEDS: Aspirin Enteric Coated 81 MG Tablet PO SCH (08:43)
[2020-04-26] MEDS: Furosemide 20 MG TABLET PO SCH ×2 (12:54→18:15)
[2020-04-27 06:35] VITALS: BP 136/77
[2020-04-27] MEDS: Budesonide/Formoterol 160/4.5 1 PUFF INH IH SCH (07:41)
[2020-04-27] MEDS: Cyanocobalamin (B-12) 1,000 MCG TABLET PO SCH (07:56)
[2020-04-27] MEDS: Aspirin Enteric Coated 81 MG Tablet PO SCH (07:56)
[2020-04-27] MEDS: Furosemide 20 MG TABLET PO SCH (07:56)
[2020-04-27] MEDS: cefTRIAXone 1,000 MG in Water for inj. (sterile) 10 ML IVP SCH (07:57)
[2020-04-27] MEDS: *HR* OxyCODONE Immed Rel 15 MG TABLET PO PRN (07:57)
[2020-04-27 08:50] LABS: Hematocrit 37.4 % (37.5-50.1); Hemoglobin 11.8 g/dL (12.9-16.9); Mean Corpuscular HGB Conc 31.6 g/dL (31.6-35.5); Mean Corpuscular Hemoglobin 27.5 pg (28.0-33.3); Mean Corpuscular Volume 87.2 fL (83.0-100.0); Red Blood Count 4.29 M/mcL (4.19-5.50); Red Cell Distribution Width 14.2 % (11.5-14.5); White Blood Count 8.5 K/mcL (4.3-11.1)
[2020-04-27 08:53] LABS: Platelet Count 27 K/mcL (140-400)
[2020-04-27 09:11] LABS: BUN/Creatinine Ratio 51 (6-26); Blood Urea Nitrogen 53 mg/dL (8-23); Calcium 9.4 mg/dL (8.6-10.3); Carbon Dioxide 29 mEq/L (23-29); Chloride 102 mEq/L (98-107); Glucose 114 mg/dL (70-105); Osmolality,Calculated 293 (280-300); Potassium 4.1 mEq/L (3.5-5.1); Sodium 134 mEq/L (136-145); eGFR For African Americans > 60 (> 60); eGFR For Non-African Americans > 60 (> 60)
== END 2020-04-27 12:18 | disposition home or self-care (01) | DRG 871 ==
LOC: EMEROOARM 09:00 → 3ANU 09:00 → SUATTDRO 11:47 → 3ANU 11:52
PROVIDERS: ADMIT Internal Medicine; ATTEND Internal Medicine

== ENCOUNTER 2020-05-12 09:13 | Inpatient (IN) ==
[2020-05-12] MEDS: DilTIAZem 50 MG/50 ML IV.SOLN IVC SCH ×2 (09:57→19:23)
[2020-05-12 10:03] LABS: Prothrombin Time 10.9 Seconds (9.4-12.1)
[2020-05-12 10:06] LABS: Activated Partial Thrombo Time 31.5 Seconds (26.0-36.0)
[2020-05-12 10:22] LABS: Hematocrit 39.1 % (37.5-50.1); Hemoglobin 12.1 g/dL (12.9-16.9); Immature Platelets 8.6 % (1.1-6.1); Mean Corpuscular HGB Conc 30.9 g/dL (31.6-35.5); Mean Corpuscular Hemoglobin 27.6 pg (28.0-33.3); Mean Corpuscular Volume 89.3 fL (83.0-100.0); Mean Platelet Volume 12.4 fL (9.4-12.4); Platelet Count 136 K/mcL (140-400); Red Blood Count 4.38 M/mcL (4.19-5.50)
[2020-05-12 10:26] LABS: Albumin 3.2 g/dL (3.5-5.7); Albumin/Globulin Ratio 0.7 (1.1-2.2); Bilirubin,Direct 0.1 mg/dL (0.0-0.2); Bilirubin,Indirect 0.3 mg/dL (0.0-1.0); Bilirubin,Total 0.4 mg/dL (0.3-1.0); Calcium 9.7 mg/dL (8.6-10.3); Globulin 4.9 g/dL (2.4-3.5); Magnesium 1.6 mg/dL (1.6-2.6); Potassium 4.5 mEq/L (3.5-5.1); Total Protein 8.1 g/dL (6.4-8.9); Troponin I 0.15 ng/mL (< 0.04)
[2020-05-12 10:49] LABS: Lymphocytes # 2.6 K/mcL (0.6-4.6); Monocytes # 0.7 K/mcL (0.0-1.3); Neutrophils # 8.4 K/mcL (1.6-8.9); Platelet Estimate Normal (Normal); Reactive Lymphocytes Present (Not Present)
[2020-05-12 11:23] LABS: Bilirubin,Urine Negative (Negative); Blood,Urine Negative (Negative); Clarity,Urine Clear (Clear); Color,Urine Yellow (Yellow); Glucose,Urine (UA) Normal (Normal); Ketones,Urine Negative (Negative); Leukocyte Esterase,Urine Negative (Negative); Nitrite,Urine Negative (Negative); Protein,Urine Negative (Neg-Trace); Specific Gravity,Urine 1.025 (1.010-1.025); Urobilinogen,Urine Normal (Normal)
[2020-05-12] MEDS ORDERED: Aspirin 81 MG TAB.CHEW PO STA (11:34)
[2020-05-12 12:43] LABS: Thyroid Stimulating Hormone 1.893 mcIU/mL (0.340-5.600)
[2020-05-12] MEDS ORDERED: Ringers Solution, Lactated 1,000 ML IVC SCH (13:30)
[2020-05-12] MEDS ORDERED: Naloxone 0.4 MG/ML INJ IVP PRN (13:30)
[2020-05-12] MEDS ORDERED: Ondansetron 4 MG/2 ML VIAL IVP PRN (13:30)
[2020-05-12] MEDS ORDERED: 0.9 % Sodium Chloride 500 ML IVC ONE (13:42)
[2020-05-12] MEDS ORDERED: IVABRADINE HCL 7.5 MG TABLET PO SCH (14:00)
[2020-05-12] MEDS: Levalbuterol Neb 0.63 MG/3 ML IH SCH ×2 (16:02→22:15)
[2020-05-12] MEDS: MethylPREDNISolone 40 MG/ML VIAL IVP SCH (16:52)
[2020-05-12] MEDS: *HR* Heparin 5,000 UNIT/ML VIAL SQ SCH (16:53)
[2020-05-12] MEDS: Azithromycin 500 MG in 0.9 % Sodium Chloride 250 ML IVPB SCH (16:53)
[2020-05-12] MEDS: Furosemide 20 MG/2 ML VIAL IVP SCH ×2 (17:32→20:30)
[2020-05-12] MEDS ORDERED: Artificial Tears SOLN 15 ML BOTTLE BOTH EYES PRN (17:51)
[2020-05-12] MEDS ORDERED: *HR* OxyCODONE Immed Rel 15 MG TABLET PO ONE (17:54)
[2020-05-12] MEDS ORDERED: 0.9 % Sodium Chloride 250 ML IVC ONE (18:51)
[2020-05-12] MEDS: Budesonide/Formoterol 160/4.5 1 PUFF INH IH SCH (22:15)
[2020-05-13 01:28] LABS: Basophils # 0.1 K/mcL (0.0-0.2); Basophils % 0.9 %; Eosinophils # 0.1 K/mcL (0.0-0.6); Eosinophils % 0.6 %; Hematocrit 35.2 % (37.5-50.1); Immature Granulocytes % 0.8 % (0-4); Lymphocytes # 2.9 K/mcL (0.6-4.6); Lymphocytes % 31.9 %; Mean Corpuscular HGB Conc 31.3 g/dL (31.6-35.5); Mean Corpuscular Hemoglobin 27.9 pg (28.0-33.3); Mean Corpuscular Volume 89.3 fL (83.0-100.0); Mean Platelet Volume 12.1 fL (9.4-12.4); Platelet Count 138 K/mcL (140-400); Red Blood Count 3.94 M/mcL (4.19-5.50); Red Cell Distribution Width 15.9 % (11.5-14.5); Segmented Neutrophils % 54.8 %
[2020-05-13 01:38] LABS: Neutrophils # 4.9 K/mcL (1.6-8.9)
[2020-05-13 01:46] LABS: Platelet Estimate Normal (Normal)
[2020-05-13 01:47] LABS: BUN/Creatinine Ratio 35 (6-26); Blood Urea Nitrogen 48 mg/dL (8-23); Calcium 9.3 mg/dL (8.6-10.3); Carbon Dioxide 22 mEq/L (23-29); Chloride 101 mEq/L (98-107); Glucose 127 mg/dL (70-105); Magnesium 2.1 mg/dL (1.6-2.6); Osmolality,Calculated 294 (280-300); Potassium 4.5 mEq/L (3.5-5.1); Sodium 135 mEq/L (136-145); eGFR For African Americans > 60 (> 60); eGFR For Non-African Americans 50 (> 60)
[2020-05-13] MEDS: DilTIAZem 50 MG/50 ML IV.SOLN IVC SCH ×2 (02:16→12:00)
[2020-05-13] MEDS: Levalbuterol Neb 0.63 MG/3 ML IH SCH ×4 (03:47→22:13)
[2020-05-13] MEDS: *HR* Heparin 5,000 UNIT/ML VIAL SQ SCH ×2 (05:15→18:07)
[2020-05-13] MEDS: MethylPREDNISolone 40 MG/ML VIAL IVP SCH ×2 (05:16→18:07)
[2020-05-13] MEDS: Furosemide 20 MG/2 ML VIAL IVP SCH ×2 (08:27→20:42)
[2020-05-13] MEDS: Aspirin Enteric Coated 81 MG Tablet PO SCH (08:27)
[2020-05-13] MEDS: Cyanocobalamin (B-12) 1,000 MCG TABLET PO SCH (08:28)
[2020-05-13] MEDS: Budesonide/Formoterol 160/4.5 1 PUFF INH IH SCH ×2 (10:45→22:12)
[2020-05-13] MEDS: Azithromycin 500 MG in 0.9 % Sodium Chloride 250 ML IVPB SCH (15:29)
[2020-05-13 17:05] LABS: Prothrombin Time 10.9 Seconds (9.4-12.1)
[2020-05-13] MEDS ORDERED: *HR* Warfarin 2.5 MG TABLET PO ONE (18:00)
[2020-05-13] MEDS ORDERED: Warfarin perPT PO PRN (18:00)
[2020-05-14 01:06] LABS: Hematocrit 33.7 % (37.5-50.1); Hemoglobin 10.2 g/dL (12.9-16.9); Mean Corpuscular HGB Conc 30.3 g/dL (31.6-35.5); Mean Corpuscular Hemoglobin 27.4 pg (28.0-33.3); Mean Corpuscular Volume 90.6 fL (83.0-100.0); Mean Platelet Volume 12.4 fL (9.4-12.4); Platelet Count 131 K/mcL (140-400); Red Blood Count 3.72 M/mcL (4.19-5.50); Red Cell Distribution Width 15.9 % (11.5-14.5)
[2020-05-14 01:10] LABS: Prothrombin Time 11.1 Seconds (9.4-12.1)
[2020-05-14 01:26] LABS: Calcium 8.9 mg/dL (8.6-10.3)
[2020-05-14 01:52] LABS: Lymphocytes # 1.8 K/mcL (0.6-4.6); Neutrophils # 7.2 K/mcL (1.6-8.9); Platelet Estimate Normal (Normal); Reactive Lymphocytes Present (Not Present)
[2020-05-14] MEDS: Levalbuterol Neb 0.63 MG/3 ML IH SCH ×4 (04:06→22:38)
[2020-05-14] MEDS: MethylPREDNISolone 40 MG/ML VIAL IVP SCH ×2 (05:09→16:47)
[2020-05-14] MEDS: *HR* Heparin 5,000 UNIT/ML VIAL SQ SCH ×2 (05:09→16:47)
[2020-05-14] MEDS: Aspirin Enteric Coated 81 MG Tablet PO SCH (07:49)
[2020-05-14] MEDS: Cyanocobalamin (B-12) 1,000 MCG TABLET PO SCH (07:50)
[2020-05-14] MEDS ORDERED: *HR* FentaNYL (PF) 100 MCG/2 ML VIAL ONE (09:06)
[2020-05-14] MEDS ORDERED: *HR* Propofol 200 MG/20 ML VIAL IVP ONE (09:06)
[2020-05-14] MEDS ORDERED: Dexamethasone 4 MG/ML VIAL ONE (09:10)
[2020-05-14] MEDS ORDERED: Ondansetron 4 MG/2 ML VIAL ONE (09:10)
[2020-05-14] MEDS ORDERED: *HR* Succinylcholine 200 MG/10 ML VIAL IVP ONE (09:10)
[2020-05-14] MEDS ORDERED: Lidocaine -MPF 2% 2 ML VIAL ONE (09:10)
[2020-05-14] MEDS ORDERED: Ringers Solution, Lactated 1,000 ML IVC SCH (09:15)
[2020-05-14] MEDS ORDERED: *HR* PHENYLEPHRINE 1,000 MCG/10 ML SYRINGE IVP ONE (09:26)
[2020-05-14] MEDS ORDERED: Ipratropium/Albuterol Neb 3 ML ONE (09:56)
[2020-05-14 10:19] LABS: Source of Body Fluid left lower lung lobe
[2020-05-14] MEDS: Budesonide/Formoterol 160/4.5 1 PUFF INH IH SCH ×2 (11:40→22:37)
[2020-05-14 14:52] LABS: Appearance of Body Fluid Hazy (Clear); Volume of Body Fluid 16 mL
[2020-05-14 14:58] LABS: Appearance of Body Fluid Slightly Hazy (Clear); Volume of Body Fluid 17 mL
[2020-05-14 15:06] LABS: INR 0.9; Prothrombin Time 10.5 Seconds (9.4-12.1)
[2020-05-14] MEDS ORDERED: 0.9 % Sodium Chloride 1,000 ML IVC SCH (16:15)
[2020-05-14] MEDS: Azithromycin 500 MG in 0.9 % Sodium Chloride 250 ML IVPB SCH (16:48)
[2020-05-14] MEDS ORDERED: Warfarin perPT PO PRN (18:00)
[2020-05-14] MEDS ORDERED: *HR* Warfarin 5 MG TABLET PO ONE (19:41)
[2020-05-15 02:39] LABS: Basophils % 0.4 %; Hematocrit 32.6 % (37.5-50.1); Hemoglobin 10.4 g/dL (12.9-16.9); Immature Granulocytes % 0.4 % (0-4); Lymphocytes # 1.3 K/mcL (0.6-4.6); Lymphocytes % 15.4 %; Mean Corpuscular HGB Conc 31.9 g/dL (31.6-35.5); Mean Corpuscular Hemoglobin 28.5 pg (28.0-33.3); Mean Corpuscular Volume 89.3 fL (83.0-100.0); Mean Platelet Volume 12.1 fL (9.4-12.4); Monocytes # 1.4 K/mcL (0.0-1.3); Monocytes % 16.1 %; Neutrophils # 5.7 K/mcL (1.6-8.9); Platelet Count 119 K/mcL (140-400); Red Blood Count 3.65 M/mcL (4.19-5.50); Red Cell Distribution Width 15.9 % (11.5-14.5); Segmented Neutrophils % 67.7 %; White Blood Count 8.4 K/mcL (4.3-11.1)
[2020-05-15 02:59] LABS: Prothrombin Time 11.3 Seconds (9.4-12.1)
[2020-05-15 03:05] LABS: BUN/Creatinine Ratio 50 (6-26); Blood Urea Nitrogen 67 mg/dL (8-23); Calcium 8.9 mg/dL (8.6-10.3); Carbon Dioxide 22 mEq/L (23-29); Chloride 102 mEq/L (98-107); Glucose 143 mg/dL (70-105); Osmolality,Calculated 296 (280-300); Potassium 4.8 mEq/L (3.5-5.1); Sodium 132 mEq/L (136-145); eGFR For African Americans > 60 (> 60); eGFR For Non-African Americans 51 (> 60)
[2020-05-15 03:10] LABS: Platelet Estimate Normal (Normal); Reactive Lymphocytes Present (Not Present)
[2020-05-15] MEDS: Levalbuterol Neb 0.63 MG/3 ML IH SCH ×4 (03:26→21:51)
[2020-05-15] MEDS: *HR* Heparin 5,000 UNIT/ML VIAL SQ SCH ×2 (05:06→18:31)
[2020-05-15] MEDS: MethylPREDNISolone 40 MG/ML VIAL IVP SCH ×2 (05:06→18:31)
[2020-05-15] MEDS: Cyanocobalamin (B-12) 1,000 MCG TABLET PO SCH (08:09)
[2020-05-15] MEDS: Aspirin Enteric Coated 81 MG Tablet PO SCH (08:09)
[2020-05-15] MEDS ORDERED: Ringers Solution, Lactated 1,000 ML IVC SCH (09:15)
[2020-05-15] MEDS: Budesonide/Formoterol 160/4.5 1 PUFF INH IH SCH ×2 (09:59→21:51)
[2020-05-15] MEDS: *HR* OxyCODONE Immed Rel 15 MG TABLET PO PRN ×2 (10:43→18:32)
[2020-05-15] MEDS ORDERED: *HR* Digoxin 0.5 MG/2 ML AMPUL IVP SCH (12:00)
[2020-05-15] MEDS: DilTIAZem CD (24hr) 240 MG CAP.ER.24H PO SCH (12:40)
[2020-05-15] MEDS: Azithromycin 500 MG in 0.9 % Sodium Chloride 250 ML IVPB SCH (15:25)
[2020-05-15] MEDS ORDERED: Furosemide 20 MG TABLET PO SCH (18:00)
[2020-05-15] MEDS ORDERED: *HR* Warfarin 2.5 MG TABLET PO ONE (18:00)
[2020-05-16 02:18] LABS: Basophils % 0.2 %; Hematocrit 34.8 % (37.5-50.1); Hemoglobin 10.7 g/dL (12.9-16.9); Immature Granulocytes % 0.5 % (0-4); Lymphocytes % 14.9 %; Mean Corpuscular HGB Conc 30.7 g/dL (31.6-35.5); Mean Corpuscular Hemoglobin 27.7 pg (28.0-33.3); Mean Corpuscular Volume 90.2 fL (83.0-100.0); Mean Platelet Volume 12.6 fL (9.4-12.4); Monocytes # 0.6 K/mcL (0.0-1.3); Monocytes % 9.4 %; Neutrophils # 4.9 K/mcL (1.6-8.9); Platelet Count 141 K/mcL (140-400); Red Blood Count 3.86 M/mcL (4.19-5.50); White Blood Count 6.5 K/mcL (4.3-11.1)
[2020-05-16 02:25] LABS: INR 1.1; Prothrombin Time 12.3 Seconds (9.4-12.1)
[2020-05-16 02:37] LABS: Calcium 9.2 mg/dL (8.6-10.3); Magnesium 1.8 mg/dL (1.6-2.6)
[2020-05-16 02:49] LABS: Platelet Estimate Normal (Normal); Reactive Lymphocytes Present (Not Present)
[2020-05-16] MEDS: Levalbuterol Neb 0.63 MG/3 ML IH SCH ×4 (03:36→21:22)
[2020-05-16 04:55] LABS: Influenza A PCR Body Fluid NOT DETECTED; Influenza B PCR Body Fluid NOT DETECTED; RVP Body Fluid Source BAL
[2020-05-16 04:56] LABS: Influenza A PCR Body Fluid NOT DETECTED; Influenza B PCR Body Fluid NOT DETECTED
[2020-05-16] MEDS: MethylPREDNISolone 40 MG/ML VIAL IVP SCH ×2 (05:03→17:38)
[2020-05-16] MEDS: *HR* Heparin 5,000 UNIT/ML VIAL SQ SCH ×2 (05:03→17:38)
[2020-05-16] MEDS: *HR* OxyCODONE Immed Rel 15 MG TABLET PO PRN ×2 (05:03→17:54)
[2020-05-16] MEDS: Cyanocobalamin (B-12) 1,000 MCG TABLET PO SCH (08:31)
[2020-05-16] MEDS: Azithromycin 250 MG TABLET PO SCH (08:31)
[2020-05-16] MEDS: Aspirin Enteric Coated 81 MG Tablet PO SCH (08:31)
[2020-05-16] MEDS: Furosemide 20 MG TABLET PO SCH ×2 (08:37→17:39)
[2020-05-16] MEDS: DilTIAZem CD (24hr) 240 MG CAP.ER.24H PO SCH ×2 (08:37→10:39)
[2020-05-16] MEDS: Budesonide/Formoterol 160/4.5 1 PUFF INH IH SCH ×2 (11:04→21:22)
[2020-05-16 14:42] LABS: RSV PCR Body Fluid NOT DETECTED; RVP Body Fluid Source NOT PROVIDED
[2020-05-16 16:06] LABS: Sodium, Urine 31.9 mEq/L
[2020-05-16] MEDS: Albumin 25% 25gram/100mL 25 GM/100 ML IV.SOLN IVPB SCH (17:38)
[2020-05-16 17:45] LABS: Creatinine,Urine 73 mg/dL; Microalbum/Creatinine Ratio,Ur 14 mcg/mg (Less than 30); Microalbumin,Urine 10 mg/L; Protein/Creatinine Ratio,Urine 0.21 mg/mg (0.00-0.20)
[2020-05-16] MEDS ORDERED: *HR* Warfarin 2.5 MG TABLET PO ONE (18:00)
[2020-05-17 02:12] LABS: Hematocrit 34.7 % (37.5-50.1); Hemoglobin 10.6 g/dL (12.9-16.9); Mean Corpuscular HGB Conc 30.5 g/dL (31.6-35.5); Mean Corpuscular Volume 88.5 fL (83.0-100.0); Mean Platelet Volume 11.9 fL (9.4-12.4); Platelet Count 154 K/mcL (140-400); Red Blood Count 3.92 M/mcL (4.19-5.50); Red Cell Distribution Width 15.9 % (11.5-14.5); White Blood Count 6.2 K/mcL (4.3-11.1)
[2020-05-17 02:23] LABS: BUN/Creatinine Ratio 50 (6-26); Blood Urea Nitrogen 65 mg/dL (8-23); Calcium 9.2 mg/dL (8.6-10.3); Carbon Dioxide 23 mEq/L (23-29); Chloride 104 mEq/L (98-107); Glucose 171 mg/dL (70-105); Magnesium 1.8 mg/dL (1.6-2.6); Osmolality,Calculated 301 (280-300); Potassium 4.6 mEq/L (3.5-5.1); Sodium 134 mEq/L (136-145); eGFR For African Americans > 60 (> 60); eGFR For Non-African Americans 53 (> 60)
[2020-05-17 02:34] LABS: INR 1.3; Prothrombin Time 14.4 Seconds (9.4-12.1)
[2020-05-17 02:45] LABS: HSV Source BAL
[2020-05-17 02:46] LABS: Lymphocytes # 1.1 K/mcL (0.6-4.6); Monocytes # 0.1 K/mcL (0.0-1.3); Platelet Estimate Normal (Normal); Reactive Lymphocytes Present (Not Present)
[2020-05-17] MEDS: Levalbuterol Neb 0.63 MG/3 ML IH SCH ×2 (03:22→09:55)
[2020-05-17] MEDS: Furosemide 20 MG TABLET PO SCH (05:41)
[2020-05-17] MEDS: *HR* Heparin 5,000 UNIT/ML VIAL SQ SCH (05:41)
[2020-05-17] MEDS: Albumin 25% 25gram/100mL 25 GM/100 ML IV.SOLN IVPB SCH (05:41)
[2020-05-17] MEDS: *HR* OxyCODONE Immed Rel 15 MG TABLET PO PRN (05:41)
[2020-05-17] MEDS: MethylPREDNISolone 40 MG/ML VIAL IVP SCH (05:41)
[2020-05-17 07:35] LABS: Uric Acid 11.3 mg/dL (2.3-7.6)
[2020-05-17 08:03] VITALS: BP 126/46
[2020-05-17] MEDS: DilTIAZem CD (24hr) 240 MG CAP.ER.24H PO SCH (09:02)
[2020-05-17] MEDS: Azithromycin 250 MG TABLET PO SCH (09:02)
[2020-05-17] MEDS: Cyanocobalamin (B-12) 1,000 MCG TABLET PO SCH (09:02)
[2020-05-17] MEDS: Aspirin Enteric Coated 81 MG Tablet PO SCH (09:02)
[2020-05-17] MEDS ORDERED: Albumin 25% 25gram/100mL 25 GM/100 ML IV.SOLN IVPB SCH (09:30)
[2020-05-17] MEDS: Budesonide/Formoterol 160/4.5 1 PUFF INH IH SCH (09:55)
== END 2020-05-17 11:32 | disposition home or self-care (01) | DRG 280 ==
LOC: EMEROOARM 09:13 → 2ANU 09:13 → SUATTDRO 13:30 → 2ANU 15:27
PROVIDERS: ADMIT Internal Medicine; ATTEND Internal Medicine
PROC: ENDOBRF (2020-05-14 08:40)

== ENCOUNTER 2020-06-08 14:30 | Inpatient (IN) ==
[2020-06-08] MEDS ORDERED: Furosemide 40 MG/4 ML VIAL IVP ONE (15:23)
[2020-06-08 15:46] LABS: Basophils % 0.4 %; Eosinophils # 0.3 K/mcL (0.0-0.6); Eosinophils % 4.1 %; Hematocrit 38.7 % (37.5-50.1); Hemoglobin 11.8 g/dL (12.9-16.9); Immature Granulocytes % 0.3 % (0-4); Lymphocytes # 2.4 K/mcL (0.6-4.6); Lymphocytes % 33.6 %; Mean Corpuscular HGB Conc 30.5 g/dL (31.6-35.5); Mean Corpuscular Hemoglobin 28.6 pg (28.0-33.3); Mean Corpuscular Volume 93.9 fL (83.0-100.0); Mean Platelet Volume 10.6 fL (9.4-12.4); Monocytes # 0.5 K/mcL (0.0-1.3); Neutrophils # 3.9 K/mcL (1.6-8.9); Platelet Count 209 K/mcL (140-400); Red Blood Count 4.12 M/mcL (4.19-5.50); Segmented Neutrophils % 54.6 %; White Blood Count 7.1 K/mcL (4.3-11.1)
[2020-06-08 16:08] LABS: Potassium 4.5 mEq/L (3.5-5.1)
[2020-06-08 16:09] LABS: Calcium 9.4 mg/dL (8.6-10.3)
[2020-06-08 16:11] LABS: Troponin I 0.08 ng/mL (< 0.04)
[2020-06-08 16:13] LABS: Anisocytosis 1+ (Not Present); Reactive Lymphocytes Present (Not Present)
[2020-06-08 16:14] LABS: Hypochromasia Present (Not Present); Platelet Estimate Normal (Normal)
[2020-06-08] MEDS ORDERED: Aminoglycoside Consult 1 EACH MC ONE (18:00)
[2020-06-08] MEDS ORDERED: MOM Conc 10 ML UD.LIQ PO PRN (19:03)
[2020-06-08] MEDS ORDERED: Naloxone 0.4 MG/ML INJ IVP PRN (19:03)
[2020-06-08] MEDS ORDERED: Furosemide 40 MG/4 ML VIAL IVP SCH (21:00)
[2020-06-08] MEDS ORDERED: Warfarin perPT PO PRN (21:04)
[2020-06-08] MEDS: Ipratropium/Albuterol Neb 3 ML IH SCH (21:15)
[2020-06-08] MEDS ORDERED: *HR* Warfarin 2.5 MG TABLET PO ONE (21:15)
[2020-06-08] MEDS: Budesonide/Formoterol 160/4.5 1 PUFF INH IH SCH (21:17)
[2020-06-09] MEDS: Ipratropium/Albuterol Neb 3 ML IH SCH ×4 (04:29→21:34)
[2020-06-09 06:21] LABS: Hematocrit 35.9 % (37.5-50.1); Hemoglobin 10.9 g/dL (12.9-16.9); Mean Corpuscular HGB Conc 30.4 g/dL (31.6-35.5); Mean Corpuscular Hemoglobin 27.9 pg (28.0-33.3); Mean Corpuscular Volume 92.1 fL (83.0-100.0); Mean Platelet Volume 10.5 fL (9.4-12.4); Platelet Count 194 K/mcL (140-400); Red Cell Distribution Width 16.8 % (11.5-14.5); White Blood Count 5.4 K/mcL (4.3-11.1)
[2020-06-09 06:22] LABS: Prothrombin Time 11.5 Seconds (9.4-12.1)
[2020-06-09 06:39] LABS: Calcium 9.2 mg/dL (8.6-10.3); Chol/HDL Ratio 2.8 (0-4.9); Magnesium 1.5 mg/dL (1.6-2.6); Potassium 4.1 mEq/L (3.5-5.1)
[2020-06-09] MEDS ORDERED: Furosemide 40 MG/4 ML VIAL IVP SCH (08:00)
[2020-06-09] MEDS ORDERED: DilTIAZem CD (24hr) 120 MG CAP.ER.24H PO SCH (09:00)
[2020-06-09] MEDS: Budesonide/Formoterol 160/4.5 1 PUFF INH IH SCH ×2 (10:39→21:34)
[2020-06-09] MEDS: Furosemide 240 MG in 0.9 % Sodium Chloride 96 ML IVC SCH (12:05)
[2020-06-09 17:17] LABS: BUN/Creatinine Ratio 24 (6-26); Blood Urea Nitrogen 33 mg/dL (8-23); Calcium 8.6 mg/dL (8.6-10.3); Carbon Dioxide 30 mEq/L (23-29); Chloride 98 mEq/L (98-107); Glucose 123 mg/dL (70-105); Osmolality,Calculated 291 (280-300); Potassium 3.7 mEq/L (3.5-5.1); Sodium 136 mEq/L (136-145); eGFR For African Americans > 60 (> 60); eGFR For Non-African Americans 50 (> 60)
[2020-06-09] MEDS ORDERED: DilTIAZem CD (24hr) 120 MG CAP.ER.24H PO ONE (17:51)
[2020-06-09] MEDS ORDERED: *HR* Warfarin 2.5 MG TABLET PO SCH (18:00)
[2020-06-09] MEDS ORDERED: *HR* Warfarin 2.5 MG TABLET PO ONE (18:00)
[2020-06-09] MEDS: *HR* OxyCODONE Immed Rel 15 MG TABLET PO PRN (18:08)
[2020-06-09] MEDS: Ondansetron ODT 4 MG TAB.RAPDIS SL PRN (18:11)
[2020-06-10 01:27] LABS: Hematocrit 37.4 % (37.5-50.1); Hemoglobin 11.5 g/dL (12.9-16.9); Mean Corpuscular HGB Conc 30.7 g/dL (31.6-35.5); Mean Corpuscular Hemoglobin 27.8 pg (28.0-33.3); Mean Corpuscular Volume 90.6 fL (83.0-100.0); Mean Platelet Volume 10.5 fL (9.4-12.4); Platelet Count 243 K/mcL (140-400); Red Blood Count 4.13 M/mcL (4.19-5.50); Red Cell Distribution Width 16.8 % (11.5-14.5); White Blood Count 6.3 K/mcL (4.3-11.1)
[2020-06-10 01:37] LABS: Prothrombin Time 11.8 Seconds (9.4-12.1)
[2020-06-10 01:50] LABS: BUN/Creatinine Ratio 26 (6-26); Blood Urea Nitrogen 35 mg/dL (8-23); Calcium 8.7 mg/dL (8.6-10.3); Carbon Dioxide 32 mEq/L (23-29); Chloride 99 mEq/L (98-107); Glucose 111 mg/dL (70-105); Osmolality,Calculated 295 (280-300); Potassium 4.2 mEq/L (3.5-5.1); Sodium 138 mEq/L (136-145); eGFR For African Americans > 60 (> 60); eGFR For Non-African Americans 51 (> 60)
[2020-06-10] MEDS: Ipratropium/Albuterol Neb 3 ML IH SCH ×4 (03:19→22:21)
[2020-06-10] MEDS: Ondansetron ODT 4 MG TAB.RAPDIS SL PRN ×2 (03:27→20:07)
[2020-06-10] MEDS ORDERED: DilTIAZem CD (24hr) 120 MG CAP.ER.24H PO SCH (09:00)
[2020-06-10] MEDS: Budesonide/Formoterol 160/4.5 1 PUFF INH IH SCH ×2 (10:19→22:21)
[2020-06-10] MEDS: *HR* OxyCODONE Immed Rel 15 MG TABLET PO PRN ×2 (10:40→17:59)
[2020-06-10] MEDS ORDERED: Furosemide 240 MG in 0.9 % Sodium Chloride 96 ML IVC SCH (11:30)
[2020-06-10] MEDS: Furosemide 240 MG in 0.9 % Sodium Chloride 96 ML IVC SCH (12:00)
[2020-06-10 17:22] LABS: Calcium 8.9 mg/dL (8.6-10.3); Potassium 4.1 mEq/L (3.5-5.1)
[2020-06-10] MEDS ORDERED: *HR* Warfarin 2.5 MG TABLET PO ONE (18:00)
[2020-06-11] MEDS: Ipratropium/Albuterol Neb 3 ML IH SCH ×4 (04:27→22:16)
[2020-06-11] MEDS: Ondansetron ODT 4 MG TAB.RAPDIS SL PRN ×3 (05:37→18:04)
[2020-06-11] MEDS: *HR* OxyCODONE Immed Rel 15 MG TABLET PO PRN ×2 (05:40→17:23)
[2020-06-11 08:18] LABS: Hematocrit 37.4 % (37.5-50.1); Hemoglobin 11.1 g/dL (12.9-16.9); Mean Corpuscular HGB Conc 29.7 g/dL (31.6-35.5); Mean Corpuscular Hemoglobin 27.8 pg (28.0-33.3); Mean Corpuscular Volume 93.5 fL (83.0-100.0); Mean Platelet Volume 10.4 fL (9.4-12.4); Platelet Count 215 K/mcL (140-400); Red Cell Distribution Width 16.6 % (11.5-14.5); White Blood Count 6.2 K/mcL (4.3-11.1)
[2020-06-11 08:28] LABS: INR 1.1; Prothrombin Time 12.4 Seconds (9.4-12.1)
[2020-06-11 08:39] LABS: Calcium 8.8 mg/dL (8.6-10.3); Magnesium 1.5 mg/dL (1.6-2.6); Potassium 4.1 mEq/L (3.5-5.1)
[2020-06-11] MEDS: DilTIAZem CD (24hr) 120 MG CAP.ER.24H PO SCH (09:20)
[2020-06-11] MEDS: Budesonide/Formoterol 160/4.5 1 PUFF INH IH SCH ×2 (09:26→22:16)
[2020-06-11] MEDS ORDERED: Albumin 25% 25gram/100mL 25 GM/100 ML IV.SOLN IVPB ONE (10:56)
[2020-06-11] MEDS: Furosemide 40 MG/4 ML VIAL IVP SCH (16:16)
[2020-06-11 16:30] LABS: Calcium 8.6 mg/dL (8.6-10.3); Potassium 4.3 mEq/L (3.5-5.1)
[2020-06-11] MEDS ORDERED: *HR* Promethazine 25 MG/ML VIAL IVP PRN (17:46)
[2020-06-11] MEDS ORDERED: *HR* Warfarin 5 MG TABLET PO ONE (18:00)
[2020-06-12] MEDS: *HR* OxyCODONE Immed Rel 15 MG TABLET PO PRN ×3 (02:34→17:53)
[2020-06-12] MEDS: Ipratropium/Albuterol Neb 3 ML IH SCH ×2 (03:42→09:44)
[2020-06-12] MEDS ORDERED: *HR* Metoprolol 5 MG/5 ML VIAL IVP ONE (06:20)
[2020-06-12 07:30] LABS: Hemoglobin 11.1 g/dL (12.9-16.9); Mean Corpuscular HGB Conc 30.8 g/dL (31.6-35.5); Mean Corpuscular Hemoglobin 29.1 pg (28.0-33.3); Mean Corpuscular Volume 94.5 fL (83.0-100.0); Mean Platelet Volume 10.9 fL (9.4-12.4); Platelet Count 220 K/mcL (140-400); Red Blood Count 3.81 M/mcL (4.19-5.50); Red Cell Distribution Width 16.5 % (11.5-14.5); White Blood Count 6.3 K/mcL (4.3-11.1)
[2020-06-12 07:32] LABS: INR 1.1; Prothrombin Time 12.2 Seconds (9.4-12.1)
[2020-06-12 07:51] LABS: Magnesium 1.8 mg/dL (1.6-2.6)
[2020-06-12] MEDS ORDERED: Albumin 25% 25gram/100mL 25 GM/100 ML IV.SOLN IVPB ONE ×2 (08:30→12:36)
[2020-06-12] MEDS: DilTIAZem CD (24hr) 120 MG CAP.ER.24H PO SCH (08:53)
[2020-06-12] MEDS: Furosemide 40 MG/4 ML VIAL IVP SCH (08:54)
[2020-06-12] MEDS: Budesonide/Formoterol 160/4.5 1 PUFF INH IH SCH ×2 (09:44→22:38)
[2020-06-12] MEDS ORDERED: *HR* Digoxin 0.5 MG/2 ML AMPUL IVP ONE ×2 (14:45→22:00)
[2020-06-12] MEDS ORDERED: Levalbuterol Neb 0.63 MG/3 ML IH PRN (15:53)
[2020-06-12 16:30] LABS: Potassium 3.9 mEq/L (3.5-5.1)
[2020-06-12] MEDS ORDERED: Furosemide 20 MG TABLET PO SCH (17:00)
[2020-06-12] MEDS: *HR* Enoxaparin 100 MG/ML SYRINGE SQ SCH (17:10)
[2020-06-12] MEDS ORDERED: *HR* Warfarin 5 MG TABLET PO ONE (18:00)
[2020-06-13] MEDS: DilTIAZem 50 MG/50 ML IV.SOLN IVC SCH ×5 (02:08→22:25)
[2020-06-13 03:13] LABS: INR 1.2; Prothrombin Time 13.9 Seconds (9.4-12.1)
[2020-06-13 03:21] LABS: Hematocrit 36.4 % (37.5-50.1); Hemoglobin 11.1 g/dL (12.9-16.9); Mean Corpuscular HGB Conc 30.5 g/dL (31.6-35.5); Mean Corpuscular Hemoglobin 28.4 pg (28.0-33.3); Mean Corpuscular Volume 93.1 fL (83.0-100.0); Mean Platelet Volume 10.7 fL (9.4-12.4); Platelet Count 235 K/mcL (140-400); Red Blood Count 3.91 M/mcL (4.19-5.50); Red Cell Distribution Width 16.3 % (11.5-14.5); White Blood Count 6.2 K/mcL (4.3-11.1)
[2020-06-13 03:25] LABS: BUN/Creatinine Ratio 25 (6-26); Blood Urea Nitrogen 33 mg/dL (8-23); Calcium 9.2 mg/dL (8.6-10.3); Carbon Dioxide 34 mEq/L (23-29); Chloride 99 mEq/L (98-107); Glucose 94 mg/dL (70-105); Osmolality,Calculated 293 (280-300); Potassium 3.9 mEq/L (3.5-5.1); Sodium 138 mEq/L (136-145); eGFR For African Americans > 60 (> 60); eGFR For Non-African Americans 52 (> 60)
[2020-06-13] MEDS: *HR* Enoxaparin 100 MG/ML SYRINGE SQ SCH ×2 (05:41→18:06)
[2020-06-13] MEDS: Budesonide/Formoterol 160/4.5 1 PUFF INH IH SCH ×2 (07:57→20:14)
[2020-06-13 12:39] LABS: Sodium, Urine 63.7 mEq/L
[2020-06-13] MEDS ORDERED: 0.9 % Sodium Chloride 500 ML IVC SCH (13:15)
[2020-06-13 16:47] LABS: BUN/Creatinine Ratio 27 (6-26); Blood Urea Nitrogen 29 mg/dL (8-23); Calcium 9.1 mg/dL (8.6-10.3); Carbon Dioxide 30 mEq/L (23-29); Chloride 101 mEq/L (98-107); Glucose 110 mg/dL (70-105); Osmolality,Calculated 290 (280-300); Potassium 3.9 mEq/L (3.5-5.1); Sodium 137 mEq/L (136-145); eGFR For African Americans > 60 (> 60); eGFR For Non-African Americans > 60 (> 60)
[2020-06-13] MEDS ORDERED: *HR* Warfarin 5 MG TABLET PO ONE (18:00)
[2020-06-13] MEDS: Ondansetron ODT 4 MG TAB.RAPDIS SL PRN (18:56)
[2020-06-13] MEDS: *HR* OxyCODONE Immed Rel 15 MG TABLET PO PRN (20:27)
[2020-06-14] MEDS: DilTIAZem 50 MG/50 ML IV.SOLN IVC SCH ×2 (03:54→19:05)
[2020-06-14] MEDS: *HR* OxyCODONE Immed Rel 15 MG TABLET PO PRN ×3 (04:01→20:04)
[2020-06-14] MEDS: *HR* Enoxaparin 100 MG/ML SYRINGE SQ SCH ×2 (04:55→18:00)
[2020-06-14 06:22] LABS: Hematocrit 37.5 % (37.5-50.1); Hemoglobin 11.5 g/dL (12.9-16.9); Mean Corpuscular HGB Conc 30.7 g/dL (31.6-35.5); Mean Corpuscular Hemoglobin 28.8 pg (28.0-33.3); Mean Platelet Volume 10.8 fL (9.4-12.4); Platelet Count 263 K/mcL (140-400); Red Blood Count 3.99 M/mcL (4.19-5.50); Red Cell Distribution Width 16.4 % (11.5-14.5); White Blood Count 6.8 K/mcL (4.3-11.1)
[2020-06-14 06:40] LABS: INR 1.4; Prothrombin Time 16.2 Seconds (9.4-12.1)
[2020-06-14 06:44] LABS: BUN/Creatinine Ratio 25 (6-26); Blood Urea Nitrogen 27 mg/dL (8-23); Calcium 9.1 mg/dL (8.6-10.3); Carbon Dioxide 35 mEq/L (23-29); Chloride 100 mEq/L (98-107); Glucose 93 mg/dL (70-105); Osmolality,Calculated 291 (280-300); Sodium 138 mEq/L (136-145); eGFR For African Americans > 60 (> 60); eGFR For Non-African Americans > 60 (> 60)
[2020-06-14] MEDS ORDERED: *HR* Amiodarone 200 MG TABLET PO SCH (10:00)
[2020-06-14] MEDS: Budesonide/Formoterol 160/4.5 1 PUFF INH IH SCH ×2 (10:31→21:34)
[2020-06-14] MEDS ORDERED: *HR* Warfarin 5 MG TABLET PO ONE (18:00)
[2020-06-15] MEDS: *HR* Enoxaparin 100 MG/ML SYRINGE SQ SCH ×2 (05:14→17:15)
[2020-06-15] MEDS: *HR* OxyCODONE Immed Rel 15 MG TABLET PO PRN ×3 (05:25→17:15)
[2020-06-15 06:53] LABS: Basophils # 0.1 K/mcL (0.0-0.2); Basophils % 0.7 %; Eosinophils # 0.2 K/mcL (0.0-0.6); Eosinophils % 2.8 %; Hemoglobin 11.4 g/dL (12.9-16.9); Immature Granulocytes % 0.6 % (0-4); Lymphocytes # 1.6 K/mcL (0.6-4.6); Lymphocytes % 24.3 %; Mean Corpuscular HGB Conc 30.8 g/dL (31.6-35.5); Mean Corpuscular Hemoglobin 28.9 pg (28.0-33.3); Mean Corpuscular Volume 93.7 fL (83.0-100.0); Mean Platelet Volume 11.1 fL (9.4-12.4); Monocytes # 0.5 K/mcL (0.0-1.3); Monocytes % 7.6 %; Neutrophils # 4.3 K/mcL (1.6-8.9); Platelet Count 266 K/mcL (140-400); Red Blood Count 3.95 M/mcL (4.19-5.50); Red Cell Distribution Width 16.2 % (11.5-14.5); White Blood Count 6.7 K/mcL (4.3-11.1)
[2020-06-15 06:58] LABS: INR 1.7; Prothrombin Time 18.8 Seconds (9.4-12.1)
[2020-06-15 07:14] LABS: BUN/Creatinine Ratio 26 (6-26); Blood Urea Nitrogen 28 mg/dL (8-23); Calcium 8.9 mg/dL (8.6-10.3); Carbon Dioxide 29 mEq/L (23-29); Chloride 101 mEq/L (98-107); Glucose 86 mg/dL (70-105); Osmolality,Calculated 289 (280-300); Potassium 4.1 mEq/L (3.5-5.1); Sodium 137 mEq/L (136-145); eGFR For African Americans > 60 (> 60); eGFR For Non-African Americans > 60 (> 60)
[2020-06-15] MEDS ORDERED: Acetaminophen 325 MG TABLET PO ONE (08:40)
[2020-06-15] MEDS: Budesonide/Formoterol 160/4.5 1 PUFF INH IH SCH ×2 (10:42→20:12)
[2020-06-15 11:12] LABS: Albumin 3.1 g/dL (3.5-5.7)
[2020-06-15 11:25] LABS: Thyroid Stimulating Hormone 1.12 mcIU/mL (0.340-5.600)
[2020-06-15] MEDS: DilTIAZem CD (24hr) 120 MG CAP.ER.24H PO SCH ×2 (11:25→19:46)
[2020-06-15] MEDS: Furosemide 240 MG in 0.9 % Sodium Chloride 96 ML IVC SCH (12:41)
[2020-06-15] MEDS: Ondansetron ODT 4 MG TAB.RAPDIS SL PRN (14:44)
[2020-06-15] MEDS ORDERED: *HR* Warfarin 5 MG TABLET PO ONE (18:00)
[2020-06-16 02:40] LABS: Hematocrit 35.1 % (37.5-50.1); Hemoglobin 10.6 g/dL (12.9-16.9); INR 1.9; Mean Corpuscular HGB Conc 30.2 g/dL (31.6-35.5); Mean Corpuscular Volume 92.9 fL (83.0-100.0); Mean Platelet Volume 10.7 fL (9.4-12.4); Platelet Count 252 K/mcL (140-400); Prothrombin Time 21.8 Seconds (9.4-12.1); Red Blood Count 3.78 M/mcL (4.19-5.50); Red Cell Distribution Width 16.3 % (11.5-14.5); White Blood Count 6.6 K/mcL (4.3-11.1)
[2020-06-16 02:58] LABS: BUN/Creatinine Ratio 23 (6-26); Blood Urea Nitrogen 29 mg/dL (8-23); Calcium 8.8 mg/dL (8.6-10.3); Carbon Dioxide 31 mEq/L (23-29); Chloride 100 mEq/L (98-107); Glucose 101 mg/dL (70-105); Magnesium 1.7 mg/dL (1.6-2.6); Osmolality,Calculated 286 (280-300); Potassium 3.9 mEq/L (3.5-5.1); Sodium 135 mEq/L (136-145); eGFR For African Americans > 60 (> 60); eGFR For Non-African Americans 55 (> 60)
[2020-06-16] MEDS: *HR* Enoxaparin 100 MG/ML SYRINGE SQ SCH ×2 (05:11→17:33)
[2020-06-16] MEDS: DilTIAZem CD (24hr) 120 MG CAP.ER.24H PO SCH ×2 (08:19→20:22)
[2020-06-16] MEDS: Budesonide/Formoterol 160/4.5 1 PUFF INH IH SCH ×3 (08:24→21:32)
[2020-06-16] MEDS ORDERED: Albumin 25% 25gram/100mL 25 GM/100 ML IV.SOLN IVPB ONE (09:57)
[2020-06-16] MEDS: Furosemide 240 MG in 0.9 % Sodium Chloride 96 ML IVC SCH (11:30)
[2020-06-16] MEDS: Furosemide 40 MG/4 ML VIAL IVP SCH ×2 (11:31→17:33)
[2020-06-16] MEDS: *HR* OxyCODONE Immed Rel 15 MG TABLET PO PRN (17:45)
[2020-06-16] MEDS ORDERED: *HR* Warfarin 5 MG TABLET PO ONE (18:00)
[2020-06-17] MEDS: Furosemide 40 MG/4 ML VIAL IVP SCH (02:44)
[2020-06-17] MEDS: *HR* OxyCODONE Immed Rel 15 MG TABLET PO PRN ×3 (02:47→16:06)
[2020-06-17 03:06] LABS: Hemoglobin 11.4 g/dL (12.9-16.9); Mean Corpuscular HGB Conc 30.8 g/dL (31.6-35.5); Mean Corpuscular Hemoglobin 28.6 pg (28.0-33.3); Mean Platelet Volume 10.5 fL (9.4-12.4); Platelet Count 259 K/mcL (140-400); Red Blood Count 3.98 M/mcL (4.19-5.50); White Blood Count 6.6 K/mcL (4.3-11.1)
[2020-06-17 03:11] LABS: INR 2.1; Prothrombin Time 23.9 Seconds (9.4-12.1)
[2020-06-17 03:27] LABS: BUN/Creatinine Ratio 23 (6-26); Blood Urea Nitrogen 29 mg/dL (8-23); Calcium 9.4 mg/dL (8.6-10.3); Carbon Dioxide 34 mEq/L (23-29); Chloride 98 mEq/L (98-107); Glucose 100 mg/dL (70-105); Magnesium 1.6 mg/dL (1.6-2.6); Osmolality,Calculated 294 (280-300); Potassium 3.7 mEq/L (3.5-5.1); Sodium 139 mEq/L (136-145); eGFR For African Americans > 60 (> 60); eGFR For Non-African Americans 56 (> 60)
[2020-06-17] MEDS: *HR* Enoxaparin 100 MG/ML SYRINGE SQ SCH (05:38)
[2020-06-17] MEDS ORDERED: Furosemide 40 MG TABLET PO SCH ×2 (08:45→17:00)
[2020-06-17] MEDS: DilTIAZem CD (24hr) 120 MG CAP.ER.24H PO SCH ×2 (09:00→20:42)
[2020-06-17] MEDS: Budesonide/Formoterol 160/4.5 1 PUFF INH IH SCH ×2 (09:45→20:05)
[2020-06-17] MEDS ORDERED: Magnesium Sulfate 1 GM/102 ML PIGGYBACK IVPB ONE (10:01)
[2020-06-17] MEDS ORDERED: metOLazone 5 MG TABLET PO ONE (11:16)
[2020-06-17 11:55] LABS: Albumin 3.4 g/dL (3.5-5.7)
[2020-06-17] MEDS ORDERED: *HR* Warfarin 5 MG TABLET PO ONE (18:00)
[2020-06-17] MEDS ORDERED: Albumin 25% 25gram/100mL 25 GM/100 ML IV.SOLN IVPB ONE (20:30)
[2020-06-17] MEDS: Furosemide 40 MG TABLET PO SCH (20:41)
[2020-06-17] MEDS ORDERED: Melatonin 3 MG TABLET PO ONE (21:00)
[2020-06-17] MEDS ORDERED: Furosemide 40 MG/4 ML VIAL IVP SCH (21:00)
[2020-06-18 02:12] LABS: INR 2.2; Prothrombin Time 24.7 Seconds (9.4-12.1)
[2020-06-18 02:29] LABS: BUN/Creatinine Ratio 23 (6-26); Blood Urea Nitrogen 30 mg/dL (8-23); Calcium 9.3 mg/dL (8.6-10.3); Carbon Dioxide 34 mEq/L (23-29); Chloride 98 mEq/L (98-107); Glucose 106 mg/dL (70-105); Magnesium 1.7 mg/dL (1.6-2.6); Osmolality,Calculated 291 (280-300); Potassium 3.7 mEq/L (3.5-5.1); Sodium 137 mEq/L (136-145); eGFR For African Americans > 60 (> 60); eGFR For Non-African Americans 52 (> 60)
[2020-06-18] MEDS: Budesonide/Formoterol 160/4.5 1 PUFF INH IH SCH (07:48)
[2020-06-18] MEDS: DilTIAZem CD (24hr) 120 MG CAP.ER.24H PO SCH (08:38)
[2020-06-18] MEDS: Furosemide 40 MG TABLET PO SCH (08:38)
[2020-06-18 08:46] VITALS: BP 97/59
[2020-06-18] MEDS ORDERED: metOLazone 5 MG TABLET PO SCH (09:30)
[2020-06-18] MEDS ORDERED: *HR* Warfarin 4 MG TABLET PO ONE (18:00)
== END 2020-06-18 11:40 | disposition home health service (06) | DRG 292 ==
LOC: EMEROOARM 14:30 → 3BNU 14:30 → SUATTDRO 17:25 → 3BNU 18:20 → SUATTDRO 06-09 15:00 → 2ANU 06-12 14:33
PROVIDERS: ADMIT Internal Medicine; ATTEND Internal Medicine

== ENCOUNTER 2020-06-22 19:05 | Observation (INO) ==
[2020-06-22] MEDS ORDERED: Ipratropium/Albuterol Neb 3 ML IH ONE (19:39)
[2020-06-22] MEDS ORDERED: Dexamethasone 4 MG/ML VIAL IVP ONE (19:39)
[2020-06-22] MEDS ORDERED: levoFLOXacin 750 MG/150 ML 750 MG/150 ML BAG IVPB ONE (19:54)
[2020-06-22] MEDS ORDERED: Dexamethasone 10 MG/ML VIAL IVP ONE (20:00)
[2020-06-22 20:04] LABS: ABG Base Excess 8 mEq/L (-2 to 3); ABG HCO3 34 mEq/L (21-27); ABG Oxygen Saturation 90 % (95-98); ABG PCO2 50 mmHg (35-45); ABG PH 7.43 pH Units (7.32-7.45); ABG PO2 59 mmHg (85-104); ABG TCO2 35 mEq/L (20-26); Blood Gas Modality 5LPM
[2020-06-22] MEDS ORDERED: Furosemide 60 MG in 0.9 % Sodium Chloride 50 ML IV ONE (20:19)
[2020-06-22 20:20] LABS: Basophils # 0.1 K/mcL (0.0-0.2); Basophils % 0.6 %; Eosinophils # 0.2 K/mcL (0.0-0.6); Eosinophils % 1.4 %; Hematocrit 39.1 % (37.5-50.1); Hemoglobin 11.9 g/dL (12.9-16.9); Immature Granulocytes % 1.2 % (0-4); Lymphocytes # 1.8 K/mcL (0.6-4.6); Lymphocytes % 12.7 %; Mean Corpuscular HGB Conc 30.4 g/dL (31.6-35.5); Mean Corpuscular Hemoglobin 28.3 pg (28.0-33.3); Mean Corpuscular Volume 92.9 fL (83.0-100.0); Mean Platelet Volume 11.1 fL (9.4-12.4); Monocytes % 7.1 %; Platelet Count 291 K/mcL (140-400); Red Blood Count 4.21 M/mcL (4.19-5.50)
[2020-06-22 20:22] LABS: Neutrophils # 10.9 K/mcL (1.6-8.9); White Blood Count 14.1 K/mcL (4.3-11.1)
[2020-06-22 20:29] LABS: INR 2.1; Prothrombin Time 24.4 Seconds (9.4-12.1)
[2020-06-22 20:44] LABS: Calcium 9.9 mg/dL (8.6-10.3); Potassium 3.7 mEq/L (3.5-5.1)
[2020-06-22] MEDS ORDERED: 0.9 % Sodium Chloride 250 ML IV ONE (20:51)
[2020-06-22 20:56] LABS: Troponin I 0.11 ng/mL (< 0.04)
[2020-06-22 21:12] LABS: Platelet Estimate Normal (Normal)
[2020-06-22] MEDS: DilTIAZem 50 MG/50 ML IV.SOLN IVC SCH (22:14)
[2020-06-22 22:15] LABS: Adenovirus Not Detected (Not Detect); Bordetella Pertussis Not Detected (Not Detect); Chlamydophila pneumoniae Not Detected (Not Detect); Coronavirus 229E Not Detected (Not Detect); Coronavirus HKU1 Not Detected (Not Detect); Coronavirus NL63 Not Detected (Not Detect); Coronavirus OC43 Not Detected (Not Detect); Human Metapneumovirus Not Detected (Not Detect); Human Rhinovirus/Enterovirus Not Detected (Not Detect); Influenza A Subtype 2009 H1 Not Detected (Not Detect); Influenza B Not Detected (Not Detect); Mycoplasma pneumoniae Not Detected (Not Detect); Parainfluenza Virus 1 Not Detected (Not Detect); Parainfluenza Virus 2 Not Detected (Not Detect); Parainfluenza Virus 3 Not Detected (Not Detect); Parainfluenza Virus 4 Not Detected (Not Detect); Respiratory Syncytial Virus Not Detected (Not Detect)
[2020-06-22 22:16] LABS: SARS-CoV-2 Not Detected (Not Detect)
[2020-06-22] MEDS ORDERED: *HR* OxyCODONE Immed Rel 5 MG TABLET PO ONE (22:21)
[2020-06-22] MEDS ORDERED: Naloxone 0.4 MG/ML INJ IVP PRN (22:25)
[2020-06-23] MEDS ORDERED: Levalbuterol Neb 1.25 MG/3 ML IH PRN (00:16)
[2020-06-23 00:55] LABS: INR 2.2; Prothrombin Time 24.7 Seconds (9.4-12.1)
[2020-06-23 00:59] LABS: Hemoglobin 11.2 g/dL (12.9-16.9); Mean Corpuscular HGB Conc 31.1 g/dL (31.6-35.5); Mean Corpuscular Hemoglobin 28.7 pg (28.0-33.3); Mean Corpuscular Volume 92.3 fL (83.0-100.0); Mean Platelet Volume 11.1 fL (9.4-12.4); Monocytes # 0.1 K/mcL (0.0-1.3); Platelet Count 258 K/mcL (140-400); Red Cell Distribution Width 15.9 % (11.5-14.5); White Blood Count 13.4 K/mcL (4.3-11.1)
[2020-06-23 01:03] LABS: Albumin 3.6 g/dL (3.5-5.7); Albumin/Globulin Ratio 1.1 (1.1-2.2); Bilirubin,Total 0.4 mg/dL (0.3-1.0); Calcium 9.9 mg/dL (8.6-10.3); Globulin 3.3 g/dL (2.4-3.5); Potassium 3.8 mEq/L (3.5-5.1); Total Protein 6.9 g/dL (6.4-8.9)
[2020-06-23 01:37] LABS: Lymphocytes # 0.3 K/mcL (0.6-4.6); Platelet Estimate Normal (Normal); Reactive Lymphocytes Present (Not Present)
[2020-06-23] MEDS: DilTIAZem 50 MG/50 ML IV.SOLN IVC SCH ×2 (03:08→08:35)
[2020-06-23] MEDS: Levalbuterol Neb 1.25 MG/3 ML IH SCH ×4 (03:47→21:44)
[2020-06-23] MEDS: Furosemide 40 MG/4 ML VIAL IVP SCH ×2 (07:44→21:32)
[2020-06-23] MEDS ORDERED: Doxycycline 100 MG in 0.9 % Sodium Chloride Mini Bag 100 ML IVPB SCH (09:14)
[2020-06-23] MEDS: Budesonide/Formoterol 160/4.5 1 PUFF INH IH SCH ×2 (09:44→21:44)
[2020-06-23 09:59] LABS: C-Reactive Protein 20 mg/L (Less than 10)
[2020-06-23 10:17] LABS: Ferritin 151 ng/mL (20-250)
[2020-06-23] MEDS: Piperacillin/Tazobactam 3.375 GM in 0.9 % Sodium Chloride Mini Bag 100 ML IVPB SCH ×2 (10:20→17:06)
[2020-06-23] MEDS ORDERED: Aminoglycoside Consult 1 EACH MC ONE (10:23)
[2020-06-23] MEDS: *HR* OxyCODONE Immed Rel 15 MG TABLET PO PRN ×2 (11:04→17:24)
[2020-06-23] MEDS: DilTIAZem CD (24hr) 240 MG CAP.ER.24H PO SCH (11:04)
[2020-06-23 14:56] LABS: Calcium 9.8 mg/dL (8.6-10.3); Potassium 3.6 mEq/L (3.5-5.1)
[2020-06-23] MEDS: MethylPREDNISolone 40 MG/ML VIAL IVP SCH (15:46)
[2020-06-23] MEDS ORDERED: Piperacillin/Tazobactam 3.375 GM in 0.9 % Sodium Chloride Mini Bag 100 ML IVPB SCH (16:00)
[2020-06-23] MEDS ORDERED: Warfarin perPT PO PRN ×2 (18:00)
[2020-06-23] MEDS ORDERED: *HR* Warfarin 3 MG TABLET PO ONE ×2 (18:00)
[2020-06-23] MEDS: Albumin 25% 25gram/100mL 25 GM/100 ML IV.SOLN IVPB SCH (19:31)
[2020-06-23] MEDS: Ondansetron 4 MG/2 ML VIAL IVP PRN (19:31)
[2020-06-24] MEDS: Piperacillin/Tazobactam 3.375 GM in 0.9 % Sodium Chloride Mini Bag 100 ML IVPB SCH ×4 (00:17→23:07)
[2020-06-24] MEDS: MethylPREDNISolone 40 MG/ML VIAL IVP SCH ×4 (00:17→23:07)
[2020-06-24] MEDS: Levalbuterol Neb 1.25 MG/3 ML IH SCH ×4 (03:32→21:51)
[2020-06-24 05:35] LABS: Hemoglobin 10.6 g/dL (12.9-16.9); Mean Corpuscular HGB Conc 32.1 g/dL (31.6-35.5); Mean Corpuscular Hemoglobin 29.4 pg (28.0-33.3); Mean Corpuscular Volume 91.4 fL (83.0-100.0); Mean Platelet Volume 10.9 fL (9.4-12.4); Platelet Count 223 K/mcL (140-400); Red Blood Count 3.61 M/mcL (4.19-5.50); Red Cell Distribution Width 15.8 % (11.5-14.5); White Blood Count 11.6 K/mcL (4.3-11.1)
[2020-06-24 05:42] LABS: Prothrombin Time 22.4 Seconds (9.4-12.1)
[2020-06-24 05:53] LABS: Calcium 9.9 mg/dL (8.6-10.3); Potassium 4.1 mEq/L (3.5-5.1)
[2020-06-24] MEDS: Furosemide 40 MG/4 ML VIAL IVP SCH (08:25)
[2020-06-24] MEDS ORDERED: levoFLOXacin 750 MG/150 ML 750 MG/150 ML BAG IVPB SCH ×2 (09:00→21:00)
[2020-06-24] MEDS: Albumin 25% 25gram/100mL 25 GM/100 ML IV.SOLN IVPB SCH ×2 (09:53→19:26)
[2020-06-24] MEDS: Budesonide/Formoterol 160/4.5 1 PUFF INH IH SCH ×2 (10:42→21:51)
[2020-06-24 11:05] LABS: Bilirubin,Urine Negative (Negative); Blood,Urine Negative (Negative); Clarity,Urine Clear (Clear); Color,Urine Light-Yellow (Yellow); Glucose,Urine (UA) Normal (Normal); Ketones,Urine Negative (Negative); Leukocyte Esterase,Urine Negative (Negative); Nitrite,Urine Negative (Negative); Protein,Urine Trace mg/dL (Neg-Trace); Specific Gravity,Urine 1.019 (1.010-1.025); Urobilinogen,Urine Normal (Normal)
[2020-06-24] MEDS: *HR* OxyCODONE Immed Rel 15 MG TABLET PO PRN ×2 (14:20→20:23)
[2020-06-24] MEDS ORDERED: *HR* Warfarin 4 MG TABLET PO ONE (18:00)
[2020-06-24] MEDS: Ondansetron 4 MG/2 ML VIAL IVP PRN (19:24)
[2020-06-25 02:52] LABS: Basophils % 0.3 %; Hematocrit 30.8 % (37.5-50.1); Hemoglobin 9.5 g/dL (12.9-16.9); Immature Granulocytes % 1.4 % (0-4); Lymphocytes # 1.2 K/mcL (0.6-4.6); Lymphocytes % 10.4 %; Mean Corpuscular HGB Conc 30.8 g/dL (31.6-35.5); Mean Corpuscular Hemoglobin 27.9 pg (28.0-33.3); Mean Corpuscular Volume 90.6 fL (83.0-100.0); Mean Platelet Volume 11.4 fL (9.4-12.4); Monocytes # 0.2 K/mcL (0.0-1.3); Monocytes % 1.4 %; Neutrophils # 9.6 K/mcL (1.6-8.9); Platelet Count 204 K/mcL (140-400); Prothrombin Time 22.4 Seconds (9.4-12.1); Red Cell Distribution Width 15.9 % (11.5-14.5); Segmented Neutrophils % 86.5 %; White Blood Count 11.1 K/mcL (4.3-11.1)
[2020-06-25 03:06] LABS: Calcium 9.8 mg/dL (8.6-10.3); Magnesium 1.7 mg/dL (1.6-2.6); Potassium 4.2 mEq/L (3.5-5.1)
[2020-06-25] MEDS: Levalbuterol Neb 1.25 MG/3 ML IH SCH (03:32)
[2020-06-25 03:36] LABS: Platelet Estimate Normal (Normal); Reactive Lymphocytes Present (Not Present)
[2020-06-25] MEDS: Piperacillin/Tazobactam 3.375 GM in 0.9 % Sodium Chloride Mini Bag 100 ML IVPB SCH ×3 (07:47→23:57)
[2020-06-25] MEDS: *HR* OxyCODONE Immed Rel 15 MG TABLET PO PRN ×2 (07:48→20:11)
[2020-06-25] MEDS: MethylPREDNISolone 40 MG/ML VIAL IVP SCH ×3 (07:48→23:56)
[2020-06-25] MEDS: Albumin 25% 25gram/100mL 25 GM/100 ML IV.SOLN IVPB SCH (07:48)
[2020-06-25] MEDS: Furosemide 40 MG/4 ML VIAL IVP SCH (07:49)
[2020-06-25] MEDS: DilTIAZem CD (24hr) 240 MG CAP.ER.24H PO SCH (07:51)
[2020-06-25] MEDS ORDERED: Levalbuterol Neb 0.63 MG/3 ML IH PRN (08:23)
[2020-06-25] MEDS ORDERED: DilTIAZem CD (24hr) 120 MG CAP.ER.24H PO SCH (09:00)
[2020-06-25] MEDS ORDERED: *HR* LORazepam 2 MG/ML VIAL IVP ONE (10:17)
[2020-06-25] MEDS ORDERED: *HR* LORazepam 2 MG/ML VIAL ONE (10:20)
[2020-06-25] MEDS: Levalbuterol Neb 0.63 MG/3 ML IH SCH ×3 (11:20→22:34)
[2020-06-25] MEDS: Budesonide/Formoterol 160/4.5 1 PUFF INH IH SCH ×2 (11:20→23:35)
[2020-06-25] MEDS ORDERED: Haloperidol Lactate 5 MG/ML VIAL IVP ONE ×2 (17:26→17:45)
[2020-06-25] MEDS ORDERED: *HR* Warfarin 4 MG TABLET PO ONE (18:00)
[2020-06-25] MEDS ORDERED: *HR* Promethazine 25 MG/ML VIAL IVP ONE (20:09)
[2020-06-26] MEDS ORDERED: Haloperidol Lactate 5 MG/ML VIAL IVP ONE (03:20)
[2020-06-26] MEDS ORDERED: *HR* Promethazine 25 MG/ML VIAL IVP ONE (03:26)
[2020-06-26] MEDS: Levalbuterol Neb 0.63 MG/3 ML IH SCH (03:42)
[2020-06-26 04:00] LABS: Basophils % 0.2 %; Hematocrit 35.7 % (37.5-50.1); Hemoglobin 11.1 g/dL (12.9-16.9); Immature Granulocytes % 1.7 % (0-4); Lymphocytes # 1.4 K/mcL (0.6-4.6); Lymphocytes % 11.5 %; Mean Corpuscular HGB Conc 31.1 g/dL (31.6-35.5); Mean Corpuscular Hemoglobin 28.8 pg (28.0-33.3); Mean Corpuscular Volume 92.7 fL (83.0-100.0); Mean Platelet Volume 11.4 fL (9.4-12.4); Monocytes # 0.4 K/mcL (0.0-1.3); Monocytes % 3.3 %; Neutrophils # 10.3 K/mcL (1.6-8.9); Platelet Count 207 K/mcL (140-400); Red Blood Count 3.85 M/mcL (4.19-5.50); Segmented Neutrophils % 83.3 %; White Blood Count 12.3 K/mcL (4.3-11.1)
[2020-06-26 04:04] LABS: INR 1.8
[2020-06-26 04:27] LABS: Platelet Estimate Normal (Normal)
[2020-06-26 04:54] LABS: Calcium 10.1 mg/dL (8.6-10.3); Magnesium 1.8 mg/dL (1.6-2.6); Potassium 4.2 mEq/L (3.5-5.1)
[2020-06-26] MEDS ORDERED: *HR* LORazepam 2 MG/ML VIAL IVP ONE (06:24)
[2020-06-26 06:52] VITALS: BP 125/82
[2020-06-26] MEDS ORDERED: QUEtiapine Fumarate 25 MG TABLET PO SCH (09:00)
[2020-06-26] MEDS ORDERED: Furosemide 40 MG TABLET PO SCH (09:00)
[2020-06-26] MEDS: MethylPREDNISolone 40 MG/ML VIAL IVP SCH (09:43)
[2020-06-26] MEDS: Piperacillin/Tazobactam 3.375 GM in 0.9 % Sodium Chloride Mini Bag 100 ML IVPB SCH (09:43)
[2020-06-26] MEDS ORDERED: *HR* Warfarin 3 MG TABLET PO ONE (18:00)
== END 2020-06-26 10:24 | disposition home health service (06) ==
LOC: 2NNU 19:05 → EMEROOARM 19:05 → SUATTDRO 22:23 → 2NNU 22:59 → 2ANU 06-25 17:29
PROVIDERS: ADMIT Family Medicine; ATTEND Pharmacist

== ENCOUNTER 2020-06-30 11:15 | Observation (INO) ==
[2020-06-30] MEDS ORDERED: 0.9 % Sodium Chloride 1,000 ML IV ONE (12:16)
[2020-06-30 12:20] LABS: Basophils # 0.1 K/mcL (0.0-0.2); Basophils % 0.5 %; Eosinophils # 0.6 K/mcL (0.0-0.6); Eosinophils % 3.2 %; Hematocrit 39.8 % (37.5-50.1); Immature Granulocytes % 3.7 % (0-4); Lymphocytes # 1.8 K/mcL (0.6-4.6); Lymphocytes % 10.1 %; Mean Corpuscular HGB Conc 30.4 g/dL (31.6-35.5); Mean Corpuscular Hemoglobin 28.3 pg (28.0-33.3); Mean Corpuscular Volume 93.2 fL (83.0-100.0); Mean Platelet Volume 11.6 fL (9.4-12.4); Monocytes # 1.1 K/mcL (0.0-1.3); Monocytes % 6.1 %; Neutrophils # 13.3 K/mcL (1.6-8.9); Platelet Count 245 K/mcL (140-400); Red Blood Count 4.27 M/mcL (4.19-5.50); Red Cell Distribution Width 16.2 % (11.5-14.5); Segmented Neutrophils % 76.4 %
[2020-06-30 12:21] LABS: Bilirubin,Urine Negative (Negative); Blood,Urine Negative (Negative); Clarity,Urine Clear (Clear); Color,Urine Light-Yellow (Yellow); Glucose,Urine (UA) Normal (Normal); Hyaline Casts,Urine Few per lpf (None Seen); Ketones,Urine Negative (Negative); Leukocyte Esterase,Urine Small (Negative); Nitrite,Urine Negative (Negative); Protein,Urine Trace mg/dL (Neg-Trace); RBC,Urine 0-3 per hpf (0-3); Specific Gravity,Urine 1.016 (1.010-1.025); Squamous Epithelial Cell,Urine Few per hpf (None-Few); Urobilinogen,Urine Normal (Normal); WBC,Urine 0-3 per hpf (0-3)
[2020-06-30 12:26] LABS: Hemoglobin 12.1 g/dL (12.9-16.9); White Blood Count 17.4 K/mcL (4.3-11.1)
[2020-06-30 12:28] LABS: INR 2.7; Prothrombin Time 30.7 Seconds (9.4-12.1)
[2020-06-30 12:31] LABS: Activated Partial Thrombo Time 37.5 Seconds (26.0-36.0)
[2020-06-30 12:40] LABS: Albumin 3.9 g/dL (3.5-5.7); Albumin/Globulin Ratio 1.3 (1.1-2.2); Bilirubin,Direct 0.1 mg/dL (0.0-0.2); Bilirubin,Indirect 0.3 mg/dL (0.0-1.0); Bilirubin,Total 0.4 mg/dL (0.3-1.0); Total Protein 6.9 g/dL (6.4-8.9)
[2020-06-30 12:43] LABS: Calcium 9.8 mg/dL (8.6-10.3); Potassium 4.2 mEq/L (3.5-5.1)
[2020-06-30 12:48] LABS: Troponin I 0.15 ng/mL (< 0.04)
[2020-06-30] MEDS ORDERED: Piperacillin/Tazobactam 3.375 GM in Water for inj. (sterile) 20 ML IVP ONE (13:05)
[2020-06-30] MEDS ORDERED: Naloxone 0.4 MG/ML INJ IVP PRN (17:02)
[2020-06-30] MEDS ORDERED: 0.9 % Sodium Chloride 1,000 ML IVC SCH (17:15)
[2020-06-30] MEDS ORDERED: Vancomycin 1,500 MG/265 ML IV.SOLN IVPB ONE (17:29)
[2020-06-30] MEDS ORDERED: Piperacillin/Tazobactam 3.375 GM VIAL ONE (17:58)
[2020-06-30] MEDS ORDERED: *HR* Warfarin 4 MG TABLET PO SCH (18:00)
[2020-06-30] MEDS: Piperacillin/Tazobactam 3.375 GM in 0.9 % Sodium Chloride Mini Bag 100 ML IVPB SCH (18:02)
[2020-06-30] MEDS: Budesonide/Formoterol 160/4.5 1 PUFF INH IH SCH (20:15)
[2020-06-30] MEDS ORDERED: *HR* Metoprolol 5 MG/5 ML VIAL IVP PRN (20:44)
[2020-06-30] MEDS ORDERED: QUEtiapine Fumarate 25 MG TABLET PO SCH (21:00)
[2020-06-30] MEDS ORDERED: Levalbuterol Neb 0.63 MG/3 ML IH PRN (22:00)
[2020-07-01 00:46] LABS: Basophils % 0.2 %; Eosinophils # 0.6 K/mcL (0.0-0.6); Eosinophils % 4.4 %; Hematocrit 35.4 % (37.5-50.1); Hemoglobin 11.1 g/dL (12.9-16.9); Immature Granulocytes % 2.8 % (0-4); Lymphocytes # 1.5 K/mcL (0.6-4.6); Lymphocytes % 11.1 %; Mean Corpuscular HGB Conc 31.4 g/dL (31.6-35.5); Mean Corpuscular Hemoglobin 29.1 pg (28.0-33.3); Mean Corpuscular Volume 92.9 fL (83.0-100.0); Mean Platelet Volume 11.2 fL (9.4-12.4); Monocytes # 0.9 K/mcL (0.0-1.3); Monocytes % 6.3 %; Neutrophils # 10.3 K/mcL (1.6-8.9); Platelet Count 202 K/mcL (140-400); Red Blood Count 3.81 M/mcL (4.19-5.50); Red Cell Distribution Width 15.9 % (11.5-14.5); Segmented Neutrophils % 75.2 %; White Blood Count 13.7 K/mcL (4.3-11.1)
[2020-07-01 00:47] LABS: INR 2.8; Prothrombin Time 31.9 Seconds (9.4-12.1)
[2020-07-01 00:50] LABS: Activated Partial Thrombo Time 38.7 Seconds (26.0-36.0)
[2020-07-01 01:02] LABS: Calcium 9.3 mg/dL (8.6-10.3); Magnesium 1.5 mg/dL (1.6-2.6); Phosphorous 2.3 mg/dL (2.7-4.5); Potassium 3.9 mEq/L (3.5-5.1)
[2020-07-01] MEDS ORDERED: Haloperidol Lactate 5 MG/ML VIAL IVP PRN (01:08)
[2020-07-01 06:59] VITALS: BP 108/81
[2020-07-01] MEDS: Budesonide/Formoterol 160/4.5 1 PUFF INH IH SCH (07:49)
[2020-07-01] MEDS: Piperacillin/Tazobactam 3.375 GM in 0.9 % Sodium Chloride Mini Bag 100 ML IVPB SCH (07:54)
[2020-07-01] MEDS ORDERED: Vancomycin 1,250 MG/262.5 ML IV.SOLN IVPB SCH (18:00)
== END 2020-07-01 14:11 | disposition home or self-care (01) ==
LOC: EMEROOARM 11:15 → 3BNU 11:15 → SUATTDRO 14:54 → 3BNU 15:53
PROVIDERS: ADMIT Family Medicine; ATTEND Internal Medicine